=== PATIENT | female | born 1950 | race Caucasian/White ===

== ENCOUNTER 2016-06-28 13:11 | Outpatient (RCR) | payer MEDICARE ==
[~2016-06-28] VITALS: Ht 170.2 cm; Wt 102.5 kg
[~2016-06-28 13:11] MED LIST: ALBU8.5H2 IN; ALLP300T PO; BUTA-167; DIAZ2TAB2 PO; DULO60CA6; DULO60CA6 PO; ESTR1TAB27 PO; ESTR2TAB PO; ESTROGEN; FAMO20TA5 PO; HALOPERIDOL; HCT25T PO; HCTZ; HDR4T PO; HYDR1TAB86 PO; HYDROCODONE; MNTL10T; MNTL10T PO; OMEP10CA2; OXYC10TA63 PO; OXYC40TA49 PO; OXYC60TA9 PO; PHEN100T26 PO; PHEN200T27 PO; PRM25T; PRM25T PO; PROM25SU10 PR; RAMI10TA PO; SINGULAIR; SULF1TAB38 PO; THIA50TA7; TRAZ150T42; TRAZODONE; TRM50T PO; TRZ50T PO; VITAMIN D3; VITAMIN E
--- OUTSIDE RECORDS SUMMARY | 2016-06-28 13:15 | XMS REPORT | Continuity of Care Document ---
Author Author [facility] Organization [facility] Address Unknown Phone Unavailable Care Team Providers Care Furnace Utility Operator Name Role Phone Zack Barraza PCP [phone] Source Comments Some departments are not documenting in the electronic medical record. If you do not see the information that you expected, contact Release of Information in the Health Information Management department at [phone] for further assistance in locating additional records.[facility] Active Allergies and Adverse Reactions Allergen Noted Date Severity Reactions Comments Adhesive Tape 07/11/2007 TEARS SKIN Tetanus Vaccines And 05/22/2005 Medium Allergy recorded in SMS: Toxoid Tetanus~Reactions: ANAPHYLAXIS Current Medications Prescription Sig. Disp. Refills Start End Date Status Date estradiol (ESTRACE) 2 mg Take 2 mg by mouth Daily. 07/11/19 Active tablet 08 allopurinol (ZYLOPRIM) Take 300 mg by mouth 07/11/19 Active 300 mg tablet Every Morning. 08 ramipril (ALTACE) 10 mg Take 10 mg by mouth Every 07/11/19 Active capsule Morning. 08 hydrochlorothiazide Take 25 mg by mouth Every 07/11/19 Active (HYDRODIURIL) 25 mg Morning. 08 tablet meloxicam (MOBIC) 15 mg Take 15 mg by mouth Every 07/11/19 Active tablet Morning. 08 montelukast (SINGULAIR) Take 10 mg by mouth At 07/11/19 Active 10 mg tablet Bedtime Daily. 08 vitamins, B complex Take 1 Tab by mouth 07/11/19 Active (VITAMIN B-100 COMPLEX) Daily. 08 Tab trazodone (DESYREL) 150 Take 150 mg by mouth At 07/11/19 Active mg tablet Bedtime Daily. 08 pregabalin (LYRICA) 75 mg Take 75 mg by mouth At 07/11/19 Active capsule Bedtime Daily. 08 butalbital/aspirin/caffei Take 1 Cap by mouth As 07/11/19 Active ne(+) (FIORINAL) Needed for Pain. HEADACHE 08 325/40/50 mg capsule promethazine (PHENERGAN) Take 25 mg by mouth At 07/11/19 Active 25 mg tablet Bedtime Daily. 08 ferrous sulfate 325 (65) Take 1 Tab by mouth 60 0 07/18/19 Active mg tablet Daily. 08 fondaparinux (ARIXTRA) Inject 0.5 mL into 10 0 07/18/19 Active 2.5 mg/0.5 mL Syrg area(s) as directed 08 Daily. docusate (COLACE) 100 mg Take 1 Cap by mouth Twice 60 1 07/18/19 Active capsule Daily. 08 oxycodone SR (OXYCONTIN) Take 1 Tab by mouth Every 90 0 07/18/19 Active 40 mg tablet 8 Hours. 08 hydromorphone (DILAUDID) Take 1-3 Tabs by mouth 150 0 07/18/19 Active 4 mg tablet Every 2 Hours as needed 08 for Pain. Active Problems Problem Noted Date Hip arthritis 07/18/2007 Cough 07/17/2007 Social History Tobacco Use Types Packs/Day Years Used Date Never Smoker Alcohol Use Drinks/Week oz/Week Comments No Last Filed Vital Signs Vital Sign Reading Time Taken Blood Pressure 143/76 07/18/2007 5:40 AM SYSTEM PLANNING ENGINEER Pulse 86 07/18/2007 5:40 AM SYSTEM PLANNING ENGINEER Temperature 38.3 C (100.9 F) 07/18/2007 5:40 AM SYSTEM PLANNING ENGINEER Respiratory Rate - - Height - - Weight - - Body Mass Index - - Oxygen Saturation 99% 07/18/2007 5:40 AM SYSTEM PLANNING ENGINEER Plan of Care Health Maintenance Due Date Last Done Comments Physical (Comprehensive) 1957 Exam Pertussis Vaccine 1959 Tetanus Vaccine 1965 Breast Cancer Screening 1988 Colorectal Cancer 1998 Screening Shingles Vaccine 2008 Osteoporosis Screening 2013 Prevnar/Pneumovax (#1) 2013 Influenza Vaccine 02/23/2016 Results from Last 3 Months Not on file
[2016-06-28] MEDS ORDERED: HEParin (CENTRAL IV FLUSH) 500 UNIT/5 ML SYR ONE (13:20)
[2016-06-28 13:40] VITALS: BP 135/70
== END 2016-09-26 | disposition home or self-care (01) ==
LOC: SDC 13:11
DX: I87.2 Venous insufficiency (chronic) (peripheral) (principal)
CPT/HCPCS: 96523

== ENCOUNTER 2016-10-25 13:27 | Outpatient (RCR) | payer MEDICARE ==
[2016-08-10] MEDS: CATHETER FLUSH 10 ML SYR IV PRN (14:25)
--- OUTSIDE RECORDS SUMMARY | 2016-08-10 14:32 | XMS REPORT | Continuity of Care Document ---
Author Author [facility] Organization [facility] Address Unknown Phone Unavailable Care Team Providers Care Dish Machine Operator Name Role Phone Zack Barraza PCP [phone] Source Comments Some departments are not documenting in the electronic medical record. If you do not see the information that you expected, contact Release of Information in the Health Information Management department at [phone] for further assistance in locating additional records.[facility] Active Allergies and Adverse Reactions Allergen Noted [...] Taken Blood Pressure 143/76 07/18/2007 5:40 AM TOOL CHECKER Pulse 86 07/18/2007 5:40 AM TOOL CHECKER Temperature 38.3 C (100.9 F) 07/18/2007 5:40 AM TOOL CHECKER Respiratory Rate - - Height - - Weight - - Body Mass Index - - Oxygen Saturation 99% 07/18/2007 5:40 AM TOOL CHECKER Plan of Care Health Maintenance Due Date Last Done Comments Physical (Comprehensive) 1955 Exam Pertussis Vaccine 1959 Tetanus Vaccine 1965 Breast Cancer Screening 1988 Colorectal Cancer 1998 Screening Shingles Vaccine 2008 Osteoporosis Screening 2013 Prevnar/Pneumovax (#1) 2013 Influenza Vaccine 02/23/2016 Results from Last 3 Months Not on file
[2016-08-10 14:46] VITALS: BP 136/77
[2016-09-19] MEDS: CATHETER FLUSH 10 ML SYR IV PRN (14:16)
[2016-09-19 14:20] VITALS: BP 139/79
[~2016-10-25] VITALS: Ht 170.2 cm; Wt 102.5 kg
[~2016-10-25 13:27] MED LIST changes: +HEParin (CENTRAL IV FLUSH) 500 UNIT/5 ML SYR IV ONE; +HEParin (CENTRAL IV FLUSH) 500 UNIT/5 ML SYR ONE
[2016-10-25 13:35] VITALS: BP 112/58
[2016-10-25] MEDS: CATHETER FLUSH 10 ML SYR IV PRN (13:35)
[2016-10-25] MEDS ORDERED: HEParin (CENTRAL IV FLUSH) 500 UNIT/5 ML SYR IV ONE (14:00)
== END 2016-11-08 | disposition home or self-care (01) ==
LOC: SDC 13:27
DX: I87.2 Venous insufficiency (chronic) (peripheral) (principal); Z45.2 Encounter for adjustment and management of vascular access device
CPT/HCPCS: 96523

== ENCOUNTER 2017-02-22 14:10 | Outpatient (RCR) | payer MEDICARE ==
[2016-12-04] MEDS: CATHETER FLUSH 10 ML SYR IV PRN (14:45)
[2016-12-04 14:56] VITALS: BP 132/80
[2016-12-04 14:58] LABS: MEAN PLATELET VOLUME 10.7 FL (7.4-10.4); RED BLOOD COUNT 4.55 10^6/uL (4.35-5.85); RED CELL DISTRIBUTION WIDTH 16.9 % (10.0-14.5); WHITE BLOOD COUNT 8.5 10^3/uL (4.3-11.0)
[2016-12-04 15:23] LABS: ALANINE AMINOTRANSFERASE 8 U/L (0-55); ALBUMIN 3.5 GM/DL (3.2-4.5); ANION GAP 7 MMOL/L (5-14); ASPARTATE AMINO TRANSFERASE 9 U/L (5-34); BILIRUBIN,TOTAL 0.3 MG/DL (0.1-1.0); BLOOD UREA NITROGEN 14 MG/DL (7-18); BUN/CREATININE RATIO 22 (0-20); CARBON DIOXIDE 31 MMOL/L (21-32); CHLORIDE 101 MMOL/L (98-107); CREATININE SERUM 0.63 MG/DL (0.60-1.30); GFR ESTIMATED > 60; GLUCOSE 113 MG/DL (70-105); POTASSIUM 3.4 MMOL/L (3.6-5.0); SODIUM 139 MMOL/L (135-145); TOTAL PROTEIN 7.6 GM/DL (6.4-8.2)
[2016-12-04 15:38] LABS: THYROID STIMULATING HORMONE 1.38 UIU/ML (0.35-4.94)
[2016-12-06 11:13] LABS: CHOLESTEROL 138 MG/DL (< 200); DIRECT LDL 61 MG/DL (1-129); LIPEMIA 14 (0-49); TRIGLYCERIDES 99 MG/DL (<150); VLDL CHOLESTEROL 20 MG/DL (5-40)
[2017-01-10] MEDS: CATHETER FLUSH 10 ML SYR IV PRN (13:54)
[2017-01-10 13:55] VITALS: BP 135/81
[~2017-02-22] VITALS: Ht 170.2 cm; Wt 102.5 kg
[2017-02-22] MEDS ORDERED: HEParin (CENTRAL IV FLUSH) 500 UNIT/5 ML SYR ONE (14:17)
[2017-02-22] MEDS: CATHETER FLUSH 10 ML SYR IV PRN (14:20)
[2017-02-22 14:46] VITALS: BP 124/60
== END 2017-03-04 | disposition home or self-care (01) ==
LOC: SDC 14:10
DX: I87.2 Venous insufficiency (chronic) (peripheral) (principal); Z45.2 Encounter for adjustment and management of vascular access device
CPT/HCPCS: 36415; 36591; 80053; 80061; 83036; 84443; 85027; 96523

== ENCOUNTER 2017-05-24 14:20 | Outpatient (RCR) | payer MEDICARE ==
[2017-04-05 14:00] VITALS: BP 127/62
[~2017-05-24] VITALS: Ht 170.2 cm; Wt 102.5 kg
[~2017-05-24 14:20] MED LIST changes: -HEParin (CENTRAL IV FLUSH) 500 UNIT/5 ML SYR IV ONE
[2017-05-24] MEDS ORDERED: HEParin (CENTRAL IV FLUSH) 500 UNIT/5 ML SYR ONE (14:24)
[2017-05-24 14:41] VITALS: BP 134/69
== END 2017-07-04 | disposition home or self-care (01) ==
LOC: SDC 14:20
DX: I87.2 Venous insufficiency (chronic) (peripheral) (principal); Z45.2 Encounter for adjustment and management of vascular access device
CPT/HCPCS: 96523

== ENCOUNTER 2017-08-08 14:17 | Outpatient (RCR) | payer MEDICARE ==
[~2017-08-08] VITALS: Ht 170.2 cm; Wt 102.5 kg
[~2017-08-08 14:17] MED LIST changes: -HEParin (CENTRAL IV FLUSH) 500 UNIT/5 ML SYR ONE
[2017-08-08] MEDS ORDERED: HEParin (CENTRAL IV FLUSH) 500 UNIT/5 ML SYR ONE (14:38)
[2017-08-08 14:45] VITALS: BP 110/66
== END 2017-11-06 | disposition home or self-care (01) ==
LOC: SDC 14:17
DX: I87.2 Venous insufficiency (chronic) (peripheral) (principal); Z45.2 Encounter for adjustment and management of vascular access device

== ENCOUNTER → 2017-08-15 | Outpatient (CLI) | payer MEDICARE ==
[~2017-08-15] MED LIST changes: +HEParin (CENTRAL IV FLUSH) 500 UNIT/5 ML SYR ONE
[2017-08-15 14:58] LABS: RED BLOOD COUNT 4.21 10^6/uL (4.35-5.85); RED CELL DISTRIBUTION WIDTH 17.5 % (10.0-14.5); WHITE BLOOD COUNT 8.3 10^3/uL (4.3-11.0)
[2017-08-15 15:14] LABS: ALANINE AMINOTRANSFERASE 9 U/L (0-55); ALBUMIN 3.1 GM/DL (3.2-4.5); ALKALINE PHOSPHATASE 202 U/L (40-136); BILIRUBIN,TOTAL 0.3 MG/DL (0.1-1.0); BUN/CREATININE RATIO 24; CALCIUM 8.7 MG/DL (8.5-10.1); CARBON DIOXIDE 34 MMOL/L (21-32); CHLORIDE 97 MMOL/L (98-107); CHOLESTEROL 140 MG/DL (< 200); CREATININE SERUM 0.62 MG/DL (0.60-1.30); GFR ESTIMATED > 60; GLUCOSE 127 MG/DL (70-105); HDL CHOLESTEROL 49 MG/DL (40-60); POTASSIUM 3.4 MMOL/L (3.6-5.0); SODIUM 138 MMOL/L (135-145); TOTAL PROTEIN 7.7 GM/DL (6.4-8.2); TRIGLYCERIDES 97 MG/DL (<150); VLDL CHOLESTEROL 19 MG/DL (5-40)
== END ==
LOC: SDC 14:07
DX: I10 Essential (primary) hypertension (principal); I48.91 Unspecified atrial fibrillation; E78.5 Hyperlipidemia, unspecified; R73.9 Hyperglycemia, unspecified
CPT/HCPCS: 36415; 36591; 80053; 80061; 83036; 84443; 85027

== ENCOUNTER 2018-02-13 13:14 | Outpatient (RCR) | payer MEDICARE ==
[~2018-02-13] VITALS: Ht 170.2 cm; Wt 102.5 kg
[~2018-02-13 13:14] MED LIST changes: -HEParin (CENTRAL IV FLUSH) 500 UNIT/5 ML SYR ONE
[2018-02-13] MEDS ORDERED: HEParin (CENTRAL IV FLUSH) 500 UNIT/5 ML SYR ONE (13:22)
[2018-02-13 13:56] LABS: MEAN PLATELET VOLUME 9.7 FL (7.4-10.4); RED BLOOD COUNT 4.23 10^6/uL (4.35-5.85); RED CELL DISTRIBUTION WIDTH 17.2 % (10.0-14.5); WHITE BLOOD COUNT 8.6 10^3/uL (4.3-11.0)
[2018-02-13 15:30] LABS: ALANINE AMINOTRANSFERASE 12 U/L (0-55); ALBUMIN 3.5 GM/DL (3.2-4.5); ALKALINE PHOSPHATASE 210 U/L (40-136); BILIRUBIN,TOTAL 0.3 MG/DL (0.1-1.0); BUN/CREATININE RATIO 20; CALCIUM 9.1 MG/DL (8.5-10.1); CARBON DIOXIDE 33 MMOL/L (21-32); CHLORIDE 94 MMOL/L (98-107); CHOLESTEROL 160 MG/DL (< 200); CREATININE SERUM 0.61 MG/DL (0.60-1.30); GFR ESTIMATED > 60; GLUCOSE 104 MG/DL (70-105); HDL CHOLESTEROL 66 MG/DL (40-60); POTASSIUM 3.6 MMOL/L (3.6-5.0); SODIUM 136 MMOL/L (135-145); TOTAL PROTEIN 7.5 GM/DL (6.4-8.2); TRIGLYCERIDES 67 MG/DL (<150); VLDL CHOLESTEROL 13 MG/DL (5-40)
[2018-02-13 17:38] VITALS: BP 115/71
== END 2018-02-21 | disposition home or self-care (01) ==
LOC: SDC 13:14
DX: I87.2 Venous insufficiency (chronic) (peripheral) (principal); Z45.2 Encounter for adjustment and management of vascular access device
CPT/HCPCS: 36415; 36591; 80053; 80061; 83036; 84443; 85027

== ENCOUNTER 2018-07-09 11:40 | Outpatient (RCR) | payer MEDICARE ==
[2018-04-11 14:40] VITALS: BP 136/64
[~2018-07-09] VITALS: Ht 170.2 cm; Wt 102.5 kg
[~2018-07-09 11:40] MED LIST changes: +HEParin (CENTRAL IV FLUSH) 500 UNIT/5 ML SYR ONE
[2018-07-09] MEDS ORDERED: HEParin (CENTRAL IV FLUSH) 500 UNIT/5 ML SYR ONE (11:53)
== END 2018-07-10 | disposition home or self-care (01) ==
LOC: SDC 11:40
DX: I87.2 Venous insufficiency (chronic) (peripheral) (principal); Z45.2 Encounter for adjustment and management of vascular access device
CPT/HCPCS: 96523

== ENCOUNTER → 2018-07-09 | Outpatient (CLI) | payer MEDICARE ==
[~2018-07-09] VITALS: Ht 170.2 cm; Wt 102.5 kg
[~2018-07-09] MED LIST changes: +HEParin (CENTRAL IV FLUSH) 500 UNIT/5 ML SYR IV ONE
[2018-07-09 11:47] VITALS: BP 120/86
[2018-07-09 12:21] LABS: HEMOGLOBIN 10.8 G/DL (11.5-16.0); RED BLOOD COUNT 4.47 10^6/uL (4.35-5.85); RED CELL DISTRIBUTION WIDTH 16.2 % (10.0-14.5); WHITE BLOOD COUNT 7.6 10^3/uL (4.3-11.0)
[2018-07-09 12:42] LABS: ALANINE AMINOTRANSFERASE 14 U/L (0-55); ALBUMIN 3.5 GM/DL (3.2-4.5); ALKALINE PHOSPHATASE 202 U/L (40-136); BILIRUBIN,TOTAL 0.5 MG/DL (0.1-1.0); BUN/CREATININE RATIO 22; CALCIUM 9.6 MG/DL (8.5-10.1); CARBON DIOXIDE 33 MMOL/L (21-32); CHLORIDE 93 MMOL/L (98-107); CHOLESTEROL 160 MG/DL (< 200); CREATININE SERUM 0.63 MG/DL (0.60-1.30); GFR ESTIMATED > 60; GLUCOSE 120 MG/DL (70-105); HDL CHOLESTEROL 56 MG/DL (40-60); POTASSIUM 3.5 MMOL/L (3.6-5.0); SODIUM 136 MMOL/L (135-145); TOTAL PROTEIN 7.6 GM/DL (6.4-8.2); TRIGLYCERIDES 65 MG/DL (<150); VLDL CHOLESTEROL 13 MG/DL (5-40)
== END ==
LOC: LAB 11:28
DX: E78.2 Mixed hyperlipidemia (principal); E11.9 Type 2 diabetes mellitus without complications; R53.83 Other fatigue
CPT/HCPCS: 36415; 36591; 80053; 80061; 83036; 84443; 85027

== ENCOUNTER 2018-08-28 13:39 | Outpatient (RCR) | payer MEDICARE ==
[~2018-08-28] VITALS: Ht 170.2 cm; Wt 102.5 kg
[~2018-08-28 13:39] MED LIST changes: -HEParin (CENTRAL IV FLUSH) 500 UNIT/5 ML SYR IV ONE; -HEParin (CENTRAL IV FLUSH) 500 UNIT/5 ML SYR ONE
[2018-08-28] MEDS ORDERED: HEParin (CENTRAL IV FLUSH) 500 UNIT/5 ML SYR ONE (13:59)
[2018-08-28 14:15] VITALS: BP 120/86
[2018-08-28] MEDS ORDERED: HEParin (CENTRAL IV FLUSH) 500 UNIT/5 ML SYR IV ONE (14:45)
== END 2018-11-26 | disposition home or self-care (01) ==
LOC: SDC 13:39
DX: I87.2 Venous insufficiency (chronic) (peripheral) (principal); Z45.2 Encounter for adjustment and management of vascular access device
CPT/HCPCS: 96523

== ENCOUNTER 2018-09-18 06:00 | Outpatient (RCR) | payer MEDICARE | END 2018-09-21 | disposition home or self-care (01) | LOC: CR3 06:00 | PROVIDERS: ATTEND Nurse Practitioner Family | DX: Z29.8 Encounter for other specified prophylactic measures (principal) ==

== ENCOUNTER 2018-10-16 06:00 | Outpatient (RCR) | payer MEDICARE | END 2018-10-26 | disposition home or self-care (01) | LOC: CR3 06:00 | PROVIDERS: ATTEND Nurse Practitioner Family | DX: Z29.8 Encounter for other specified prophylactic measures (principal) ==

== ENCOUNTER 2018-10-31 11:23 | Outpatient (RCR) | payer MEDICARE | END 2018-11-28 | disposition home or self-care (01) | LOC: CR3 11:23 | PROVIDERS: ATTEND Nurse Practitioner Family | DX: Z29.8 Encounter for other specified prophylactic measures (principal) ==

== ENCOUNTER 2018-12-03 17:34 | Outpatient (RCR) | payer MEDICARE | END 2018-12-31 | disposition home or self-care (01) | LOC: CR3 17:34 | PROVIDERS: ATTEND Nurse Practitioner Family | DX: Z29.8 Encounter for other specified prophylactic measures (principal) ==

== ENCOUNTER 2019-05-13 14:06 | Outpatient (RCR) | payer MEDICARE ==
[~2019-05-13] VITALS: Ht 170.2 cm; Wt 102.5 kg
[2019-05-13] MEDS ORDERED: HEParin (CENTRAL IV FLUSH) 500 UNIT/5 ML SYR ONE (14:11)
[2019-05-13 14:28] VITALS: BP 117/61
[2019-05-13 14:45] LABS: HEMOGLOBIN 9.2 G/DL (11.5-16.0); MEAN PLATELET VOLUME 10.4 FL (7.4-10.4); RED CELL DISTRIBUTION WIDTH 17.7 % (10.0-14.5); WHITE BLOOD COUNT 8.9 10^3/uL (4.3-11.0)
[2019-05-13 15:04] LABS: ALANINE AMINOTRANSFERASE 8 U/L (0-55); ALBUMIN 3.5 GM/DL (3.2-4.5); ALKALINE PHOSPHATASE 183 U/L (40-136); BILIRUBIN,TOTAL 0.4 MG/DL (0.1-1.0); BUN/CREATININE RATIO 25; CALCIUM 9.3 MG/DL (8.5-10.1); CARBON DIOXIDE 36 MMOL/L (21-32); CHLORIDE 96 MMOL/L (98-107); CHOLESTEROL 132 MG/DL (< 200); CREATININE SERUM 0.59 MG/DL (0.60-1.30); GFR ESTIMATED > 60; GLUCOSE 112 MG/DL (70-105); HDL CHOLESTEROL 51 MG/DL (40-60); POTASSIUM 3.6 MMOL/L (3.6-5.0); SODIUM 138 MMOL/L (135-145); TOTAL PROTEIN 7.9 GM/DL (6.4-8.2); TRIGLYCERIDES 41 MG/DL (<150); VLDL CHOLESTEROL 8 MG/DL (5-40)
[2019-05-13] MEDS ORDERED: HEParin (CENTRAL IV FLUSH) 500 UNIT/5 ML SYR IV ONE (15:15)
== END 2019-08-11 | disposition home or self-care (01) ==
LOC: SDC 14:06
DX: E11.9 Type 2 diabetes mellitus without complications (principal); E78.5 Hyperlipidemia, unspecified; R53.81 Other malaise
CPT/HCPCS: 36415; 36591; 80053; 80061; 83036; 84443; 85027

== ENCOUNTER 2019-05-13 15:00 | Outpatient (RCR) | payer MEDICARE | END 2019-06-12 | disposition home or self-care (01) | LOC: CR3 15:00 | PROVIDERS: ATTEND Nurse Practitioner Family | DX: Z29.8 Encounter for other specified prophylactic measures (principal) ==

== ENCOUNTER → 2020-04-21 | Outpatient (CLI) | payer MEDICARE ==
[~2020-04-21] VITALS: Ht 170 cm; Wt 110.0 kg
[2020-04-21 09:50] VITALS: BP 113/50
[2020-04-21 10:01] LABS: BASOPHILS % (AUTO) 0 % (0-10); EOSINOPHILS # (AUTO) 0.3 10^3/uL (0.0-0.3); EOSINOPHILS % (AUTO) 5 % (0-10); HEMATOCRIT 30 % (35-52); LYMPHOCYTES # (AUTO) 1.5 10^3/uL (1.0-4.0); LYMPHOCYTES % (AUTO) 22 % (12-44); MEAN CORPUSCULAR HEMOGLOBIN 27 pg (25-34); MEAN CORPUSCULAR HGB CONC 30 g/dL (32-36); MEAN CORPUSCULAR VOLUME 91 fL (80-99); MEAN PLATELET VOLUME 10.7 fL (9.0-12.2); MONOCYTES # (AUTO) 0.8 10^3/uL (0.0-1.0); MONOCYTES % (AUTO) 11 % (0-12); NEUTROPHILS # (AUTO) 4.4 10^3/uL (1.8-7.8); NEUTROPHILS % (AUTO) 62 % (42-75); PLATELET COUNT 228 10^3/uL (130-400)
[2020-04-21 10:20] LABS: ALBUMIN 3.4 GM/DL (3.2-4.5); BILIRUBIN,TOTAL 0.4 MG/DL (0.1-1.0); CALCIUM 9.3 MG/DL (8.5-10.1); CREATININE SERUM 0.98 MG/DL (0.60-1.30); POTASSIUM 4.3 MMOL/L (3.6-5.0); TOTAL PROTEIN 8.2 GM/DL (6.4-8.2)
[2020-04-21 10:37] LABS: AMPHETAMINE SCREEN, URINE NEGATIVE (NEGATIVE); BARBITURATE SCREEN URINE POSITIVE (NEGATIVE); BENZODIAZEPINES SCREEN URINE NEGATIVE (NEGATIVE); CANNABINOID SCREEN, URINE NEGATIVE (NEGATIVE); COCAINE SCREEN URINE NEGATIVE (NEGATIVE); METHADONE STAT NEGATIVE (NEGATIVE); METHAMPHETAMINE SCREEN URINE S NEGATIVE (NEGATIVE); OPIATE SCREEN URINE NEGATIVE (NEGATIVE); OXYCODONE STAT NEGATIVE (NEGATIVE); PROPOXYPHENE STAT NEGATIVE (NEGATIVE); TRICYCLIC ANTIDEPRESSANTS SCRE NEGATIVE (NEGATIVE)
== END ==
LOC: SDC 09:25
DX: E78.2 Mixed hyperlipidemia (principal); R53.83 Other fatigue
CPT/HCPCS: 36415; 36591; 80053; 80306; 85025

== ENCOUNTER 2020-05-23 09:03 | Outpatient (CLI) | payer MEDICARE ==
[~2020-05-23 09:03] MED LIST changes: -HEParin (CENTRAL IV FLUSH) 500 UNIT/5 ML SYR IV ONE; -HEParin (CENTRAL IV FLUSH) 500 UNIT/5 ML SYR ONE
[2020-05-24 09:18] LABS: DRVV C RATIO 1.23 ratio (0.00-1.20)
== END 2020-05-23 09:50 | disposition home or self-care (01) ==
LOC: SDC 09:03
PROVIDERS: ATTEND Internal Medicine Critical Care Medicine
DX: I27.20 Pulmonary hypertension, unspecified (principal); E03.8 Other specified hypothyroidism
CPT/HCPCS: 36415; 83880; 84443; 85610; 85613; 85670; 85705; 85730; 86146; 86147; 86200; 86235

== ENCOUNTER → 2020-05-23 | Outpatient (RCR) | payer MEDICARE ==
[2020-02-23 16:10] VITALS: BP 121/60
[2020-02-23 16:24] LABS: BASOPHILS % (AUTO) 0 % (0-10); EOSINOPHILS # (AUTO) 0.3 10^3/uL (0.0-0.3); EOSINOPHILS % (AUTO) 4 % (0-10); HEMATOCRIT 30 % (35-52); HEMOGLOBIN 9.1 G/DL (11.5-16.0); LYMPHOCYTES # (AUTO) 1.4 X 10^3 (1.0-4.0); LYMPHOCYTES % (AUTO) 19 % (12-44); MEAN CORPUSCULAR HEMOGLOBIN 28 PG (25-34); MEAN CORPUSCULAR HGB CONC 31 G/DL (32-36); MEAN CORPUSCULAR VOLUME 90 FL (80-99); MONOCYTES % (AUTO) 13 % (0-12); NEUTROPHILS # (AUTO) 4.7 X 10^3 (1.8-7.8); NEUTROPHILS % (AUTO) 63 % (42-75); PLATELET COUNT 227 10^3/uL (130-400); WHITE BLOOD COUNT 7.4 10^3/uL (4.3-11.0)
[2020-02-23 16:40] LABS: ALBUMIN 3.5 GM/DL (3.2-4.5); CHLORIDE 97 MMOL/L (98-107); POTASSIUM 4.2 MMOL/L (3.6-5.0); SODIUM 133 MMOL/L (135-145)
[2020-02-23 16:41] LABS: CALCIUM 9.4 MG/DL (8.5-10.1)
[2020-02-23 16:42] LABS: TRIGLYCERIDES 51 MG/DL (<150); VLDL CHOLESTEROL 10 MG/DL (5-40)
[2020-02-23 16:43] LABS: GLUCOSE 120 MG/DL (70-105)
[2020-02-23 16:44] LABS: BILIRUBIN,TOTAL 0.6 MG/DL (0.1-1.0); CARBON DIOXIDE 28 MMOL/L (21-32)
[2020-02-23 16:46] LABS: ALKALINE PHOSPHATASE 151 U/L (40-136); CREATININE SERUM 0.82 MG/DL (0.60-1.30); GFR ESTIMATED > 60
[2020-02-23 16:47] LABS: CHOLESTEROL 140 MG/DL (< 200)
[2020-02-23 16:48] LABS: BUN/CREATININE RATIO 24
[2020-02-23 16:49] LABS: ALANINE AMINOTRANSFERASE 7 U/L (0-55); HDL CHOLESTEROL 39 MG/DL (40-60)
[2020-03-22 09:25] VITALS: BP 108/48
[2020-03-22 10:01] LABS: MEAN PLATELET VOLUME 10.2 fL (9.0-12.2); WHITE BLOOD COUNT 7.3 10^3/uL (4.3-11.0)
[2020-03-22 10:17] LABS: ALBUMIN 3.2 GM/DL (3.2-4.5); BILIRUBIN,TOTAL 0.4 MG/DL (0.1-1.0); CALCIUM 8.7 MG/DL (8.5-10.1); CREATININE SERUM 1.09 MG/DL (0.60-1.30); POTASSIUM 3.7 MMOL/L (3.6-5.0); TOTAL PROTEIN 7.5 GM/DL (6.4-8.2)
[~2020-05-23] VITALS: Ht 170.2 cm; Wt 102500.0 kg
[~2020-05-23] MED LIST changes: +HEParin (CENTRAL IV FLUSH) 500 UNIT/5 ML SYR IV ONE; +HEParin (CENTRAL IV FLUSH) 500 UNIT/5 ML SYR ONE
[2020-05-23 09:50] VITALS: BP 100/52
--- NOTE | 2020-05-23 13:59 | NUR ---
PATIENT ARRIVED BACK [place] [facility] [place] [facility] TO BE REDRAWN FROM THE PORT DUE TO REPORTEDLY INSUFFICIENT AMOUNT OF BLOOD IN SOME OF THE PREVIOUS SAMPLES TAKEN. DA FROM LAB HERE TO ASSIST THIS RN. PORT REACCESSED STERILE TECHNIQUE AND REMOVED AFTER NEW BLOOD SAMPLES TAKEN. PRIOR TO DC, PORT WAS FLUSHED WITH 30CC NS AND 5CC OF HEPARIN. PATIENT TO RETURN 06/21/20 FOR ROUTINE PORT FLUSH.
== END | disposition home or self-care (01) ==
LOC: SDC 02-23 15:39 → EDSTATUS 02-23 15:43 → SDC 02-23 15:43
DX: E11.9 Type 2 diabetes mellitus without complications (principal); E78.2 Mixed hyperlipidemia; R53.83 Other fatigue
CPT/HCPCS: 36415; 36591; 80053; 80061; 83036; 84443; 85025; 85027

== ENCOUNTER 2020-08-17 13:28 | Outpatient (CLI) | payer MEDICARE ==
[~2020-08-17] VITALS: Ht 152 cm; Wt 102500.0 kg
[2020-08-17] MEDS ORDERED: HEParin (CENTRAL IV FLUSH) 500 UNIT/5 ML SYR ONE (14:13)
[2020-08-17] MEDS ORDERED: HEParin 1000 UNIT/ML (10ML VIAL) FOR BOLUS IV SCH (14:30)
[2020-08-17 14:45] VITALS: BP 92/43
[2020-08-17 14:47] LABS: BASOPHILS % (AUTO) 0 % (0-10); EOSINOPHILS # (AUTO) 0.2 10^3/uL (0.0-0.3); EOSINOPHILS % (AUTO) 3 % (0-10); HEMATOCRIT 26 % (35-52); HEMOGLOBIN 7.6 g/dL (11.5-16.0); LYMPHOCYTES % (AUTO) 15 % (12-44); MEAN CORPUSCULAR HEMOGLOBIN 27 pg (25-34); MEAN CORPUSCULAR HGB CONC 30 g/dL (32-36); MEAN CORPUSCULAR VOLUME 90 fL (80-99); MONOCYTES # (AUTO) 0.7 10^3/uL (0.0-1.0); MONOCYTES % (AUTO) 10 % (0-12); NEUTROPHILS # (AUTO) 4.7 10^3/uL (1.8-7.8); NEUTROPHILS % (AUTO) 71 % (42-75); PLATELET COUNT 158 10^3/uL (130-400); WHITE BLOOD COUNT 6.7 10^3/uL (4.3-11.0)
[2020-08-17 14:59] LABS: ALBUMIN 3.2 GM/DL (3.2-4.5); CHLORIDE 98 MMOL/L (98-107); POTASSIUM 4.2 MMOL/L (3.6-5.0); SODIUM 136 MMOL/L (135-145)
[2020-08-17 15:00] LABS: CALCIUM 8.6 MG/DL (8.5-10.1)
[2020-08-17 15:01] LABS: TOTAL PROTEIN 7.7 GM/DL (6.4-8.2); TRIGLYCERIDES 44 MG/DL (<150); VLDL CHOLESTEROL 9 MG/DL (5-40)
[2020-08-17 15:02] LABS: GLUCOSE 117 MG/DL (70-105)
[2020-08-17 15:03] LABS: BILIRUBIN,TOTAL 0.4 MG/DL (0.1-1.0); CARBON DIOXIDE 31 MMOL/L (21-32)
[2020-08-17 15:05] LABS: ALKALINE PHOSPHATASE 139 U/L (40-136); GFR ESTIMATED > 60
[2020-08-17 15:06] LABS: BUN/CREATININE RATIO 21; CHOLESTEROL 108 MG/DL (< 200)
[2020-08-17 15:07] LABS: HDL CHOLESTEROL 30 MG/DL (40-60)
[2020-08-17 15:08] LABS: ALANINE AMINOTRANSFERASE 9 U/L (0-55)
== END 2020-08-17 14:40 ==
LOC: SDC 13:28
DX: E11.9 Type 2 diabetes mellitus without complications (principal); E78.2 Mixed hyperlipidemia
CPT/HCPCS: 36415; 36591; 80053; 80061; 83036; 83880; 85025

== ENCOUNTER → 2020-11-11 | Outpatient (RCR) | payer MEDICARE | END | disposition home or self-care (01) | LOC: CR3 10-12 11:24 | PROVIDERS: ATTEND Nurse Practitioner Family | DX: Z29.8 Encounter for other specified prophylactic measures (principal) ==

== ENCOUNTER → 2020-12-16 | Outpatient (RCR) | payer MEDICARE | END | disposition home or self-care (01) | LOC: CR3 11-16 16:38 | PROVIDERS: ATTEND Nurse Practitioner Family | DX: Z29.8 Encounter for other specified prophylactic measures (principal) ==

== ENCOUNTER → 2021-01-18 | Outpatient (RCR) | payer MEDICARE | END | disposition home or self-care (01) | LOC: CR3 12-19 17:50 | PROVIDERS: ATTEND Nurse Practitioner Family | DX: Z29.8 Encounter for other specified prophylactic measures (principal) ==

== ENCOUNTER → 2021-03-01 | Outpatient (RCR) | payer MEDICARE ==
[~2021-03-01] MED LIST changes: +HEParin (CENTRAL IV FLUSH) 500 UNIT/5 ML SYR ONE
== END | disposition home or self-care (01) ==
LOC: CR3 01-30 15:30
PROVIDERS: ATTEND Nurse Practitioner Family
DX: Z29.8 Encounter for other specified prophylactic measures (principal)

== ENCOUNTER 2021-03-13 13:26 | Outpatient (RCR) | payer MEDICARE ==
[2020-12-16 14:07] VITALS: BP 102/45
[2021-01-16 13:50] VITALS: BP 90/50
[2021-01-16 15:30] LABS: HEMATOCRIT 26 % (35-52); HEMOGLOBIN 7.8 g/dL (11.5-16.0); MEAN CORPUSCULAR HEMOGLOBIN 28 pg (25-34); MEAN CORPUSCULAR HGB CONC 30 g/dL (32-36); MEAN CORPUSCULAR VOLUME 93 fL (80-99); MEAN PLATELET VOLUME 9.7 fL (9.0-12.2); PLATELET COUNT 204 10^3/uL (130-400); WHITE BLOOD COUNT 7.2 10^3/uL (4.3-11.0)
[2021-01-16 15:46] LABS: POTASSIUM 4.3 MMOL/L (3.6-5.0)
[2021-01-16 15:47] LABS: ALBUMIN 3.2 GM/DL (3.2-4.5)
[2021-01-16 15:48] LABS: CALCIUM 8.6 MG/DL (8.5-10.1)
[2021-01-16 15:49] LABS: TOTAL PROTEIN 7.1 GM/DL (6.4-8.2)
[2021-01-16 15:51] LABS: BILIRUBIN,TOTAL 0.3 MG/DL (0.1-1.0)
[2021-01-16 15:53] LABS: CREATININE SERUM 0.88 MG/DL (0.60-1.30)
[2021-02-13 13:40] VITALS: BP 109/53
[2021-02-13 13:43] LABS: BASOPHILS % (AUTO) 1 % (0-10); EOSINOPHILS # (AUTO) 0.3 10^3/uL (0.0-0.3); EOSINOPHILS % (AUTO) 4 % (0-10); HEMATOCRIT 28 % (35-52); HEMOGLOBIN 8.3 g/dL (11.5-16.0); LYMPHOCYTES % (AUTO) 24 % (12-44); MEAN CORPUSCULAR HEMOGLOBIN 27 pg (25-34); MEAN CORPUSCULAR HGB CONC 30 g/dL (32-36); MEAN CORPUSCULAR VOLUME 92 fL (80-99); MEAN PLATELET VOLUME 10.2 fL (9.0-12.2); MONOCYTES # (AUTO) 0.7 10^3/uL (0.0-1.0); MONOCYTES % (AUTO) 9 % (0-12); NEUTROPHILS # (AUTO) 5.2 10^3/uL (1.8-7.8); NEUTROPHILS % (AUTO) 62 % (42-75); PLATELET COUNT 242 10^3/uL (130-400); WHITE BLOOD COUNT 8.3 10^3/uL (4.3-11.0)
[2021-02-13 14:07] LABS: ALBUMIN 3.3 GM/DL (3.2-4.5); BILIRUBIN,TOTAL 0.2 MG/DL (0.1-1.0); CALCIUM 9.5 MG/DL (8.5-10.1); CREATININE SERUM 0.69 MG/DL (0.60-1.30); TOTAL PROTEIN 7.5 GM/DL (6.4-8.2)
[~2021-03-13] VITALS: Ht 170.2 cm; Wt 102500.0 kg
[~2021-03-13 13:26] MED LIST changes: +HEParin (CENTRAL IV FLUSH) 500 UNIT/5 ML SYR IV ONE
[2021-03-13] MEDS ORDERED: HEParin (CENTRAL IV FLUSH) 500 UNIT/5 ML SYR ONE (13:28)
[2021-03-13] MEDS ORDERED: HEParin (CENTRAL IV FLUSH) 500 UNIT/5 ML SYR IV ONE (13:30)
[2021-03-13 13:47] VITALS: BP 98/56
[2021-03-13 14:00] LABS: BASOPHILS # (AUTO) 0.1 10^3/uL (0.0-0.1); BASOPHILS % (AUTO) 1 % (0-10); EOSINOPHILS # (AUTO) 0.2 10^3/uL (0.0-0.3); EOSINOPHILS % (AUTO) 3 % (0-10); HEMATOCRIT 29 % (35-52); HEMOGLOBIN 8.6 g/dL (11.5-16.0); LYMPHOCYTES # (AUTO) 1.9 10^3/uL (1.0-4.0); LYMPHOCYTES % (AUTO) 23 % (12-44); MEAN CORPUSCULAR HEMOGLOBIN 27 pg (25-34); MEAN CORPUSCULAR HGB CONC 30 g/dL (32-36); MEAN CORPUSCULAR VOLUME 92 fL (80-99); MEAN PLATELET VOLUME 10.8 fL (9.0-12.2); MONOCYTES % (AUTO) 12 % (0-12); NEUTROPHILS # (AUTO) 5.3 10^3/uL (1.8-7.8); NEUTROPHILS % (AUTO) 62 % (42-75); PLATELET COUNT 225 10^3/uL (130-400); WHITE BLOOD COUNT 8.5 10^3/uL (4.3-11.0)
[2021-03-13 14:11] LABS: ALBUMIN 3.2 GM/DL (3.2-4.5); POTASSIUM 4.4 MMOL/L (3.6-5.0)
[2021-03-13 14:12] LABS: CALCIUM 8.9 MG/DL (8.5-10.1)
[2021-03-13 14:13] LABS: TOTAL PROTEIN 7.3 GM/DL (6.4-8.2)
[2021-03-13 14:15] LABS: BILIRUBIN,TOTAL 0.2 MG/DL (0.1-1.0)
[2021-03-13 14:17] LABS: CREATININE SERUM 0.73 MG/DL (0.60-1.30)
== END 2021-03-16 | disposition home or self-care (01) ==
LOC: SDC 13:26
DX: Z45.2 Encounter for adjustment and management of vascular access device (principal); I73.9 Peripheral vascular disease, unspecified
CPT/HCPCS: 36415; 36591; 80053; 80061; 84443; 85025; 85027; 96523

== ENCOUNTER → 2021-04-05 | Outpatient (RCR) | payer MEDICARE ==
[~2021-04-05] MED LIST changes: -HEParin (CENTRAL IV FLUSH) 500 UNIT/5 ML SYR IV ONE; -HEParin (CENTRAL IV FLUSH) 500 UNIT/5 ML SYR ONE
== END | disposition home or self-care (01) ==
LOC: CR3 03-06 15:12
PROVIDERS: ATTEND Nurse Practitioner Family
DX: Z29.8 Encounter for other specified prophylactic measures (principal)

== ENCOUNTER 2021-05-05 16:15 | Outpatient (RCR) | payer MEDICARE | END 2021-05-07 | disposition home or self-care (01) | LOC: CR3 16:15 | PROVIDERS: ATTEND Nurse Practitioner Family | DX: Z29.8 Encounter for other specified prophylactic measures (principal) ==

== ENCOUNTER 2021-05-31 15:26 | Outpatient (RCR) | payer MEDICARE | END 2021-06-07 | disposition home or self-care (01) | LOC: CR3 15:26 | PROVIDERS: ATTEND Nurse Practitioner Family | DX: Z29.8 Encounter for other specified prophylactic measures (principal) ==

== ENCOUNTER 2021-06-05 13:16 | Outpatient (RCR) | payer MEDICARE ==
[2021-04-10 13:50] VITALS: BP 113/54
[2021-04-10 14:06] LABS: BASOPHILS % (AUTO) 1 % (0-10); EOSINOPHILS # (AUTO) 0.2 10^3/uL (0.0-0.3); EOSINOPHILS % (AUTO) 3 % (0-10); HEMATOCRIT 28 % (35-52); HEMOGLOBIN 8.2 g/dL (11.5-16.0); LYMPHOCYTES # (AUTO) 1.7 10^3/uL (1.0-4.0); LYMPHOCYTES % (AUTO) 21 % (12-44); MEAN CORPUSCULAR HEMOGLOBIN 26 pg (25-34); MEAN CORPUSCULAR HGB CONC 29 g/dL (32-36); MEAN CORPUSCULAR VOLUME 89 fL (80-99); MEAN PLATELET VOLUME 9.8 fL (9.0-12.2); MONOCYTES # (AUTO) 0.8 10^3/uL (0.0-1.0); MONOCYTES % (AUTO) 10 % (0-12); NEUTROPHILS # (AUTO) 5.2 10^3/uL (1.8-7.8); NEUTROPHILS % (AUTO) 65 % (42-75); PLATELET COUNT 246 10^3/uL (130-400)
[2021-04-10 14:26] LABS: ALBUMIN 3.3 GM/DL (3.2-4.5); BILIRUBIN,TOTAL 0.3 MG/DL (0.1-1.0); CALCIUM 9.3 MG/DL (8.5-10.1); CREATININE SERUM 0.83 MG/DL (0.60-1.30); POTASSIUM 3.9 MMOL/L (3.6-5.0); TOTAL PROTEIN 7.5 GM/DL (6.4-8.2)
[2021-05-08 13:35] VITALS: BP 128/64
[~2021-06-05 13:16] MED LIST changes: +HEParin (CENTRAL IV FLUSH) 500 UNIT/5 ML SYR ONE
[2021-06-05 13:22] VITALS: BP 116/65
[2021-06-05] MEDS ORDERED: HEParin (CENTRAL IV FLUSH) 500 UNIT/5 ML SYR ONE (13:35)
[2021-06-05 14:04] LABS: HEMATOCRIT 31 % (35-52); MEAN CORPUSCULAR HEMOGLOBIN 26 pg (25-34); MEAN CORPUSCULAR HGB CONC 29 g/dL (32-36); MEAN CORPUSCULAR VOLUME 89 fL (80-99); MEAN PLATELET VOLUME 10.4 fL (9.0-12.2); PLATELET COUNT 211 10^3/uL (130-400); WHITE BLOOD COUNT 8.6 10^3/uL (4.3-11.0)
[2021-06-05 14:18] LABS: ALBUMIN 3.1 GM/DL (3.2-4.5); POTASSIUM 3.9 MMOL/L (3.6-5.0)
[2021-06-05 14:19] LABS: CALCIUM 8.7 MG/DL (8.5-10.1)
[2021-06-05 14:20] LABS: TOTAL PROTEIN 7.4 GM/DL (6.4-8.2)
[2021-06-05 14:22] LABS: BILIRUBIN,TOTAL 0.2 MG/DL (0.1-1.0)
[2021-06-05 14:24] LABS: CREATININE SERUM 0.74 MG/DL (0.60-1.30)
== END 2021-06-23 | disposition home or self-care (01) ==
LOC: SDC 13:16
DX: Z45.2 Encounter for adjustment and management of vascular access device (principal); I73.9 Peripheral vascular disease, unspecified; E78.2 Mixed hyperlipidemia; D64.9 Anemia, unspecified; Z79.899 Other long term (current) drug therapy
CPT/HCPCS: 36415; 36591; 80053; 80061; 82728; 83036; 83540; 83550; 84443; 85025; 85027

== ENCOUNTER 2021-07-20 13:14 | Outpatient (RCR) | payer MEDICARE ==
[~2021-07-20 13:14] MED LIST changes: -HEParin (CENTRAL IV FLUSH) 500 UNIT/5 ML SYR ONE
[2021-07-20] MEDS ORDERED: HEParin (CENTRAL IV FLUSH) 500 UNIT/5 ML SYR ONE (13:40)
[2021-07-20 13:45] VITALS: BP 142/94
== END 2021-07-24 | disposition home or self-care (01) ==
LOC: SDC 13:14
DX: Z45.2 Encounter for adjustment and management of vascular access device (principal); I73.9 Peripheral vascular disease, unspecified; E78.2 Mixed hyperlipidemia
CPT/HCPCS: 96523

== ENCOUNTER → 2021-08-22 | Outpatient (CLI) | payer MEDICARE ==
[~2021-08-22] MED LIST changes: +HEParin (CENTRAL IV FLUSH) 500 UNIT/5 ML SYR IV ONE; +HEParin (CENTRAL IV FLUSH) 500 UNIT/5 ML SYR ONE
[2021-08-22 13:10] VITALS: BP 117/62
[2021-08-22 13:57] LABS: BASOPHILS % (AUTO) 0 % (0-10); EOSINOPHILS # (AUTO) 0.2 10^3/uL (0.0-0.3); EOSINOPHILS % (AUTO) 3 % (0-10); HEMATOCRIT 30 % (35-52); HEMOGLOBIN 8.9 g/dL (11.5-16.0); LYMPHOCYTES # (AUTO) 1.1 10^3/uL (1.0-4.0); LYMPHOCYTES % (AUTO) 15 % (12-44); MEAN CORPUSCULAR HEMOGLOBIN 26 pg (25-34); MEAN CORPUSCULAR HGB CONC 30 g/dL (32-36); MEAN CORPUSCULAR VOLUME 87 fL (80-99); MEAN PLATELET VOLUME 10.5 fL (9.0-12.2); MONOCYTES # (AUTO) 0.8 10^3/uL (0.0-1.0); MONOCYTES % (AUTO) 11 % (0-12); NEUTROPHILS # (AUTO) 5.4 10^3/uL (1.8-7.8); NEUTROPHILS % (AUTO) 71 % (42-75); PLATELET COUNT 159 10^3/uL (130-400); WHITE BLOOD COUNT 7.6 10^3/uL (4.3-11.0)
[2021-08-22 14:08] LABS: ALBUMIN 3.2 GM/DL (3.2-4.5); BILIRUBIN,TOTAL 0.3 MG/DL (0.1-1.0); CALCIUM 8.8 MG/DL (8.5-10.1); CREATININE SERUM 0.83 MG/DL (0.60-1.30); TOTAL PROTEIN 7.4 GM/DL (6.4-8.2)
== END ==
LOC: SDC 12:47
DX: E11.9 Type 2 diabetes mellitus without complications (principal); E78.5 Hyperlipidemia, unspecified
CPT/HCPCS: 36415; 36591; 80053; 80061; 83036; 85025

== ENCOUNTER → 2021-09-26 | Outpatient (CLI) | payer MEDICARE ==
[~2021-09-26] MED LIST changes: -HEParin (CENTRAL IV FLUSH) 500 UNIT/5 ML SYR ONE
[2021-09-26 13:30] VITALS: BP 113/67
[2021-09-26 14:11] LABS: HEMATOCRIT 31 % (35-52); HEMOGLOBIN 8.7 g/dL (11.5-16.0); MEAN CORPUSCULAR HEMOGLOBIN 25 pg (25-34); MEAN CORPUSCULAR HGB CONC 28 g/dL (32-36); MEAN CORPUSCULAR VOLUME 88 fL (80-99); MEAN PLATELET VOLUME 10.3 fL (9.0-12.2); PLATELET COUNT 201 10^3/uL (130-400); WHITE BLOOD COUNT 9.3 10^3/uL (4.3-11.0)
[2021-09-26 14:20] LABS: ALBUMIN 3.3 GM/DL (3.2-4.5); POTASSIUM 3.8 MMOL/L (3.6-5.0)
[2021-09-26 14:21] LABS: CALCIUM 9.2 MG/DL (8.5-10.1)
[2021-09-26 14:22] LABS: TOTAL PROTEIN 7.6 GM/DL (6.4-8.2)
[2021-09-26 14:24] LABS: BILIRUBIN,TOTAL 0.4 MG/DL (0.1-1.0)
[2021-09-26 14:26] LABS: CREATININE SERUM 0.74 MG/DL (0.60-1.30)
[2021-09-26 14:50] LABS: FREE T4 (FREE THYROXINE) 1.05 NG/DL (0.70-1.48)
== END ==
LOC: SDC 13:04
DX: I73.9 Peripheral vascular disease, unspecified (principal); E78.2 Mixed hyperlipidemia; E03.1 Congenital hypothyroidism without goiter
CPT/HCPCS: 36415; 36591; 80053; 80061; 83036; 84439; 84443; 85027

== ENCOUNTER 2021-10-31 13:40 | Outpatient (RCR) | payer MEDICARE ==
[~2021-10-31 13:40] MED LIST changes: -HEParin (CENTRAL IV FLUSH) 500 UNIT/5 ML SYR IV ONE
[2021-10-31] MEDS ORDERED: HEParin (CENTRAL IV FLUSH) 500 UNIT/5 ML SYR ONE (13:47)
[2021-10-31] MEDS ORDERED: HEParin (CENTRAL IV FLUSH) 500 UNIT/5 ML SYR IV ONE (14:00)
[2021-10-31 14:05] VITALS: BP 140/79
== END 2021-11-21 | disposition home or self-care (01) ==
LOC: SDC 13:40
DX: I73.9 Peripheral vascular disease, unspecified (principal)
CPT/HCPCS: 96523

== ENCOUNTER 2021-12-08 11:09 | Outpatient (RCR) | payer MEDICARE ==
[2021-12-07 14:00] VITALS: BP 110/75
[2021-12-07 14:23] LABS: MEAN CORPUSCULAR HEMOGLOBIN 24 pg (25-34); MEAN CORPUSCULAR HGB CONC 29 g/dL (32-36); MEAN CORPUSCULAR VOLUME 83 fL (80-99); MEAN PLATELET VOLUME 9.5 fL (9.0-12.2); PLATELET COUNT 298 10^3/uL (130-400); WHITE BLOOD COUNT 7.3 10^3/uL (4.3-11.0)
[2021-12-07 14:33] LABS: HEMATOCRIT 17 % (35-52); HEMOGLOBIN 4.7 g/dL (11.5-16.0)
[~2021-12-08 11:09] MED LIST changes: +HEParin (CENTRAL IV FLUSH) 500 UNIT/5 ML SYR ONE
[2021-12-08 11:38] VITALS: BP 100/53
[2021-12-08 12:02] LABS: BASOPHILS % (AUTO) 0 % (0-10); EOSINOPHILS # (AUTO) 0.2 10^3/uL (0.0-0.3); EOSINOPHILS % (AUTO) 3 % (0-10); LYMPHOCYTES # (AUTO) 0.9 10^3/uL (1.0-4.0); LYMPHOCYTES % (AUTO) 11 % (12-44); MEAN CORPUSCULAR HEMOGLOBIN 24 pg (25-34); MEAN CORPUSCULAR HGB CONC 29 g/dL (32-36); MEAN CORPUSCULAR VOLUME 83 fL (80-99); MEAN PLATELET VOLUME 9.7 fL (9.0-12.2); MONOCYTES # (AUTO) 1.1 10^3/uL (0.0-1.0); MONOCYTES % (AUTO) 14 % (0-12); NEUTROPHILS # (AUTO) 5.4 10^3/uL (1.8-7.8); NEUTROPHILS % (AUTO) 70 % (42-75); PLATELET COUNT 264 10^3/uL (130-400); WHITE BLOOD COUNT 7.6 10^3/uL (4.3-11.0)
[2021-12-08 12:06] LABS: HEMATOCRIT 17 % (35-52); HEMOGLOBIN 4.7 g/dL (11.5-16.0)
[2021-12-10] MEDS ORDERED: SILD20TA14 PO (12:57)
[2021-12-10] MEDS ORDERED: SPIR25TA5 PO (12:57)
[2021-12-10] MEDS ORDERED: SOTA120T PO (12:57)
[2021-12-10] MEDS ORDERED: HYDR-3923 PO (12:57)
[2021-12-10] MEDS ORDERED: BUME0.5T5 PO (12:57)
[2021-12-10] MEDS ORDERED: RIVA20TA PO (12:57)
[2021-12-10] MEDS ORDERED: BUPR1FIL19 SL ×2 (12:57→12:58)
[2021-12-10] MEDS ORDERED: BUDE10.2 IH (12:59)
--- NOTE | 2021-12-10 14:09 | Anesthesia-General Post-Op ---
MAC Patient Condition Mental Status/LOC: Same as Preop Cardiovascular: Satisfactory Nausea/Vomiting: Absent Respiratory: Satisfactory Pain: Controlled Complications: Absent Post Op Complications Complications None Follow Up Care/Instructions Patient Instructions None needed. Anesthesiology Discharge Order Discharge Order Patient is doing well, no complaints, stable vital signs, no apparent adverse anesthesia problems. No complications reported per nursing. COLLEEN STOVER CRNA Dec 10, 2021 14:09
[2021-12-11] MEDS ORDERED: DULO60CA59 PO (13:38)
[2021-12-11] MEDS ORDERED: SPIR25TA5 PO (13:38)
[2021-12-11] MEDS ORDERED: BRIN8DRO OU (13:38)
[2021-12-11] MEDS ORDERED: BUTA-235 PO (13:38)
[2021-12-11] MEDS ORDERED: SILD20TA14 PO (13:38)
[2021-12-11] MEDS ORDERED: BUDE10.2 PO (13:38)
[2021-12-11] MEDS ORDERED: BUPR1FIL19 SL (13:38)
[2021-12-11] MEDS ORDERED: BUME1TAB8 PO (13:46)
[2021-12-11] MEDS ORDERED: RAMI10CA69 PO (13:46)
[2021-12-11] MEDS ORDERED: IRON150C3 PO (13:46)
[2021-12-11] MEDS ORDERED: CLN.1T PO (13:46)
[2021-12-11] MEDS ORDERED: OMEP40CA6 PO (13:46)
[2021-12-11] MEDS ORDERED: ALBU18HF2 PO (13:46)
[2021-12-11] MEDS ORDERED: RIVA20TA PO (13:46)
[2021-12-11] MEDS ORDERED: ALLO300T2 PO (13:46)
[2021-12-11] MEDS ORDERED: HYDR-700 PO (13:46)
[2021-12-11] MEDS ORDERED: MONT-40 PO (13:46)
[2021-12-11] MEDS ORDERED: SOTA120T PO (13:46)
[2021-12-13] MEDS ORDERED: DULO60CA59 PO (11:47)
[2021-12-13] MEDS ORDERED: HYDR-700 PO (11:47)
[2021-12-13] MEDS ORDERED: MONT-40 PO (11:47)
[2021-12-13] MEDS ORDERED: IRON150C3 PO (11:47)
[2021-12-13] MEDS ORDERED: ALBU18HF2 PO (11:47)
[2021-12-13] MEDS ORDERED: BRIN8DRO OU (11:47)
[2021-12-13] MEDS ORDERED: OMEP40CA6 PO (11:47)
[2021-12-13] MEDS ORDERED: CLN.1T PO (11:47)
[2021-12-13] MEDS ORDERED: BUDE10.2 PO (11:47)
[2021-12-13] MEDS ORDERED: NITR100C10 PO (11:47)
[2021-12-13] MEDS ORDERED: BUTA-235 PO (11:47)
[2021-12-13] MEDS ORDERED: SPIR25TA5 PO (11:47)
[2021-12-13] MEDS ORDERED: SOTA120T PO (11:47)
[2021-12-13] MEDS ORDERED: APIX5TAB PO (11:47)
[2021-12-13] MEDS ORDERED: RAMI10CA69 PO (11:47)
[2021-12-13] MEDS ORDERED: BUME1TAB8 PO (11:47)
[2021-12-13] MEDS ORDERED: BUPR1FIL19 SL (11:47)
[2021-12-13] MEDS ORDERED: SILD20TA14 PO (11:47)
[2021-12-13] MEDS ORDERED: ALLO300T2 PO (11:47)
== END 2021-12-21 | disposition home or self-care (01) ==
LOC: SDC 11:09
PROVIDERS: ATTEND Emergency Medicine
DX: I73.9 Peripheral vascular disease, unspecified (principal); D64.9 Anemia, unspecified
CPT/HCPCS: 36415; 36591; 83880; 85025; 85027

== ENCOUNTER 2021-12-08 12:18 | Inpatient (IN) | payer MEDICARE ==
[~2021-12-08] VITALS: Ht 170.2 cm; Wt 131.0 kg
[~2021-12-08 12:18] MED LIST changes: -HEParin (CENTRAL IV FLUSH) 500 UNIT/5 ML SYR ONE
--- NOTE | 2021-12-08 15:14 | ED GI ---
General Chief Complaint: General Problems/Pain Stated Complaint: SOA - WEAKNESS - HEMOGLOBIN 4.7 Nursing Triage Note: PT SENT OVER FROM OUTPATIENT FOR FURTHER EVALUATION OF LOW HGB. PT HAD OUTPATIENT LABS YESTERDAY AND HGB WAS 4. PT CAME BACK TODAY FOR REPEAT AND WAS 4.7. SENT TO ER FOR FURTHER WORKUP. PT STATES SHE HAS RECTAL BLEEDING. Source of Information: Patient, Family Exam Limitations: No Limitations (SAMIRA FERNANDEZ) History of Present Illness Date Seen by Provider: Dec 08, 2021 Time Seen by Provider: 15:09 Initial Comments This is a 71-year-old female with history of A. fib, COPD, pulmonary hypertension, lymphedema that presents to the emergency room for evaluation of anemia. She states that she has been dealing with blood in her stools for several months and that she has been working with her primary care doctor who thought this was due to hemorrhoids. However, since it has been persistent the primary care doctor ordered some lab work. Unfortunately, he before she could get her labs done and so today when it came back abnormal she was referred to the emergency room. She does state that she has an appointment with Dr. Edwards next week but has not seen him yet. She states that overall her weakness has worsened. She is currently on Xarelto 20 mg daily. Timing/Duration: Constant, Other (Several months) Severity/Quality: Moderate Radiation: No Radiation (ASMIRA FERNANDEZ) Allergies and Home Medications Allergies Coded Allergies: Tetanus Vaccines and Toxoid (Verified Allergy, Unknown, 07/18/07) adhesive (Verified Allergy, Unknown, 07/18/07) Patient Home Medication List Home Medication List Reviewed: Yes (SAMIRA FERNANDEZ) Albuterol (Proair Hfa) 8.5 Gm Hfa.aer.ad, 8.5 MG IN PRN, (Reported) Entered as Reported by: ANNETTA ROCHA on 08/21/0958 Last Action: Last Taken Edited Allopurinol (Zyloprim) 300 Mg Tab, 300 MG PO DAILY, (Reported) Entered as Reported by: ANNETTA ROCHA on 08/21/0957 Last Action: Last Taken Edited Diazepam (Diazepam 2 Mg) 2 Mg Tablet, 2 MG PO PRN, (Reported) Entered as Reported by: ANNETTA ROCHA on 08/21/0999 Last Action: Last Taken Edited Duloxetine Hcl (Cymbalta) 60 Mg Capsule.dr, 60 MG PO DAILY, (Reported) Entered as Reported by: ALEJANDRO JONES on 03/16/10130 Last Action: Last Taken Edited Estradiol (Estrace) 1 Mg Tablet, 1 MG PO DAILY Prescribed by: MANINDER FORDE on 12/02/13 1700 Last Action: Last Taken Edited Hydrochlorothiazide (Hctz) 25 Mg Tab, 25 MG PO DAILY, (Reported) Entered as Reported by: ANNETTA ROCHA on 08/21/09 0058 Last Action: Last Taken Edited Hydromorphone Hcl (Dilaudid) 4 Mg Tab, 1 TAB PO Q4H, (Reported) Entered as Reported by: LOYDA MANDEL on 06/15/111129 Last Action: Last Taken Edited Montelukast Sodium (Singulair) 10 Mg Tab, 10 MG PO DAILY, (Reported) Entered as Reported by: ALEJANDRO JONES on 03/16/10130 Last Action: Last Taken Edited Oxycodone Hcl (Oxycontin) 40 Mg Tab.sr.12h, 40 MG PO TID, (Reported) Entered as Reported by: LOYDA MANDEL on 06/15/111129 Last Action: Last Taken Edited Oxycodone Hcl (Oxycontin) 60 Mg Tab.sr.12h, 60 MG PO TID, (Reported) Entered as Reported by: LOYDA MANDEL on 06/15/111129 Last Action: Last Taken Edited Oxycodone Hcl (Oxycontin) 10 Mg Tab.sr.12h, 2 TAB PO DAILY, (Reported) Entered as Reported by: CHRISTIANA BEARD on 11/07/12 1440 Last Action: Last Taken Edited Phenazopyridine Hcl (Pyridium) 100 Mg Tablet, 100 MG PO PRN, (Reported) Entered as Reported by: ALEJANDRO JNOES on 03/16/10130 Last Action: Last Taken Edited Promethazine Hcl (Phenergan 25 Mg) 25 Mg Tablet, 25 MG PO PRN, (Reported) Entered as Reported by: RAYNE CARSON on 08/11/09 2156 Last Action: Last Taken Edited Ramipril (Altace) 10 Mg Tablet, 10 MG PO DAILY, (Reported) Entered as Reported by: ANNETTA ROCHA on 08/21/0957 Last Action: Last Taken Edited Thiamine Hcl (Vitamin B-1) 50 Mg Tablet, (Reported) Entered as Reported by: ANNETTA ROCHA on 08/21/09100 Last Action: Last Taken Edited Trazodone Hcl (Desyrel 50 Mg) 50 Mg Tab, 150 MG PO HS PRN, (Reported) Entered as Reported by: ALEJANDRO JONES on 03/16/10130 Last Action: Last Taken Edited [Vitamin D3] , (Reported) Entered as Reported by: ANNETTA ROCHA on 08/21/09100 [Vitamin E] , (Reported) Entered as Reported by: ANNETTA ROCHA on 08/21/09100 Review of Systems Review of Systems Constitutional: malaise EENTM: No Symptoms Reported Respiratory: No Symptoms Reported Cardiovascular: No Symptoms Reported Gastrointestinal: Blood Streaked Stools, Rectal Bleeding Genitourinary: No Symptoms Reported Musculoskeletal: no symptoms reported (SAMIRA FERNANDEZ) Past Kpdqlel-Qoipbb-Qzokee Hx Patient Social History Tobacco Use?: No Use of E-Cig and/or Vaping dev: No Substance use?: No Alcohol Use?: No Pt feels they are or have been: No (SAMIRA FERNANDEZ) Immunizations Up To Date Tetanus Booster (TDap): Unknown First/Initial COVID19 Vaccinat: 2020 Second COVID19 Vaccination Tk: 2020 COVID19 Vaccine Investment Associate: saritha (SAMIRA FERNANDEZ) Seasonal Allergies Seasonal Allergies: Yes (SAMIRA FERNANDEZ) Physical Exam Vital Signs Vital Signs - First Documented 12/08/21 13:00 Pulse 92 Resp 19 B/P (MAP) 117/63 (81) Pulse Ox 95 O2 Delivery Room Air (THERESE SIMPSON MD) Vital Signs Capillary Refill : Less Than 3 Seconds (SAMIRA FERNANDEZ) Height/Weight/BMI Height: 5'7.01" Weight: 225lbs. 15.6oz. 102.502818tr; 43.00 BMI Method:Stated General Appearance: WD/WN, no apparent distress HEENT: PERRL/EOMI, pale conjunctivae (R), pale conjunctivae (L) Neck: non-tender Respiratory: chest non-tender, lungs clear Cardiovascular: irregularly irregular Gastrointestinal: non tender, soft Extremities: non-tender Neurologic/Psychiatric: finger waver II-XII nml as tested, alert, oriented x 3 Skin: normal color, warm/dry (SAMIRA FERNANDEZ) Progress/Results/Core Measures Results/Orders Lab Results Laboratory Tests Test 12/08/21 13:17 Range/Units Prothrombin Time 18.1 H 12.2-14.7 SEC INR Comment 1.5 H 0.8-1.4 Sodium Level 134 L 135-145 MMOL/L Potassium Level 4.1 3.6-5.0 MMOL/L Chloride Level 93 L 98-107 MMOL/L Carbon Dioxide Level 30 21-32 MMOL/L Anion Gap 11 5-14 MMOL/L Blood Urea Nitrogen 13 7-18 MG/DL Creatinine 0.89 0.60-1.30 MG/DL Estimat Glomerular Filtration Rate 68 BUN/Creatinine Ratio 15 Glucose Level 141 H 70-105 MG/DL Calcium Level 8.7 8.5-10.1 MG/DL Corrected Calcium 9.4 8.5-10.1 MG/DL Total Bilirubin 0.4 0.1-1.0 MG/DL Aspartate Amino Transf (AST/SGOT) 11 5-34 U/L Alanine Aminotransferase (ALT/SGPT) 9 0-55 U/L Alkaline Phosphatase 127 40-136 U/L Total Protein 7.3 6.4-8.2 GM/DL Albumin 3.1 L 3.2-4.5 GM/DL (THERESE SIMPSON MD) My Orders Orders - THERESE SIMPSON MD Red Cells Leukocytes Reduced (12/08/21 12:33) Ed Iv/Invasive Line Start (12/08/21 12:34) Type And Screen (12/08/21 12:33) (THERESE SIMPSON MD) Vital Signs/I&O 12/08/21 13:00 Pulse 92 Resp 19 B/P (MAP) 117/63 (81) Pulse Ox 95 O2 Delivery Room Air (THERESE SIMPSON MD) Blood Pressure Mean: 81 Departure Communication (Admissions) Time/Spoke to Admitting Phy: 15:[address] Gupta and he agrees to accept patient at this time. Time/Spoke to Consulting Phy: 15:[address] Albarran and he would like the patient to be on clear liquids and have protonix 40mg BID. Patient to be admitted to hospitalist. (SAMIRA FERNANDEZ) Impression Primary Impression: Anemia Additional Impression: Lower GI bleed Disposition: ADMITTED INPATIENT Condition: Stable Admissions Decision to Admit Reason: Admit from ER (General) Decision to Admit/Date: Dec 08, 2021 Time/Decision to Admit Time: 15:52 (SAMIRA FERNANDEZ) Departure-Patient Inst. Referrals: NO,LOCAL PHYSICIAN (PCP/Family) Primary Care Physician ATTENDING PHYSICIAN NOTE: I was physically present as attending physician in the emergency department during the care of this patient. I placed to the initial orders after reviewing triage report, but I was not otherwise directly involved in the decision making or delivery of care for this patient. (THERESE SIMPSON MD) SAMIRA FERNANDEZ Dec 08, 2021 15:14 THERESE SIMPSON MD Dec 08, 2021 21:10
[2021-12-08 15:17] LABS: INR 1.5 (0.8-1.4); PROTHROMBIN TIME PATIENT 18.1 SEC (12.2-14.7)
[2021-12-08 15:23] LABS: ALBUMIN 3.1 GM/DL (3.2-4.5); POTASSIUM 4.1 MMOL/L (3.6-5.0)
[2021-12-08 15:24] LABS: CALCIUM 8.7 MG/DL (8.5-10.1)
[2021-12-08 15:26] LABS: TOTAL PROTEIN 7.3 GM/DL (6.4-8.2)
[2021-12-08 15:28] LABS: BILIRUBIN,TOTAL 0.4 MG/DL (0.1-1.0)
[2021-12-08 15:29] LABS: CREATININE SERUM 0.89 MG/DL (0.60-1.30)
--- NOTE | 2021-12-08 16:24 | CONSULTATION REPORT ---
DATE OF SERVICE: 12/08/2021 ATTENDING PRIMARY CARE PHYSICIAN: Used to be Zack Barraza, however, is scheduled to see Dr. Herman Edwards, however, has not seen him yet. HISTORY OF PRESENT ILLNESS: The patient is a 71-year-old male, who presented to the Emergency Department with anemia. The patient was feeling weak and he had outpatient labs drawn and was found to have a hemoglobin of 4. Upon further questioning, he states that he has had this before and this has been more common since being placed on anticoagulation with Xarelto. The bladder was characterized as red. He does not report any dark tarry stools. He also does not report any hematemesis, no coffee ground emesis; however, does have some history of gastroesophageal reflux disease. He is being admitted and resuscitated with blood products and monitoring of his hemoglobin and hematocrit. On this admission, we will proceed with an EGD and colonoscopy. PAST MEDICAL HISTORY: Atrial fibrillation, COPD, hypertension, bilateral lower extremity edema, degenerative joint disease, and gout. PAST SURGICAL HISTORY: None known at this time. ALLERGIES: TETANUS VACCINE and TOXOID, some ADHESIVE TAPES. MEDICATIONS: Albuterol MDI 8.5 mg p.r.n., allopurinol 300 mg daily, diazepam 2 mg p.r.n., duloxetine 60 mg daily, estradiol 1 mg daily, hydrochlorothiazide 25 mg daily, hydromorphone 4 mg q.4 hours p.r.n., montelukast 10 mg daily, oxycodone 60 mg q.12 hours, phenazopyridine 100 mg p.r.n., promethazine 25 mg p.r.n., ramipril 10 mg daily, thiamine 50 mg daily, and trazodone 50 mg each day at bedtime. SOCIAL HISTORY: Negative smoke and negative alcohol. FAMILY HISTORY: Noncontributory. REVIEW OF SYSTEMS: A well-nourished male currently in no acute distress. He is not experiencing any shortness of breath or difficulty breathing. No chest pain, palpitations, diaphoresis. He does have some mild exertional shortness of breath. No cough or sputum production. He did have several episodes of red blood per rectum and no dark tarry stools. No fever, chills, no recent inadvertent weight loss. All other review of systems negative. PHYSICAL EXAMINATION: VITAL SIGNS: Blood pressure 117/63, pulse 92, respirations 19, and pulse ox 95% on room air. CHEST: Distant breath sounds and scattered wheezes bilaterally. HEART: Regular and no murmurs. EXTREMITIES: A +1/3 bilateral lower extremity edema as well as ankle distribution discoloration consistent with chronic venous insufficiency. Negative Homans sign. HEENT: No scleral icterus and no cervical lymphadenopathy. ABDOMEN: Soft, nontender, and nondistended. SKIN: Warm and dry. LABORATORY DATA: BUN 13, creatinine 0.89, total bilirubin 0.4, and INR 1.5. ASSESSMENT AND PLAN: A 71-year-old male with significant anemia with history of gastroesophageal reflux disease as well as red blood per rectum, who was also on Xarelto for his atrial fibrillation. This will be held and he will be resuscitated with crystalloid as well as blood products and once stable, we will proceed with prep and EGD and colonoscopy on this admission. Job ID: [id number] DocumentID: [id number] Dictated Date: 12/08/2021 16:06:04 Destination Coordinator Date: 12/08/2021 16:22:52 Dictated By: MEG CUTLER MD
[2021-12-08] MEDS ORDERED: PANTOPRAZOLE 40 MG (PROTONIX) VIAL ONE (16:34)
[2021-12-08] MEDS: PANTOPRAZOLE 40 MG (PROTONIX) VIAL IV SCH (16:37)
[2021-12-08] MEDS ORDERED: LORazepam INJ 2 MG/ML (ATIVAN) VIAL IVP STA (16:54)
[2021-12-08] MEDS ORDERED: polyethylene glycoL POWDER 17 GM (MIRALAX) PACK PO PRN (17:30)
[2021-12-08] MEDS ORDERED: MELATONIN 3 MG TABLET PO PRN (17:30)
[2021-12-08] MEDS ORDERED: ONDANSETRON 4 MG (ZOFRAN) ORAL DISSOLVE TAB PO PRN (17:30)
[2021-12-08] MEDS ORDERED: ONDANSETRON 4 MG/2 ML (SDV) Z0FRAN IV PRN (17:30)
[2021-12-08] MEDS ORDERED: ANTACID SUSP 30 ML UDC (MYLANTA) PO PRN (17:30)
[2021-12-08] MEDS ORDERED: CATHETER FLUSH 10 ML SYR IV PRN (17:45)
[2021-12-08 17:48] VITALS: BP 118/64
[2021-12-08] MEDS ORDERED: NS IV 500 ML 500 ML ONE (18:11)
[2021-12-08 18:51] VITALS: BP 134/79
[2021-12-08 19:49] VITALS: BP 114/59
[2021-12-08 21:31] VITALS: BP 112/76
[2021-12-08 21:38] VITALS: BP 112/76
[2021-12-08 21:58] VITALS: BP_SYST 112; BP_SYST 115; BP_DIAS 62; BP_DIAS 76
[2021-12-09] VITALS (9 sets, daily range): BP systolic 116–144; BP diastolic 62–80
[2021-12-09] MEDS: CATHETER FLUSH 10 ML SYR IV SCH ×4 (00:35→22:42)
[2021-12-09] MEDS: PANTOPRAZOLE 40 MG (PROTONIX) VIAL IV SCH ×5 (00:35→22:41)
[2021-12-09 02:10] LABS: HEMOGLOBIN 6.6 g/dL (11.5-16.0)
[2021-12-09] MEDS ORDERED: NS IV 500 ML 500 ML ONE (04:18)
[2021-12-09 04:28] LABS: HEMATOCRIT 23 % (35-52); LYMPHOCYTES % (AUTO) 15 % (12-44); MEAN CORPUSCULAR HEMOGLOBIN 25 pg (25-34); MEAN CORPUSCULAR HGB CONC 30 g/dL (32-36); MEAN CORPUSCULAR VOLUME 83 fL (80-99)
[2021-12-09 04:30] LABS: BASOPHILS % (AUTO) 0 % (0-10); EOSINOPHILS # (AUTO) 0.2 10^3/uL (0.0-0.3); EOSINOPHILS % (AUTO) 2 % (0-10); LYMPHOCYTES # (AUTO) 1.2 10^3/uL (1.0-4.0); MEAN PLATELET VOLUME 10.1 fL (9.0-12.2); MONOCYTES # (AUTO) 0.9 10^3/uL (0.0-1.0); MONOCYTES % (AUTO) 11 % (0-12); NEUTROPHILS # (AUTO) 5.3 10^3/uL (1.8-7.8); NEUTROPHILS % (AUTO) 67 % (42-75); PLATELET COUNT 206 10^3/uL (130-400); WHITE BLOOD COUNT 7.9 10^3/uL (4.3-11.0)
[2021-12-09] MEDS: ACETAMINOPHEN 325 MG TABLET PO PRN ×2 (04:31→23:28)
[2021-12-09] MEDS: NS IV 500 ML 500 ML IV SCH ×2 (04:35→22:42)
[2021-12-09 04:38] LABS: HEMOGLOBIN 6.7 g/dL (11.5-16.0)
[2021-12-09 04:39] LABS: HEMOGLOBIN 6.7 g/dL (11.5-16.0)
[2021-12-09 05:03] LABS: POTASSIUM 4.3 MMOL/L (3.6-5.0)
[2021-12-09 05:04] LABS: CALCIUM 8.7 MG/DL (8.5-10.1)
[2021-12-09 05:08] LABS: CREATININE SERUM 0.76 MG/DL (0.60-1.30)
[2021-12-09 05:11] LABS: MAGNESIUM 1.3 MG/DL (1.6-2.4)
[2021-12-09] MEDS: MAGNESIUM 1 GM/100 ML IVPB 100 ML IV SCH ×5 (05:42→11:44)
[2021-12-09] MEDS: POTASSIUM CL 10MEQ/50ML IVPB 50 ML IV SCH (05:42)
[2021-12-09] MEDS: KCL 20 MEQ TAB (K-DUR) PO SCH (05:43)
[2021-12-09 11:34] LABS: HEMOGLOBIN 7.4 g/dL (11.5-16.0)
--- NOTE | 2021-12-09 12:41 | Progress Note ---
Subjective Date Seen by a Provider: Dec 09, 2021 Time Seen by a Provider: 11:00 Subjective/Events-last exam doing ok. no episodes rectal bleeding. no abd pain. Objective Exam Vital Signs Date Time Temp Pulse Resp B/P (MAP) Pulse Ox O2 Delivery O2 Flow Rate FiO2 12/09/21 11:35 36.6 92 20 134/69 (90) 93 Nasal Cannula 4.00 12/09/21 08:30 Nasal Cannula 4.00 12/09/21 08:22 36.6 12/09/21 07:35 36.6 95 20 130/74 (92) 96 Nasal Cannula 4.00 12/09/21 07:00 100 12/09/21 04:46 36.4 96 18 134/65 98 Nasal Cannula 4.00 12/09/21 04:46 36.4 96 18 134/65 98 Nasal Cannula 4.00 12/09/21 04:27 36.2 87 132/62 93 Nasal Cannula 4.00 12/09/21 04:03 36.4 90 18 116/74 (88) 97 Nasal Cannula 4.00 12/09/21 01:00 85 12/09/21 00:16 36.2 88 18 137/69 (91) 99 Nasal Cannula 4.00 12/09/21 00:11 36.2 88 18 137/69 99 Nasal Cannula 4.00 12/08/21 21:58 36.2 85 20 112/76 97 Nasal Cannula 4.00 12/08/21 21:58 36.2 85 20 115/62 96 Nasal Cannula 4.00 12/08/21 21:38 36.4 87 20 112/76 98 Room Air 4.00 12/08/21 21:31 36.4 87 20 112/76 98 Nasal Cannula 4.00 12/08/21 20:00 96 Nasal Cannula 4.00 12/08/21 19:49 35.9 97 20 114/59 (77) 96 Nasal Cannula 4.00 12/08/21 19:00 92 12/08/21 18:51 36.2 82 18 134/79 97 Nasal Cannula 4.00 12/08/21 18:34 35.0 112 20 93 Nasal Cannula 4.00 12/08/21 18:21 89 12/08/21 17:48 35.9 88 20 118/64 (82) 94 Nasal Cannula 3.00 12/08/21 17:20 94 Nasal Cannula 4.00 12/08/21 17:13 91 16 106/71 94 Nasal Cannula 4.00 12/08/21 13:00 92 19 117/63 (81) 95 Room Air I & O 12/09/21 07:00 Intake Total 560 ml Balance 560 ml Capillary Refill : Less Than 3 Seconds General Appearance: No Apparent Distress HEENT: PERRL/EOMI Neck: Full Range of Motion Respiratory: Chest Non Tender, Decreased Breath Sounds Cardiovascular: Regular Rate, Rhythm Gastrointestinal: normal bowel sounds, non tender, soft Extremity: Normal Capillary Refill Neurologic/Psychiatric: Alert, Oriented x3 Skin: Normal Color Lymphatic: No Adenopathy Results Lab Laboratory Tests 12/08/21 13:17: Prothrombin Time 18.1H, INR Comment 1.5H, Sodium Level 134L, Potassium Level 4.1, Chloride Level 93L, Carbon Dioxide Level 30, Anion Gap 11, Blood Urea Nitrogen 13, Creatinine 0.89, Estimat Glomerular Filtration Rate 68, BUN/Creatinine Ratio 15, Glucose Level 141H, Calcium Level 8.7, Corrected Calcium 9.4, Total Bilirubin 0.4, Aspartate Amino Transf (AST/SGOT) 11, Alanine Aminotransferase (ALT/SGPT) 9, Alkaline Phosphatase 127, Total Protein 7.3, Albumin 3.1L 12/09/21 04:12: Sodium Level 135, Potassium Level 4.3, Chloride Level 94L, Carbon Dioxide Level 30, Anion Gap 11, Blood Urea Nitrogen 10, Creatinine 0.76, Estimat Glomerular Filtration Rate 83, BUN/Creatinine Ratio 13, Glucose Level 121H, Calcium Level 8.7, White Blood Count 7.9, Red Blood Count 2.70L, Hemoglobin 6.7#*L, Hematocrit 23L, Mean Corpuscular Volume 83, Mean Corpuscular Hemoglobin 25, Mean Cor puscular Hemoglobin Concent 30L, Red Cell Distribution Width 15.8H, Platelet Count 206, Mean Platelet Volume 10.1, Immature Granulocyte % (Auto) 3, Neutrophils (%) (Auto) 67, Lymphocytes (%) (Auto) 15, Monocytes (%) (Auto) 11, Eosinophils (%) (Auto) 2, Basophils (%) (Auto) 0, Neutrophils # (Auto) 5.3, Lymphocytes # (Auto) 1.2, Monocytes # (Auto) 0.9, Eosinophils # (Auto) 0.2, Basophils # (Auto) 0.0, Immature Granulocyte # (Auto) 0.3H, Percent Immature Platelet Fraction 4.8, Magnesium Level 1.3L 12/09/21 04:17: Hemoglobin 6.7*L, Hematocrit 22L 12/09/21 11:04: Hemoglobin 7.4L, Hematocrit 25L Assessment/Plan Assessment/Plan Assess & Plan/Chief Complaint anemia with rectal bleed and hx GERD. schedule EGD and colo in am. MEG CUTLER MD Dec 09, 2021 12:41
--- NOTE | 2021-12-09 12:42 | Progress Note-Pre Operative ---
Pre-Operative Progress Note H&P Reviewed The H&P was reviewed, patient examined and no changes noted. Date Seen by Provider: Dec 09, 2021 Time Seen by Provider: 12:40 Date H&P Reviewed: Dec 09, 2021 Time H&P Reviewed: 12:40 Pre-Operative Diagnosis: anemia, rectal bleed, hx GERD MEG CUTLER MD Dec 09, 2021 12:42
[2021-12-09] MEDS ORDERED: MAGNESIUM CITRATE 300 ML BTL PO NR (12:45)
--- NOTE | 2021-12-09 18:10 | History & Physical-Hospitalist ---
History of Present Illness HPI/Chief Complaint Roopa Horton is a 71 year old female with PMH HTN, pHTN, lymphedema, AFib on Xarelto, morbid obesity, who presented with weakness. She has had chronic GI bleeding. She initially thought she had hemorrhoids and had shown some improvement temporarily after treatment. She has been passing large clots per rectum. She reports bright red blood as well. She has been lightheaded and dizzy. She has limited mobility at baseline but lately has been able to do even less. She has undergone a colonoscopy in the past. She had outpatient labs drawn and was found to have a hemoglobin of 4. Source: patient, family Exam Limitations: no limitations Date Seen 12/09/21 Time Seen by a Provider: 12:45 Attending Physician No,Local Physician PCP Admitting Physician: Leonie Lane MD Attending Physician: Leonie Lane MD Referring Physician Date of Admission Dec 08, 2021 at 15:59 Home Medications & Allergies Home Medications Reviewed patient Home Medication Reconciliation performed by pharmacy medication reconciliations x ray service technician and/or nursing. Patients Allergies have been reviewed. Allergies Allergies Coded Allergies Tetanus Vaccines and Toxoid (Verified Allergy, Unknown, 07/18/07) adhesive (Verified Allergy, Unknown, 07/18/07) Past Ysiraqp-Dfmetz-Oupalx Hx Patient Social History Tobacco Use?: No Use of E-Cig and/or Vaping dev: No Substance use?: No Alcohol Use?: No Pt feels they are or have been: No Immunizations Up To Date Date of Influenza Vaccine: Mar 26, 2017 First/Initial COVID19 Vaccinat: 2020 Second COVID19 Vaccination Tk: 2020 Tetanus Booster (TDap): Unknown Date of Pneumonia Vaccine: Jun 24, 2013 Seasonal Allergies Seasonal Allergies: Yes Current Status status: No status: No Advance Directives: Yes Advance Directive Location: Home Communicates: Verbally Primary Language: Czech Preferred Spoken Language: Czech Sensory deficits: Vision impairment Implanted or Applied Medical D: Orthopedic hardware, Port-a-cath Past Medical History Atrial Fibrillation, Chronic Edema/Swelling, Hypertension Family Medical History No Pertinent Family Hx Review of Systems Constitutional: weakness EENTM: no symptoms reported Respiratory: dyspnea on exertion Cardiovascular: no symptoms reported Gastrointestinal: other (bright red blood per rectum) Genitourinary: no symptoms reported Musculoskeletal: no symptoms reported Skin: no symptoms reported Psychiatric/Neurological: No Symptoms Reported Physical Exam Physical Exam Vital Signs Vital Signs - First Documented 12/08/21 12/08/21 12/08/21 13:00 17:13 17:48 Temp 35.9 Pulse 92 Resp 19 B/P (MAP) 117/63 (81) Pulse Ox 95 O2 Delivery Room Air O2 Flow Rate 4.00 Capillary Refill : Less Than 3 Seconds Height, Weight, BMI Height: 5'7.01" Weight: 225lbs. 15.6oz. [id number]; 45.22 BMI Method:Stated General Appearance: No Apparent Distress, Obese HEENT: PERRL/EOMI, Pharynx Normal Neck: Normal Inspection, Supple Respiratory: Lungs Clear, Normal Breath Sounds, No Respiratory Distress Cardiovascular: Regular Rate, Rhythm, No Murmur Gastrointestinal: Normal Bowel Sounds, Non Tender, Soft Extremity: Normal Inspection; No Inflammation; Swelling Neurologic/Psychiatric: Alert, Oriented x3, Depressed Affect, Motor Weakness Skin: Warm/Dry, Pallor Results Results/Procedures Labs Laboratory Tests 12/08/21 02:00 12/08/21 13:17 12/09/21 04:12 12/09/21 04:17 12/09/21 11:04 Patient resulted labs reviewed. Assessment/Plan Admission Diagnosis Acute GI bleeding Admission Status: Inpatient Order (span 2 midnights) Reason for Inpatient Admission: Profound anemia Assessment and Plan Acute lower GI bleeding Acute blood loss anemia AFib on chronic anticoagulation Hgb 4 on arrival Transfused 3 units PRBC Hgb improved to 7 Surgery consulted Planning for endoscopic evaluation tomorrow NPO at midnight Hold Xarelto Hypomagnesemia Monitor and replace as needed Chronic respiratory failure with hypoxia Morbid obesity Lymphedema Pulmonary hypertension HTN DVT prophylaxis: held due to GI bleeding Diagnosis/Problems Diagnosis/Problems (1) Acute GI bleeding Status: Acute (2) ABLA (acute blood loss anemia) Status: Acute (3) PAF (paroxysmal atrial fibrillation) Status: Acute (4) Chronic anticoagulation Status: Acute (5) Morbid obesity Status: Acute (6) PHT (pulmonary hypertension) Status: Chronic (7) Hypomagnesemia Status: Acute (8) Chronic respiratory failure with hypoxia Status: Chronic LEONIE LANE MD Dec 09, 2021 18:10
[2021-12-10] VITALS (7 sets, daily range): BP systolic 107–142; BP diastolic 51–90
[2021-12-10 05:02] LABS: POTASSIUM 4.4 MMOL/L (3.6-5.0)
[2021-12-10 05:08] LABS: CREATININE SERUM 0.71 MG/DL (0.60-1.30)
[2021-12-10 05:10] LABS: MAGNESIUM 1.9 MG/DL (1.6-2.4)
[2021-12-10] MEDS: POTASSIUM CL 10MEQ/50ML IVPB 50 ML IV SCH (05:12)
[2021-12-10] MEDS: KCL 20 MEQ TAB (K-DUR) PO SCH (05:13)
[2021-12-10] MEDS: CATHETER FLUSH 10 ML SYR IV SCH ×3 (05:13→20:24)
[2021-12-10] MEDS: MAGNESIUM 1 GM/100 ML IVPB 100 ML IV SCH (05:13)
[2021-12-10] MEDS: PANTOPRAZOLE 40 MG (PROTONIX) VIAL IV SCH ×4 (07:54→20:13)
[2021-12-10] MEDS ORDERED: LACTATED RINGERS 1,000 ML IV STA (09:16)
[2021-12-10 09:30] LABS: HEMOGLOBIN 7.4 g/dL (11.5-16.0)
[2021-12-10] MEDS ORDERED: LIDOCAINE JELLY 2% 6 ML SYRINGE MM PRN (09:30)
[2021-12-10] MEDS ORDERED: HURRICAINE EXT TUBE (BENZOCAINE) XX PRN (09:30)
[2021-12-10] MEDS ORDERED: PROPOFOL INJECTION 50 ML IV ONE (09:42)
--- NOTE | 2021-12-10 11:02 | Progress Note-Post Operative ---
Post-Operative Progess Note Surgeon (s)/Starch And Prosize Mixer (s) Surgeon MEG CUTLER MD Starch And Prosize Mixer: none Pre-Operative Diagnosis anemia, rectal bleed, hx GERD Post-Operative Diagnosis reflux esophagitis(grade B), mild distal esoph stricture, small HH(2cm), moderate gastritis, no active bleed. edematous stage 3 ext and int hemorrhoids, moderate sigmoid diverticulosis. Procedure & Operative Findings Date of Procedure 12/10/21 Procedure Performed/Findings EGD with bx and balloon dilatation. sigmoidoscopy. Anesthesia Type mac Estimated Blood Loss Estimated blood loss (mL): minimal Specimens/Packing Specimens Removed ge jxn, antrum MEG CUTLER MD Dec 10, 2021 11:01
[2021-12-10] MEDS ORDERED: SILD20TA14 PO (12:57)
[2021-12-10] MEDS ORDERED: BUME0.5T5 PO (12:57)
[2021-12-10] MEDS ORDERED: SPIR25TA5 PO (12:57)
[2021-12-10] MEDS ORDERED: SOTA120T PO (12:57)
[2021-12-10] MEDS ORDERED: HYDR-3923 PO (12:57)
[2021-12-10] MEDS ORDERED: BUPR1FIL19 SL ×2 (12:57→12:58)
[2021-12-10] MEDS ORDERED: RIVA20TA PO (12:57)
[2021-12-10] MEDS ORDERED: BUDE10.2 IH (12:59)
[2021-12-10] MEDS: NS IV 500 ML 500 ML IV SCH (14:52)
[2021-12-10] MEDS: ACETAMINOPHEN 325 MG TABLET PO PRN (14:54)
[2021-12-10] MEDS: KETOROLAC 30 MG/ML VIAL IVP PRN (15:51)
[2021-12-10] MEDS ORDERED: PATIENT MAY USE OWN MEDS, ALL MC SCH (16:15)
--- NOTE | 2021-12-10 17:22 | OPERATIVE REPORT ---
DATE OF SERVICE: PREOPERATIVE DIAGNOSIS: Anemia with rectal bleeding and history of gastroesophageal reflux disease. POSTOPERATIVE DIAGNOSES: Reflux esophagitis, Brighton grade B, mild distal esophageal stricture, small hiatal hernia 2 cm in size, moderate gastritis. No active bleeding. Actively edematous stage III-IV external and internal hemorrhoids. No active bleeding, poor colonic prep, moderate sigmoid diverticulosis. PROCEDURE: EGD with biopsy and balloon dilatation, sigmoidoscopy. SURGEON: Meg Cutler MD ANESTHESIA: Monitored anesthesia care. ESTIMATED BLOOD LOSS: Minimal. FINDINGS: Reflux esophagitis, Brighton grade B, mild distal esophageal stricture, small hiatal hernia 2 cm in size, moderate gastritis. No active bleeding. Actively edematous stage III external and internal hemorrhoids. No active bleeding, poor colonic prep, moderate sigmoid diverticulosis. DISPOSITION: The patient tolerated the procedure well. INDICATIONS: The patient is a 71-year-old female who was admitted for severe anemia with a hemoglobin in the 4 range. She states that she has had intermittent red blood per rectum. Despite being severely anemic, she was awake and alert and may have had time for conversation indicating a chronic process. She also does report a history of gastroesophageal reflux disease and is currently on omeprazole. Since being admitted and resuscitated, her hemoglobin has been stable. DESCRIPTION OF PROCEDURE: The patient was brought to the endoscopy suite, laid in the left lateral decubitus position. After adequate IV pain and sedative medications and monitored anesthesia care, the mouthpiece was applied. The endoscope was placed in the mouth, visualizing the pharynx and hypopharyngeal region. Vocal cords, epiglottis and vallecula identified and appeared to be normal. The endoscope was then gently intubated the esophageal opening and esophagus insufflated. The endoscope was then advanced through the first, second and third portion of the esophagus at the level of the GE junction, reflux esophagitis, Brighton grade B identified as well as a mild distal esophageal stricture. A biopsy was taken with forceps with visualization of good hemostasis. The endoscope was then advanced in the stomach and endoscope retroflexed, visualizing a small hiatal hernia approximately 2 cm in size. There was a moderate severity gastritis. No formal ulcerations, polyps, or any neoplasms as well as no active bleeding. A biopsy was taken of the antrum to rule out H. pylori with visualization of good hemostasis. Endoscope was then advanced to the pylorus and the first and second portion of the duodenum with again no ulcers or active bleeding identified. The balloon was then placed in the stomach and pulled back to the area of stricture and then we proceeded in a stepwise graded fashion from 2, 4, then 6 atmospheres of pressure or 20 mm in luminal diameter with moderate resistance and left this in place for approximately 60 seconds. The balloon was then desufflated and removed with visualization of good hemostasis as well as no mucosal tears. The endoscope was then slowly withdrawn while taking a second look and suctioning of residual air with no additional findings. A digital rectal examination was performed, which did show an actively edematous stage III to IV external and internal hemorrhoids; however, no active bleeding identified. This was the likely cause of her rectal bleeding. Normal sphincter tone was felt and there were no palpable masses. The endoscope was then intubated and anus and rectum gently insufflated. The patient has had a very poor colonic prep. We then proceeded slowly while irrigating and suctioning as much stool as possible. There were no lesions identified of the rectum. There was moderate sigmoid diverticulosis, no red blood per rectum as well as no dark tarry stools. We then proceeded through the distal transverse colon. However, again the prep was poor and it was decided to stop at this point. The endoscope was then slowly withdrawn while taking a second look and suctioning residual air with no additional findings. The patient tolerated the procedure well. We will have her continue with medical management with a PPI acid printing equipment mechanic apprentice on a regular basis as well as medical management with small and more frequent meals, avoiding to eating at night as well as head elevation while lying supine. She also needs to avoid caffeinated beverages, spicy, greasy and acidic foods. She also needs to proceed with a high fiber diet with at least 25 to 30 grams of fiber daily to promote soft consistency stools on a daily basis and to prevent increased straining and pressure upon defecation. If she continues to have episodes of rectal bleeding despite maximal medical therapy, she may need to have a formal hemorrhoidectomy. Job ID: [id number] DocumentID: [id number] Dictated Date: 12/10/2021 10:48:41 Fountain Supervisor Date: 12/10/2021 17:22:05 Dictated By: MEG CUTLER MD [facility] PSYCHIATRIC CENTERLuisa
--- NOTE | 2021-12-10 18:38 | Progress Note - Hospitalist ---
Subjective HPI/CC On Admission Date Seen by Provider: Dec 10, 2021 Time Seen by Provider: 11:00 Roopa Horton is a 71 year old female with PMH HTN, pHTN, lymphedema, AFib on Xarelto, morbid obesity, who presented with weakness. She has had chronic GI bleeding. She initially thought she had hemorrhoids and had shown some improvem ent temporarily after treatment. She has been passing large clots per rectum. She reports bright red blood as well. She has been lightheaded and dizzy. She has limited mobility at baseline but lately has been able to do even less. She has undergone a colonoscopy in the past. She had outpatient labs drawn and was found to have a hemoglobin of 4. Subjective/Events-last exam She just got back from her scopes. She is still a little groggy. She has no complaints at this time but is just tired. I discussed the results of the scopes and the plan of care with her and her . I later received a request for a phone call from her daughter. Upon returning the call, she requested further workup of her anemia while in the hospital. She expressed concern about her follow up with a PCP. We agreed to obtaining iron studies and possibly giving IV iron prior to discharge with further workup at her PCP office if needed. Objective Exam Vital Signs Vital Signs Date Time Temp Pulse Resp B/P (MAP) Pulse Ox O2 Delivery O2 Flow Rate FiO2 12/10/21 16:13 36.9 111 20 125/76 (92) 93 Nasal Cannula 3.50 Capillary Refill : Less Than 3 Seconds General Appearance: No Apparent Distress, Obese Respiratory: Lungs Clear, No Respiratory Distress Cardiovascular: Regular Rate, Rhythm, No Murmur Gastrointestinal: Normal Bowel Sounds, Non Tender, Soft Extremity: Normal Inspection, No Pedal Edema Neurologic/Psychiatric: Alert, Normal Mood/Affect Skin: Normal Color, Warm/Dry Results/Procedures Lab Laboratory Tests 12/10/21 04:43 12/10/21 09:18 Patient resulted labs reviewed. Assessment/Plan Assessment and Plan Assess & Plan/Chief Complaint Acute lower GI bleeding Acute blood loss anemia Internal and external hemorrhoids Esophagitis and gastritis Esophageal stricture AFib on chronic anticoagulation Hgb 4 on arrival Transfused 3 units PRBC Hgb improved to 7, stable Surgery following EGD/colonoscopy showed gastritis/esophagitis and internal/external hemorrhoids, esophageal stricture s/p balloon dilitation Hold Xarelto Iron studies pending Hypomagnesemia Monitor and replace as needed Chronic respiratory failure with hypoxia Morbid obesity Lymphedema Pulmonary hypertension HTN Chronic pain Resume home meds DVT prophylaxis: held due to GI bleeding Diagnosis/Problems Diagnosis/Problems (1) Acute GI bleeding Status: Acute (2) ABLA (acute blood loss anemia) Status: Acute (3) PAF (paroxysmal atrial fibrillation) Status: Acute (4) Chronic anticoagulation Status: Acute (5) Morbid obesity Status: Acute (6) PHT (pulmonary hypertension) Status: Chronic (7) Hypomagnesemia Status: Acute (8) Chronic respiratory failure with hypoxia Status: Chronic (9) Internal and external bleeding hemorrhoids Status: Acute (10) Esophagitis with gastritis Status: Acute (11) Esophageal stricture Status: Acute JOHN LANE MD Dec 10, 2021 18:38
[2021-12-10] MEDS: MONTELUKAST 10 MG (SINGULAIR) TAB PO SCH (20:14)
[2021-12-10] MEDS: SILDENAFIL 20 MG (REVATIO) TAB PO SCH (20:30)
[2021-12-10] MEDS ORDERED: NON-FORMULARY MEDICATION 1 EA EA PO SCH (21:00)
[2021-12-11] VITALS (7 sets, daily range): BP systolic 95–136; BP diastolic 58–85
[2021-12-11] MEDS: KETOROLAC 30 MG/ML VIAL IVP PRN ×4 (00:10→22:44)
[2021-12-11 05:19] LABS: HEMOGLOBIN 7.5 g/dL (11.5-16.0)
[2021-12-11 05:25] LABS: POTASSIUM 4.6 MMOL/L (3.6-5.0)
[2021-12-11 05:26] LABS: CALCIUM 8.9 MG/DL (8.5-10.1)
[2021-12-11 05:30] LABS: CREATININE SERUM 0.82 MG/DL (0.60-1.30)
[2021-12-11] MEDS: POTASSIUM CL 10MEQ/50ML IVPB 50 ML IV SCH (05:32)
[2021-12-11] MEDS: KCL 20 MEQ TAB (K-DUR) PO SCH (05:33)
[2021-12-11] MEDS: CATHETER FLUSH 10 ML SYR IV SCH ×3 (05:33→20:04)
[2021-12-11] MEDS: MAGNESIUM 1 GM/100 ML IVPB 100 ML IV SCH (05:33)
[2021-12-11] MEDS: DULoxetine 30 MG (CYMBALTA) CAP PO SCH (08:49)
[2021-12-11] MEDS: PANTOPRAZOLE 40 MG (PROTONIX) TAB PO SCH (08:50)
[2021-12-11] MEDS: SPIRONOLACTONE 25 MG (ALDACTONE) TAB PO SCH (08:50)
[2021-12-11] MEDS: BUMETANIDE 1 MG (BUMEX) TAB PO SCH (08:52)
[2021-12-11] MEDS: SOTALOL 80 MG (BETAPACE) TAB PO SCH (08:52)
[2021-12-11] MEDS: hydrOXYzine (VISTARIL/ATARAX) 25 MG capsule/tablet PO SCH (08:52)
[2021-12-11] MEDS: PANTOPRAZOLE 40 MG (PROTONIX) VIAL IV SCH ×2 (08:53→20:04)
[2021-12-11] MEDS: SILDENAFIL 20 MG (REVATIO) TAB PO SCH ×3 (08:53→20:22)
[2021-12-11] MEDS: ALLOPURINOL 300 MG (ZYLOPRIM) TAB PO SCH (08:53)
--- NOTE | 2021-12-11 10:32 | Physical Therapy Evaluation ---
PT Evaluation-General Medical Diagnosis Admission Date Dec 08, 2021 at 15:59 Medical Diagnosis: anemia/GI bleed Onset Date: Dec 08, 2021 Therapy Diagnosis Therapy Diagnosis: generalized weakness/debility Height/Weight Height (Feet): 5 Height (Inches): 7.01 Weight (Pounds): 225 Weight (Ounces): 15.6 Precautions Precautions/Isolations: Fall Prevention, Standard Precautions Referral Physician: Alonso Reason for Referral: Evaluation/Treatment Medical History Pertinent Medical History: Atrial Fib, HTN Current History ER secondary to blood in stool/dizziness Reviewed History: Yes Social History Home: Single Level Current Living Status: Other Family Entry Into Home: Ramp Prior Prior Level of Function SCALE: Activities may be completed with or without assistive devices. 0-Tcxpnbzshx-xajgxsu completes the activity by him/herself with no assistance from a helper. 5-Set-up or Clean-up Assistance-helper sets up or cleans up; patient completes activity. [place] assists only prior to or following the activity. 4-Supervision or Touching Assistance-helper provides verbal cues and/or touching/steadying and/or contact guard assistance as patient completes activity. Assistance may be provided throughout the activity or intermittently. 3-Partial/Moderate Assistance-helper does LESS THAN HALF the effort. [place] lifts, holds or supports trunk or limbs, but provides less than half the effort. 2-Substantial/Maximal Assistance-helper does MORE THAN HALF the effort. [place] lifts or holds trunk or limbs and provides more than half the effort. 3-Nmgbfjvbp-eeussp does ALL the effort. Patient does none of the effort to complete the activity. Or, the assistance of 2 or more helpers is required for the patient to complete the activity. If activity was not attempted, code reason: 7-Patient Refused. 9-Not Applicable-not attempted and the patient did not perform the activity before the current illness, exacerbation or injury. 10-Not Attempted due to Environmental Limitations-(lack of equipment, weather restraints, etc.). 88-Not Attempted due to Medical Conditions or Safety Concerns. Bed Mobility: 3 Transfers (B,C,W/C): 3 Gait: 3 Stairs: 9 Indoor Mobility (Ambulation): Needed Some Help Stairs: Not Applicalbe Prior Devices Use: Motorized scooter, Walker sister in law is caregiver for patient PT Evaluation-Current Subjective Patient reluctantly agrees to PT. Family/caregiver present Objective Patient Orientation: Confused Attachments: Oxygen, IV ROM/Strength ROM Lower Extremities bilateral LE limited due to obesity and immobility Strength Lower Extremities 3/5 grossly bilateral LE Integumentary/Posture Integumentary refer to nursing notes Bowel Incontinence: Yes Bladder Incontinence: Yes Posture slightly kyphotic Neuromuscular (Tone, Coordination, Reflexes) diminished coordination due to inactivity PLOF Sensory Vision: Wears Glasses Hearing: Impaired Sensation Right Lower Extremit: Impaired Sensation Left Lower Extremity: Impaired Transfers Lying to Sitting/Side of Bed(Q: 2 Sit to Stand (QC): 2 Chair/Qli-ho-Rvoem Xfer(QC): 2 Toilet Transfer (QC): 2 Gait Does the Patient Walk?: No and Walking Goal IS indicated Gait Assistive Device: FWW Comments/Gait Description per family, patient has not ambulated for several weeks but can transfer Balance Sitting Static: Fair Sitting Dynamic: Fair Standing Static: Poor Standing Dynamic: Poor Assessment/Needs 71 y.o. female, will seen short term by skilled PT to address functional strength and mobility to improve current LOF. Rehab Potential: Guarded PT Creative/Art Director Goals Half-Way Goals PT Creative/Art Director Goals Time Frame: Dec 23, 2021 Roll Left & Right (QC): 3 Sit to Lying (QC): 3 Lying-Sitting on Side/Bed(QC): 3 Sit to Stand (QC): 3 Chair/Aac-vc-Tncjd Xfer(QC): 3 Toilet Transfer (QC): 3 Walk 10 feet (QC): 3 PT Plan Problem List Problem List: Activity Tolerance, Functional Strength, Safety, Balance, Gait, Transfer, Bed Mobility Treatment/Plan Treatment Plan: Continue Plan of Care Treatment Plan: Bed Mobility, Education, Functional Activity Heather, Functional Strength, Gait, Safety, Therapeutic Exercise, Transfers Treatment Duration: Dec 23, 2021 Frequency: 5 times per week Estimated Hrs Per Day: .25 hour per day Time/GCodes Time In: 843 Time Out: 856 Total Billed Treatment Time: 13 Total Billed Treatment 1 visit EVModC 13 min CAMILLA BECKER PT Dec 11, 2021 10:32
[2021-12-11] MEDS ORDERED: DULO60CA59 PO (13:38)
[2021-12-11] MEDS ORDERED: BUTA-235 PO (13:38)
[2021-12-11] MEDS ORDERED: SILD20TA14 PO (13:38)
[2021-12-11] MEDS ORDERED: BUDE10.2 PO (13:38)
[2021-12-11] MEDS ORDERED: BRIN8DRO OU (13:38)
[2021-12-11] MEDS ORDERED: SPIR25TA5 PO (13:38)
[2021-12-11] MEDS ORDERED: BUPR1FIL19 SL (13:38)
[2021-12-11] MEDS ORDERED: BUME1TAB8 PO (13:46)
[2021-12-11] MEDS ORDERED: RAMI10CA69 PO (13:46)
[2021-12-11] MEDS ORDERED: IRON150C3 PO (13:46)
[2021-12-11] MEDS ORDERED: MONT-40 PO (13:46)
[2021-12-11] MEDS ORDERED: ALLO300T2 PO (13:46)
[2021-12-11] MEDS ORDERED: SOTA120T PO (13:46)
[2021-12-11] MEDS ORDERED: CLN.1T PO (13:46)
[2021-12-11] MEDS ORDERED: ALBU18HF2 PO (13:46)
[2021-12-11] MEDS ORDERED: HYDR-700 PO (13:46)
[2021-12-11] MEDS ORDERED: RIVA20TA PO (13:46)
[2021-12-11] MEDS ORDERED: OMEP40CA6 PO (13:46)
--- NOTE | 2021-12-11 14:24 | Occupational Therapy Eval ---
OT Evaluation-General/PLF Medical Diagnosis Admission Date Dec 08, 2021 at 15:59 Medical Diagnosis: anemia/GI bleed Onset Date: Dec 08, 2021 Therapy Diagnosis Therapy Diagnosis: reduced adl status, balance, endurance, strength Height/Weight Height (Feet): 5 Height (Inches): 7.01 Weight (Pounds): 225 Weight (Ounces): 15.6 Precautions Precautions/Isolations: Fall Prevention, Standard Precautions Referral Physician: Alonso Referral Reason: Evaluation/Treatment Medical History Pertinent Medical History: Atrial Fib, HTN Current History Pt presents to ER with blood in stool and c/o dizziness. Per family, she lives with her spouse in a single story home. Her sister in law has been her caregiver since August and assists with all adls except eating. Pt was completely independent ~6 months ago and continues to decline functionally. Spouse states that for the last 2 months, pt has only been able to take 2-3 steps to/from commode. Pt uses a motorized cart and 4WW. Pt has chronic lymphedema and wears specialized compression wraps. Social History Home: Single Level Current Living Status: Other Family Entry Into Home: Ramp ADL-Prior Level of Function SCALE: Activities may be completed with or without assistive devices. 4-Tqldagijdz-fvglwom completes the activity by him/herself with no assistance from a helper. 5-Set-up or Clean-up Assistance-helper sets up or cleans up; patient completes activity. [place] assists only prior to or following the activity. 4-Supervision or Touching Assistance-helper provides verbal cues and/or touching/steadying and/or contact guard assistance as patient completes activity. Assistance may be provided throughout the activity or intermittently. 3-Partial/Moderate Assistance-helper does LESS THAN HALF the effort. [place] lifts, holds or supports trunk or limbs, but provides less than half the effort. 2-Substantial/Maximal Assistance-helper does MORE THAN HALF the effort. [place] lifts or holds trunk or limbs and provides more than half the effort. 6-Khwnnqcyw-yfsmmf does ALL the effort. Patient does none of the effort to co mplete the activity. Or, the assistance of 2 or more helpers is required for the patient to complete the activity. If activity was not attempted, code reason: 7-Patient Refused. 9-Not Applicable-not attempted and the patient did not perform the activity before the current illness, exacerbation or injury. 10-Not Attempted due to Environmental Limitations-(lack of equipment, weather restraints, etc.). 88-Not Attempted due to Medical Conditions or Safety Concerns. Self Care: Dependent Functional Cognition: Needed Some Help DME/Equipment Comments Pt has been taking sponge baths only for last 3-[address] Self: No OT Current Status Subjective Encouragement needed from therapist and family to participate. Appearance Pt returned to sitting in recliner, all needs within reach, family in the room, RN informed. Mental Status/Objective Patient Orientation: Person, Situation Attachments: IV, Oxygen (5L), Telemetry Current Glasses/Contacts: Yes Hand Dominance: Right Upper Extremity ROM bilateral shoulder ~160 degrees AROM, Full PROM Elbow-distally wnl Upper Extremity Strength bilateral shoulders: 3-/5 bilateral Elbows: 3/5 bilateral manager of financial: poor ADL-Treatment On/Off Footwear (QC): 1 Toileting Hygiene (QC): 1 Family reports that the pt has been dependent for adls the last 6 months and continues to decline. Her spouse and sister in law demonstrate to therapist how patient normally stands as she requires something to pull up on. OT rearranged room and positioned pt's recliner in front of bed (height raised and bed rail up). Pt pulled self up with RUE and pushed up with LUE. Once midway, cue needed to move L hand from chair to bed rail and to come to full upright. Min-mod a to stand. Poor standing tolerance, ~10 seconds before needing to sit. Increased anxiety notable after transfer. Cues on breathing strategies and relaxation. Pt reports SOA. Oxygen 99%, HR 70 bpm. Pt could benefit from short term OT with goal to increase strength and endurance in order to improve performance with adls and reduce burden of care on caregiver. Education OT Patient Education: Correct positioning, Purpose of tx/functional activities, Safety issues, Transfer techniques Teaching Recipient: Patient, Family Teaching Methods: Demonstration, Discussion Response to Teaching: Verbalize Understanding, Reinforcement Needed OT Senior Living Goals Voice Studies Director Goals Time Frame: Dec 21, 2021 Eating (QC): 5 Oral Hygiene (QC): 4 Toileting Hygiene (QC): 2 Shower/Bathe Self (QC): 2 Upper Body Dressing (QC): 2 Lower Body Dressing (QC): 2 1=Demonstrate adherence to instructed precautions during ADL tasks. 2=Patient will verbalize/demonstrate understanding of assistive devices/modifications for ADL. 3=Patient will improve strength/tolerance for activity to enable patient to perform ADL's. OT Education/Plan Problem List/Assessment Assessment: Decreased Activ Tolerance, Decreased Safety Aware, Decreased UE Strength, Dependent Transfers, Impaired Bed Mobility, Impaired Cognition, Impaired Funct Balance, Impaired Self-Care Skills, Restricted Funct UE ROM Discharge Recommendations Plan/Recommendations: Continue POC Treatment Plan/Plan of Care Treatment,Training & Education: Yes Patient would benefit from OT for education, treatment and training to promote independence in ADL's, mobility, safety and/or upper extremity function for ADL's. Plan of Care: ADL Retraining, Caregiver Training, Functional Mobility, Group Exercise/Act as Ind, UE Funct Exercise/Act Treatment Duration: Dec 21, 2021 Frequency: 3 times per week (3-5x/week) Estimated Hrs Per Day: .25 hour per day Rehab Potential: Guarded Time/GCodes Start Time: 13:50 Stop Time: 14:14 Total Time Billed (hr/min): 24 Billed Treatment Time 1 visit EVH (10 min) FA (14 min) Yady Waldron OT Dec 11, 2021 14:24
--- NOTE | 2021-12-11 15:35 | Progress Note ---
Subjective Date Seen by a Provider: Dec 11, 2021 Time Seen by a Provider: 13:15 Subjective/Events-last exam Patient seen with Dr. Albarran. Patient reports doing ok. Denies any blood in stool. Tolerating diet. Objective Exam Vital Signs Date Time Temp Pulse Resp B/P (MAP) Pulse Ox O2 Delivery O2 Flow Rate FiO2 12/11/21 12:43 111 12/11/21 11:29 36.8 89 20 109/60 (76) 94 Nasal Cannula 5.00 12/11/21 08:12 36.6 93 20 127/67 (87) 95 Nasal Cannula 5.00 12/11/21 08:00 Nasal Cannula 5.00 12/11/21 07:36 94 Nasal Cannula 5.00 12/11/21 07:00 113 12/11/21 03:45 36.4 98 18 110/67 (81) 95 Nasal Cannula 3.50 12/11/21 01:00 114 12/11/21 00:00 36.7 94 18 136/85 (102) 95 Nasal Cannula 3.50 12/10/21 20:30 Nasal Cannula 4.00 12/10/21 19:52 36.6 100 20 107/51 (69) 96 Nasal Cannula 3.50 12/10/21 19:00 97 12/10/21 16:13 36.9 111 20 125/76 (92) 93 Nasal Cannula 3.50 I & O 12/11/21 07:00 Intake Total 1200 ml Output Total 250 ml Balance 950 ml Capillary Refill : Less Than 3 Seconds General Appearance: No Apparent Distress, WD/WN, Obese Neck: Normal Inspection, Supple Respiratory: No Accessory Muscle Use, No Respiratory Distress Gastrointestinal: normal bowel sounds, non tender, soft Extremity: Swelling (Lower extremities 2-3+) Neurologic/Psychiatric: Alert, Oriented x3 Skin: Normal Color, Warm/Dry Results Lab Laboratory Tests 12/11/21 05:10: Hemoglobin 7.5L, Hematocrit 26L, Sodium Level 136, Potassium Level 4.6, Chloride Level 95L, Carbon Dioxide Level 33H, Anion Gap 8, Blood Urea Nitrogen 11, Creatinine 0.82, Estimat Glomerular Filtration Rate 75, BUN/Creatinine Ratio 13, Glucose Level 131H, Calcium Level 8.9, Magnesium Level 2.0 12/11/21 13:32: Lab Scanned Report Transfusion Reaction Form Microbiology 12/09/21 MRSA Screen - Final, Complete MRSA not isolated Assessment/Plan Assessment/Plan Assess & Plan/Chief Complaint A 71 year old female with anemia with rectal bleed and hx GERD. VSS Hgb 7.5 today Significant hemorrhoids identified on colonoscopy - no active bleeding Will need to proceed with High fiber diet and plenty of fluids upon discharge May need formal hemorrhoidectomy at some point CARYL FALLON BINDERY TECHNICIAN Dec 11, 2021 15:35
--- NOTE | 2021-12-11 18:59 | Progress Note - Hospitalist ---
Subjective HPI/CC On Admission Date Seen by Provider: Dec 11, 2021 Time Seen by Provider: 11:50 Roopa Horton is a 71 year old female with PMH HTN, pHTN, lymphedema, AFib on Xarelto, morbid obesity, who presented with weakness. She has had chronic GI bleeding. She initially thought she had hemorrhoids and had shown some improvem ent temporarily after treatment. She has been passing large clots per rectum. She reports bright red blood as well. She has been lightheaded and dizzy. She has limited mobility at baseline but lately has been able to do even less. She has undergone a colonoscopy in the past. She had outpatient labs drawn and was found to have a hemoglobin of 4. Subjective/Events-last exam She is sitting in her chair. Her fmsfho-cs-bvl is present. She is feeling better. She denies pain. She is still feeling weak. Objective Exam Vital Signs Vital Signs Date Time Temp Pulse Resp B/P (MAP) Pulse Ox O2 Delivery O2 Flow Rate FiO2 12/11/21 16:00 36.3 101 18 95/58 (70) 94 Nasal Cannula 6.00 Capillary Refill : Less Than 3 Seconds General Appearance: No Apparent Distress, Anxious, Obese Respiratory: No Respiratory Distress, Decreased Breath Sounds Cardiovascular: Regular Rate, Rhythm, No Murmur Gastrointestinal: Normal Bowel Sounds, Non Tender, Soft Extremity: Normal Inspection, Pedal Edema Neurologic/Psychiatric: Alert, Motor Weakness Skin: Normal Color, Warm/Dry Results/Procedures Lab Laboratory Tests 12/11/21 05:10 Patient resulted labs reviewed. Assessment/Plan Assessment and Plan Assess & Plan/Chief Complaint Acute on chronic blood loss anemia Iron deficiency anemia Internal and external hemorrhoids Esophagitis and gastritis Esophageal stricture AFib on chronic anticoagulation Hgb 4 on arrival Transfused 3 units PRBC Hgb improved to 7, stable Surgery following EGD/colonoscopy showed gastritis/esophagitis and internal/external hemorrhoids, esophageal stricture s/p balloon dilitation May need hemorrhoidectomy at some point Hold Xarelto Iron studies pending Venofer ordered Consult Cardiology Continue home meds Chronic respiratory failure with hypoxia Morbid obesity Lymphedema Pulmonary hypertension HTN Chronic pain Resume home meds DVT prophylaxis: held due to GI bleeding Hypomagnesemia, resolved Acute lower GI bleeding, resolved Diagnosis/Problems Diagnosis/Problems (1) Acute GI bleeding Status: Acute (2) ABLA (acute blood loss anemia) Status: Acute (3) PAF (paroxysmal atrial fibrillation) Status: Acute (4) Chronic anticoagulation Status: Acute (5) Morbid obesity Status: Acute (6) PHT (pulmonary hypertension) Status: Chronic (7) Hypomagnesemia Status: Acute (8) Chronic respiratory failure with hypoxia Status: Chronic (9) Internal and external bleeding hemorrhoids Status: Acute (10) Esophagitis with gastritis Status: Acute (11) Esophageal stricture Status: Acute JOHN LANE MD Dec 11, 2021 18:59
[2021-12-11] MEDS ORDERED: HYDROCORTISONE 100 MG/2 ML (Solu-CORTEF) VIAL IV PRN (19:00)
[2021-12-11] MEDS ORDERED: IRON DEXTRAN INJECTION 1,000 MG in NS (IVPB) 250 ML IV ONE (19:00)
[2021-12-11] MEDS ORDERED: IRON DEXTRAN INJECTION 25 MG in NS (IVPB) 5.75 ML IV ONE (19:00)
[2021-12-11] MEDS ORDERED: RT-ALBUTEROL SULF 2.5 MG/3 ML PRE-MIX VIAL IH PRN (19:00)
[2021-12-11] MEDS ORDERED: EPINEPHrine INJECTION 1 MG/ML AMP IM PRN (19:00)
[2021-12-11] MEDS ORDERED: IRON SUCROSE 200 MG/10 ML (VENOFER) VIAL IV SCH (19:00)
[2021-12-11] MEDS ORDERED: NS IV 500 ML 500 ML IV SCH (19:00)
[2021-12-11] MEDS ORDERED: diphenhydrAMINE 50 MG/ML INJ (BENADRYL) IV PRN (19:00)
--- NOTE | 2021-12-11 19:15 | Consultation-Cardiology ---
HPI-Cardiology Cardiology Consultation: Date of Consultation 12/11/21 Date of Admission 12/08/21 Attending Physician Adamaris,Local Physician Admitting Physician Admitting Physician: Leonie Gupta MD Attending Physician: Leonie Gupta MD Consulting Physician JOYA CRENSHAW JR, MD HPI: Time Seen by a Provider: 19:10 Chief Complaint: REASON FOR CONSULTATION: Persistent atrial fibrillation. I had the pleasure of seeing Roopa in the medical/surgical unit at [facility] in [place], [place] today. She is very hard of hearing which made obtaining the history somewhat difficult. However, her fcpnkx-tx-vpb with in the room with her and was able to answer some of the questions. The patient has a history of paroxysmal atrial fibrillation and follows with a chemist food in [place], [place]. She believes she has been on sotalol and Xarelto for about the past 3 years. However, in the recent past she has been having bright red blood per rectum. She has developed chronic anemia. Due to ongoing rectal bleeding, she came to the emergency room a few days ago. Her hemoglobin was severely depleted. She received blood transfusions and underwent upper and lower endoscopies and was found to have esophagitis, gastritis as well as hemorrhoids all of which may have been a source for bleeding. Her Xarelto was discontinued. She has been continued on sotalol but remains in atrial fibrillation. As such, a cardiology consultation was requested. She denies any chest discomfort. She does have chronic dyspnea on exertion as well as chronic bilateral lower extremity edema. She denies paroxysmal nocturnal dyspnea, orthopnea, or palpitations. She has had some lightheaded spells but denies any syncope. Certain portions of this document may have been dictated utilizing voice recognition technology. Inherent to this technology, typographical and gramma tical errors may exist. As much as I am diligent to identify and correct these mistakes, some errors may remain in the document. Review of Systems-Cardiology Review of Systems Other comments Review of 10 organ systems is as per the history of present illness, otherwise negative. DDA-Uwvjjh-Ysckul Hx Patient Social History Marrital Status: Have you traveled recently?: No Alcohol Use?: No Pt feels they are or have been: No Immunizations Up To Date Tetanus Booster (TDap): Unknown Date of Pneumonia Vaccine: Jun 24, 2013 Date of Influenza Vaccine: Mar 26, 2017 Past Medical History PMH As described under Assessment. Family Medical History Family Medical History: She did not report a family history of premature coronary artery disease. Allergies and Home Medications Allergies Coded Allergies: Tetanus Vaccines and Toxoid (Verified Allergy, Unknown, 07/18/07) adhesive (Verified Allergy, Unknown, 07/18/07) Patient Home Medication List Home Medication List Reviewed: Yes Albuterol Sulfate (Ventolin Hfa) 90 Mcg Hfa.aer.ad, 1 PUFF PO Q6H PRN for SHORTNESS OF BREATH, (Reported) Entered as Reported by: MALGORZATA RENDON on 12/11/211345 Last Action: Reviewed Allopurinol (Allopurinol) 300 Mg Tablet, 300 MG PO HS, (Reported) Entered as Reported by: MALGORZATA RENDON on 12/11/211345 Last Action: Reviewed Brinzolamide/Brimonidine Tart (Simbrinza 1%-0.2% Eye Drops) 1 %-0.2 % Drops.susp, 1 DROP OU TID, (Reported) Entered as Reported by: MALGORZATA RENDON on 12/11/211337 Last Action: Reviewed Budesonide/Formoterol Fumarate (Symbicort 160-4.5 Mcg Inhaler) 160 Mcg-4.5 Mcg/Actuation Hfa.aer.ad, 1 PUFF PO BID, (Reported) Entered as Reported by: MALGORZATA RENDON on 12/11/211337 Last Action: Reviewed Bumetanide (Bumetanide) 1 Mg Tablet, 1 MG PO DAILY, (Reported) Entered as Reported by: MALGORZATA RENDON on 12/11/211345 Last Action: Reviewed Buprenorphine HCl/Naloxone HCl (Buprenorphine-Nalox 8-2Mg Film) 8 Mg-2 Mg Film, 1 EACH SL QID, (Reported) Entered as Reported by: MALGORZATA RENDON on 12/11/211337 Last Action: Reviewed Butalb/Acetaminophen/Caffeine (Jwsjcz-Hyrsqbws-Dkkc 50-325-40) 50 Mg-325 Mg-40 Mg Tablet, 1 EACH PO QID, (Reported) Entered as Reported by: MALGORZATA RENDON on 12/11/211337 Last Action: Reviewed Clonidine HCl (Clonidine HCl) 0.1 Mg Tablet, 0.1 MG PO BID, (Reported) Entered as Reported by: MALGORZATA RENDON on 12/11/211345 Last Action: Reviewed Duloxetine HCl (Duloxetine HCl) 60 Mg Capsule.dr, 60 MG PO BID, (Reported) Entered as Reported by: MALGORZATA RENDON on 12/11/211337 Last Action: Reviewed Hydroxyzine HCl (Hydroxyzine HCl) 25 Mg Tablet, 25 MG PO QID, (Reported) Entered as Reported by: MALGORZATA RENDON on 12/11/211345 Last Action: Reviewed Iron Polysaccharide Complex (Ferrex 150) 150 Mg Iron Capsule, 150 MG PO DAILY, (Reported) Entered as Reported by: MALGORZATA RENDON on 12/11/211345 Last Action: Reviewed Montelukast Sodium (Montelukast Sodium) 10 Mg Tablet, 10 MG PO HS, (Reported) Entered as Reported by: MALGORZATA RENDON on 12/11/211345 Last Action: Reviewed Omeprazole (Omeprazole) 40 Mg Capsule.dr, 40 MG PO DAILY, (Reported) Entered as Reported by: MALGORZATA RENDON on 12/11/211345 Last Action: Reviewed Ramipril (Ramipril) 10 Mg Capsule, 10 MG PO HS, (Reported) Entered as Reported by: MALGORZATA RENDON on 12/11/211345 Last Action: Reviewed Rivaroxaban (Xarelto) 20 Mg Tablet, 20 MG PO HS, (Reported) Entered as Reported by: MALGORZATA RENDON on 12/11/211345 Last Action: Reviewed Sildenafil Citrate (Sildenafil) 20 Mg Tablet, 20 MG PO TID, (Reported) Entered as Reported by: MALGORZATA RENDON on 12/11/211337 Last Action: Reviewed Sotalol HCl (Sotalol) 120 Mg Tablet, 120 MG PO QID, (Reported) Entered as Reported by: MALGORZATA RENDON on 12/11/211345 Last Action: Reviewed Spironolactone (Spironolactone) 25 Mg Tablet, 25 MG PO BID, (Reported) Entered as Reported by: MALGORZATA RENDON on 12/11/211337 Last Action: Reviewed Discontinued Medications Buprenorphine HCl/Naloxone HCl (Buprenorphine-Nalox 8-2Mg Film) 8 Mg-2 Mg Film, 1 EACH SL DAILY Discontinued Reason: Prescription changed Prescribed by: HELLEN DAMON on 12/10/21 1257 Last Action: New Order Diazepam (Diazepam 2 Mg) 2 Mg Tablet, 2 MG PO PRN, (Reported) Discontinued Reason: Referral/FU Appt-Addtl Entered as Reported by: ANNETTA ROCHA on 08/21/0999 Last Action: Discontinued Estradiol (Estrace) 1 Mg Tablet, 1 MG PO DAILY Discontinued Reason: No Longer Taking Prescribed by: MANINDER FORDE on 12/02/13 1700 Last Action: Discontinued Hydrochlorothiazide (Hctz) 25 Mg Tab, 25 MG PO DAILY, (Reported) Discontinued Reason: No Longer Taking Entered as Reported by: ANNETTA ROCHA on 08/21/09 0058 Last Action: Discontinued Hydromorphone Hcl (Dilaudid) 4 Mg Tab, 1 TAB PO Q4H, (Reported) Discontinued Reason: No Longer Taking Entered as Reported by: LOYDA MANDEL on 06/15/111129 Last Action: Discontinued Oxycodone Hcl (Oxycontin) 40 Mg Tab.sr.12h, 40 MG PO TID, (Reported) Discontinued Reason: No Longer Taking Entered as Reported by: LOYDA MANDEL on 06/15/111129 Last Action: Discontinued Oxycodone Hcl (Oxycontin) 60 Mg Tab.sr.12h, 60 MG PO TID, (Reported) Discontinued Reason: No Longer Taking Entered as Reported by: LOYDA MANDEL on 06/15/111129 Last Action: Discontinued Oxycodone Hcl (Oxycontin) 10 Mg Tab.sr.12h, 2 TAB PO DAILY, (Reported) Discontinued Reason: No Longer Taking Entered as Reported by: CHRISTIANA BEARD on 11/07/12 1440 Last Action: Discontinued Phenazopyridine Hcl (Pyridium) 100 Mg Tablet, 100 MG PO PRN, (Reported) Discontinued Reason: No Longer Taking Entered as Reported by: ALEJANDRO JONES on 03/16/10 0131 Last Action: Discontinued Promethazine Hcl (Phenergan 25 Mg) 25 Mg Tablet, 25 MG PO PRN, (Reported) Discontinued Reason: No Longer Taking Entered as Reported by: RAYNE CARSON on 08/11/092155 Last Action: Discontinued Thiamine Hcl (Vitamin B-1) 50 Mg Tablet, (Reported) Discontinued Reason: No Longer Taking Entered as Reported by: ANNETTA ROCHA on 08/21/09100 Last Action: Discontinued Trazodone Hcl (Desyrel 50 Mg) 50 Mg Tab, 150 MG PO HS PRN, (Reported) Discontinued Reason: No Longer Taking Entered as Reported by: ALEJANDRO JONES on 03/16/10130 Last Action: Discontinued [Vitamin D3] , (Reported) Discontinued Reason: No Longer Taking Entered as Reported by: ANNETTA ROCHA on 08/21/09100 Last Action: Discontinued [Vitamin E] , (Reported) Discontinued Reason: No Longer Taking Entered as Reported by: ANNETTA ROCHA on 08/21/09100 Last Action: Discontinued Exam Vital Signs Vital Signs Date Time Temp Pulse Resp B/P (MAP) Pulse Ox O2 Delivery O2 Flow Rate FiO2 12/11/21 16:00 36.3 101 18 95/58 (70) 94 Nasal Cannula 6.00 Physical Exam General: Alert. No acute distress. Well nourished and appears stated age. She is morbidly obese. Eye: Extraocular movements are intact. Conjunctivae are clear. There are no xanthelasma. HENT: Normocephalic. Atraumatic. Carotid pulsations 2/2 without bruits. Neck: Jugular venous pressure does not appear elevated. No thyromegaly appreciated. Respiratory: Lungs are clear to auscultation. Respirations are non-labored. Breath sounds are equal. Symmetrical chest wall expansion. Cardiovascular: Normal rate. Irregular rhythm. Distant S1/S2. No murmur. No gallop. Point of maximal impulse is not appear displaced. Good pulses equal in all extremities. She has some compression devices on both lower extremities below the knees down to the feet. Gastrointestinal: Soft. Normal bowel sounds. Skin: Skin turgor is normal. There is no pallor. Musculoskeletal: No kyphosis or scoliosis appreciated. Neurologic: Alert and oriented to person, place, time. Cranial nerves 3-12 appear grossly intact. The patient has good motor tone strength in the upper and lower extremities bilaterally. Psychiatric: Cooperative. Appropriate mood & affect. Labs Laboratory Tests Test 12/11/21 05:10 12/11/21 13:32 Range/Units Hemoglobin 7.5 L 11.5-16.0 g/dL Hematocrit 26 L 35-52 % Sodium Level 136 135-145 MMOL/L Potassium Level 4.6 3.6-5.0 MMOL/L Chloride Level 95 L 98-107 MMOL/L Carbon Dioxide Level 33 H 21-32 MMOL/L Anion Gap 8 5-14 MMOL/L Blood Urea Nitrogen 11 7-18 MG/DL Creatinine 0.82 0.60-1.30 MG/DL Estimat Glomerular Filtration Rate 75 BUN/Creatinine Ratio 13 Glucose Level 131 H 70-105 MG/DL Calcium Level 8.9 8.5-10.1 MG/DL Magnesium Level 2.0 1.6-2.4 MG/DL Lab Scanned Report Transfusion Reaction Form [id number] ECG Impression ECG Comment Electrocardiogram from this morning shows atrial fibrillation with a ventricular rate of 110 bpm with an isolated premature ventricular complex versus aberrancy, low voltage in the precordial leads, nonspecific intraventricular conduction delay and nonspecific ST-T wave changes. Diagnosis/Problems Diagnosis/Problems (1) Persistent atrial fibrillation Assessment & Plan: She has been on sotalol from what she can recall may be at least 3 years. However, now she is in atrial fibrillation. Some of this could have been brought on by the severe anemia now with blood transfusions. For the time being, I will continue her on sotalol. Chelation is on hold due to the gastrointestinal hemorrhaging and severe anemia requiring blood transfusions. I will obtain an echocardiogram in the morning. I told the patient she will need to schedule a follow-up appointment with her regular chemist food as soon as possible following discharge to help guide treatment. The sotalol may no longer be effective for this patient. (2) Primary hypertension Assessment & Plan: She is normotensive on spironolactone and sotalol which is being given for the atrial fibrillation. (3) Chronic anticoagulation Status: Acute Assessment & Plan: All anticoagulation is on hold due to the gastrointestinal hemorrhage. From her description, the gastrointestinal hemorrhage may be a chronic, intermittent problem. She may be a candidate for a left atrial exclusion device. She should discuss this with her regular chemist food following discharge. (4) Morbid obesity Status: Chronic Assessment & Plan: She needs to work on weight loss. She was counseled in this regard. JOYA CRENSHAW JR, MD Dec 11, 2021 19:15
[2021-12-11] MEDS: MONTELUKAST 10 MG (SINGULAIR) TAB PO SCH (20:02)
[2021-12-11] MEDS: BUPRENORPHINE NALOX MC PRN (20:02)
[2021-12-12] MEDS: BUPRENORPHINE NALOX MC PRN ×3 (02:14→21:58)
[2021-12-12 04:45] VITALS: BP 116/74
[2021-12-12 05:14] LABS: BILIRUBIN,URINE NEGATIVE (NEGATIVE); CLARITY,URINE TURBID; COLOR,URINE ORANGE; GLUCOSE, URINE (UA) NEGATIVE (NEGATIVE); KETONES,URINE NEGATIVE (NEGATIVE); LEUKOCYTE ESTERASE ,URINE 2+ (NEGATIVE); NITRITE,URINE POSITIVE (NEGATIVE); PROTEIN,URINE TRACE (NEGATIVE)
[2021-12-12] MEDS: CATHETER FLUSH 10 ML SYR IV SCH ×3 (05:16→20:07)
[2021-12-12 05:35] LABS: POTASSIUM 3.9 MMOL/L (3.6-5.0)
[2021-12-12 05:36] LABS: CALCIUM 8.7 MG/DL (8.5-10.1)
[2021-12-12 05:37] LABS: BACTERIA,URINE LARGE /HPF
[2021-12-12 05:41] LABS: CREATININE SERUM 0.82 MG/DL (0.60-1.30)
[2021-12-12 05:43] LABS: MAGNESIUM 1.6 MG/DL (1.6-2.4)
[2021-12-12] MEDS: POTASSIUM CL 10MEQ/50ML IVPB 50 ML IV SCH (05:58)
[2021-12-12] MEDS: KCL 20 MEQ TAB (K-DUR) PO SCH (05:59)
[2021-12-12] MEDS: MAGNESIUM 1 GM/100 ML IVPB 100 ML IV SCH ×3 (06:21→06:22)
[2021-12-12 07:51] LABS: HEMOGLOBIN 7.1 g/dL (11.5-16.0)
[2021-12-12 08:28] VITALS: BP 133/85
[2021-12-12] MEDS: DULoxetine 30 MG (CYMBALTA) CAP PO SCH (09:04)
[2021-12-12] MEDS: SOTALOL 80 MG (BETAPACE) TAB PO SCH (09:04)
[2021-12-12] MEDS: ALLOPURINOL 300 MG (ZYLOPRIM) TAB PO SCH (09:08)
[2021-12-12] MEDS: PANTOPRAZOLE 40 MG (PROTONIX) TAB PO SCH (09:08)
[2021-12-12] MEDS: PSYLLIUM POWDER (METAMUCIL) 5.8 GM PACKET PO SCH (09:08)
[2021-12-12] MEDS: hydrOXYzine (VISTARIL/ATARAX) 25 MG capsule/tablet PO SCH (09:08)
[2021-12-12] MEDS: SPIRONOLACTONE 25 MG (ALDACTONE) TAB PO SCH (09:08)
[2021-12-12] MEDS: SILDENAFIL 20 MG (REVATIO) TAB PO SCH ×3 (09:09→20:06)
[2021-12-12] MEDS: BUMETANIDE 1 MG (BUMEX) TAB PO SCH (09:14)
--- NOTE | 2021-12-12 09:42 | Physical Therapy Daily Note ---
PT Daily Note-Current Subjective Patient is in bed with spouse present. Spouse agrees to PT. Patient continues to be lethargic and will become emotional with any mobility. Mental Status Patient Orientation: Confused Attachments: Oxygen, IV Transfers SCALE: Activities may be completed with or without assistive devices. 9-Qcevoiiadt-beoepkd completes the activity by him/herself with no assistance from a helper. 5-Set-up or Clean-up Assistance-helper sets up or cleans up; patient completes activity. [place] assists only prior to or following the activity. 4-Supervision or Touching Assistance-helper provides verbal cues and/or touchin g/steadying and/or contact guard assistance as patient completes activity. Assistance may be provided throughout the activity or intermittently. 3-Partial/Moderate Assistance-helper does LESS THAN HALF the effort. [place] lifts, holds or supports trunk or limbs, but provides less than half the effort. 2-Substantial/Maximal Assistance-helper does MORE THAN HALF the effort. [place] lifts or holds trunk or limbs and provides more than half the effort. 0-Flwpigcbb-oykvje does ALL the effort. Patient does none of the effort to complete the activity. Or, the assistance of 2 or more helpers is required for the patient to complete the activity. If activity was not attempted, code reason: 7-Patient Refused. 9-Not Applicable-not attempted and the patient did not perform the activity before the current illness, exacerbation or injury. 10-Not Attempted due to Environmental Limitations-(lack of equipment, weather restraints, etc.). 88-Not Attempted due to Medical Conditions or Safety Concerns. Lying to Sitting/Side of Bed(Q: 3 Sit to Stand (QC): 3 Chair/Fxf-ui-Egzqa Xfer(QC): 3 Gait Training Distance: 3 steps Gait Assistive Device: FWW Exercises Seated Therapy Exercises: Ankle pumps, Long arc quads Seated Reps: 12 (AAROM) Assessment Patient transferred to [facility] for use with patient requesting to remain for BM. Spouse present and call light in reach. Patient tolerates minimal activity. PT Professional Fee Coder Goals Professional Fee Coder Goals PT Professional Fee Coder Goals Time Frame: Dec 23, 2021 Roll Left & Right (QC): 3 Sit to Lying (QC): 3 Lying-Sitting on Side/Bed(QC): 3 Sit to Stand (QC): 3 Chair/Vpg-tm-Dcntl Xfer(QC): 3 Toilet Transfer (QC): 3 Walk 10 feet (QC): 3 PT Plan Treatment/Plan Treatment Plan: Continue Plan of Care Treatment Plan: Bed Mobility, Education, Functional Activity Heather, Functional Strength, Gait, Safety, Therapeutic Exercise, Transfers Treatment Duration: Dec 23, 2021 Frequency: 5 times per week Estimated Hrs Per Day: .25 hour per day Time/GCodes Time In: 823 Time Out: 837 Total Billed Treatment Time: 14 Total Billed Treatment 1 visit FA 14 min CAMILLA BECKER PT Dec 12, 2021 09:42
[2021-12-12] MEDS: KETOROLAC 30 MG/ML VIAL IVP PRN (12:06)
[2021-12-12 12:21] VITALS: BP 100/59
--- NOTE | 2021-12-12 12:58 | Occupational Ther Daily Note ---
OT Current Status-Daily Note Subjective Pt dozing sitting in recliner. Family member feeding pt. Mental Status/Objective Patient Orientation: Person, Place, Time, Situation Attachments: IV ADL-Treatment Pt states that she typically feeds self unless she can't see or her hands shake. LORENZO discusses with pt that keeping eyes open to see so she can choose which food she wants to eat with each bite. Pt continues to want to doze initially, with interaction of VENTURA and family pt remains awake to eat meal. Pt still does not reach out to take utensil from family member but does stay awake during rest of meal. Pt used napkin to wipe off chin without hands shaking. After session, pt sitting in recliner with call light/phone in reach. All needs met in room. Therapy Code Descriptions/Definitions Functional [place] Measure: 0=Not Assessed/NA 4=Minimal Assistance 1=Total Assistance 5=Supervision or Setup 2=Maximal Assistance 6=Modified [place] 3=Moderate Assistance 7=Complete IndependenceSCALE: Activities may be completed with or without assistive devices. 7-Sljzballzr-fegrain completes the activity by him/herself with no assistance from a helper. 5-Set-up or Clean-up Assistance-helper sets up or cleans up; patient completes activity. [place] assists only prior to or following the activity. 4-Supervision or Touching Assistance-helper provides verbal cues and/or touching/steadying and/or contact guard assistance as patient completes activity. Assistance may be provided throughout the activity or intermittently. 3-Partial/Moderate Assistance-helper does LESS THAN HALF the effort. [place] lifts, holds or supports trunk or limbs, but provides less than half the effort. 2-Substantial/Maximal Assistance-helper does MORE THAN HALF the effort. [place] lifts or holds trunk or limbs and provides more than half the effort. 1-Baikseufc-txfzbg does ALL the effort. Patient does none of the effort to complete the activity. Or, the assistance of 2 or more helpers is required for the patient to complete the activity. If activity was not attempted, code reason: 7-Patient Refused. 9-Not Applicable-not attempted and the patient did not perform the activity before the current illness, exacerbation or injury. 10-Not Attempted due to Environmental Limitations-(lack of equipment, weather restraints, etc.). 88-Not Attempted due to Medical Conditions or Safety Concerns. OT Skilled Nursing Goals Senior Policy Associate Goals Time Frame: Dec 21, 2021 Eating (QC): 5 Oral Hygiene (QC): 4 Toileting Hygiene (QC): 2 Shower/Bathe Self (QC): 2 Upper Body Dressing (QC): 2 Lower Body Dressing (QC): 2 1=Demonstrate adherence to instructed precautions during ADL tasks. 2=Patient will verbalize/demonstrate understanding of assistive devices/modifications for ADL. 3=Patient will improve strength/tolerance for activity to enable patient to perform ADL's. OT Education/Plan Problem List/Assessment Assessment: Decreased Activ Tolerance, Impaired Coordination, Impaired Self- Care Skills Discharge Recommendations Plan/Recommendations: Continue POC Treatment Plan/Plan of Care Patient would benefit from OT for education, treatment and training to promote independence in ADL's, mobility, safety and/or upper extremity function for ADL's. Plan of Care: ADL Retraining, Caregiver Training, Functional Mobility, Group Exercise/Act as Ind, UE Funct Exercise/Act Treatment Duration: Dec 21, 2021 Frequency: 3 times per week (3-5x/week) Estimated Hrs Per Day: .25 hour per day Rehab Potential: Guarded Time/GCodes Start Time: 12:40 Stop Time: 12:52 Total Time Billed (hr/min): 12 Billed Treatment Time 1 visit-FA 1 (12 min) HARJINDER CARTER Dec 12, 2021 12:58
[2021-12-12 15:32] VITALS: BP 127/78
--- NOTE | 2021-12-12 16:42 | Progress Note - Hospitalist ---
Subjective HPI/CC On Admission Date Seen by Provider: Dec 12, 2021 Time Seen by Provider: 12:15 Roopa Horton is a 71 year old female with PMH HTN, pHTN, lymphedema, AFib on Xarelto, morbid obesity, who presented with weakness. She has had chronic GI bleeding. She initially thought she had hemorrhoids and had shown some improvem ent temporarily after treatment. She has been passing large clots per rectum. She reports bright red blood as well. She has been lightheaded and dizzy. She has limited mobility at baseline but lately has been able to do even less. She has undergone a colonoscopy in the past. She had outpatient labs drawn and was found to have a hemoglobin of 4. Subjective/Events-last exam She is feeling a little better. She has had no bleeding. She is eating lunch. Objective Exam Vital Signs Vital Signs Date Time Temp Pulse Resp B/P (MAP) Pulse Ox O2 Delivery O2 Flow Rate FiO2 12/12/21 15:32 35.8 88 22 127/78 (94) 97 Nasal Cannula 4.00 Capillary Refill : Less Than 3 Seconds General Appearance: No Apparent Distress, Obese Respiratory: Lungs Clear, No Respiratory Distress Cardiovascular: Regular Rate, Rhythm, No Murmur Gastrointestinal: Normal Bowel Sounds, Soft Extremity: Normal Inspection, Pedal Edema Neurologic/Psychiatric: Alert, Normal Mood/Affect, Motor Weakness Skin: Normal Color, Warm/Dry Results/Procedures Lab Laboratory Tests 12/12/21 05:15 Patient resulted labs reviewed. Assessment/Plan Assessment and Plan Assess & Plan/Chief Complaint Acute on chronic blood loss anemia Iron deficiency anemia Internal and external hemorrhoids Esophagitis and gastritis Esophageal stricture AFib on chronic anticoagulation Hgb 4 on arrival Transfused 3 units PRBC Hgb improved to 7, stable Surgery following EGD/colonoscopy showed gastritis/esophagitis and internal/external hemo rrhoids, esophageal stricture s/p balloon dilitation May need hemorrhoidectomy at some point Iron studies consistent with iron deficiency Venofer Cardiology following Stop Xarelto Transition to Eliquis Chronic respiratory failure with hypoxia Morbid obesity Lymphedema Pulmonary hypertension HTN Chronic pain Resume home meds DVT prophylaxis: held due to GI bleeding Hypomagnesemia, resolved Acute lower GI bleeding, resolved Diagnosis/Problems Diagnosis/Problems (1) Acute GI bleeding Status: Acute (2) ABLA (acute blood loss anemia) Status: Acute (3) PAF (paroxysmal atrial fibrillation) Status: Acute (4) Chronic anticoagulation Status: Acute (5) Morbid obesity Status: Chronic (6) PHT (pulmonary hypertension) Status: Chronic (7) Hypomagnesemia Status: Acute (8) Chronic respiratory failure with hypoxia Status: Chronic (9) Internal and external bleeding hemorrhoids Status: Acute (10) Esophagitis with gastritis Status: Acute (11) Esophageal stricture Status: Acute JOHN LANE MD Dec 12, 2021 16:42
[2021-12-12] MEDS ORDERED: PATIENT MAY USE OWN MED,SINGLE MED PO SCH (16:45)
--- NOTE | 2021-12-12 16:45 | Discharge Inst-Skilled Nursing ---
Discharge Inst-Skilled NF Consult/Follow Up/Orders Follow Up Appt.: next usp rounds Skilled NF Admit to: [facility] Certification (SNF) I certify that SNF services are required to be given on an inpatient basis because of the above named patient's need for longterm care on a continuing basis for the conditions(s) for which he/she was receiving inpatient hospital services prior to his/her transfer to the SNF. Care Home Facility Order: Nursing Services, Risk Tech-Evaluate & Treat, Physical Therapy-Evaluate & Treat Oxygen Delivery Method: Nasal Cannula Discharge Diet: Other Diet (High fiber diet) Daily Activity as Tolerated: Yes Resuscitation Status: Full Code New & Resume Previous Orders Leonie Lane Dec 12, 2021 16:[address] MD Dec 12, 2021 16:45
[2021-12-12] MEDS ORDERED: ACET/BUTAL/CAFF (FIORICET) TAB PO PRN (17:15)
--- NOTE | 2021-12-12 17:34 | Cardiology Progress Note ---
Progress Note-Cardiology Events since last exam Date Seen by Provider: Dec 12, 2021 Time Seen by Provider: 17:30 Events since last exam I am following her due to atrial fibrillation. She feels better today. She is happy that she has food for dinner. She denies chest discomfort, dyspnea at rest, palpitations, or syncope. Her chronic peripheral edema is reasonably controlled with her compression devices. Certain portions of this document may have been dictated utilizing voice recognition technology. Inherent to this technology, typographical and grammatical errors may exist. As much as I am diligent to identify and correct these mistakes, some errors may remain in the document. Vitals Last set of Vitals Signs Vital Signs 12/12/21 15:32 Temp 35.8 Pulse 88 Resp 22 B/P (MAP) 127/78 (94) Pulse Ox 97 O2 Delivery Nasal Cannula O2 Flow Rate 4.00 Labs Labs Laboratory Tests 12/12/21 05:15 Exam Vital Signs Vital Signs Date Time Temp Pulse Resp B/P (MAP) Pulse Ox O2 Delivery O2 Flow Rate FiO2 12/12/21 15:32 35.8 88 22 127/78 (94) 97 Nasal Cannula 4.00 Physical Exam General: Alert. No acute distress. She is morbidly obese. Eye: No xanthelasma. HENT: Normocephalic. Neck: Jugular venous pressure does not appear elevated. Respiratory: Lungs are clear to auscultation but with decreased breath sounds at the bases bilaterally. Respirations are non-labored. Breath sounds are equal. Symmetrical chest wall expansion. Cardiovascular: Normal rate. Irregular rhythm. Distant S1/S2. No murmur. No gallop. She has external compression devices on both lower extremities below the knee. Gastrointestinal: Soft. Normal bowel sounds. Skin: Warm. Dry. Neurologic: Alert and oriented to person, place, time. Cranial nerves 3-11 grossly intact. Psychiatric: Cooperative. Appropriate mood & affect. Labs Laboratory Tests Test 12/12/21 05:04 12/12/21 05:15 Range/Units Urine Color ORANGE Urine Clarity TURBID Urine pH 7.0 5-9 Urine Specific [place] 1.015 L 1.016-1.022 Urine Protein TRACE H NEGATIVE Urine Glucose (UA) NEGATIVE NEGATIVE Urine Ketones NEGATIVE NEGATIVE Urine Nitrite POSITIVE H NEGATIVE Urine Bilirubin NEGATIVE NEGATIVE Urine Urobilinogen 1.0 < = 1.0 MG/DL Urine Leukocyte Esterase 2+ H NEGATIVE Urine RBC (Auto) TRACE-I H NEGATIVE Urine RBC 5-10 H /HPF Urine WBC 10-25 H /HPF Urine Squamous Epithelial Cells 10-25 H /HPF Urine Crystals NONE /LPF Urine Bacteria LARGE H /HPF Urine Casts NONE /LPF Urine Mucus LARGE H /LPF Urine Culture Indicated YES Hemoglobin 7.1 L 11.5-16.0 g/dL Hematocrit 25 L 35-52 % Sodium Level 137 135-145 MMOL/L Potassium Level 3.9 3.6-5.0 MMOL/L Chloride Level 94 L 98-107 MMOL/L Carbon Dioxide Level 34 H 21-32 MMOL/L Anion Gap 9 5-14 MMOL/L Blood Urea Nitrogen 11 7-18 MG/DL Creatinine 0.82 0.60-1.30 MG/DL Estimat Glomerular Filtration Rate 75 BUN/Creatinine Ratio 13 Glucose Level 135 H 70-105 MG/DL Calcium Level 8.7 8.5-10.1 MG/DL Magnesium Level 1.6 1.6-2.4 MG/DL Radiology ECHOCARDIOGRAM (12/12/2021): 1. This is a technically difficult study due to poor image quality secondary to patient's body habitus. 2. Left ventricle: The cavity size is normal. There is mild concentric hypertrophy. Systolic function is mildly reduced. The estimated ejection fraction is 40-45%. Regional wall motion abnormalities cannot be excluded due to poor endocardial definition. The left ventricular diastolic function is indeterminate. 3. Left atrium: The left atrium is severely dilated with a volume index of 51 mL/m. 4. Right atrium: The right atrium is severely dilated with an area of 40 cm. 5. Aortic valve: There is mild aortic valve sclerosis. 6. Inferior vena cava: The vessel is dilated. The respirophasic diameter changes are blunted (less than 50%). These findings are consistent with markedly elevated right atrial pressure (15 mmHg). 7. Pulmonary arteries: The estimated pulmonary artery systolic pressure is 44 mmHg assuming a right atrial pressure of 15 mmHg. Diagnosis/Problems Diagnosis/Problems (1) Persistent atrial fibrillation Assessment & Plan: She has been on sotalol from what she can recall may be at least 3 years. However, now she is in atrial fibrillation. Some of this could have been brought on by the severe anemia now with blood transfusions. For the time being, I will continue her on sotalol. She had been on rivaroxaban but has now been started on apixaban. There is data that apixaban has less incidence of gastrointestinal hemorrhage compared to rivaroxaban. Her echocardiogram shows severe biatrial dilatation which suggest she has been in atrial fibrillation for quite some time. I told the patient she will need to schedule a follow-up appointment with her regular chief estimator as soon as possible following discharge to help guide treatment. The sotalol may no longer be effective for this patient. (2) Primary hypertension Assessment & Plan: She is normotensive on spironolactone and sotalol which is being given for the atrial fibrillation. (3) Cardiomyopathy Assessment & Plan: She has mild left ventricular systolic dysfunction as outlined above. She does not seem to be having any overt heart failure. She has been on spironolactone at home. She has been on sotalol which is a beta- leopoldo. I would be hesitant to add JUNIOR inhibitor or ARB at this point in time due to somewhat low blood pressures. (4) Pulmonary hypertension Assessment & Plan: This was noted on her echocardiogram. This is in a mild range. I suspect this is related to her morbid obesity and hypoventilation with probable obstructive sleep apnea. (5) Chronic anticoagulation Status: Acute Assessment & Plan: All anticoagulation is on hold due to the gastrointestinal hemorrhage. From her description, the gastrointestinal hemorrhage may be a chronic, intermittent problem. She may be a candidate for a left atrial exclusion device. She should discuss this with her regular chief estimator following discharge. She is now on apixaban. (6) Morbid obesity Status: Chronic Assessment & Plan: She needs to work on weight loss. She was counseled in this regard. JOYA CRENSHAW JR, MD Dec 12, 2021 17:34
[2021-12-12 19:41] VITALS: BP 120/74
[2021-12-12] MEDS: MONTELUKAST 10 MG (SINGULAIR) TAB PO SCH (20:05)
[2021-12-12] MEDS: APIXABAN 5 MG (ELIQUIS) TABLET PO SCH (20:06)
[2021-12-12] MEDS: NITROFURANTOIN 100 MG (MACROBID) CAPSULE PO SCH (21:57)
[2021-12-12 23:08] VITALS: BP 138/75
[2021-12-13 04:24] VITALS: BP 134/87
[2021-12-13 06:20] LABS: HEMOGLOBIN 7.3 g/dL (11.5-16.0)
[2021-12-13 06:36] LABS: POTASSIUM 3.9 MMOL/L (3.6-5.0)
[2021-12-13] MEDS: POTASSIUM CL 10MEQ/50ML IVPB 50 ML IV SCH (06:36)
[2021-12-13] MEDS: CATHETER FLUSH 10 ML SYR IV SCH ×3 (06:36→14:23)
[2021-12-13 06:37] LABS: CALCIUM 8.8 MG/DL (8.5-10.1)
[2021-12-13] MEDS: KCL 20 MEQ TAB (K-DUR) PO SCH (06:37)
[2021-12-13 06:41] LABS: CREATININE SERUM 0.68 MG/DL (0.60-1.30)
[2021-12-13 06:44] LABS: MAGNESIUM 1.5 MG/DL (1.6-2.4)
[2021-12-13] MEDS: MAGNESIUM 1 GM/100 ML IVPB 100 ML IV SCH ×2 (06:49)
[2021-12-13] MEDS: BUPRENORPHINE NALOX MC PRN (06:55)
[2021-12-13 07:55] VITALS: BP 123/75
[2021-12-13] MEDS: hydrOXYzine (VISTARIL/ATARAX) 25 MG capsule/tablet PO SCH (08:49)
[2021-12-13] MEDS: PSYLLIUM POWDER (METAMUCIL) 5.8 GM PACKET PO SCH (08:49)
[2021-12-13] MEDS: APIXABAN 5 MG (ELIQUIS) TABLET PO SCH (08:49)
[2021-12-13] MEDS: SPIRONOLACTONE 25 MG (ALDACTONE) TAB PO SCH (08:50)
[2021-12-13] MEDS: SOTALOL 80 MG (BETAPACE) TAB PO SCH (08:50)
[2021-12-13] MEDS: DULoxetine 30 MG (CYMBALTA) CAP PO SCH (08:50)
[2021-12-13] MEDS: ALLOPURINOL 300 MG (ZYLOPRIM) TAB PO SCH (08:50)
[2021-12-13] MEDS: PANTOPRAZOLE 40 MG (PROTONIX) TAB PO SCH (08:50)
[2021-12-13] MEDS: BUMETANIDE 1 MG (BUMEX) TAB PO SCH (08:50)
[2021-12-13] MEDS: NITROFURANTOIN 100 MG (MACROBID) CAPSULE PO SCH (08:50)
[2021-12-13] MEDS: SILDENAFIL 20 MG (REVATIO) TAB PO SCH ×2 (08:51→14:18)
[2021-12-13] MEDS ORDERED: IRON SUCROSE 200 MG/10 ML (VENOFER) VIAL IV SCH (11:00)
[2021-12-13] MEDS ORDERED: OMEP40CA6 PO (11:47)
[2021-12-13] MEDS ORDERED: IRON150C3 PO (11:47)
[2021-12-13] MEDS ORDERED: SPIR25TA5 PO (11:47)
[2021-12-13] MEDS ORDERED: HYDR-700 PO (11:47)
[2021-12-13] MEDS ORDERED: NITR100C10 PO (11:47)
[2021-12-13] MEDS ORDERED: BRIN8DRO OU (11:47)
[2021-12-13] MEDS ORDERED: CLN.1T PO (11:47)
[2021-12-13] MEDS ORDERED: ALBU18HF2 PO (11:47)
[2021-12-13] MEDS ORDERED: ALLO300T2 PO (11:47)
[2021-12-13] MEDS ORDERED: APIX5TAB PO (11:47)
[2021-12-13] MEDS ORDERED: MONT-40 PO (11:47)
[2021-12-13] MEDS ORDERED: BUTA-235 PO (11:47)
[2021-12-13] MEDS ORDERED: BUME1TAB8 PO (11:47)
[2021-12-13] MEDS ORDERED: SOTA120T PO (11:47)
[2021-12-13] MEDS ORDERED: BUPR1FIL19 SL (11:47)
[2021-12-13] MEDS ORDERED: RAMI10CA69 PO (11:47)
[2021-12-13] MEDS ORDERED: SILD20TA14 PO (11:47)
[2021-12-13] MEDS ORDERED: BUDE10.2 PO (11:47)
[2021-12-13] MEDS ORDERED: DULO60CA59 PO (11:47)
[2021-12-13 12:32] VITALS: BP 127/76
[2021-12-13] MEDS ORDERED: COVID-19 VACC, MRNA(PFIZER)/PF 30 MCG/0.3 ML VIAL IM ONE (13:15)
--- NOTE | 2021-12-13 13:39 | Occupational Ther Daily Note ---
OT Current Status-Daily Note Subjective Pt dozing in bed. Pt agrees to therapy. No c/o pain. Pt very anxious about movement. Mental Status/Objective Patient Orientation: Person, Place, Time, Situation Attachments: IV, Oxygen, Telemetry ADL-Treatment Mod A for supine to EOB. Pt declines to complete B UE exercises. Light resistance theraband placed in room and pt encouraged to use it with any mov ement. Pt requested to use BSC. Pt dependent for footwear and lower body dressing. Max A for toileting. Min A for multiple steps using FWW though pt very scared and requests 2 persons to be there with transfers. Pt request to stay on BSC for awhile, checked on pt multiple times and pt states that she is still working on it. Notified nrsg of pt's position. Call light/phone in reach. All needs met. Therapy Code Descriptions/Definitions Functional [place] Measure: 0=Not Assessed/NA 4=Minimal Assistance 1=Total Assistance 5=Supervision or Setup 2=Maximal Assistance 6=Modified [place] 3=Moderate Assistance 7=Complete IndependenceSCALE: Activities may be completed with or without assistive devices. 0-Ilodahjmjv-czbxpoi completes the activity by him/herself with no assistance from a helper. 5-Set-up or Clean-up Assistance-helper sets up or cleans up; patient completes activity. [place] assists only prior to or following the activity. 4-Supervision or Touching Assistance-helper provides verbal cues and/or touching/steadying and/or contact guard assistance as patient completes activity. Assistance may be provided throughout the activity or intermittently. 3-Partial/Moderate Assistance-helper does LESS THAN HALF the effort. [place] lifts, holds or supports trunk or limbs, but provides less than half the effort. 2-Substantial/Maximal Assistance-helper does MORE THAN HALF the effort. [place] lifts or holds trunk or limbs and provides more than half the effort. 3-Hswrjhvww-ckmsib does ALL the effort. Patient does none of the effort to complete the activity. Or, the assistance of 2 or more helpers is required for the patient to complete the activity. If activity was not attempted, code reason: 7-Patient Refused. 9-Not Applicable-not attempted and the patient did not perform the activity before the current illness, exacerbation or injury. 10-Not Attempted due to Environmental Limitations-(lack of equipment, weather restraints, etc.). 88-Not Attempted due to Medical Conditions or Safety Concerns. Lower Body Dressing (QC): 2 On/Off Footwear: 2 Toileting Hygiene (QC): 2 Toilet Transfer (QC): 3 OT Social Work Coordinator Goals Social Work Coordinator Goals Time Frame: Dec 21, 2021 Eating (QC): 5 Oral Hygiene (QC): 4 Toileting Hygiene (QC): 2 Shower/Bathe Self (QC): 2 Upper Body Dressing (QC): 2 Lower Body Dressing (QC): 2 1=Demonstrate adherence to instructed precautions during ADL tasks. 2=Patient will verbalize/demonstrate understanding of assistive devices/modifications for ADL. 3=Patient will improve strength/tolerance for activity to enable patient to perform ADL's. OT Education/Plan Problem List/Assessment Assessment: Decreased Activ Tolerance, Impaired Self-Care Skills Discharge Recommendations Plan/Recommendations: Continue POC Treatment Plan/Plan of Care Patient would benefit from OT for education, treatment and training to promote independence in ADL's, mobility, safety and/or upper extremity function for ADL's. Plan of Care: ADL Retraining, Caregiver Training, Functional Mobility, Group Exercise/Act as Ind, UE Funct Exercise/Act Treatment Duration: Dec 21, 2021 Frequency: 3 times per week (3-5x/week) Estimated Hrs Per Day: .25 hour per day Rehab Potential: Guarded Time/GCodes Start Time: 13:05 Stop Time: 13:30 Total Time Billed (hr/min): 25 Billed Treatment Time 1 visit-ADL 2 (25 min) HARJINDER CARTER Dec 13, 2021 13:39
[2021-12-13] MEDS ORDERED: HEParin (CENTRAL IV FLUSH) 500 UNIT/5 ML SYR ONE (14:50)
[2021-12-13] MEDS ORDERED: HEParin (CENTRAL IV FLUSH) 500 UNIT/5 ML SYR IV NR (15:00)
[2021-12-13 15:18] VITALS: BP 127/76
--- NOTE | 2021-12-13 17:16 | Discharge Summary ---
Discharge Summary Hospital Course Was the Problem List Reviewed?: Yes Problems/Dx: (1) Chronic lower gastrointestinal bleeding Status: Acute (2) Internal and external bleeding hemorrhoids Status: Acute (3) ABLA (acute blood loss anemia) Status: Acute (4) Esophagitis with gastritis Status: Acute (5) Esophageal stricture Status: Acute (6) Persistent atrial fibrillation Status: Chronic (7) Primary hypertension Status: Chronic (8) Cardiomyopathy Status: Chronic (9) Pulmonary hypertension Status: Chronic (10) Chronic anticoagulation Status: Chronic (11) Morbid obesity Status: Chronic Hospital Course Date of Admission: Dec 08, 2021 at 15:59 Admission Diagnosis : Acute on chronic blood loss anemia due to lower GI bleeding Family Physician/Provider: AdamarisLocal Physician Date of Discharge: 12/13/21 Discharge Diagnosis: Acute on chronic blood loss anemia due to internal and external bleeding hemorrhoids Hospital Course: Roopa Horton is a 71 year old female who was admitted with profound anemia. Her hemoglobin was found to be 4. She has been having bright red blood per rectum for some time. She has been treated for hemorrhoids and her symptoms have been waxing and waning. She was transfused 3 units PRBC and her hemoglobin improved and stabilized above 7. Surgery was consulted and performed EGD and colonoscopy. She did have internal and external hemorrhoids without active bleeding. She also had mild esophagitis and gastritis along with an esophageal stricture which was dilated. She was given IV Venofer, two doses prior to discharge. She was continued on iron supplementation. Her course was complicated by atrial fibrillation on chronic anticoagulation. Cardiology was consulted and assisted with her care. Her Xarelto was held, then stopped. She was transitioned to Eliquis due to lower GI bleeding risk. She also had a UTI and she was given a course of Macrobid. She was debilitated and was discharged to [facility] for ongoing skilled therapy needs. She will get a repeat hemoglobin check in a few days. She needs to establish with a new primary care physician and her family has filled out paperwork with Dr. Lamar. Dr. Singh will be overseeing her care in the meantime while she is at [facility]. Labs and Pending Lab Test: Laboratory Tests 12/13/21 06:15: Hemoglobin 7.3L, Hematocrit 25L, Sodium Level 139, Potassium Level 3.9, Chloride Level 94L, Carbon Dioxide Level 36H, Anion Gap 9, Blood Urea Nitrogen 8, Creatinine 0.68, Estimat Glomerular Filtration Rate 92, BUN/Creatinine Ratio 12, Glucose Level 123H, Calcium Level 8.8, Magnesium Level 1.5L Microbiology 12/12/21 Urine Culture - Preliminary, Resulted Escherichia coli Mixed Bacterial Unique 12/09/21 MRSA Screen - Final, Complete MRSA not isolated Home Meds Active Eliquis (Apixaban) 5 Mg Tablet 5 Mg PO BID 30 Days Nitrofurantoin [place]-Mcr 100 mg (Nitrofurantoin Monohyd/M-Cryst) 100 Mg Capsule 100 Mg PO BID 4 Days Ferrex 150 (Iron Polysaccharide Complex) 150 Mg Iron Capsule 150 Mg PO DAILY 30 Days Bumetanide 1 Mg Tablet 1 Mg PO DAILY 30 Days FILLED 09-02-2021 #60 Allopurinol 300 Mg Tablet 300 Mg PO HS 30 Days FILLED 10-08-2019 Ventolin Hfa (Albuterol Sulfate) 90 Mcg Hfa.aer.ad 1 Puff PO Q6H PRN 30 Days Hydroxyzine HCl 25 Mg Tablet 25 Mg PO QID 30 Days Omeprazole 40 Mg Capsule.dr 40 Mg PO DAILY 30 Days Sotalol (Sotalol HCl) 120 Mg Tablet 120 Mg PO BID 30 Days Ramipril 10 Mg Capsule 10 Mg PO HS 30 Days Clonidine HCl 0.1 Mg Tablet 0.1 Mg PO BID 30 Days Montelukast Sodium 10 Mg Tablet 10 Mg PO HS 30 Days Buprenorphine-Nalox 8-2Mg Film (Buprenorphine HCl/Naloxone HCl) 8 Mg-2 Mg Film 1 Each SL QID 30 Days Axldkv-Lzppepjw-Vjtr 50-325-40 (Butalb/Acetaminophen/Caffeine) 50 Mg-325 Mg-40 Mg Tablet 1 Each PO QID 30 Days Symbicort 160-4.5 Mcg Inhaler (Budesonide/Formoterol Fumarate) 160 Mcg-4.5 Mcg/Actuation Hfa.aer.ad 1 Puff PO BID 30 Days Spironolactone 25 Mg Tablet 25 Mg PO BID 30 Days Simbrinza 1%-0.2% Eye Drops (Brinzolamide/Brimonidine Tart) 1 %-0.2 % Drops.susp 1 Drop OU TID 30 Days Sildenafil (Sildenafil Citrate) 20 Mg Tablet 20 Mg PO TID 30 Days Duloxetine HCl 60 Mg Capsule.dr 60 Mg PO BID 30 Days Assessment/Pt Instructions See instructions Discharge Planning: >30 minutes discharge planning Discharge Instructions Discharge Diet: Other Diet (High fiber diet) Activity as Tolerated: Yes Consultations Surgery, Cardiology Discharge Physical Examination Vital Signs Vital Signs Date Time Temp Pulse Resp B/P (MAP) Pulse Ox O2 Delivery O2 Flow Rate FiO2 12/13/21 15:18 36.4 90 20 127/76 96 High Flow N/C 4.00 General Appearance: No Apparent Distress, Obese HEENT: PERRL/EOMI, Pharynx Normal Respiratory: Lungs Clear, Normal Breath Sounds, No Respiratory Distress Cardiovascular: Regular Rate, Rhythm, No Edema, No Murmur Gastrointestinal: Normal Bowel Sounds, Non Tender, Soft Extremity: Normal Inspection, Non Tender Skin: Normal Color, Warm/Dry Neurologic/Psychiatric: Alert, Oriented x3, Normal Mood/Affect Allergies: Coded Allergies: Tetanus Vaccines and Toxoid (Verified Allergy, Unknown, 07/18/07) adhesive (Verified Allergy, Unknown, 07/18/07) Copy Copies To 1: DA SINGH MD Copies To 2: SOCORRO LAMAR MD Discharge Summary Date of Admission Dec 08, 2021 at 15:59 Date of Discharge Dec 13, 2021 at 16:10 Admission Diagnosis Acute on chornic lower GI bleeding Consults/Procedures Consulations Surgery, Cardiology Procedures EGD/colonoscopy Discharge Diagnosis Chornic lower GI bleeding Acute on chronic blood loss anemia Iron deficiency anemia Internal and external hemorrhoids Esophagitis and gastritis Esophageal stricture AFib on chronic anticoagulation (1) Chronic lower gastrointestinal bleeding Status: Acute (2) Internal and external bleeding hemorrhoids Status: Acute (3) ABLA (acute blood loss anemia) Status: Acute (4) Esophagitis with gastritis Status: Acute (5) Esophageal stricture Status: Acute (6) KARISHMA (iron deficiency anemia) Status: Acute Qualifiers: Qualified Codes: D50.0 - Iron deficiency anemia secondary to blood loss (chronic) (7) Persistent atrial fibrillation Status: Chronic (8) Primary hypertension Status: Chronic (9) Cardiomyopathy Status: Chronic (10) Pulmonary hypertension Status: Chronic (11) Chronic anticoagulation Status: Chronic (12) Morbid obesity Status: Chronic JOHN LANE MD Dec 13, 2021 17:15
== END 2021-12-13 16:10 | DRG 378 ==
LOC: EDUNIT# 12:18 → ER 12:21 → 4TH 15:59
PROVIDERS: ADMIT Internal Medicine; ATTEND Internal Medicine
PROC: 0DB78ZX Excision of Stomach, Pylorus, Via Natural or Artificial Opening Endoscopic, Diagnostic (ICD-10-PCS; 2021-12-10)
PROC: 0D738ZZ Dilation of Lower Esophagus, Via Natural or Artificial Opening Endoscopic (ICD-10-PCS; principal; 2021-12-10 09:54)
PROC: 0DB48ZX Excision of Esophagogastric Junction, Via Natural or Artificial Opening Endoscopic, Diagnostic (ICD-10-PCS; 2021-12-10 09:54)
DX: K92.2 Gastrointestinal hemorrhage, unspecified (principal); D62 Acute posthemorrhagic anemia; I48.19 Other persistent atrial fibrillation; Z68.42 Body mass index [BMI] 45.0-49.9, adult; J96.11 Chronic respiratory failure with hypoxia; I42.9 Cardiomyopathy, unspecified; Z79.01 Long term (current) use of anticoagulants; E66.01 Morbid (severe) obesity due to excess calories; K22.2 Esophageal obstruction; K44.9 Diaphragmatic hernia without obstruction or gangrene; K29.70 Gastritis, unspecified, without bleeding; K64.2 Third degree hemorrhoids; K57.30 Diverticulosis of large intestine without perforation or abscess without bleeding; E83.42 Hypomagnesemia; J44.9 Chronic obstructive pulmonary disease, unspecified; I27.20 Pulmonary hypertension, unspecified; I89.0 Lymphedema, not elsewhere classified; I10 Essential (primary) hypertension; M10.9 Gout, unspecified; M19.91 Primary osteoarthritis, unspecified site; K21.00 Gastro-esophageal reflux disease with esophagitis, without bleeding; Z88.7 Allergy status to serum and vaccine; Z91.048 Other nonmedicinal substance allergy status
CPT/HCPCS: 36415; 80048; 80053; 81000; 82728; 83540; 83550; 83735; 85014; 85018; 85025; 85610; 86850; 86870; 86900; 86901; 86902; 86920; 86922; 87077; 87081; 87088; 87186; 91300; 93005; 93306; 94760

== ENCOUNTER 2022-01-04 14:22 | Outpatient (RCR) | payer MEDICARE ==
[~2022-01-04 14:22] MED LIST changes: +ALBU18HF2 PO; +ALLO300T2 PO; +APIX5TAB PO; +BRIN8DRO OU; +BUDE10.2 IH; +BUDE10.2 PO; +BUME0.5T5 PO; +BUME1TAB8 PO; +BUPR1FIL19 SL; +BUTA-235 PO; +CLN.1T PO; +DULO60CA59 PO; +HYDR-3923 PO; +HYDR-700 PO; +IRON150C3 PO; +MONT-40 PO; +NITR100C10 PO; +OMEP40CA6 PO; +RAMI10CA69 PO; +RIVA20TA PO; +SILD20TA14 PO; +SOTA120T PO; +SPIR25TA5 PO
[2022-01-04] MEDS ORDERED: HEParin (CENTRAL IV FLUSH) 500 UNIT/5 ML SYR ONE (14:39)
[2022-01-04 14:40] VITALS: BP 130/63
[2022-01-04] MEDS ORDERED: HEParin (CENTRAL IV FLUSH) 500 UNIT/5 ML SYR IV ONE (15:00)
[2022-01-04 15:02] LABS: HEMATOCRIT 30 % (35-52); HEMOGLOBIN 8.7 g/dL (11.5-16.0); MEAN CORPUSCULAR HEMOGLOBIN 26 pg (25-34); MEAN CORPUSCULAR HGB CONC 29 g/dL (32-36); MEAN CORPUSCULAR VOLUME 88 fL (80-99); MEAN PLATELET VOLUME 10.7 fL (9.0-12.2); PLATELET COUNT 202 10^3/uL (130-400); WHITE BLOOD COUNT 5.1 10^3/uL (4.3-11.0)
== END 2022-01-21 | disposition home or self-care (01) ==
LOC: SDC 14:22
PROVIDERS: ATTEND Emergency Medicine
DX: Z45.2 Encounter for adjustment and management of vascular access device (principal); I73.9 Peripheral vascular disease, unspecified; D64.9 Anemia, unspecified
CPT/HCPCS: 36415; 36591; 83880; 85027

== ENCOUNTER → 2022-01-12 | Outpatient (CLI) | payer MEDICARE ==
[~2022-01-12] MED LIST changes: +HEParin (CENTRAL IV FLUSH) 500 UNIT/5 ML SYR IV ONE; +HEParin (CENTRAL IV FLUSH) 500 UNIT/5 ML SYR ONE
[2022-01-12 12:17] LABS: HEMATOCRIT 27 % (35-52); MEAN CORPUSCULAR HEMOGLOBIN 26 pg (25-34); MEAN CORPUSCULAR HGB CONC 30 g/dL (32-36); MEAN CORPUSCULAR VOLUME 86 fL (80-99); PLATELET COUNT 211 10^3/uL (130-400); WHITE BLOOD COUNT 8.3 10^3/uL (4.3-11.0)
[2022-01-12 12:19] LABS: HEMOGLOBIN 8.1 g/dL (11.5-16.0)
== END ==
LOC: SDC 11:53
PROVIDERS: ATTEND Nurse Practitioner Family
DX: D64.9 Anemia, unspecified (principal)
CPT/HCPCS: 36415; 36591; 85027

== ENCOUNTER 2022-01-30 13:11 | Outpatient (RCR) | payer MEDICARE ==
[~2022-01-30 13:11] MED LIST changes: -HEParin (CENTRAL IV FLUSH) 500 UNIT/5 ML SYR IV ONE; -HEParin (CENTRAL IV FLUSH) 500 UNIT/5 ML SYR ONE
[2022-01-30 13:20] VITALS: BP 101/65
[2022-01-30 13:51] LABS: HEMATOCRIT 25 % (35-52); HEMOGLOBIN 7.4 g/dL (11.5-16.0); MEAN CORPUSCULAR HEMOGLOBIN 27 pg (25-34); MEAN CORPUSCULAR HGB CONC 30 g/dL (32-36); MEAN CORPUSCULAR VOLUME 88 fL (80-99); MEAN PLATELET VOLUME 9.8 fL (9.0-12.2); PLATELET COUNT 283 10^3/uL (130-400); WHITE BLOOD COUNT 6.3 10^3/uL (4.3-11.0)
[2022-01-30 14:01] LABS: CHLORIDE 97 MMOL/L (98-107); POTASSIUM 4.7 MMOL/L (3.6-5.0); SODIUM 133 MMOL/L (135-145)
[2022-01-30 14:02] LABS: CALCIUM 8.8 MG/DL (8.5-10.1)
[2022-01-30 14:03] LABS: GLUCOSE 109 MG/DL (70-105); TOTAL PROTEIN 7.6 GM/DL (6.4-8.2)
[2022-01-30 14:04] LABS: CARBON DIOXIDE 31 MMOL/L (21-32)
[2022-01-30 14:05] LABS: BILIRUBIN,TOTAL 0.2 MG/DL (0.1-1.0)
[2022-01-30 14:07] LABS: ALKALINE PHOSPHATASE 111 U/L (40-136); CREATININE SERUM 0.97 MG/DL (0.60-1.30); GFR ESTIMATED 62
[2022-01-30 14:08] LABS: BUN/CREATININE RATIO 27
[2022-01-30 14:09] LABS: ALANINE AMINOTRANSFERASE < 6 U/L (0-55)
== END 2022-02-21 | disposition home or self-care (01) ==
LOC: SDC 13:11
PROVIDERS: ATTEND Family Medicine
DX: Z45.2 Encounter for adjustment and management of vascular access device (principal); I73.9 Peripheral vascular disease, unspecified; I27.20 Pulmonary hypertension, unspecified; K64.4 Residual hemorrhoidal skin tags; D64.9 Anemia, unspecified; I50.9 Heart failure, unspecified
CPT/HCPCS: 36415; 36591; 80053; 85027

== ENCOUNTER → 2022-02-08 | Outpatient (CLI) | payer MEDICARE ==
[~2022-02-08] VITALS: Wt 131.0 kg
[2022-02-08 13:45] VITALS: BP 92/56
[2022-02-08 14:08] LABS: HEMATOCRIT 25 % (35-52); HEMOGLOBIN 7.2 g/dL (11.5-16.0); MEAN CORPUSCULAR HEMOGLOBIN 26 pg (25-34); MEAN CORPUSCULAR HGB CONC 29 g/dL (32-36); MEAN CORPUSCULAR VOLUME 88 fL (80-99); MEAN PLATELET VOLUME 9.8 fL (9.0-12.2); PLATELET COUNT 272 10^3/uL (130-400); WHITE BLOOD COUNT 8.1 10^3/uL (4.3-11.0)
== END ==
LOC: SDC 13:31
PROVIDERS: ATTEND Family Medicine
DX: D64.9 Anemia, unspecified (principal)
CPT/HCPCS: 36415; 36591; 82728; 83540; 83550; 85027

== ENCOUNTER 2022-02-16 12:45 | Outpatient (RCR) | payer MEDICARE ==
[2022-02-16] MEDS ORDERED: FERRIC CARBOXYMALTOSE INJ 750 MG in NS (IVPB) 250 ML IV SCH (13:15)
[2022-02-16] MEDS ORDERED: HEParin (CENTRAL IV FLUSH) 500 UNIT/5 ML SYR ONE (13:32)
[2022-02-16 13:36] VITALS: BP 91/47
[2022-02-16] MEDS ORDERED: HEParin (CENTRAL IV FLUSH) 500 UNIT/5 ML SYR IV ONE (13:45)
== END 2022-02-21 | disposition home or self-care (01) ==
LOC: SDC 12:45
PROVIDERS: ATTEND Family Medicine
DX: D50.9 Iron deficiency anemia, unspecified (principal)
CPT/HCPCS: 96365; 96523

== ENCOUNTER 2022-02-23 12:34 | Outpatient (RCR) | payer MEDICARE ==
[2022-02-23 12:40] VITALS: BP 122/70
[2022-02-23] MEDS ORDERED: FERRIC CARBOXYMALTOSE INJ 750 MG in NS (IVPB) 250 ML IV SCH (13:00)
[2022-02-23 13:53] LABS: HEMATOCRIT 25 % (35-52); HEMOGLOBIN 7.6 g/dL (11.5-16.0); MEAN CORPUSCULAR HEMOGLOBIN 27 pg (25-34); MEAN CORPUSCULAR HGB CONC 31 g/dL (32-36); MEAN CORPUSCULAR VOLUME 90 fL (80-99); MEAN PLATELET VOLUME 10.4 fL (9.0-12.2); PLATELET COUNT 181 10^3/uL (130-400); WHITE BLOOD COUNT 7.3 10^3/uL (4.3-11.0)
== END 2022-03-23 | disposition home or self-care (01) ==
LOC: SDC 12:34
PROVIDERS: ATTEND Family Medicine
DX: D50.9 Iron deficiency anemia, unspecified (principal)
CPT/HCPCS: 36415; 85027; 96365

== ENCOUNTER → 2022-03-27 | Outpatient (CLI) | payer MEDICARE ==
[~2022-03-27] VITALS: Ht 170.2 cm; Wt 127.3 kg
[~2022-03-27] MED LIST changes: +HEParin (CENTRAL IV FLUSH) 500 UNIT/5 ML SYR IV ONE
[2022-03-27 13:30] VITALS: BP 121/87
[2022-03-27 14:21] LABS: BASOPHILS % (AUTO) 1 % (0-10); EOSINOPHILS # (AUTO) 0.3 10^3/uL (0.0-0.3); EOSINOPHILS % (AUTO) 5 % (0-10); HEMATOCRIT 27 % (35-52); HEMOGLOBIN 8.3 g/dL (11.5-16.0); LYMPHOCYTES # (AUTO) 0.9 10^3/uL (1.0-4.0); LYMPHOCYTES % (AUTO) 15 % (12-44); MEAN CORPUSCULAR HEMOGLOBIN 29 pg (25-34); MEAN CORPUSCULAR HGB CONC 31 g/dL (32-36); MEAN CORPUSCULAR VOLUME 94 fL (80-99); MEAN PLATELET VOLUME 12.1 fL (9.0-12.2); MONOCYTES # (AUTO) 0.5 10^3/uL (0.0-1.0); MONOCYTES % (AUTO) 8 % (0-12); NEUTROPHILS # (AUTO) 4.3 10^3/uL (1.8-7.8); NEUTROPHILS % (AUTO) 71 % (42-75); PLATELET COUNT 143 10^3/uL (130-400); WHITE BLOOD COUNT 6.1 10^3/uL (4.3-11.0)
== END ==
LOC: SDC 13:21
PROVIDERS: ATTEND Family Medicine
DX: D50.9 Iron deficiency anemia, unspecified (principal)
CPT/HCPCS: 36415; 36591; 82728; 83540; 83550; 85025

== ENCOUNTER 2022-04-16 15:45 | Inpatient (IN) | payer MEDICARE ==
[~2022-04-16] VITALS: Ht 170 cm; Wt 121.1 kg
[~2022-04-16 15:45] MED LIST changes: -HEParin (CENTRAL IV FLUSH) 500 UNIT/5 ML SYR IV ONE
--- NOTE | 2022-04-16 17:06 | ED GI ---
General Chief Complaint: Rect Problems Stated Complaint: BLOOD IN STOOL Nursing Triage Note: BLEEDING HEMORRHOIDS X1 WEEK ET PASSED A LARGE CLOT TODAY. Source of Information: Patient Exam Limitations: No Limitations History of Present Illness Date Seen by Provider: Apr 16, 2022 Time Seen by Provider: 16:55 Initial Comments Patient is a 72-year-old morbidly obese female with the history of anemia and GI bleeding, chronically anticoagulated on Xarelto for A. fib. She presents to the emergency room with bloody stools over the last week. She states today she had so much blood that she decided to come to the ER. She states that she is not short of breath. She does feel somewhat weak. She does ambulate with a walker. No chest pain. No fevers, chills, productive cough. She denies difficulty with urination. She states she last had a blood transfusion in November of this year. She is a patient of Dr. LAMAR. All other review of systems reviewed and negative except as stated. Timing/Duration: 1 Week Severity/Quality: Severe Radiation: No Radiation Activities at Onset: None Associated Symptoms: Shortness of Air (chronic) Allergies and Home Medications Allergies Coded Allergies: Tetanus Vaccines and Toxoid (Verified Allergy, Unknown, 07/18/07) adhesive (Verified Allergy, Unknown, 07/18/07) Patient Home Medication List Home Medication List Reviewed: Yes Albuterol Sulfate (Ventolin Hfa) 90 Mcg Hfa.aer.ad, 1 PUFF PO Q6H PRN for SHORTNESS OF BREATH Prescribed by: JHON LANE on 12/13/21 114 Allopurinol (Allopurinol) 300 Mg Tablet, 300 MG PO HS Prescribed by: JOHN LANE on 12/13/21 114 Apixaban (Eliquis) 5 Mg Tablet, 5 MG PO BID Prescribed by: JOHN LANE on 12/13/21 114 Brinzolamide/Brimonidine Tart (Simbrinza 1%-0.2% Eye Drops) 1 %-0.2 % Drops.susp, 1 DROP OU TID Prescribed by: JOHN LANE on 12/13/21 114 Budesonide/Formoterol Fumarate (Symbicort 160-4.5 Mcg Inhaler) 160 Mcg-4.5 Mcg/Actuation Hfa.aer.ad, 1 PUFF PO BID Prescribed by: JOHN LANE on 12/13/21 1147 Bumetanide (Bumetanide) 1 Mg Tablet, 1 MG PO DAILY Prescribed by: JOHN LANE on 12/13/21 1147 Buprenorphine HCl/Naloxone HCl (Buprenorphine-Nalox 8-2Mg Film) 8 Mg-2 Mg Film, 1 EACH SL QID Prescribed by: JOHN LANE on 12/13/21 1148 Butalb/Acetaminophen/Caffeine (Ovyqgg-Lovgbrnn-Dgpe 50-325-40) 50 Mg-325 Mg-40 Mg Tablet, 1 EACH PO QID Prescribed by: JOHN LANE on 12/13/21 1148 Clonidine HCl (Clonidine HCl) 0.1 Mg Tablet, 0.1 MG PO BID Prescribed by: JOHN LANE on 12/13/21 1147 Duloxetine HCl (Duloxetine HCl) 60 Mg Capsule.dr, 60 MG PO BID Prescribed by: JOHN LANE on 12/13/21 114 Hydroxyzine HCl (Hydroxyzine HCl) 25 Mg Tablet, 25 MG PO QID Prescribed by: JOHN LANE on 12/13/21 1147 Iron Polysaccharide Complex (Ferrex 150) 150 Mg Iron Capsule, 150 MG PO DAILY Prescribed by: JOHN LANE on 12/13/21 114 Montelukast Sodium (Montelukast Sodium) 10 Mg Tablet, 10 MG PO HS Prescribed by: JOHN LANE on 12/13/21 1147 Nitrofurantoin Monohyd/M-Cryst (Nitrofurantoin [place]-Mcr 100 mg) 100 Mg Capsule, 100 MG PO BID Prescribed by: JOHN LANE on 12/13/21 114 Omeprazole (Omeprazole) 40 Mg Capsule.dr, 40 MG PO DAILY Prescribed by: JOHN LANE on 12/13/21 114 Ramipril (Ramipril) 10 Mg Capsule, 10 MG PO HS Prescribed by: JOHN LANE on 12/13/21 114 Sildenafil Citrate (Sildenafil) 20 Mg Tablet, 20 MG PO TID Prescribed by: JOHN LANE on 12/13/21 114 Sotalol HCl (Sotalol) 120 Mg Tablet, 120 MG PO BID Prescribed by: JOHN LANE on 12/13/21 114 Spironolactone (Spironolactone) 25 Mg Tablet, 25 MG PO BID Prescribed by: JOHN LANE on 12/13/21 1147 Review of Systems Review of Systems Constitutional: see HPI EENTM: No Symptoms Reported Respiratory: Shortness of Air Cardiovascular: No Symptoms Reported Gastrointestinal: Rectal Bleeding Genitourinary: No Symptoms Reported Musculoskeletal: joint pain All Other Systems Reviewed Negative Unless Noted: Yes Past Zevtqhq-Udteru-Serjza Hx Patient Social History Tobacco Use?: No Substance use?: No Alcohol Use?: No Immunizations Up To Date Tetanus Booster (TDap): Unknown First/Initial COVID19 Vaccinat: 2020 Second COVID19 Vaccination Tk: UNKNOWN 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 15.6oz. 102.899431xt; 43.00 BMI Method:Stated General Appearance: WD/WN, no apparent distress, obese, other (sitting on bedside commode as I entered the room, NAD) HEENT: pale conjunctivae (R), pale conjunctivae (L) Neck: normal inspection Respiratory: lungs clear, normal breath sounds, no respiratory distress, no accessory muscle use Cardiovascular: regular rate, rhythm Gastrointestinal: non tender, soft Rectal: other (deferred) Extremities: normal range of motion Neurologic/Psychiatric: no motor/sensory deficits, alert, normal mood/affect, oriented x 3 Skin: warm/dry, pallor Progress/Results/Core Measures Results/Orders Lab Results Laboratory Tests Test 04/16/22 17:20 Range/Units White Blood Count 8.5 4.3-11.0 10^3/uL Red Blood Count 2.17 L 3.80-5.11 10^6/uL Hemoglobin 6.3 *L 11.5-16.0 g/dL Hematocrit 21 L 35-52 % Mean Corpuscular Volume 98 80-99 fL Mean Corpuscular Hemoglobin 29 25-34 pg Mean Corpuscular Hemoglobin Concent 30 L 32-36 g/dL Red Cell Distribution Width 16.1 H 10.0-14.5 % Platelet Count 282 130-400 10^3/uL Mean Platelet Volume 9.8 9.0-12.2 fL Immature Granulocyte % (Auto) 1 % Neutrophils (%) (Auto) 72 42-75 % Lymphocytes (%) (Auto) 16 12-44 % Monocytes (%) (Auto) 8 0-12 % Eosinophils (%) (Auto) 3 0-10 % Basophils (%) (Auto) 0 0-10 % Neutrophils # (Auto) 6.1 1.8-7.8 10^3/uL Lymphocytes # (Auto) 1.4 1.0-4.0 10^3/uL Monocytes # (Auto) 0.6 0.0-1.0 10^3/uL Eosinophils # (Auto) 0.3 0.0-0.3 10^3/uL Basophils # (Auto) 0.0 0.0-0.1 10^3/uL Immature Granulocyte # (Auto) 0.1 0.0-0.1 10^3/uL Sodium Level 140 135-145 MMOL/L Potassium Level 4.7 3.6-5.0 MMOL/L Chloride Level 97 L 98-107 MMOL/L Carbon Dioxide Level 31 21-32 MMOL/L Anion Gap 12 5-14 MMOL/L Blood Urea Nitrogen 20 H 7-18 MG/DL Creatinine 1.07 0.60-1.30 MG/DL Estimat Glomerular Filtration Rate 55 BUN/Creatinine Ratio 19 Glucose Level 122 H 70-105 MG/DL Calcium Level 8.5 8.5-10.1 MG/DL Corrected Calcium 9.4 8.5-10.1 MG/DL Total Bilirubin 0.2 0.1-1.0 MG/DL Aspartate Amino Transf (AST/SGOT) 12 5-34 U/L Alanine Aminotransferase (ALT/SGPT) < 6 0-55 U/L Alkaline Phosphatase 116 40-136 U/L Total Protein 7.1 6.4-8.2 GM/DL Albumin 2.9 L 3.2-4.5 GM/DL My Orders Orders - EHRNAN SAM MD Ed Iv/Invasive Line Start (04/16/22 17:07) Cbc With Automated Diff (04/16/22 17:07) Comprehensive Metabolic Panel (04/16/22 17:07) Red Cells Leukocytes Reduced (10/24/22 17:43) Type And Screen (04/16/22 17:43) Vital Signs/I&O 04/16/22 16:15 Temp 35.8 Pulse 87 Resp 16 B/P (MAP) 107/69 (82) Pulse Ox 93 O2 Delivery Nasal Cannula Blood Pressure Mean: 82 Progress Progress Note #1: Time: 17:40 Progress Note Notified by the nurse that the patient's hemoglobin is 6.3. Attempting to call Dr. Lamar at this time. Progress Note #2: Time: 18:03 Progress Note Case discussed with Dr. Lamar, will hold her Xarelto. Admit for transfusion. I have notified Dr. Serna who is on-call for Dr. CUTLER who is the patient's surgeon (prior colonoscopy this summer revelaed significant internal and ext ernal hemorrhoids). Vital signs remained stable. Clear liquid diet. Departure Communication (Admissions) Time/Spoke to Admitting Phy: 18:[address] Lamar Impression Primary Impression: Anemia Qualified Codes: D64.9 - Anemia, unspecified Additional Impressions: GIB (gastrointestinal bleeding) Qualified Codes: K92.2 - Gastrointestinal hemorrhage, unspecified Chronic anticoagulation Disposition: ADMITTED INPATIENT Condition: Stable Admissions Decision to Admit Reason: Admit from ER (General) Decision to Admit/Date: Apr 16, 2022 Time/Decision to Admit Time: 17:43 Departure-Patient Inst. Referrals: SOCORRO LAMAR MD (PCP/Family) Primary Care Physician HERNAN SAM MD Apr 16, 2022 17:06
[2022-04-16 17:35] LABS: BASOPHILS % (AUTO) 0 % (0-10); EOSINOPHILS # (AUTO) 0.3 10^3/uL (0.0-0.3); EOSINOPHILS % (AUTO) 3 % (0-10); HEMATOCRIT 21 % (35-52); LYMPHOCYTES # (AUTO) 1.4 10^3/uL (1.0-4.0); LYMPHOCYTES % (AUTO) 16 % (12-44); MEAN CORPUSCULAR HEMOGLOBIN 29 pg (25-34); MEAN CORPUSCULAR HGB CONC 30 g/dL (32-36); MEAN CORPUSCULAR VOLUME 98 fL (80-99); MEAN PLATELET VOLUME 9.8 fL (9.0-12.2); MONOCYTES # (AUTO) 0.6 10^3/uL (0.0-1.0); MONOCYTES % (AUTO) 8 % (0-12); NEUTROPHILS # (AUTO) 6.1 10^3/uL (1.8-7.8); NEUTROPHILS % (AUTO) 72 % (42-75); PLATELET COUNT 282 10^3/uL (130-400); WHITE BLOOD COUNT 8.5 10^3/uL (4.3-11.0)
[2022-04-16 17:37] LABS: ALBUMIN 2.9 GM/DL (3.2-4.5); CHLORIDE 97 MMOL/L (98-107); POTASSIUM 4.7 MMOL/L (3.6-5.0); SODIUM 140 MMOL/L (135-145)
[2022-04-16 17:38] LABS: HEMOGLOBIN 6.3 g/dL (11.5-16.0)
[2022-04-16 17:39] LABS: CALCIUM 8.5 MG/DL (8.5-10.1)
[2022-04-16 17:40] LABS: GLUCOSE 122 MG/DL (70-105); TOTAL PROTEIN 7.1 GM/DL (6.4-8.2)
[2022-04-16 17:41] LABS: CARBON DIOXIDE 31 MMOL/L (21-32)
[2022-04-16 17:42] LABS: BILIRUBIN,TOTAL 0.2 MG/DL (0.1-1.0)
[2022-04-16 17:43] LABS: ALKALINE PHOSPHATASE 116 U/L (40-136)
[2022-04-16 17:44] LABS: CREATININE SERUM 1.07 MG/DL (0.60-1.30); GFR ESTIMATED 55
[2022-04-16 17:45] LABS: BUN/CREATININE RATIO 19
[2022-04-16 17:46] LABS: ALANINE AMINOTRANSFERASE < 6 U/L (0-55)
[2022-04-16] MEDS ORDERED: IRON POLYSAC 150 MG CAP (NIFEREX) PO NR (19:45)
[2022-04-16] MEDS ORDERED: RT-ALBUTEROL HFA 8.5 GM INHALER IH PRN (19:45)
[2022-04-16] MEDS ORDERED: RT-ALBUTEROL SULF 2.5 MG/3 ML PRE-MIX VIAL IH PRN (19:45)
[2022-04-16 19:47] VITALS: BP 107/69
[2022-04-16] MEDS ORDERED: RT-ALBUTEROL SULF 2.5 MG/3 ML PRE-MIX VIAL INH PRN (20:00)
[2022-04-16 20:30] VITALS: BP 117/55
[2022-04-16] MEDS ORDERED: NS IV 500 ML 500 ML ONE (20:31)
[2022-04-16 20:40] VITALS: BP 117/55
[2022-04-16 20:55] VITALS: BP 117/55
[2022-04-16] MEDS ORDERED: SOTALOL 80 MG (BETAPACE) TAB PO SCH (21:00)
[2022-04-16] MEDS: MONTELUKAST 10 MG (SINGULAIR) TAB PO SCH (21:42)
[2022-04-16] MEDS: ALLOPURINOL 300 MG (ZYLOPRIM) TAB PO SCH (21:42)
[2022-04-16] MEDS: NITROFURANTOIN 50 MG (MACRODANTIN) CAP PO SCH (21:42)
[2022-04-16] MEDS: DULoxetine 30 MG (CYMBALTA) CAP PO SCH (21:42)
[2022-04-16] MEDS: SPIRONOLACTONE 25 MG (ALDACTONE) TAB PO SCH (21:49)
[2022-04-16] MEDS: cloNIDine 0.1 MG (CATAPRES) TAB PO SCH (21:49)
[2022-04-16] MEDS: RAMIPRIL 2.5 MG (ALTACE) CAP PO SCH (21:49)
[2022-04-16 23:47] VITALS: BP 121/66
[2022-04-17] VITALS (12 sets, daily range): BP systolic 83–161; BP diastolic 49–84
[2022-04-17 05:30] LABS: BASOPHILS % (AUTO) 0 % (0-10); EOSINOPHILS # (AUTO) 0.2 10^3/uL (0.0-0.3); EOSINOPHILS % (AUTO) 3 % (0-10); HEMATOCRIT 22 % (35-52); LYMPHOCYTES % (AUTO) 14 % (12-44); MEAN CORPUSCULAR HGB CONC 31 g/dL (32-36); MEAN CORPUSCULAR VOLUME 96 fL (80-99); MEAN PLATELET VOLUME 9.7 fL (9.0-12.2); MONOCYTES # (AUTO) 0.5 10^3/uL (0.0-1.0); MONOCYTES % (AUTO) 7 % (0-12); NEUTROPHILS # (AUTO) 5.7 10^3/uL (1.8-7.8); NEUTROPHILS % (AUTO) 76 % (42-75); PLATELET COUNT 221 10^3/uL (130-400); WHITE BLOOD COUNT 7.5 10^3/uL (4.3-11.0)
[2022-04-17 05:39] LABS: HEMOGLOBIN 6.9 g/dL (11.5-16.0); MEAN CORPUSCULAR HEMOGLOBIN 29 pg (25-34)
--- NOTE | 2022-04-17 08:02 | Consultation - Surgery ---
MILENA RIOS 04/17/22 0802: History of Present Illness History of Present Illness Patient Consulted On(segun/time) 04/17/22 07:52 Date Seen by Provider: Apr 17, 2022 History of Present Illness Pt is a 72yo female with pmh of afib, htn, asthma, arthritis, migraines, gerd, and bleeding internal hemorrhoids. She presented to the ED yesterday after having bright red blood in her stools for 1 week. She passed a large clot, approximately 10oz on 04/16. She reports feeling weak and dizzy. Hgb was 6.3 on admission and she received 1 unit of blood with improvement of Hgb to 6.9 today. Pt reports last colonoscopy was in November by Dr. Albarran. This revealed gastritis as well as stage 3 external and internal hemorrhoids. She reports these have been there for approximately 2 years and have bled on and off. Most recent episode was in November 2021 where her HgB was in the 4s and improved after 3 units of blood. Pt reports 10/10 pain due to headaches and joint pain and wants her home pain meds resumed. Her last BM was this morning with slight red blood noted, be tter than yesterday. Pt's family also notes concern for possible cellulitis behind both knees. Have noticed this since saturday, 04/13. Erythema and warmth with some skin lesions in both popliteal areas and medial thighs. Not tender to pt. Allergies and Home Medications Allergies Coded Allergies: Tetanus Vaccines and Toxoid (Verified Allergy, Unknown, 07/18/07) adhesive (Verified Allergy, Unknown, 07/18/07) Patient Home Medication List Home Medication List Reviewed: Yes Albuterol Sulfate (Proair Hfa) 1 Puff Puff, 2 PUFF IH Q4H PRN for SHORTNESS OF BREATH, (Reported) Entered as Reported by: YUN BOGGS on 04/17/22 1005 Last Action: Reviewed Allopurinol (Allopurinol) 300 Mg Tablet, 300 MG PO DAILY, (Reported) Entered as Reported by: YUN BOGGS on 04/17/22 1005 Last Action: Reviewed Brinzolamide/Brimonidine Tart (Simbrinza 1%-0.2% Eye Drop) 1 %-0.2 % Drops.susp, 1 DROP OU TID, (Reported) Entered as Reported by: YUN BOGGS on 04/17/221004 Last Action: Reviewed Budesonide/Formoterol Fumarate (Symbicort 160-4.5 Mcg Inhaler) 160 Mcg-4.5 M cg/Actuation Hfa.aer.ad, 1 PUFF IH BID, (Reported) Entered as Reported by: YUN BOGGS on 04/17/221004 Last Action: Reviewed Buprenorphine HCl/Naloxone HCl (Suboxone 8 mg-2 mg Sl Film) 8 Mg-2 Mg Film, 1 EACH SL QID, (Reported) Entered as Reported by: YUN BOGGS on 04/17/221004 Last Action: Converted Butalb/Acetaminophen/Caffeine (Izzaad-Qwgfkevk-Poln 50-325-40) 50 Mg-325 Mg-40 Mg Tablet, 1 EACH PO Q6H, (Reported) Entered as Reported by: YUN BOGGS on 04/17/221004 Last Action: Reviewed Clonidine HCl (Clonidine HCl) 0.1 Mg Tablet, 0.1 MG PO BID, (Reported) Entered as Reported by: YUN BOGGS on 04/17/221004 Last Action: Reviewed Duloxetine HCl (Duloxetine HCl) 60 Mg Capsule.dr, 60 MG PO BID, (Reported) Entered as Reported by: YUN BOGGS on 04/17/221004 Last Action: Reviewed Hydroxyzine HCl (Hydroxyzine HCl) 25 Mg Tablet, 25 MG PO QID PRN for ANXIETY, (Reported) Entered as Reported by: YUN BOGGS on 04/17/221004 Last Action: Reviewed Iron Polysaccharide Complex (Ferrex 150) 150 Mg Iron Capsule, 150 MG PO DAILY, (Reported) Entered as Reported by: YUN BOGGS on 04/17/221004 Last Action: Reviewed Montelukast Sodium (Montelukast Sodium) 10 Mg Tablet, 10 MG PO DAILY, (Reported) Entered as Reported by: YUN BOGGS on 04/17/221004 Last Action: Reviewed Omeprazole (Omeprazole) 40 Mg Capsule.dr, 40 MG PO DAILY, (Reported) Entered as Reported by: YUN BOGGS on 04/17/221004 Last Action: Reviewed Ramipril (Ramipril) 10 Mg Capsule, 10 MG PO HS, (Reported) Entered as Reported by: YUN BOGGS on 04/17/221004 Last Action: Reviewed Rivaroxaban (Xarelto) 20 Mg Tablet, 20 MG PO DAILY, (Reported) Entered as Reported by: YUN BOGGS on 04/17/221004 Last Action: Held Sildenafil Citrate (Sildenafil) 20 Mg Tablet, 20 MG PO TID, (Reported) Entered as Reported by: YUN BOGGS on 04/17/221004 Last Action: Reviewed Sotalol HCl (Sotalol) 120 Mg Tablet, 120 MG PO BID, (Reported) Entered as Reported by: YUN BOGGS on 04/17/221004 Last Action: Reviewed Spironolactone (Spironolactone) 25 Mg Tablet, 25 MG PO BID, (Reported) Entered as Reported by: YUN BOGGS on 04/17/221004 Last Action: Reviewed Discontinued Medications Albuterol Sulfate (Ventolin Hfa) 90 Mcg Hfa.aer.ad, 1 PUFF PO Q6H PRN for SHORTNESS OF BREATH Discontinued Reason: No Longer Taking Prescribed by: JOHN LANE on 12/13/211146 Last Action: Discontinued Allopurinol (Allopurinol) 300 Mg Tablet, 300 MG PO HS Discontinued Reason: No Longer Taking Prescribed by: JOHN LANE on 12/13/211146 Last Action: Discontinued Apixaban (Eliquis) 5 Mg Tablet, 5 MG PO BID Discontinued Reason: No Longer Taking Prescribed by: JOHN LANE on 12/13/211146 Last Action: Discontinued Brinzolamide/Brimonidine Tart (Simbrinza 1%-0.2% Eye Drops) 1 %-0.2 % Drops.susp, 1 DROP OU TID Discontinued Reason: No Longer Taking Prescribed by: JOHN LANE on 12/13/211146 Last Action: Discontinued Budesonide/Formoterol Fumarate (Symbicort 160-4.5 Mcg Inhaler) 160 Mcg-4.5 Mcg/Actuation Hfa.aer.ad, 1 PUFF PO BID Discontinued Reason: No Longer Taking Prescribed by: JOHN LANE on 12/13/211146 Last Action: Discontinued Bumetanide (Bumetanide) 1 Mg Tablet, 1 MG PO DAILY Discontinued Reason: No Longer Taking Prescribed by: JOHN LANE on 12/13/211146 Last Action: Discontinued Buprenorphine HCl/Naloxone HCl (Buprenorphine-Nalox 8-2Mg Film) 8 Mg-2 Mg Film, 1 EACH SL QID Discontinued Reason: No Longer Taking Prescribed by: JOHN LANE on 12/13/211147 Last Action: Discontinued Butalb/Acetaminophen/Caffeine (Oditjp-Mymxsvpl-Sbyn 50-325-40) 50 Mg-325 Mg-40 Mg Tablet, 1 EACH PO QID Discontinued Reason: No Longer Taking Prescribed by: JOHN LANE on 12/13/211147 Last Action: Discontinued Clonidine HCl (Clonidine HCl) 0.1 Mg Tablet, 0.1 MG PO BID Discontinued Reason: No Longer Taking Prescribed by: JOHN LANE on 12/13/211146 Last Action: Discontinued Duloxetine HCl (Duloxetine HCl) 60 Mg Capsule.dr, 60 MG PO BID Discontinued Reason: No Longer Taking Prescribed by: JOHN LANE on 12/13/211146 Last Action: Discontinued Hydroxyzine HCl (Hydroxyzine HCl) 25 Mg Tablet, 25 MG PO QID Discontinued Reason: No Longer Taking Prescribed by: JOHN LANE on 12/13/211146 Last Action: Discontinued Iron Polysaccharide Complex (Ferrex 150) 150 Mg Iron Capsule, 150 MG PO DAILY Discontinued Reason: No Longer Taking Prescribed by: JOHN LANE on 12/13/211146 Last Action: Discontinued Montelukast Sodium (Montelukast Sodium) 10 Mg Tablet, 10 MG PO HS Discontinued Reason: No Longer Taking Prescribed by: JOHN LANE on 12/13/211146 Last Action: Discontinued Nitrofurantoin Monohyd/M-Cryst (Nitrofurantoin [place]-Mcr 100 mg) 100 Mg Capsule, 100 MG PO BID Discontinued Reason: No Longer Taking Prescribed by: JOHN LANE on 12/13/211146 Last Action: Discontinued Omeprazole (Omeprazole) 40 Mg Capsule.dr, 40 MG PO DAILY Discontinued Reason: No Longer Taking Prescribed by: JOHN LANE on 12/13/211146 Last Action: Discontinued Ramipril (Ramipril) 10 Mg Capsule, 10 MG PO HS Discontinued Reason: No Longer Taking Prescribed by: JOHN LANE on 12/13/211146 Last Action: Discontinued Sildenafil Citrate (Sildenafil) 20 Mg Tablet, 20 MG PO TID Discontinued Reason: No Longer Taking Prescribed by: JOHN LANE on 12/13/211146 Last Action: Discontinued Sotalol HCl (Sotalol) 120 Mg Tablet, 120 MG PO BID Discontinued Reason: No Longer Taking Prescribed by: JOHN LANE on 12/13/211146 Last Action: Discontinued Spironolactone (Spironolactone) 25 Mg Tablet, 25 MG PO BID Discontinued Reason: No Longer Taking Prescribed by: JOHN LANE on 12/13/211146 Last Action: Discontinued Past Xmledts-Hyvgrs-Pgwgaj Hx Patient Social History Smoking Status: Never a Smoker Recent Hopitalizations: Yes Alcohol Use?: No Have you traveled recently?: No Immunizations Up To Date Tetanus Booster (TDap): Unknown Date of Pneumonia Vaccine: Jun 24, 2013 Date of Influenza Vaccine: Mar 26, 2017 Seasonal Allergies Seasonal Allergies: Yes Surgeries History of Surgeries: Yes Surgeries: Gallbladder (in 1979), Hysterectomy, Orthopedic (hip x3), Tonsillectomy Respiratory History of Respiratory Disorde: Yes Respiratory Disorders: Asthma Cardiovascular History of Cardiac Disorders: Yes Cardiac Disorders: Atrial Fibrillation, Chronic Edema/Swelling, Hypertension Neurological History of Neurological Disord: Yes Neurological Disorders: Headaches /Migraines 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 Genitourinary History of Genitourinary Disor: No Gastrointestinal History of Gastrointestinal Di: Yes Gastrointestinal Disorders: Gastroesophageal Reflux, Gastrointestinal Bleed, Hemorrhoids Musculoskeletal History of Musculoskeletal Dis: Yes Musculoskeletal Disorders: Arthritis Endocrine History of Endocrine Disorders: No HEENT History of HEENT Disorders: Yes HEENT Disorders: Glaucoma Loss of Vision: Denies Hearing Impairment: Hard of Hearing Cancer History of Cancer: No Blood Transfusions Hx of Blood Transfusion in november and on 04/16 Family Medical History Significant Family History: Heart Disease (mitral regurg in mother), Cancer (lung cancer in grandmother), Other Conditions/Hx (TIA father) Review of Systems-General Constitutional: dizziness, weakness EENTM: No hearing loss (pt is mildly hard of hearing, probably baseline), No vision loss Respiratory: No cough, No short of breath Cardiovascular: No chest pain, No syncope Gastrointestinal: No abdominal pain, No nausea, No vomiting; other (bright red blood per rectum for 1 week) Genitourinary: No dysuria Musculoskeletal: joint pain Skin: change in color, other (probable cellulitis on both posterior thighs above knees) Psychiatric/Neurological: Headache; Denies Seizure Physical Exam-General Problems Physical Exam Vital Signs Vital Signs - First Documented 04/16/22 04/16/22 04/16/22 16:15 19:47 20:30 Temp 35.8 Pulse 87 Resp 16 B/P (MAP) 107/69 (82) Pulse Ox 93 O2 Delivery Nasal Cannula O2 Flow Rate 5.00 FiO2 2 Capillary Refill : Less Than 3 Seconds General Appearance: WD/WN, mild distress (due to pain from headache and joint pain) Eyes: Bilateral Eye PERRL, Bilateral Eye EOMI HEENT: PERRL/EOMI; No scleral icterus (R), No scleral icterus (L) Neck: non-tender, supple Respiratory: chest non-tender, lungs clear, normal breath sounds, other (on 5LNC) Cardiovascular: no murmur, tachycardia, irregularly irregular Peripheral Pulses: 2+ Radial Pulses (R), 2+ Radial Pulses (L) Gastrointestinal: normal bowel sounds, non tender, soft Rectal: deferred Genital/Rectal: other (pt daughter showed me a picture of the clot she passed yesterday.) Extremities: inflammation (posterior and medial thigh bl), pedal edema, swelling (chronic lymphedema) Neurologic/Psychiatric: alert, oriented x 3; No facial droop Skin: No cyanosis, No diaphoresis; other (cellulitis bl behind knee) Lymphatic: no adenopathy Data Review Labs Laboratory Tests 04/16/22 17:20: White Blood Count 8.5, Red Blood Count 2.17L, Hemoglobin 6.3*L, Hematocrit 21L, Mean Corpuscular Volume 98, Mean Corpuscular Hemoglobin 29, Mean Corpuscular Hemoglobin Concent 30L, Red Cell Distribution Width 16.1H, Platelet Count 282, Mean Platelet Volume 9.8, Immature Granulocyte % (Auto) 1, Neutrophils (%) (Auto) 72, Lymphocytes (%) (Auto) 16, Monocytes (%) (Auto) 8, Eosinophils (%) (Auto) 3, Basophils (%) (Auto) 0, Neutrophils # (Auto) 6.1, Lymphocytes # (Auto) 1.4, Monocytes # (Auto) 0.6, Eosinophils # (Auto) 0.3, Basophils # (Auto) 0.0, Immature Granulocyte # (Auto) 0.1, Sodium Level 140, Potassium Level 4.7, Chloride Level 97L, Carbon Dioxide Level 31, Anion Gap 12, Blood Urea Nitrogen 20H, Creatinine 1.07, Estimat Glomerular Filtration Rate 55, BUN/Creatinine Ratio 19, Glucose Level 122H, Calcium Level 8.5, Corrected Calcium 9.4, Total Bilirubin 0.2, Aspartate Amino Transf (AST/SGOT) 12, Alanine Aminotransferase (ALT/SGPT) < 6, Alkaline Phosphatase 116, Total Protein 7.1, Albumin 2.9L 04/17/22 05:20: White Blood Count 7.5, Red Blood Count 2.34L, Hemoglobin 6.9*L, Hematocrit 22L, Mean Corpuscular Volume 96, Mean Corpuscular Hemoglobin 29, Mean Corpuscular Hemoglobin Concent 31L, Red Cell Distribution Width 17.0H, Platelet Count 221, Mean Platelet Volume 9.7, Immature Granulocyte % (Auto) 1, Neutrophils (%) (Auto) 76H, Lymphocytes (%) (Auto) 14, Monocytes (%) (Auto) 7, Eosinophils (%) (Auto) 3, Basophils (%) (Auto) 0, Neutrophils # (Auto) 5.7, Lymphocytes # (Auto) 1.0, Monocytes # (Auto) 0.5, Eosinophils # (Auto) 0.2, Basophils # (Auto) 0.0, Immature Granulocyte # (Auto) 0.1 Assessment/Plan Assessment/Plan Assessment/Plan Rectal bleeding with hx of bleeding hemorrhoids Cellulitis bl on posterior thigh Anemia Plan: Pt Hgb was 6.3 on admission improved to 6.9 after 1 unit, consider another unit if pt stays below 7. Pt is continuing to have rectal bleeding, last colonoscopy was in November 2021 showing edematous internal and external hemorrhoids, could likely benefit from hemorrhoidectomy. Pt has rash concerning for cellulitis on bilateral posterior thighs, no fever or elevated white count, consider oral abx. JOYCE WADE DO 04/17/22 1316: Allergies and Home Medications Allergies Coded Allergies: Tetanus Vaccines and Toxoid (Verified Allergy, Unknown, 07/18/07) adhesive (Verified Allergy, Unknown, 07/18/07) Patient Home Medication List Albuterol Sulfate (Proair Hfa) 1 Puff Puff, 2 PUFF IH Q4H PRN for SHORTNESS OF BREATH, (Reported) Entered as Reported by: YUN BOGGS on 10/25/22 1005 Last Action: Reviewed Allopurinol (Allopurinol) 300 Mg Tablet, 300 MG PO DAILY, (Reported) Entered as Reported by: YUN BOGGS on 04/17/221004 Last Action: Reviewed Brinzolamide/Brimonidine Tart (Simbrinza 1%-0.2% Eye Drop) 1 %-0.2 % Drops.susp, 1 DROP OU TID, (Reported) Entered as Reported by: YUN BOGGS on 04/17/221004 Last Action: Reviewed Budesonide/Formoterol Fumarate (Symbicort 160-4.5 Mcg Inhaler) 160 Mcg-4.5 Mcg/Actuation Hfa.aer.ad, 1 PUFF IH BID, (Reported) Entered as Reported by: YUN BOGGS on 04/17/221004 Last Action: Reviewed Buprenorphine HCl/Naloxone HCl (Suboxone 8 mg-2 mg Sl Film) 8 Mg-2 Mg Film, 1 EACH SL QID, (Reported) Entered as Reported by: YUN BOGGS on 04/17/221004 Last Action: Converted Butalb/Acetaminophen/Caffeine (Djznsx-Uncrcjsu-Eqzw 50-325-40) 50 Mg-325 Mg-40 Mg Tablet, 1 EACH PO Q6H, (Reported) Entered as Reported by: YUN BOGGS on 04/17/221004 Last Action: Reviewed Clonidine HCl (Clonidine HCl) 0.1 Mg Tablet, 0.1 MG PO BID, (Reported) Entered as Reported by: YUN BOGGS on 04/17/221004 Last Action: Reviewed Duloxetine HCl (Duloxetine HCl) 60 Mg Capsule.dr, 60 MG PO BID, (Reported) Entered as Reported by: YUN BOGGS on 04/17/221004 Last Action: Reviewed Hydroxyzine HCl (Hydroxyzine HCl) 25 Mg Tablet, 25 MG PO QID PRN for ANXIETY, (Reported) Entered as Reported by: YUN BOGGS on 04/17/221004 Last Action: Reviewed Iron Polysaccharide Complex (Ferrex 150) 150 Mg Iron Capsule, 150 MG PO DAILY, (Reported) Entered as Reported by: YUN BOGGS on 04/17/221004 Last Action: Reviewed Montelukast Sodium (Montelukast Sodium) 10 Mg Tablet, 10 MG PO DAILY, (Reported) Entered as Reported by: YUN BOGGS on 04/17/221004 Last Action: Reviewed Omeprazole (Omeprazole) 40 Mg Capsule.dr, 40 MG PO DAILY, (Reported) Entered as Reported by: YUN BOGGS on 04/17/221004 Last Action: Reviewed Ramipril (Ramipril) 10 Mg Capsule, 10 MG PO HS, (Reported) Entered as Reported by: YUN BOGGS on 04/17/221004 Last Action: Reviewed Rivaroxaban (Xarelto) 20 Mg Tablet, 20 MG PO DAILY, (Reported) Entered as Reported by: YUN BOGGS on 04/17/221004 Last Action: Held Sildenafil Citrate (Sildenafil) 20 Mg Tablet, 20 MG PO TID, (Reported) Entered as Reported by: YUN BOGGS on 04/17/221004 Last Action: Reviewed Sotalol HCl (Sotalol) 120 Mg Tablet, 120 MG PO BID, (Reported) Entered as Reported by: YUN BOGGS on 04/17/221004 Last Action: Reviewed Spironolactone (Spironolactone) 25 Mg Tablet, 25 MG PO BID, (Reported) Entered as Reported by: YUN BOGGS on 04/17/221004 Last Action: Reviewed Discontinued Medications Albuterol Sulfate (Ventolin Hfa) 90 Mcg Hfa.aer.ad, 1 PUFF PO Q6H PRN for SHORTNESS OF BREATH Discontinued Reason: No Longer Taking Prescribed by: JOHN LANE on 12/13/211146 Last Action: Discontinued Allopurinol (Allopurinol) 300 Mg Tablet, 300 MG PO HS Discontinued Reason: No Longer Taking Prescribed by: JOHN LANE on 12/13/211146 Last Action: Discontinued Apixaban (Eliquis) 5 Mg Tablet, 5 MG PO BID Discontinued Reason: No Longer Taking Prescribed by: JOHN LANE on 12/13/211146 Last Action: Discontinued Brinzolamide/Brimonidine Tart (Simbrinza 1%-0.2% Eye Drops) 1 %-0.2 % Drops.susp, 1 DROP OU TID Discontinued Reason: No Longer Taking Prescribed by: JOHN LANE on 12/13/211146 Last Action: Discontinued Budesonide/Formoterol Fumarate (Symbicort 160-4.5 Mcg Inhaler) 160 Mcg-4.5 Mcg/Actuation Hfa.aer.ad, 1 PUFF PO BID Discontinued Reason: No Longer Taking Prescribed by: JOHN LANE on 12/13/211146 Last Action: Discontinued Bumetanide (Bumetanide) 1 Mg Tablet, 1 MG PO DAILY Discontinued Reason: No Longer Taking Prescribed by: JOHN LANE on 12/13/211146 Last Action: Discontinued Buprenorphine HCl/Naloxone HCl (Buprenorphine-Nalox 8-2Mg Film) 8 Mg-2 Mg Film, 1 EACH SL QID Discontinued Reason: No Longer Taking Prescribed by: JOHN LANE on 12/13/211147 Last Action: Discontinued Butalb/Acetaminophen/Caffeine (Xfdthj-Njjpnjhg-Mnha 50-325-40) 50 Mg-325 Mg-40 Mg Tablet, 1 EACH PO QID Discontinued Reason: No Longer Taking Prescribed by: JOHN LANE on 12/13/211147 Last Action: Discontinued Clonidine HCl (Clonidine HCl) 0.1 Mg Tablet, 0.1 MG PO BID Discontinued Reason: No Longer Taking Prescribed by: JOHN LANE on 12/13/211146 Last Action: Discontinued Duloxetine HCl (Duloxetine HCl) 60 Mg Capsule.dr, 60 MG PO BID Discontinued Reason: No Longer Taking Prescribed by: JOHN LANE on 12/13/211146 Last Action: Discontinued Hydroxyzine HCl (Hydroxyzine HCl) 25 Mg Tablet, 25 MG PO QID Discontinued Reason: No Longer Taking Prescribed by: JOHN LANE on 12/13/211146 Last Action: Discontinued Iron Polysaccharide Complex (Ferrex 150) 150 Mg Iron Capsule, 150 MG PO DAILY Discontinued Reason: No Longer Taking Prescribed by: JOHN LANE on 12/13/211146 Last Action: Discontinued Montelukast Sodium (Montelukast Sodium) 10 Mg Tablet, 10 MG PO HS Discontinued Reason: No Longer Taking Prescribed by: JOHN LANE on 12/13/211146 Last Action: Discontinued Nitrofurantoin Monohyd/M-Cryst (Nitrofurantoin [place]-Mcr 100 mg) 100 Mg Capsule, 100 MG PO BID Discontinued Reason: No Longer Taking Prescribed by: JOHN LANE on 12/13/211146 Last Action: Discontinued Omeprazole (Omeprazole) 40 Mg Capsule.dr, 40 MG PO DAILY Discontinued Reason: No Longer Taking Prescribed by: JOHN LANE on 12/13/211146 Last Action: Discontinued Ramipril (Ramipril) 10 Mg Capsule, 10 MG PO HS Discontinued Reason: No Longer Taking Prescribed by: JOHN LANE on 12/13/211146 Last Action: Discontinued Sildenafil Citrate (Sildenafil) 20 Mg Tablet, 20 MG PO TID Discontinued Reason: No Longer Taking Prescribed by: JOHN LANE on 12/13/211146 Last Action: Discontinued Sotalol HCl (Sotalol) 120 Mg Tablet, 120 MG PO BID Discontinued Reason: No Longer Taking Prescribed by: JOHN LANE on 12/13/211146 Last Action: Discontinued Spironolactone (Spironolactone) 25 Mg Tablet, 25 MG PO BID Discontinued Reason: No Longer Taking Prescribed by: JOHN LANE on 12/13/211146 Last Action: Discontinued Supervisory-Addendum Brief Verification & Attestation Participated in pt care: other Personally performed: other Care discussed with: other Procedures: other Pt not seen, my student did consult on pt accidentally.....this is a Dr. Albarran pt. 04/17/22 1329: MILENA RIOS Apr 17, 2022 08:02 JOYCE WADE DO Apr 17, 2022 13:16 [email or web address] 17, 2022 13:29
[2022-04-17] MEDS ORDERED: BUMETANIDE 1 MG (BUMEX) TAB PO SCH (09:00)
[2022-04-17] MEDS: NITROFURANTOIN 50 MG (MACRODANTIN) CAP PO SCH (09:03)
[2022-04-17] MEDS: cloNIDine 0.1 MG (CATAPRES) TAB PO SCH ×2 (09:04→21:03)
[2022-04-17] MEDS: DULoxetine 30 MG (CYMBALTA) CAP PO SCH ×2 (09:04→21:03)
[2022-04-17] MEDS: IRON POLYSAC 150 MG CAP (NIFEREX) PO SCH (09:05)
[2022-04-17] MEDS: PANTOPRAZOLE 40 MG (PROTONIX) TAB PO SCH (09:05)
[2022-04-17] MEDS: SPIRONOLACTONE 25 MG (ALDACTONE) TAB PO SCH ×2 (09:05→21:03)
[2022-04-17] MEDS: SOTALOL 80 MG (BETAPACE) TAB PO SCH ×2 (09:05→21:04)
[2022-04-17] MEDS: RAMIPRIL 2.5 MG (ALTACE) CAP PO SCH (09:06)
[2022-04-17] MEDS ORDERED: SPIR25TA5 PO (10:05)
[2022-04-17] MEDS ORDERED: BUTA-235 PO (10:05)
[2022-04-17] MEDS ORDERED: CLN.1T PO (10:05)
[2022-04-17] MEDS ORDERED: ALBU8.5H6 IH (10:05)
[2022-04-17] MEDS ORDERED: SILD20TA14 PO (10:05)
[2022-04-17] MEDS ORDERED: BUDE10.2 IH (10:05)
[2022-04-17] MEDS ORDERED: DULO60CA59 PO (10:05)
[2022-04-17] MEDS ORDERED: ALLO300T2 PO (10:05)
[2022-04-17] MEDS ORDERED: BUPR1FIL3 SL (10:05)
[2022-04-17] MEDS ORDERED: HYDR-700 PO (10:05)
[2022-04-17] MEDS ORDERED: RIVA20TA PO (10:05)
[2022-04-17] MEDS ORDERED: SOTA120T PO (10:05)
[2022-04-17] MEDS ORDERED: BRIN8DRO2 OU (10:05)
[2022-04-17] MEDS ORDERED: IRON150C3 PO (10:05)
[2022-04-17] MEDS ORDERED: OMEP40CA6 PO (10:05)
[2022-04-17] MEDS ORDERED: MONT-40 PO (10:05)
[2022-04-17] MEDS ORDERED: RAMI10CA69 PO (10:05)
[2022-04-17] MEDS ORDERED: diphenhydrAMINE 50 MG/ML INJ (BENADRYL) IVP PRN (10:15)
[2022-04-17] MEDS ORDERED: NS IV 500 ML 500 ML IV SCH ×2 (10:15)
--- NOTE | 2022-04-17 10:31 | History & Physical ---
History of Present Illness History of Present Illness Reason for visit/HPI Pt reports that she had significant blood from her rectum over the past week with over 20 ounces of blood from her rectum yesterday morning. She has history of severe rectal bleeding, has been conservatively managed and was told she needed to be "optimized" prior to having surgery. Her family reports that they are concerned with how much bleeding she has had over the past 6 months with progressive weakness noticed. Her reports that she has not been very mobile, she was told that "her knees would continue to get worse" so she decided that not walking would be better for her knees. Her dtr reports that instead of taking the PRN narcotic for her headaches only as needed, she has been routinely taking the medication. Date of Admission Apr 16, 2022 at 17:50 Date Seen by a Provider: Apr 17, 2022 Time Seen by a Provider: 09:00 I consulted on this patient on 04/17/22 10:09 Attending Physician Socorro Lamar MD Admitting Physician Admitting Physician: Socorro Lamar MD Attending Physician: Socorro Lamar MD Consult Allergies and Home Medications Allergies Coded Allergies: Tetanus Vaccines and Toxoid (Verified Allergy, Unknown, 07/18/07) adhesive (Verified Allergy, Unknown, 07/18/07) Patient Home Medication List Home Medication List Reviewed: Yes Albuterol Sulfate (Proair Hfa) 1 Puff Puff, 2 PUFF IH Q4H PRN for SHORTNESS OF BREATH, (Reported) Entered as Reported by: YUN BOGGS on 04/17/22 100 Last Action: Reviewed Allopurinol (Allopurinol) 300 Mg Tablet, 300 MG PO DAILY, (Reported) Entered as Reported by: YUN BOGGS on 04/17/22 100 Last Action: Reviewed Brinzolamide/Brimonidine Tart (Simbrinza 1%-0.2% Eye Drop) 1 %-0.2 % Drops.susp, 1 DROP OU TID, (Reported) Entered as Reported by: YUN BOGGS on 04/17/22 100 Last Action: Reviewed Budesonide/Formoterol Fumarate (Symbicort 160-4.5 Mcg Inhaler) 160 Mcg-4.5 Mcg/Actuation Hfa.aer.ad, 1 PUFF IH BID, (Reported) Entered as Reported by: YUN BOGGS on 04/17/221004 Last Action: Reviewed Buprenorphine HCl/Naloxone HCl (Suboxone 8 mg-2 mg Sl Film) 8 Mg-2 Mg Film, 1 EACH SL QID, (Reported) Entered as Reported by: YUN BOGGS on 04/17/221004 Last Action: Converted Butalb/Acetaminophen/Caffeine (Fiutui-Upmomavk-Ekky 50-325-40) 50 Mg-325 Mg-40 Mg Tablet, 1 EACH PO Q6H, (Reported) Entered as Reported by: YUN BOGGS on 04/17/221004 Last Action: Reviewed Clonidine HCl (Clonidine HCl) 0.1 Mg Tablet, 0.1 MG PO BID, (Reported) Entered as Reported by: YUN BOGGS on 04/17/221004 Last Action: Reviewed Duloxetine HCl (Duloxetine HCl) 60 Mg Capsule.dr, 60 MG PO BID, (Reported) Entered as Reported by: YUN BOGGS on 04/17/221004 Last Action: Reviewed Hydroxyzine HCl (Hydroxyzine HCl) 25 Mg Tablet, 25 MG PO QID PRN for ANXIETY, (Reported) Entered as Reported by: YUN BOGGS on 04/17/221004 Last Action: Reviewed Iron Polysaccharide Complex (Ferrex 150) 150 Mg Iron Capsule, 150 MG PO DAILY, (Reported) Entered as Reported by: YUN BOGGS on 04/17/221004 Last Action: Reviewed Montelukast Sodium (Montelukast Sodium) 10 Mg Tablet, 10 MG PO DAILY, (Reported) Entered as Reported by: YUN BOGGS on 04/17/221004 Last Action: Reviewed Omeprazole (Omeprazole) 40 Mg Capsule.dr, 40 MG PO DAILY, (Reported) Entered as Reported by: YUN BOGGS on 04/17/221004 Last Action: Reviewed Ramipril (Ramipril) 10 Mg Capsule, 10 MG PO HS, (Reported) Entered as Reported by: YUN BOGGS on 04/17/221004 Last Action: Reviewed Rivaroxaban (Xarelto) 20 Mg Tablet, 20 MG PO DAILY, (Reported) Entered as Reported by: YUN BOGGS on 04/17/221004 Last Action: Held Sildenafil Citrate (Sildenafil) 20 Mg Tablet, 20 MG PO TID, (Reported) Entered as Reported by: YUN BOGGS on 04/17/221004 Last Action: Reviewed Sotalol HCl (Sotalol) 120 Mg Tablet, 120 MG PO BID, (Reported) Entered as Reported by: YUN BOGGS on 04/17/221004 Last Action: Reviewed Spironolactone (Spironolactone) 25 Mg Tablet, 25 MG PO BID, (Reported) Entered as Reported by: YUN BOGGS on 04/17/221004 Last Action: Reviewed Discontinued Medications Albuterol Sulfate (Ventolin Hfa) 90 Mcg Hfa.aer.ad, 1 PUFF PO Q6H PRN for SHORTNESS OF BREATH Discontinued Reason: No Longer Taking Prescribed by: JOHN LANE on 12/13/211146 Last Action: Discontinued Allopurinol (Allopurinol) 300 Mg Tablet, 300 MG PO HS Discontinued Reason: No Longer Taking Prescribed by: JOHN LANE on 12/13/211146 Last Action: Discontinued Apixaban (Eliquis) 5 Mg Tablet, 5 MG PO BID Discontinued Reason: No Longer Taking Prescribed by: JOHN LANE on 12/13/211146 Last Action: Discontinued Brinzolamide/Brimonidine Tart (Simbrinza 1%-0.2% Eye Drops) 1 %-0.2 % Drops.susp, 1 DROP OU TID Discontinued Reason: No Longer Taking Prescribed by: JOHN LANE on 12/13/211146 Last Action: Discontinued Budesonide/Formoterol Fumarate (Symbicort 160-4.5 Mcg Inhaler) 160 Mcg-4.5 Mcg/Actuation Hfa.aer.ad, 1 PUFF PO BID Discontinued Reason: No Longer Taking Prescribed by: JOHN LANE on 12/13/211146 Last Action: Discontinued Bumetanide (Bumetanide) 1 Mg Tablet, 1 MG PO DAILY Discontinued Reason: No Longer Taking Prescribed by: JOHN LANE on 12/13/211146 Last Action: Discontinued Buprenorphine HCl/Naloxone HCl (Buprenorphine-Nalox 8-2Mg Film) 8 Mg-2 Mg Film, 1 EACH SL QID Discontinued Reason: No Longer Taking Prescribed by: JOHN LANE on 12/13/211147 Last Action: Discontinued Butalb/Acetaminophen/Caffeine (Ttgrrv-Etynzqzt-Obwm 50-325-40) 50 Mg-325 Mg-40 Mg Tablet, 1 EACH PO QID Discontinued Reason: No Longer Taking Prescribed by: JOHN LANE on 12/13/211147 Last Action: Discontinued Clonidine HCl (Clonidine HCl) 0.1 Mg Tablet, 0.1 MG PO BID Discontinued Reason: No Longer Taking Prescribed by: JOHN LANE on 12/13/211146 Last Action: Discontinued Duloxetine HCl (Duloxetine HCl) 60 Mg Capsule.dr, 60 MG PO BID Discontinued Reason: No Longer Taking Prescribed by: JOHN LANE on 12/13/211146 Last Action: Discontinued Hydroxyzine HCl (Hydroxyzine HCl) 25 Mg Tablet, 25 MG PO QID Discontinued Reason: No Longer Taking Prescribed by: JOHN LANE on 12/13/211146 Last Action: Discontinued Iron Polysaccharide Complex (Ferrex 150) 150 Mg Iron Capsule, 150 MG PO DAILY Discontinued Reason: No Longer Taking Prescribed by: JOHN LANE on 12/13/211146 Last Action: Discontinued Montelukast Sodium (Montelukast Sodium) 10 Mg Tablet, 10 MG PO HS Discontinued Reason: No Longer Taking Prescribed by: JOHN LANE on 12/13/211146 Last Action: Discontinued Nitrofurantoin Monohyd/M-Cryst (Nitrofurantoin [place]zuma-Mcr 100 mg) 100 Mg Capsule, 100 MG PO BID Discontinued Reason: No Longer Taking Prescribed by: JOHN LANE on 12/13/211146 Last Action: Discontinued Omeprazole (Omeprazole) 40 Mg Capsule.dr, 40 MG PO DAILY Discontinued Reason: No Longer Taking Prescribed by: JOHN LANE on 12/13/211146 Last Action: Discontinued Ramipril (Ramipril) 10 Mg Capsule, 10 MG PO HS Discontinued Reason: No Longer Taking Prescribed by: JOHN LANE on 12/13/211146 Last Action: Discontinued Sildenafil Citrate (Sildenafil) 20 Mg Tablet, 20 MG PO TID Discontinued Reason: No Longer Taking Prescribed by: JOHN LANE on 12/13/211146 Last Action: Discontinued Sotalol HCl (Sotalol) 120 Mg Tablet, 120 MG PO BID Discontinued Reason: No Longer Taking Prescribed by: JOHN LANE on 12/13/211146 Last Action: Discontinued Spironolactone (Spironolactone) 25 Mg Tablet, 25 MG PO BID Discontinued Reason: No Longer Taking Prescribed by: JOHN LANE on 12/13/21 1147 Last Action: Discontinued Past Wntnhny-Hvjruu-Fyzasd Hx Patient Social History Marrital Status: Living Status: lives at home with spouse, Ritchie Employed/Student: retired Tobacco Use?: No Smoking Status: Never a Smoker Use of E-Cig and/or Vaping dev: No Substance use?: No Alcohol Use?: No Immunizations Up To Date Date of Influenza Vaccine: Mar 26, 2017 First/Initial COVID19 Vaccinat: 2020 Second COVID19 Vaccination Tk: UNKNOWN Tetanus Booster (TDap): Unknown Date of Pneumonia Vaccine: Jun 24, 2013 Seasonal Allergies Seasonal Allergies: Yes Current Status Advance Directives: No Primary Language: Burmese Preferred Spoken Language: Burmese Implanted or Applied Medical D: Port-a-cath Past Medical History Surgeries: Gallbladder (in 1979), Hysterectomy, Orthopedic (hip x3), Tonsillectomy Asthma Atrial Fibrillation, Chronic Edema/Swelling, Hypertension Headaches /Migraines 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 Gastroesophageal Reflux, Gastrointestinal Bleed, Hemorrhoids Arthritis Glaucoma Loss of Vision: Denies Hearing Impairment: Hard of Hearing Anxiety, Depression Family Medical History Reviewed and Corrections made Heart Disease (mitral regurg in mother), Cancer (lung cancer in grandmother), Hypertension, Other Conditions/Hx (TIA father) Review of Systems Constitutional: No chills, No fever; malaise, weakness EENTM: No hoarseness, No throat pain Respiratory: No cough; dyspnea on exertion, short of breath Cardiovascular: No chest pain; edema (chronic); No palpitations Gastrointestinal: No abdominal pain; constipation; No loss of appetite; melena; No nausea, No vomiting Genitourinary: frequency, incontinence Musculoskeletal: joint pain (knee pain), muscle weakness Skin: no symptoms reported Psychiatric/Neurological: Anxiety, Depressed, Weakness All Other Systems Reviewed Negative Unless Noted: Yes Physical Exam Vital Signs Vital Signs - First Documented 04/16/22 04/16/22 04/16/22 16:15 19:47 20:30 Temp 35.8 Pulse 87 Resp 16 B/P (MAP) 107/69 (82) Pulse Ox 93 O2 Delivery Nasal Cannula O2 Flow Rate 5.00 FiO2 2 Capillary Refill : Less Than 3 Seconds Height, Weight, BMI Height: 5'7.01" Weight: 225lbs. 15.6oz. 102.397011jd; 43.00 BMI Method:Stated General Appearance: No Apparent Distress, WD/WN, Obese HEENT: PERRL/EOMI, Pharynx Normal Neck: Full Range of Motion, Supple Respiratory: Chest Non Tender, Lungs Clear, Normal Breath Sounds, No Respiratory Distress Cardiovascular: Regular Rate, Rhythm, Systolic Murmur Gastrointestinal: Normal Bowel Sounds, No Organomegaly, Non Tender, Soft Rectal: Deferred Extremity: Pedal Edema Neurologic/Psychiatric: Alert, Oriented x3, Normal Mood/Affect Skin: Warm/Dry Lymphatic: No Adenopathy Assessment/Plan Assessment and Plan Severe rectal bleeding Severe anemia Chronic Hypertension Chronic pain syndrome Depression Anxiety Generalized Arthritis Chronic atrial fibrillation Chronic Anticoagulation use Pulmonary Hypertension Severe rectal bleeding with Severe anemia with pt on Chronic anticoagulation with NOAC - Xarelto - for treatment of Afib. - discussed with pt and her family - we will consult to Dr. Albarran - this patient has had multiple severe bleeding episodes over the past few months which have required hospitalization. At this time, due to her higher risk, she needs to have surgical intervention for treatment of her bleeding hemorrhoids. Chronic Hypertension - resumed home regimen. - monitor pressures. Chronic pain syndrome - resumed suboxone Depression and Anxiety - resumed home regimen. Generalized Arthritis - will require physical therapy during hospitalization - I will recommend patient to start on physical therapy. Chronic atrial fibrillation with pt on Chronic Anticoagulation use - resume home medication except for holding Xarelto. Pulmonary Hypertension - resumed viagra DVT prophylaxis with scd's holding anticoag for now. Gi prophylaxis with ppi Admission Diagnosis Severe rectal bleeding Severe anemia Chronic Hypertension Chronic pain syndrome Depression Anxiety Generalized Arthritis Chronic atrial fibrillation Chronic Anticoagulation use Pulmonary Hypertension Admission Status: Inpatient Order (span 2 midnights) Reason for Inpatient Admission: inpatient admission for severe anemia, rectal bleeding, need for surgical intervention will require at least 72 hours for treatment SOCORRO LAMAR MD Apr 17, 2022 10:30
[2022-04-17] MEDS: FLU QUAD HIGH DOSE 240 MCG/0.7 ML 2022-23 (FLUZONE) IM ONE ×2 (10:52→11:07)
[2022-04-17] MEDS ORDERED: FUROSEMIDE 40 MG/4 ML INJ (LASIX) IVP NR (11:00)
--- NOTE | 2022-04-17 15:29 | CONSULTATION REPORT ---
DATE OF SERVICE: 04/17/2022 ATTENDING PRIMARY CARE PHYSICIAN: Nilsa Lamar MD. HISTORY OF PRESENT ILLNESS: The patient is a 72-year-old female known to us. She had presented to the Emergency Department on 12/08/2021 with significant anemia. She was found to have a hemoglobin in the 4 range. Upon further questioning, she had reported that she had been found anemic before and has been on anticoagulation with Xarelto for atrial fibrillation. She was admitted and resuscitated with blood products and on that admission, she underwent an EGD and colonoscopy when she was found to have a reflux esophagitis, Brazos grade B, mild distal esophageal stricture, small hiatal hernia 2 cm in size, moderate gastritis. Colonoscopy did show edematous between stage III and IV external and internal hemorrhoids with no active bleeding at that time. There was also moderate sigmoid diverticulosis. The patient was seen in the office and it was recommended that she proceed with a formal hemorrhoidectomy; however, she stated that she wanted to wait until after the holidays to have this done. She presented to the Emergency Department and stated that she had red blood per rectum for the past several days and began to feel weak as well. Her hemoglobin on admission was found to be 6.3. A picture of the blood color and consistency, which shown consistent again with bright red blood and hemorrhoidal bleeding. PAST MEDICAL HISTORY: Atrial fibrillation, COPD, hypertension, bilateral lower extremity edema, degenerative joint disease, gout. PAST SURGICAL HISTORY: Hysterectomy, cholecystectomy in 78, hip surgery x3. ALLERGIES: TETANUS, SOME ADHESIVE TAPES. MEDICATIONS: Albuterol, allopurinol, brinzolamide/brimonidine eyedrops t.i.d., budesonide/formoterol 160/4.5 mcg one puff b.i.d., Suboxone 8/2 mg q.i.d., clonidine 0.1 mg b.i.d., duloxetine 60 mg b.i.d., hydroxyzine 25 mg p.r.n., iron 150 mg daily, montelukast 10 mg daily, omeprazole 40 mg daily, ramipril 10 mg daily, rivaroxaban 20 mg daily, sildenafil citrate 20 mg t.i.d., sotalol 25 mg b.i.d. SOCIAL HISTORY: Negative smoke, negative alcohol. FAMILY HISTORY: Noncontributory. VITAL SIGNS: Temperature 36.7, blood pressure 118/56, pulse 92, respirations 18, pulse ox 97% on 4 liters nasal cannula. REVIEW OF SYSTEMS: A well-nourished female, currently in no acute distress. She does appear to be somewhat fatigue. The family is present with a daughter who is a nurse practitioner and a son-in-law who is a nurse that who worked in [place]. The family reports that she is not very ambulatory anymore and that even at home she is only able to transfer from the bed to a bedside commode. She reports that she is weak, especially in the knees and the hips. She also reports some exertional shortness of breath. No cough or sputum production. No chest pain, palpitations, diaphoresis. No nausea, vomiting with bright red blood per rectum for the past 5 to 7 days. No fever, chills, no recent inadvertent weight loss. All other review of systems negative. PHYSICAL EXAMINATION: CHEST: A few scattered rales and rhonchi bilaterally. HEART: Regular, no murmurs. EXTREMITIES: +2/3 bilateral lower extremity edema, negative Homans sign. HEENT: No scleral icterus. NECK: No cervical lymphadenopathy. ABDOMEN: Soft, nontender, nondistended. SKIN: Warm, dry. LABORATORY DATA: WBC 7.5, hemoglobin 6.9, hematocrit 22, platelets 221. BUN 20, creatinine 1.07. ASSESSMENT AND PLAN: A 72-year-old female with multiple medical problems including COPD, atrial fibrillation, degenerative joint disease with symptomatic stage IV hemorrhoids. This was evaluated on colonoscopy and it was recommended that she proceed with a formal hemorrhoidectomy; however, she wanted to wait at that time; however, she continues to be symptomatic with rectal bleeding and laboratory confirmation of anemia and our recommendation is to proceed with a formal hemorrhoidectomy on this admission after adequate resuscitation. All the risks and benefits of the procedure were explained to the patient and the entire family and they are understanding of this and would like to proceed with a Fonseca closed hemorrhoidectomy, which we will schedule. The patient will likely need some type of inpatient rehabilitation as well as possible fpc facility after acute admission due to her significant other medical comorbidities, weakness and the help that she requires. We will consult social work therapist as well as inpatient rehabilitation. Job ID: [id number] DocumentID: [id number] Dictated Date: 04/17/2022 15:13:27 Inside Barrel Polisher Date: 04/17/2022 15:28:32 Dictated By: MEG CUTLER MD
[2022-04-17] MEDS: ACET/BUTAL/CAFF (FIORICET) TAB PO PRN ×2 (15:36→21:10)
--- NOTE | 2022-04-17 16:13 | Wound Care Assessment ---
Wound Care Assessment Date Seen by Provider: Apr 17, 2022 Time Seen by Provider: 16:08 Chief Complaint Rash Skin breakdown on sacrum HPI This pleasant 72 year old presents to the hospital with lower GI bleed in setting of anticoagulation. She is currently receiving a unit of PRBC's and has plan for scope later in the week per Dr. Albarran. Roopa has a lo gh/o lymphedema of LE with custom garments from lymphedema clinic. She has a rash on lower posterior thigh (superior to popliteal fossa) which looks in appearance to be a folliculitis. This was appropriately treated last week with Doxycycline (per Dr. Lamar) and her states this appears to be improving. He is now applying mupirocin to the area of concern (which is also very appropriate). She does have edema in this area as well but no obvious cellulitis. The rash does not have the classic appearance of a candidal infection (several small pustules) but should she not continue to improve with topical antibiotics, I would consider a few days of diflucan appropriate. Pustular psoriasis or atopic dermatitis would be less likely. Outpatient biopsy would be a consideration should the prior options fail. She does also have some pressure and moisture related dermatitis to her sacrum which we will address. Her healing will be complicated by her anemia, protein energy malnutrition, immobility, generalized weakness, lymphedema and obesity. Anemia, obesity, atrial fibrillation (chronic anticoagulation), lymphedema Smoking Status: Never a Smoker Recreational Drug Use: No Alcohol Use: Denies Use Review of Systems General: Fatigue, Other (obesity) Gastrointestinal: Hematochezia Neurological: Weakness Exam Vital Signs Date Time Temp Pulse Resp B/P (MAP) Pulse Ox O2 Delivery O2 Flow Rate FiO2 04/17/22 15:36 36.7 04/17/22 13:29 92 18 118/56 97 Nasal Cannula 4.00 04/16/22 19:47 2 Capillary Refill : Less Than 3 Seconds General Appearance: no apparent distress, obese Neck: full range of motion Cardiovascular: other (Edema b/l LE (thighs 2+)) Respiratory: no respiratory distress, no accessory muscle use Extremities: no calf tenderness, inflammation (posterior thigh) Neurologic/Psychiatric: alert, normal mood/affect, oriented x 3 Skin: warm/dry, rash (posterior thigh (superior to popliteal fossa)) Skin Problem Location: lower extremities Skin Character: rash (pustular rash), swelling (thighs especially) Results Laboratory Tests 04/16/22 17:20: White Blood Count 8.5, Red Blood Count 2.17L, Hemoglobin 6.3*L, Hematocrit 21L, Mean Corpuscular Volume 98, Mean Corpuscular Hemoglobin 29, Mean Corpuscular Hemoglobin Concent 30L, Red Cell Distribution Width 16.1H, Platelet Count 282, Mean Platelet Volume 9.8, Immature Granulocyte % (Auto) 1, Neutrophils (%) (Auto) 72, Lymphocytes (%) (Auto) 16, Monocytes (%) (Auto) 8, Eosinophils (%) (Auto) 3, Basophils (%) (Auto) 0, Neutrophils # (Auto) 6.1, Lymphocytes # (Auto) 1.4, Monocytes # (Auto) 0.6, Eosinophils # (Auto) 0.3, Basophils # (Auto) 0.0, Immature Granulocyte # (Auto) 0.1, Sodium Level 140, Potassium Level 4.7, Chloride Level 97L, Carbon Dioxide Level 31, Anion Gap 12, Blood Urea Nitrogen 20H, Creatinine 1.07, Estimat Glomerular Filtration Rate 55, BUN/Creatinine Ratio 19, Glucose Level 122H, Calcium Level 8.5, Corrected Calcium 9.4, Total Bilirubin 0.2, Aspartate Amino Transf (AST/SGOT) 12, Alanine Aminotransferase (ALT/SGPT) < 6, Alkaline Phosphatase 116, Total Protein 7.1, Albumin 2.9L 04/17/22 05:20: White Blood Count 7.5, Red Blood Count 2.34L, Hemoglobin 6.9*L, Hematocrit 22L, Mean Corpuscular Volume 96, Mean Corpuscular Hemoglobin 29, Mean Corpuscular Hemoglobin Concent 31L, Red Cell Distribution Width 17.0H, Platelet Count 221, Mean Platelet Volume 9.7, Immature Granulocyte % (Auto) 1, Neutrophils (%) (Auto) 76H, Lymphocytes (%) (Auto) 14, Monocytes (%) (Auto) 7, Eosinophils (%) (Auto) 3, Basophils (%) (Auto) 0, Neutrophils # (Auto) 5.7, Lymphocytes # (Auto) 1.0, Monocytes # (Auto) 0.5, Eosinophils # (Auto) 0.2, Basophils # (Auto) 0.0, Immature Granulocyte # (Auto) 0.1 04/17/22 13:17: Lab Scanned Report Transfusion Reaction Form Assessment/Plan/Dx Assessment: 1. Stage 1 pressure injury sacrum 2. Moisture related dermatitis groin/perineum 3. Folliculitis (healing) posterior thighs 4. Lymphedema 5. PEM 6. Obesity 7. Anemia of blood loss (lower GIB) Plan: 1. Barrier ointment with bordered foam dressing. Frequent positional change 2. miconazole powder with interdry to groin 3. Continue mupirocin bid. Consider course of oral diflucan should this fail to resolve appropriately. 4. Custom lymphedema garments 5. Protein shakes 6. Weight loss advisable. 7. Per primary team GEORGETTE PAREDES MD Apr 17, 2022 16:13
[2022-04-17] MEDS ORDERED: fentaNYL INJ 100 MCG/2 ML AMP IVP PRN (16:30)
[2022-04-17] MEDS ORDERED: LORazepam INJ 2 MG/ML (ATIVAN) VIAL IVP PRN (16:30)
[2022-04-17] MEDS: ALLOPURINOL 300 MG (ZYLOPRIM) TAB PO SCH (21:03)
[2022-04-17] MEDS: MONTELUKAST 10 MG (SINGULAIR) TAB PO SCH (21:04)
[2022-04-17 22:23] LABS: HEMOGLOBIN 7.6 g/dL (11.5-16.0)
[2022-04-18 00:08] VITALS: BP 107/68
[2022-04-18] MEDS: MUPIROCIN 2% OINT 22 GM (BACTROBAN) TUBE TOP SCH ×3 (00:19→21:19)
[2022-04-18] MEDS: MICONAZOLE 2% POWDER (DESENEX AF) 90 GM TOP SCH ×3 (00:19→21:19)
[2022-04-18] MEDS: ACET/BUTAL/CAFF (FIORICET) TAB PO PRN ×5 (03:11→21:18)
[2022-04-18 03:48] VITALS: BP 118/75
[2022-04-18 05:24] LABS: HEMATOCRIT 24 % (35-52); HEMOGLOBIN 7.5 g/dL (11.5-16.0); MEAN CORPUSCULAR HEMOGLOBIN 29 pg (25-34); MEAN CORPUSCULAR HGB CONC 31 g/dL (32-36); MEAN CORPUSCULAR VOLUME 94 fL (80-99); MEAN PLATELET VOLUME 9.6 fL (9.0-12.2); PLATELET COUNT 210 10^3/uL (130-400); WHITE BLOOD COUNT 8.5 10^3/uL (4.3-11.0)
[2022-04-18 05:46] LABS: ALBUMIN 2.6 GM/DL (3.2-4.5); BILIRUBIN,TOTAL 0.2 MG/DL (0.1-1.0); CALCIUM 8.7 MG/DL (8.5-10.1); CREATININE SERUM 0.8 MG/DL (0.60-1.30); TOTAL PROTEIN 6.7 GM/DL (6.4-8.2)
--- NOTE | 2022-04-18 08:45 | Occupational Therapy Eval ---
OT Evaluation-General/PLF Medical Diagnosis Admission Date Apr 17, 2022 at 10:09 Medical Diagnosis: Anemia, GIB Onset Date: Apr 17, 2022 Therapy Diagnosis Therapy Diagnosis: Reduced ADL status Height/Weight Height (Feet): 5 Height (Inches): 7.01 Weight (Pounds): 225 Weight (Ounces): 15.6 Precautions Precautions/Isolations: Fall Prevention, Standard Precautions Referral Physician: Brianda Referral Reason: Evaluation/Treatment Medical History Pertinent Medical History: Atrial Fib, HTN Current History Pt came to hospital due to having significant blood coming from her rectum. Pt is scheduled to have surgery on her hernia's, tomorrow, per pt. Pt lives at home with her spouse. She has assistance from her with all her ADLs, besides eating. She has been receiving adequate assist from spouse for an increased time. Her also performs all IADLs. She has a bath aide that comes in 1x/week but only assists in sponge baths. She reported that she has not gotten into a shower or used the toilet in the bathroom for a long time. Reviewed History: Yes Social History Home: Single Level Current Living Status: Spouse Entry Into Home: Ramp, Stairs With Railing (does not use) Steps Into Home: 5 ADL-Prior Level of Function SCALE: Activities may be completed with or without assistive devices. 3-Himrcukhod-wamrvpu completes the activity by him/herself with no assistance from a helper. 5-Set-up or Clean-up Assistance-helper sets up or cleans up; patient completes activity. [place] assists only prior to or following the activity. 4-Supervision or Touching Assistance-helper provides verbal cues and/or touching/steadying and/or contact guard assistance as patient completes activity. Assistance may be provided throughout the activity or intermittently. 3-Partial/Moderate Assistance-helper does LESS THAN HALF the effort. [place] lifts, holds or supports trunk or limbs, but provides less than half the effort. 2-Substantial/Maximal Assistance-helper does MORE THAN HALF the effort. [place] lifts or holds trunk or limbs and provides more than half the effort. 1-Rqgxmwcna-gcescf does ALL the effort. Patient does none of the effort to comp lete the activity. Or, the assistance of 2 or more helpers is required for the patient to complete the activity. If activity was not attempted, code reason: 7-Patient Refused. 9-Not Applicable-not attempted and the patient did not perform the activity before the current illness, exacerbation or injury. 10-Not Attempted due to Environmental Limitations-(lack of equipment, weather restraints, etc.). 88-Not Attempted due to Medical Conditions or Safety Concerns. Self Care: Needed Some Help (mod-max assist for all ADLs, except eating) Functional Cognition: Independent DME/Equipment: Bath Bench, Bedside Commode, Grab Bars, Shower, Tub/Shower DME/Equipment Comments Only uses commode and never uses the shower or tub/shower Drive Self: No OT Current Status Subjective Pt sitting in bed eating upon arrival. Pt agrees to therapy eval. Appearance Pt left sitting in bed with all needs within reach. Mental Status/Objective Patient Orientation: Person, Place, Time, Situation Current Glasses/Contacts: Yes Hearing Aids: No Dentures/Partials: No Hand Dominance: Right ADL-Treatment Eating (QC): 5 (baseline) Oral Hygiene (QC): 5 (per clinical judgment) Shower/Bathe Self (QC): 2 (per pt- baseline) Lower Body Dressing (QC): 2 (per pt-baseline) On/Off Footwear (QC): 1 (per pt-baseline) Pt is eating upon arrival. Per pt, level of assist with self-care tasks has not changed and her , daughter, and bath aide are capable of helping her with all ADLs. Pt is at baseline with all ADLs and does not qualify for skilled OT services. Pt will be d/c from skilled OT services at this time. Education OT Patient Education: Correct positioning, Progress toward Goal/Update tx plan, Rehab process Teaching Recipient: Patient Teaching Methods: Discussion Response to Teaching: Verbalize Understanding OT Snf Goals Snf Goals 1=Demonstrate adherence to instructed precautions during ADL tasks. 2=Patient will verbalize/demonstrate understanding of assistive devices/modifications for ADL. 3=Patient will improve strength/tolerance for activity to enable patient to perform ADL's. OT Education/Plan Problem List/Assessment Assessment: No Skilled OT Needs ID'd Discharge Recommendations Plan/Recommendations: Discontinue OT Therapy Discharge Recommendati: Scheduled Assistance, Bath Aide, Homemaker Support, Home & Family Treatment Plan/Plan of Care Treatment,Training & Education: Yes Patient would benefit from OT for education, treatment and training to promote independence in ADL's, mobility, safety and/or upper extremity function for ADL's. Plan of Care: ADL Retraining, Functional Mobility Treatment Duration: Apr 18, 2022 Frequency: 1 time per week Estimated Hrs Per Day: .25 hour per day Agreement: Yes Time/GCodes Start Time: 08:28 Stop Time: 08:36 Total Time Billed (hr/min): 8 Billed Treatment Time 1 visit ALESSANDRA EATON OT Apr 18, 2022 08:45
--- NOTE | 2022-04-18 08:48 | Progress Note ---
Subjective Subjective Date Seen by Provider: Apr 18, 2022 Time Seen by Provider: 08:30 pt reports that she is anxious, worried about surgery that is planned. pt refused blood draws yesterday, had trouble with access of port. Review of Systems General: Fatigue, Other (obesity) Gastrointestinal: Hematochezia Neurological: Weakness All Other Systems Reviewed All Other Systems Reviewed: Yes Objective Exam Vital Signs Vital Signs Date Time Temp Pulse Resp B/P (MAP) Pulse Ox O2 Delivery O2 Flow Rate FiO2 04/18/22 07:05 67 04/18/22 03:48 36.2 79 19 118/75 (89) 97 Nasal Cannula 4.00 04/18/22 01:00 88 04/18/22 00:29 95 Nasal Cannula 5.00 04/18/22 00:19 83 04/18/22 00:08 36.2 82 18 107/68 (81) 94 Nasal Cannula 4.00 04/17/22 19:26 36.2 83 18 118/55 (76) 99 Nasal Cannula 4.00 4.00 04/17/22 19:00 91 04/17/22 16:10 36.7 04/17/22 16:09 36.3 83 20 101/55 (70) 98 Nasal Cannula 4.00 4.00 04/17/22 15:36 36.7 04/17/22 13:29 36.7 92 18 118/56 97 Nasal Cannula 4.00 04/17/22 13:09 95 04/17/22 12:50 Nasal Cannula 04/17/22 11:59 36.5 91 18 89/49 (62) 95 04/17/22 11:56 36.5 91 18 89/49 95 Nasal Cannula 4.00 04/17/22 11:12 37.2 98 16 83/50 Nasal Cannula 4.00 04/17/22 11:06 94 04/17/22 10:56 36.6 94 16 95/54 95 Nasal Cannula 4.00 04/17/22 10:47 36.6 94 16 95/54 (68) 95 Nasal Cannula 4.00 04/17/22 09:05 96 04/17/22 08:52 92 Nasal Cannula 4.00 I & O 04/18/22 07:00 Intake Total 2660 ml Balance 2660 ml General Appearance: No Apparent Distress, WD/WN, Obese Eyes: Bilateral Eye PERRL, Bilateral Eye EOMI HEENT: PERRL/EOMI, Pharynx Normal Neck: Full Range of Motion, Supple Respiratory: Chest Non Tender, Lungs Clear, Normal Breath Sounds, No Respiratory Distress Cardiovascular: Regular Rate, Rhythm, Systolic Murmur Gastrointestinal: Normal Bowel Sounds, No Organomegaly, Non Tender, Soft Rectal: Deferred Extremity: Pedal Edema Neurologic/Psychiatric: Alert, Oriented x3, Normal Mood/Affect Skin: Warm/Dry Lymphatic: No Adenopathy Results Lab Laboratory Tests 04/17/22 13:17: Lab Scanned Report Transfusion Reaction Form 04/17/22 22:17: Hemoglobin 7.6L, Hematocrit 25L 04/18/22 05:00: Hemoglobin 7.5L, Hematocrit 24L, White Blood Count 8.5, Red Blood Count 2.61L, Mean Corpuscular Volume 94, Mean Corpuscular Hemoglobin 29, Mean Corpuscular Hemoglobin Concent 31L, Red Cell Distribution Width 18.0H, Platelet Count 210, Mean Platelet Volume 9.6, Sodium Level 140, Potassium Level 4.0, Chloride Level 99, Carbon Dioxide Level 31, Anion Gap 10, Blood Urea Nitrogen 13, Creatinine 0.80, Estimat Glomerular Filtration Rate 77, BUN/Creatinine Ratio 16, Glucose Level 133H, Calcium Level 8.7, Corrected Calcium 9.8, Total Bilirubin 0.2, Aspartate Amino Transf (AST/SGOT) 11, Alanine Aminotransferase (ALT/SGPT) 9, Alkaline Phosphatase 117, Total Protein 6.7, Albumin 2.6L Assessment/Plan Assessment/Plan Admission Dx Severe rectal bleeding Severe anemia Chronic Hypertension Chronic pain syndrome Depression Anxiety Generalized Arthritis Chronic atrial fibrillation Chronic Anticoagulation use Pulmonary Hypertension Assessment and Plan Severe rectal bleeding Severe anemia Chronic Hypertension Chronic pain syndrome Depression Anxiety Generalized Arthritis Chronic atrial fibrillation Chronic Anticoagulation use Pulmonary Hypertension Severe rectal bleeding with Severe anemia with pt on Chronic anticoagulation with NOAC - Xarelto - for treatment of Afib. - discussed with pt and her family - Planning on surgery in the next 2 days. Chronic Hypertension - resumed home regimen. - monitor pressures. Chronic pain syndrome - resumed suboxone Depression and Anxiety - resumed home regimen. Generalized Arthritis - will require physical therapy during hospitalization - therapy ordered. Chronic atrial fibrillation with pt on Chronic Anticoagulation use - resume home medication except for holding Xarelto. Pulmonary Hypertension - resumed viagra DVT prophylaxis with scd's holding anticoag for now. Gi prophylaxis with ppi Admission Dx Severe rectal bleeding Severe anemia Chronic Hypertension Chronic pain syndrome Depression Anxiety Generalized Arthritis Chronic atrial fibrillation Chronic Anticoagulation use Pulmonary Hypertension Clinical Quality Measures Admission Status Admission Dx Severe rectal bleeding Severe anemia Chronic Hypertension Chronic pain syndrome Depression Anxiety Generalized Arthritis Chronic atrial fibrillation Chronic Anticoagulation use Pulmonary Hypertension DVT/VTE Risk/Contraindication: Contraindications-Pharm: Other *list below* Other: hold anticoagulation due to gi bleeding SOCORRO DE LA ROSA MD Apr 18, 2022 08:48
[2022-04-18 08:56] VITALS: BP 106/74
--- NOTE | 2022-04-18 09:14 | Consultation-Cardiology ---
HPI-Cardiology Cardiology Consultation: Date of Consultation 04/18/22 Time Seen by a Provider: 09:20 Date of Admission 04-17-22 Attending Physician Nilsa Lamar MD Admitting Physician Admitting Physician: Nilsa Lamar MD Attending Physician: Nilsa Lamar MD Consulting Physician Chad Adhikari MD HPI: Chief Complaint: Cardiac clearance Ms. Horton is a 72 yr old female admitted to [facility] from the ED d/t anemia. She reports her primary organ pipe maker metal is Dr. Bynum at [facility]. She reports she has had rectal bleeding d/t hemorrhoids. She states she is scheduled to have a hemorrhoidectomy tomorrow. She reports she has a-fib and takes Xarelto. She denies any c/o CP, SOB, palpitations. She reports she uses a w/c or walker. She reports she has a wound to her coccyx. She reports wounds to her legs and chronic bilat LE swelling for which she wears compression socks. She reports she is oxygen dependant. Review of Systems-Cardiology Review of Systems Constitutional: No chills, No fever; malaise Eyes: no symptoms reported Ears/Nose/Throat: no symptoms reported Respiratory: As described under HPI Cardiovascular: As described under HPI Gastrointestinal: no symptoms reported Genitourinary: no symptoms reported Musculoskeletal: other (chronic joint pain) Skin: As described under HPI Psychiatric/Neurological: No anxiety, No depression, No seizure, No focal weakness, No syncope Hematologic: No bleeding abnormalities All Other Systems Reviewed Negative Unless Noted: Yes RWC-Swvlxv-Jxjuyl Hx Patient Social History Marrital Status: Living Status: lives at home with spouse, Ritchie Employed/Student: retired Smoking Status: Never a Smoker Have you traveled recently?: No Alcohol Use?: No Immunizations Up To Date Tetanus Booster (TDap): Unknown Date of Pneumonia Vaccine: Jun 24, 2013 Date of Influenza Vaccine: Mar 12, 2022 Past Medical History PMH As described under Assessment. Family Medical History Family Medical History: She did not report a family history of premature coronary artery disease. Allergies and Home Medications Allergies Coded Allergies: Tetanus Vaccines and Toxoid (Verified Allergy, Unknown, 07/18/07) adhesive (Verified Allergy, Unknown, 07/18/07) Patient Home Medication List Albuterol Sulfate (Proair Hfa) 1 Puff Puff, 2 PUFF IH Q4H PRN for SHORTNESS OF BREATH, (Reported) Entered as Reported by: YUN BOGGS on 04/17/221004 Last Action: Reviewed Allopurinol (Allopurinol) 300 Mg Tablet, 300 MG PO DAILY, (Reported) Entered as Reported by: YUN BOGGS on 04/17/221004 Last Action: Reviewed Brinzolamide/Brimonidine Tart (Simbrinza 1%-0.2% Eye Drop) 1 %-0.2 % Drops.susp, 1 DROP OU TID, (Reported) Entered as Reported by: YUN BOGGS on 04/17/221004 Last Action: Reviewed Budesonide/Formoterol Fumarate (Symbicort 160-4.5 Mcg Inhaler) 160 Mcg-4.5 Mcg/Actuation Hfa.aer.ad, 1 PUFF IH BID, (Reported) Entered as Reported by: YUN BOGGS on 04/17/221004 Last Action: Reviewed Buprenorphine HCl/Naloxone HCl (Suboxone 8 mg-2 mg Sl Film) 8 Mg-2 Mg Film, 1 EACH SL QID, (Reported) Entered as Reported by: YUN BOGGS on 04/17/221004 Last Action: Converted Butalb/Acetaminophen/Caffeine (Nfqqvq-Mqwvvmws-Flba 50-325-40) 50 Mg-325 Mg-40 Mg Tablet, 1 EACH PO Q6H, (Reported) Entered as Reported by: YUN BOGGS on 04/17/221004 Last Action: Reviewed Clonidine HCl (Clonidine HCl) 0.1 Mg Tablet, 0.1 MG PO BID, (Reported) Entered as Reported by: YUN BOGGS on 04/17/221004 Last Action: Reviewed Duloxetine HCl (Duloxetine HCl) 60 Mg Capsule.dr, 60 MG PO BID, (Reported) Entered as Reported by: YUN BOGGS on 04/17/221004 Last Action: Reviewed Hydroxyzine HCl (Hydroxyzine HCl) 25 Mg Tablet, 25 MG PO QID PRN for ANXIETY, (Reported) Entered as Reported by: YUN BOGGS on 04/17/221004 Last Action: Reviewed Iron Polysaccharide Complex (Ferrex 150) 150 Mg Iron Capsule, 150 MG PO DAILY, (Reported) Entered as Reported by: YUN BOGGS on 04/17/221004 Last Action: Reviewed Montelukast Sodium (Montelukast Sodium) 10 Mg Tablet, 10 MG PO DAILY, (Reported) Entered as Reported by: YUN BOGGS on 04/17/221004 Last Action: Reviewed Omeprazole (Omeprazole) 40 Mg Capsule.dr, 40 MG PO DAILY, (Reported) Entered as Reported by: YUN BOGGS on 04/17/221004 Last Action: Reviewed Ramipril (Ramipril) 10 Mg Capsule, 10 MG PO HS, (Reported) Entered as Reported by: YUN BOGGS on 04/17/221004 Last Action: Reviewed Rivaroxaban (Xarelto) 20 Mg Tablet, 20 MG PO DAILY, (Reported) Entered as Reported by: YUN BOGGS on 04/17/221004 Last Action: Held Sildenafil Citrate (Sildenafil) 20 Mg Tablet, 20 MG PO TID, (Reported) Entered as Reported by: YUN BOGGS on 04/17/221004 Last Action: Reviewed Sotalol HCl (Sotalol) 120 Mg Tablet, 120 MG PO BID, (Reported) Entered as Reported by: YUN BOGGS on 04/17/221004 Last Action: Reviewed Spironolactone (Spironolactone) 25 Mg Tablet, 25 MG PO BID, (Reported) Entered as Reported by: YUN BOGGS on 04/17/221004 Last Action: Reviewed Discontinued Medications Albuterol Sulfate (Ventolin Hfa) 90 Mcg Hfa.aer.ad, 1 PUFF PO Q6H PRN for SHORTNESS OF BREATH Discontinued Reason: No Longer Taking Prescribed by: JOHN LANE on 12/13/211146 Last Action: Discontinued Allopurinol (Allopurinol) 300 Mg Tablet, 300 MG PO HS Discontinued Reason: No Longer Taking Prescribed by: JOHN LANE on 12/13/211146 Last Action: Discontinued Apixaban (Eliquis) 5 Mg Tablet, 5 MG PO BID Discontinued Reason: No Longer Taking Prescribed by: JOHN LANE on 12/13/211146 Last Action: Discontinued Brinzolamide/Brimonidine Tart (Simbrinza 1%-0.2% Eye Drops) 1 %-0.2 % Drops.susp, 1 DROP OU TID Discontinued Reason: No Longer Taking Prescribed by: JOHN LANE on 12/13/211146 Last Action: Discontinued Budesonide/Formoterol Fumarate (Symbicort 160-4.5 Mcg Inhaler) 160 Mcg-4.5 Mcg/Actuation Hfa.aer.ad, 1 PUFF PO BID Discontinued Reason: No Longer Taking Prescribed by: JOHN LANE on 12/13/211146 Last Action: Discontinued Bumetanide (Bumetanide) 1 Mg Tablet, 1 MG PO DAILY Discontinued Reason: No Longer Taking Prescribed by: JOHN LANE on 12/13/211146 Last Action: Discontinued Buprenorphine HCl/Naloxone HCl (Buprenorphine-Nalox 8-2Mg Film) 8 Mg-2 Mg Film, 1 EACH SL QID Discontinued Reason: No Longer Taking Prescribed by: JOHN LANE on 12/13/211147 Last Action: Discontinued Butalb/Acetaminophen/Caffeine (Nrowrw-Ahfwlvxw-Rtsp 50-325-40) 50 Mg-325 Mg-40 Mg Tablet, 1 EACH PO QID Discontinued Reason: No Longer Taking Prescribed by: JOHN LANE on 12/13/211147 Last Action: Discontinued Clonidine HCl (Clonidine HCl) 0.1 Mg Tablet, 0.1 MG PO BID Discontinued Reason: No Longer Taking Prescribed by: JOHN LANE on 12/13/211146 Last Action: Discontinued Duloxetine HCl (Duloxetine HCl) 60 Mg Capsule.dr, 60 MG PO BID Discontinued Reason: No Longer Taking Prescribed by: JOHN LANE on 12/13/211146 Last Action: Discontinued Hydroxyzine HCl (Hydroxyzine HCl) 25 Mg Tablet, 25 MG PO QID Discontinued Reason: No Longer Taking Prescribed by: JOHN LANE on 12/13/211146 Last Action: Discontinued Iron Polysaccharide Complex (Ferrex 150) 150 Mg Iron Capsule, 150 MG PO DAILY Discontinued Reason: No Longer Taking Prescribed by: JOHN LANE on 12/13/211146 Last Action: Discontinued Montelukast Sodium (Montelukast Sodium) 10 Mg Tablet, 10 MG PO HS Discontinued Reason: No Longer Taking Prescribed by: JOHN LANE on 12/13/211146 Last Action: Discontinued Nitrofurantoin Monohyd/M-Cryst (Nitrofurantoin [place]-Mcr 100 mg) 100 Mg Capsule, 100 MG PO BID Discontinued Reason: No Longer Taking Prescribed by: JOHN LANE on 12/13/211146 Last Action: Discontinued Omeprazole (Omeprazole) 40 Mg Capsule.dr, 40 MG PO DAILY Discontinued Reason: No Longer Taking Prescribed by: JOHN LANE on 12/13/211146 Last Action: Discontinued Ramipril (Ramipril) 10 Mg Capsule, 10 MG PO HS Discontinued Reason: No Longer Taking Prescribed by: JOHN LANE on 12/13/211146 Last Action: Discontinued Sildenafil Citrate (Sildenafil) 20 Mg Tablet, 20 MG PO TID Discontinued Reason: No Longer Taking Prescribed by: JOHN LANE on 12/13/211146 Last Action: Discontinued Sotalol HCl (Sotalol) 120 Mg Tablet, 120 MG PO BID Discontinued Reason: No Longer Taking Prescribed by: JOHN LANE on 12/13/211146 Last Action: Discontinued Spironolactone (Spironolactone) 25 Mg Tablet, 25 MG PO BID Discontinued Reason: No Longer Taking Prescribed by: JOHN LANE on 12/13/211146 Last Action: Discontinued Physical Exam-Cardiology Physical Exam Vital Signs/I&O 04/18/22 04/18/22 04/18/22 04/18/22 00:08 00:19 00:29 01:00 Temp 36.2 Pulse 82 83 88 Resp 18 B/P (MAP) 107/68 (81) Pulse Ox 94 95 O2 Delivery Nasal Cannula Nasal Cannula O2 Flow Rate 4.00 5.00 04/18/22 04/18/22 04/18/22 04/18/22 03:48 07:05 08:56 11:16 Temp 36.2 36.1 Pulse 79 67 64 Resp 19 20 B/P (MAP) 118/75 (89) 106/74 (85) Pulse Ox 97 93 O2 Delivery Nasal Cannula Nasal Cannula Nasal Cannula O2 Flow Rate 4.00 2.00 4.00 04/17/22 23:59 Intake Total 2360 ml Balance 2360 ml Capillary Refill : Less Than 3 Seconds Constitutional: AAO x 3, well-developed, well-nourished HEENT: PERRL, hearing is well preserved, oral hygience is good Neck: No carotid bruit; carotid pulses are 2 + bilaterally Respiratory: No accessory muscle use, No respiratory distress; chest expansion is symmetric, other (good air entry) Cardiovascular: irregularly irregular, S1 and S2 Gastrointestinal: No tender; soft, audible bowel sounds Rectal: deferred Extremities: No significant edema Neurologic/Psychiatric: grossly intact (moves all extremities) Skin: other (dressing to RLE which is D&I) Data Review Labs Laboratory Tests 04/17/22 13:17: Lab Scanned Report Transfusion Reaction Form 04/17/22 22:17: Hemoglobin 7.6L, Hematocrit 25L 04/18/22 05:00: Hemoglobin 7.5L, Hematocrit 24L, White Blood Count 8.5, Red Blood Count 2.61L, Mean Corpuscular Volume 94, Mean Corpuscular Hemoglobin 29, Mean Corpuscular Hemoglobin Concent 31L, Red Cell Distribution Width 18.0H, Platelet Count 210, Mean Platelet Volume 9.6, Sodium Level 140, Potassium Level 4.0, Chloride Level 99, Carbon Dioxide Level 31, Anion Gap 10, Blood Urea Nitrogen 13, Creatinine 0.80, Estimat Glomerular Filtration Rate 77, BUN/Creatinine Ratio 16, Glucose Level 133H, Calcium Level 8.7, Corrected Calcium 9.8, Total Bilirubin 0.2, Aspartate Amino Transf (AST/SGOT) 11, Alanine Aminotransferase (ALT/SGPT) 9, Alkaline Phosphatase 117, Total Protein 6.7, Albumin 2.6L A/P-Cardiology Assessment/Admission Diagnosis Anemia - d/t bleeding hemorrhoids - awaiting surgery tomorrow Chronic a-fib - rate controlled - OAC with Xarelto - currently being held d/t anticipating surgery tomorrow - managed as out pt by Dr. Bynum of [facility] HTN - managed as out pt by Dr. Sandoval of [facility] - oxygen dependant Echocardiogram of 12-12-[address] Godwin showed LVEF 40-45%. LA and RA severely dilated. Mild Ao stenosis. PASP 44 mmHg HTN DJD - chronic pain - bilat hip replacement Discussion and Recomendations Anemia d/t blood loss d/t hemorrhoids - management per surgical services Risk of non-cardiac surgery is intermediate. OAC may be held for up to 72 hours chau-operatively if deemed surgically necessary. Advise it be resumed as soon as deemed surgically safe d/t risk of stroke from chronic a-fib Continue home antihypertensive regimen and rate controlling agents EKG today Monitor lab closely We would like to thank medical services for this consult Clinical Quality Measures DVT/VTE Risk/Contraindication: Contraindications-Pharm: Other *list below* Other: hold anticoagulation due to gi bleeding REX WILLIAM Apr 18, 2022 09:14
[2022-04-18] MEDS: BUPRENORPHINE PO SCH ×4 (09:20→21:17)
[2022-04-18] MEDS: NALOXONE PO SCH ×4 (09:20→21:17)
[2022-04-18] MEDS: cloNIDine 0.1 MG (CATAPRES) TAB PO SCH ×2 (09:22→21:18)
[2022-04-18] MEDS: SOTALOL 80 MG (BETAPACE) TAB PO SCH ×2 (09:23→21:18)
[2022-04-18] MEDS: RAMIPRIL 2.5 MG (ALTACE) CAP PO SCH (09:25)
[2022-04-18] MEDS: IRON POLYSAC 150 MG CAP (NIFEREX) PO SCH (09:25)
[2022-04-18] MEDS: DULoxetine 30 MG (CYMBALTA) CAP PO SCH ×2 (09:25→21:17)
[2022-04-18] MEDS: SPIRONOLACTONE 25 MG (ALDACTONE) TAB PO SCH ×2 (09:25→21:18)
[2022-04-18] MEDS: PANTOPRAZOLE 40 MG (PROTONIX) TAB PO SCH (09:25)
--- NOTE | 2022-04-18 10:34 | Physical Therapy Evaluation ---
PT Evaluation-General Medical Diagnosis Admission Date Apr 17, 2022 at 10:09 Medical Diagnosis: Anemia, GIB Onset Date: Apr 17, 2022 Therapy Diagnosis Therapy Diagnosis: impaired mobility Height/Weight Height (Feet): 5 Height (Inches): 7.01 Weight (Pounds): 225 Weight (Ounces): 15.6 Precautions Precautions/Isolations: Fall Prevention, Standard Precautions Weight Bear Status Right Lower Extremity: Right Weight Bearing/Tolerated Left Lower Extremity: Left Weight Bearing/Tolerated Referral Physician: Avis Reason for Referral: Evaluation/Treatment Medical History Pertinent Medical History: Atrial Fib, HTN Additional Medical History Past Medical History Surgeries: Gallbladder (in 1979), Hysterectomy, Orthopedic (hip x3), Tonsillectomy Asthma Atrial Fibrillation, Chronic Edema/Swelling, Hypertension Headaches /Migraines 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 2-Qpkdevnqib-kmpicca completes the activity by him/herself with no assistance from a helper. 5-Set-up or Clean-up Assistance-helper sets up or cleans up; patient completes activity. [place] assists only prior to or following the activity. 4-Supervision or Touching Assistance-helper provides verbal cues and/or touching/steadying and/or contact guard assistance as patient completes activity. Assistance may be provided throughout the activity or intermittently. 3-Partial/Moderate Assistance-helper does LESS THAN HALF the effort. [place] lifts, holds or supports trunk or limbs, but provides less than half the effort. 2-Substantial/Maximal Assistance-helper does MORE THAN HALF the effort. [place] lifts or holds trunk or limbs and provides more than half the effort. 4-Cvszrehsu-sxwwke does ALL the effort. Patient does none of the effort to com plete the activity. Or, the assistance of 2 or more helpers is required for the patient to complete the activity. If activity was not attempted, code reason: 7-Patient Refused. 9-Not Applicable-not attempted and the patient did not perform the activity before the current illness, exacerbation or injury. 10-Not Attempted due to Environmental Limitations-(lack of equipment, weather restraints, etc.). 88-Not Attempted due to Medical Conditions or Safety Concerns. Bed Mobility: 6 Transfers (B,C,W/C): 6 Prior Devices Use: Walker Patient states she doesn't ambulate, only stands and transfers using a walker, sleeps in a lift chair. PT Evaluation-Current Subjective Patient in bed pre tx, agrees to PT but refuses to try to ambulate or perform LE exercise or sit on the side of the bed. Patient has 10/10 headache. Pt/Family Goals none stated Objective Patient Orientation: Person, Place, Situation Attachments: Hernandez Catheter (purewick) ROM/Strength ROM Lower Extremities limited due to pain Strength Lower Extremities LLE (hip flexion 2/5, knee flexion 2/5, knee extension 3/5, dorsiflexion 3+/5), RLE (hip flexion 2/5, knee flexion 2/5, knee extension 3/5, dorsiflexion 3+/5) Sensory Hearing: Functional Hand Dominance: Right Sensation Right Lower Extremit: Intact Sensation Left Lower Extremity: Intact Treatment BLE supine exercises x15 (AP, QS, GS) Assessment/Needs Patient in bed post tx with nurse call, phone, tray, all needs met. Patient has impaired mobility and strength. She refused to try to ambulate or get out of bed or even sit on the side of the bed. 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 Goals PT Snf Goals Time Frame: Apr 25, 2022 Roll Left & Right (QC): 3 Sit to Lying (QC): 3 Lying-Sitting on Side/Bed(QC): 3 Sit to Stand (QC): 3 Chair/Asv-vl-Jtuyd Xfer(QC): 3 PT Plan Problem List Problem List: Activity Tolerance, Functional Strength, Safety, Balance, Gait, Transfer, Bed Mobility, ROM Treatment/Plan Treatment Plan: Continue Plan of Care Treatment Plan: Bed Mobility, Education, Functional Activity Heather, Functional Strength, Gait, Safety, Therapeutic Exercise, Transfers Treatment Duration: Apr 25, 2022 Frequency: 6 times per week Estimated Hrs Per Day: .25 hour per day Patient and/or Family Agrees t: Yes Safety Risks/Education Patient Education: Correct Positioning, Safety Issues Teaching Recipient: Patient Teaching Methods: Demonstration, Discussion Response to Teaching: Reinforcement Needed Time Time In: 951 Time Out: 1000 Total Billed Treatment Time: 8 Total Billed Treatment 1 visit STEPHON ANAYA PT Apr 18, 2022 10:33
--- NOTE | 2022-04-18 11:13 | Consultation-Cardiology ---
HPI-Cardiology Cardiology Consultation: Date of Consultation 04/18/22 Time Seen by a Provider: 09:30 Date of Admission Attending Physician Nilsa Lamar MD Admitting Physician Admitting Physician: Nilsa Lamar MD Attending Physician: Nilsa Lamar MD Consulting Physician HEIDI MAGDALENO MD, MA, FACP, FACC, [facility] [place], CCDS HPI: Chief Complaint: Reason for Card consult: Preop card eval Ms. Horton is a 72 yr old female admitted to [facility] from the ED d/t anemia. She reports her primary lock plater is Dr. Bynum at [facility]. She reports she has had rectal bleeding d/t hemorrhoids. She states she is scheduled to have a hemorrhoidectomy tomorrow. She reports she has a-fib and takes Xarelto. She denies any c/o CP, SOB, palpitations. She reports she uses a w/c or walker. She reports she has a wound to her coccyx. She reports wounds to her legs and chronic bilat LE swelling for which she wears compression socks. She reports she is oxygen dependant. Review of Systems-Cardiology Review of Systems Constitutional: No chills, No fever; malaise Eyes: no symptoms reported Ears/Nose/Throat: no symptoms reported Respiratory: As described under HPI Cardiovascular: As described under HPI Gastrointestinal: no symptoms reported Genitourinary: no symptoms reported Musculoskeletal: other (chronic joint pain) Skin: As described under HPI Psychiatric/Neurological: No anxiety, No depression, No seizure, No focal weakness, No syncope Hematologic: No bleeding abnormalities All Other Systems Reviewed Negative Unless Noted: Yes PIU-Gatmls-Ybsftj Hx Patient Social History Marrital Status: Living Status: lives at home with spouse, Ritchie Employed/Student: retired Smoking Status: Never a Smoker Have you traveled recently?: No Alcohol Use?: No Immunizations Up To Date Tetanus Booster (TDap): Unknown Date of Pneumonia Vaccine: Jun 24, 2013 Date of Influenza Vaccine: Mar 12, 2022 Past Medical History PMH As described under Assessment. Family Medical History Family Medical History: She did not report a family history of premature coronary artery disease. Allergies and Home Medications Allergies Coded Allergies: Tetanus Vaccines and Toxoid (Verified Allergy, Unknown, 07/18/07) adhesive (Verified Allergy, Unknown, 07/18/07) Patient Home Medication List Home Medication List Reviewed: Yes Albuterol Sulfate (Proair Hfa) 1 Puff Puff, 2 PUFF IH Q4H PRN for SHORTNESS OF BREATH, (Reported) Entered as Reported by: YUN BOGGS on 04/17/221004 Last Action: Reviewed Allopurinol (Allopurinol) 300 Mg Tablet, 300 MG PO DAILY, (Reported) Entered as Reported by: YUN BOGGS on 04/17/221004 Last Action: Reviewed Brinzolamide/Brimonidine Tart (Simbrinza 1%-0.2% Eye Drop) 1 %-0.2 % Drops.susp, 1 DROP OU TID, (Reported) Entered as Reported by: YUN BOGGS on 04/17/221004 Last Action: Reviewed Budesonide/Formoterol Fumarate (Symbicort 160-4.5 Mcg Inhaler) 160 Mcg-4.5 Mcg/Actuation Hfa.aer.ad, 1 PUFF IH BID, (Reported) Entered as Reported by: YUN BOGGS on 04/17/221004 Last Action: Reviewed Buprenorphine HCl/Naloxone HCl (Suboxone 8 mg-2 mg Sl Film) 8 Mg-2 Mg Film, 1 EACH SL QID, (Reported) Entered as Reported by: YUN BOGGS on 04/17/221004 Last Action: Converted Butalb/Acetaminophen/Caffeine (Jfccbj-Yfcqzkjb-Zhcm 50-325-40) 50 Mg-325 Mg-40 Mg Tablet, 1 EACH PO Q6H, (Reported) Entered as Reported by: YUN BOGGS on 04/17/221004 Last Action: Reviewed Clonidine HCl (Clonidine HCl) 0.1 Mg Tablet, 0.1 MG PO BID, (Reported) Entered as Reported by: YUN BOGGS on 04/17/221004 Last Action: Reviewed Duloxetine HCl (Duloxetine HCl) 60 Mg Capsule.dr, 60 MG PO BID, (Reported) Entered as Reported by: YUN BOGGS on 04/17/221004 Last Action: Reviewed Hydroxyzine HCl (Hydroxyzine HCl) 25 Mg Tablet, 25 MG PO QID PRN for ANXIETY, ( Reported) Entered as Reported by: YUN BOGGS on 04/17/221004 Last Action: Reviewed Iron Polysaccharide Complex (Ferrex 150) 150 Mg Iron Capsule, 150 MG PO DAILY, (Reported) Entered as Reported by: YUN BOGGS on 04/17/221004 Last Action: Reviewed Montelukast Sodium (Montelukast Sodium) 10 Mg Tablet, 10 MG PO DAILY, (Reported) Entered as Reported by: YUN BOGGS on 04/17/221004 Last Action: Reviewed Omeprazole (Omeprazole) 40 Mg Capsule.dr, 40 MG PO DAILY, (Reported) Entered as Reported by: YUN BOGGS on 04/17/221004 Last Action: Reviewed Ramipril (Ramipril) 10 Mg Capsule, 10 MG PO HS, (Reported) Entered as Reported by: YUN BOGGS on 04/17/221004 Last Action: Reviewed Rivaroxaban (Xarelto) 20 Mg Tablet, 20 MG PO DAILY, (Reported) Entered as Reported by: YUN BOGGS on 04/17/221004 Last Action: Held Sildenafil Citrate (Sildenafil) 20 Mg Tablet, 20 MG PO TID, (Reported) Entered as Reported by: YUN BOGGS on 04/17/221004 Last Action: Reviewed Sotalol HCl (Sotalol) 120 Mg Tablet, 120 MG PO BID, (Reported) Entered as Reported by: YUN BOGGS on 04/17/221004 Last Action: Reviewed Spironolactone (Spironolactone) 25 Mg Tablet, 25 MG PO BID, (Reported) Entered as Reported by: YUN BOGGS on 04/17/221004 Last Action: Reviewed Discontinued Medications Albuterol Sulfate (Ventolin Hfa) 90 Mcg Hfa.aer.ad, 1 PUFF PO Q6H PRN for SHORTNESS OF BREATH Discontinued Reason: No Longer Taking Prescribed by: JOHN LANE on 12/13/211146 Last Action: Discontinued Allopurinol (Allopurinol) 300 Mg Tablet, 300 MG PO HS Discontinued Reason: No Longer Taking Prescribed by: JOHN LANE on 12/13/211146 Last Action: Discontinued Apixaban (Eliquis) 5 Mg Tablet, 5 MG PO BID Discontinued Reason: No Longer Taking Prescribed by: JOHN LANE on 12/13/211146 Last Action: Discontinued Brinzolamide/Brimonidine Tart (Simbrinza 1%-0.2% Eye Drops) 1 %-0.2 % Drops.susp, 1 DROP OU TID Discontinued Reason: No Longer Taking Prescribed by: JOHN LANE on 12/13/211146 Last Action: Discontinued Budesonide/Formoterol Fumarate (Symbicort 160-4.5 Mcg Inhaler) 160 Mcg-4.5 Mcg/Actuation Hfa.aer.ad, 1 PUFF PO BID Discontinued Reason: No Longer Taking Prescribed by: JOHN LANE on 12/13/211146 Last Action: Discontinued Bumetanide (Bumetanide) 1 Mg Tablet, 1 MG PO DAILY Discontinued Reason: No Longer Taking Prescribed by: JOHN LANE on 12/13/211146 Last Action: Discontinued Buprenorphine HCl/Naloxone HCl (Buprenorphine-Nalox 8-2Mg Film) 8 Mg-2 Mg Film, 1 EACH SL QID Discontinued Reason: No Longer Taking Prescribed by: JOHN LANE on 12/13/211147 Last Action: Discontinued Butalb/Acetaminophen/Caffeine (Imptdq-Ocfuljqf-Cfpn 50-325-40) 50 Mg-325 Mg-40 Mg Tablet, 1 EACH PO QID Discontinued Reason: No Longer Taking Prescribed by: JOHN LANE on 12/13/211147 Last Action: Discontinued Clonidine HCl (Clonidine HCl) 0.1 Mg Tablet, 0.1 MG PO BID Discontinued Reason: No Longer Taking Prescribed by: JOHN LANE on 12/13/211146 Last Action: Discontinued Duloxetine HCl (Duloxetine HCl) 60 Mg Capsule.dr, 60 MG PO BID Discontinued Reason: No Longer Taking Prescribed by: JOHN LANE on 12/13/211146 Last Action: Discontinued Hydroxyzine HCl (Hydroxyzine HCl) 25 Mg Tablet, 25 MG PO QID Discontinued Reason: No Longer Taking Prescribed by: JOHN LANE on 12/13/211146 Last Action: Discontinued Iron Polysaccharide Complex (Ferrex 150) 150 Mg Iron Capsule, 150 MG PO DAILY Discontinued Reason: No Longer Taking Prescribed by: JOHN LANE on 12/13/211146 Last Action: Discontinued Montelukast Sodium (Montelukast Sodium) 10 Mg Tablet, 10 MG PO HS Discontinued Reason: No Longer Taking Prescribed by: JOHN LANE on 12/13/211146 Last Action: Discontinued Nitrofurantoin Monohyd/M-Cryst (Nitrofurantoin Telfair-Mcr 100 mg) 100 Mg Capsule, 100 MG PO BID Discontinued Reason: No Longer Taking Prescribed by: JOHN LANE on 12/13/211146 Last Action: Discontinued Omeprazole (Omeprazole) 40 Mg Capsule.dr, 40 MG PO DAILY Discontinued Reason: No Longer Taking Prescribed by: JOHN LANE on 12/13/211146 Last Action: Discontinued Ramipril (Ramipril) 10 Mg Capsule, 10 MG PO HS Discontinued Reason: No Longer Taking Prescribed by: JOHN LANE on 12/13/211146 Last Action: Discontinued Sildenafil Citrate (Sildenafil) 20 Mg Tablet, 20 MG PO TID Discontinued Reason: No Longer Taking Prescribed by: JOHN LANE on 12/13/211146 Last Action: Discontinued Sotalol HCl (Sotalol) 120 Mg Tablet, 120 MG PO BID Discontinued Reason: No Longer Taking Prescribed by: JOHN LANE on 12/13/211146 Last Action: Discontinued Spironolactone (Spironolactone) 25 Mg Tablet, 25 MG PO BID Discontinued Reason: No Longer Taking Prescribed by: JOHN LANE on 12/13/211146 Last Action: Discontinued Physical Exam-Cardiology Physical Exam Vital Signs/I&O 04/18/22 04/18/22 04/18/22 04/18/22 00:08 00:19 00:29 01:00 Temp 36.2 Pulse 82 83 88 Resp 18 B/P (MAP) 107/68 (81) Pulse Ox 94 95 O2 Delivery Nasal Cannula Nasal Cannula O2 Flow Rate 4.00 5.00 04/18/22 04/18/22 04/18/22 03:48 07:05 08:56 Temp 36.2 36.1 Pulse 79 67 64 Resp 19 20 B/P (MAP) 118/75 (89) 106/74 (85) Pulse Ox 97 93 O2 Delivery Nasal Cannula Nasal Cannula O2 Flow Rate 4.00 2.00 04/18/22 00:00 Intake Total 2360 ml Balance 2360 ml Capillary Refill : Less Than 3 Seconds Constitutional: AAO x 3, well-developed, well-nourished HEENT: PERRL, hearing is well preserved, oral hygience is good Neck: No carotid bruit; carotid pulses are 2 + bilaterally Respiratory: No accessory muscle use, No respiratory distress; chest expansion is symmetric, other (good air entry) Cardiovascular: irregularly irregular, S1 and S2 Gastrointestinal: No tender; soft, audible bowel sounds Rectal: deferred Extremities: No significant edema Neurologic/Psychiatric: grossly intact (moves all extremities) Skin: other (dressing to RLE which is D&I) Data Review Labs Laboratory Tests 04/17/22 13:17: Lab Scanned Report Transfusion Reaction Form 04/17/22 22:17: Hemoglobin 7.6L, Hematocrit 25L 04/18/22 05:00: Hemoglobin 7.5L, Hematocrit 24L, White Blood Count 8.5, Red Blood Count 2.61L, Mean Corpuscular Volume 94, Mean Corpuscular Hemoglobin 29, Mean Corpuscular Hemoglobin Concent 31L, Red Cell Distribution Width 18.0H, Platelet Count 210, Mean Platelet Volume 9.6, Sodium Level 140, Potassium Level 4.0, Chloride Level 99, Carbon Dioxide Level 31, Anion Gap 10, Blood Urea Nitrogen 13, Creatinine 0.80, Estimat Glomerular Filtration Rate 77, BUN/Creatinine Ratio 16, Glucose Level 133H, Calcium Level 8.7, Corrected Calcium 9.8, Total Bilirubin 0.2, Aspartate Amino Transf (AST/SGOT) 11, Alanine Aminotransferase (ALT/SGPT) 9, Alkaline Phosphatase 117, Total Protein 6.7, Albumin 2.6L A/P-Cardiology Assessment/Admission Diagnosis Anemia - d/t bleeding hemorrhoids - awaiting surgery tomorrow Chronic a-fib - rate controlled - OAC with Xarelto - currently being held d/t anticipating surgery tomorrow - managed as out pt by Dr. Bynum of [facility] HTN - managed as out pt by Dr. Sandoval of [facility] - oxygen dependant Echocardiogram of 12-12-[address] Godwin showed LVEF 40-45%. LA and RA severely dilated. Mild Ao stenosis. PASP 44 mmHg HTN DJD - chronic pain - bilat hip replacement Discussion and Recomendations Anemia d/t blood loss d/t hemorrhoids - management per surgical services Risk of non-cardiac surgery is intermediate. OAC may be held for up to 72 hours chau-operatively if deemed surgically necessary. Advise it be resumed as soon as deemed surgically safe d/t risk of stroke from chronic a-fib Continue home antihypertensive regimen and rate controlling agents EKG today Monitor lab closely We would like to thank medical services for this consult Clinical Quality Measures DVT/VTE Risk/Contraindication: Contraindications-Pharm: Other *list below* Other: hold anticoagulation due to gi bleeding HEIDI MAGDALENO MD [facility] Apr 18, 2022 11:13
[2022-04-18] MEDS ORDERED: ALTEPLASE 2 MG (CATHFLO) IV ONE (11:15)
[2022-04-18 12:11] VITALS: BP 98/66
--- NOTE | 2022-04-18 12:36 | Diagnostic Imaging Report ---
INDICATION: Port placement. TIME OF EXAM: 11:42 AM. COMPARISON: No prior studies are available for comparison. FINDINGS: The heart is enlarged. The left-sided port has its tip overlying the SVC. The lungs are clear. No pneumothorax is detected. There is no effusion. IMPRESSION: Port placement. No pneumothorax is identified. Dictated by: Dictated on workstation # [id number]
[2022-04-18] MEDS ORDERED: WATER (STERILE) FOR INJECTION 10 ML ONE (12:47)
--- NOTE | 2022-04-18 15:41 | Progress Note ---
Subjective Date Seen by a Provider: Apr 18, 2022 Time Seen by a Provider: 16:00 Subjective/Events-last exam doing ok. states nervous however keeps repeating herself. hb stable. in termediate risk surgery per cardio. Objective Exam Vital Signs Date Time Temp Pulse Resp B/P (MAP) Pulse Ox O2 Delivery O2 Flow Rate FiO2 04/18/22 12:39 93 04/18/22 12:11 35.9 70 18 98/66 (77) 91 Nasal Cannula 2.00 04/18/22 11:16 Nasal Cannula 4.00 04/18/22 08:56 36.1 64 20 106/74 (85) 93 Nasal Cannula 2.00 04/18/22 08:00 95 Nasal Cannula 4.00 04/18/22 07:05 67 04/18/22 03:48 36.2 79 19 118/75 (89) 97 Nasal Cannula 4.00 04/18/22 01:00 88 04/18/22 00:29 95 Nasal Cannula 5.00 04/18/22 00:19 83 04/18/22 00:08 36.2 82 18 107/68 (81) 94 Nasal Cannula 4.00 04/17/22 19:26 36.2 83 18 118/55 (76) 99 Nasal Cannula 4.00 4.00 04/17/22 19:00 91 04/17/22 16:10 36.7 04/17/22 16:09 36.3 83 20 101/55 (70) 98 Nasal Cannula 4.00 4.00 I & O 04/18/22 07:00 Intake Total 2660 ml Balance 2660 ml Capillary Refill : Less Than 3 Seconds General Appearance: No Apparent Distress HEENT: PERRL/EOMI Neck: Full Range of Motion Respiratory: Chest Non Tender, Decreased Breath Sounds Cardiovascular: Regular Rate, Rhythm Gastrointestinal: normal bowel sounds, non tender, soft Extremity: Normal Capillary Refill Neurologic/Psychiatric: Alert Skin: Normal Color Lymphatic: No Adenopathy Results Lab Laboratory Tests 04/17/22 22:17: Hemoglobin 7.6L, Hematocrit 25L 04/18/22 05:00: Hemoglobin 7.5L, Hematocrit 24L, White Blood Count 8.5, Red Blood Count 2.61L, Mean Corpuscular Volume 94, Mean Corpuscular Hemoglobin 29, Mean Corpuscular Hemoglobin Concent 31L, Red Cell Distribution Width 18.0H, Platelet Count 210, Mean Platelet Volume 9.6, Sodium Level 140, Potassium Level 4.0, Chloride Level 99, Carbon Dioxide Level 31, Anion Gap 10, Blood Urea Nitrogen 13, Creatinine 0.80, Estimat Glomerular Filtration Rate 77, BUN/Creatinine Ratio 16, Glucose Level 133H, Calcium Level 8.7, Corrected Calcium 9.8, Total Bilirubin 0.2, Aspartate Amino Transf (AST/SGOT) 11, Alanine Aminotransferase (ALT/SGPT) 9, Alkaline Phosphatase 117, Total Protein 6.7, Albumin 2.6L 04/18/22 13:37: Lab Scanned Report Transfusion Reaction Form Assessment/Plan Assessment/Plan Assess & Plan/Chief Complaint sx stage 4 external and internal hemorrhoids with recurrent bleeding and anemia. schedule for formal hemorrhoidectomy tomorrow. Clinical Quality Measures DVT/VTE Risk/Contraindication: Contraindications-Pharm: Other *list below* Other: hold anticoagulation due to gi bleeding MEG CUTLER MD Apr 18, 2022 15:41
--- NOTE | 2022-04-18 15:42 | Progress Note-Pre Operative ---
Pre-Operative Progress Note Date of Available H&P: Apr 18, 2022 Date H&P Reviewed: Apr 18, 2022 Time H&P Reviewed: 16:00 History & Physical: No changes noted Pre-Operative Diagnosis: sx stage 4 ext and int hemorrhoids with recurrent bleeding and anemia. MEG CUTLER MD Apr 18, 2022 15:41
[2022-04-18 15:59] VITALS: BP 99/58
[2022-04-18 20:18] VITALS: BP 137/63
[2022-04-18] MEDS: MONTELUKAST 10 MG (SINGULAIR) TAB PO SCH (21:18)
[2022-04-18] MEDS: ALLOPURINOL 300 MG (ZYLOPRIM) TAB PO SCH (21:18)
[2022-04-19] VITALS (14 sets, daily range): BP systolic 92–128; BP diastolic 45–77
[2022-04-19] MEDS: NALOXONE PO SCH ×3 (04:13→21:35)
[2022-04-19] MEDS: BUPRENORPHINE PO SCH ×3 (04:13→21:35)
[2022-04-19 04:14] LABS: BASOPHILS % (AUTO) 0 % (0-10); EOSINOPHILS # (AUTO) 0.2 10^3/uL (0.0-0.3); EOSINOPHILS % (AUTO) 2 % (0-10); HEMATOCRIT 25 % (35-52); HEMOGLOBIN 7.5 g/dL (11.5-16.0); LYMPHOCYTES # (AUTO) 1.2 10^3/uL (1.0-4.0); LYMPHOCYTES % (AUTO) 13 % (12-44); MEAN CORPUSCULAR HEMOGLOBIN 29 pg (25-34); MEAN CORPUSCULAR HGB CONC 30 g/dL (32-36); MEAN CORPUSCULAR VOLUME 95 fL (80-99); MEAN PLATELET VOLUME 9.7 fL (9.0-12.2); MONOCYTES # (AUTO) 0.9 10^3/uL (0.0-1.0); MONOCYTES % (AUTO) 10 % (0-12); NEUTROPHILS # (AUTO) 6.6 10^3/uL (1.8-7.8); NEUTROPHILS % (AUTO) 74 % (42-75); PLATELET COUNT 197 10^3/uL (130-400); WHITE BLOOD COUNT 8.9 10^3/uL (4.3-11.0)
[2022-04-19 04:39] LABS: CALCIUM 8.5 MG/DL (8.5-10.1)
[2022-04-19 04:43] LABS: CREATININE SERUM 0.75 MG/DL (0.60-1.30)
--- NOTE | 2022-04-19 08:03 | Progress Note - Cardiology ---
Cardiology SOAP Progress Note Objective: I&O/Vital Signs 04/19/22 04/19/22 04/19/22 04/19/22 07:00 08:09 09:00 09:07 Temp 36.6 Pulse 73 74 74 Resp 18 B/P (MAP) 102/65 (77) Pulse Ox 91 O2 Delivery Nasal Cannula Nasal Cannula O2 Flow Rate 5.00 4.00 04/19/22 04/19/22 04/19/22 11:30 11:44 13:00 Temp 36.6 Pulse 75 75 80 Resp 18 B/P (MAP) 103/68 (80) Pulse Ox 92 O2 Delivery Nasal Cannula O2 Flow Rate 5.00 04/18/22 23:59 Intake Total 1080 ml Output Total 250 ml Balance 830 ml Weight (Pounds): 225 Weight (Ounces): 15.6 Weight (Calculated Kilograms): 102.055261 Constitutional: AAO x 3, well-developed, well-nourished Respiratory: No accessory muscle use, No respiratory distress; chest expansion is symmetric, other (good air entry) Cardiovascular: irregularly irregular, S1 and S2 Gastrointestional: No tender; soft, audible bowel sounds Extremities: No significant edema Neurologic/Psychiatric: grossly intact (moves all extremities) Skin: other (dressing to RLE which is D&I) Results/Procedures: Labs Laboratory Tests 04/19/22 04:10: White Blood Count 8.9, Red Blood Count 2.60L, Hemoglobin 7.5L, Hematocrit 25L, Mean Corpuscular Volume 95, Mean Corpuscular Hemoglobin 29, Mean Corpuscular Hem oglobin Concent 30L, Red Cell Distribution Width 17.3H, Platelet Count 197, Mean Platelet Volume 9.7, Immature Granulocyte % (Auto) 0, Neutrophils (%) (Auto) 74, Lymphocytes (%) (Auto) 13, Monocytes (%) (Auto) 10, Eosinophils (%) (Auto) 2, Basophils (%) (Auto) 0, Neutrophils # (Auto) 6.6, Lymphocytes # (Auto) 1.2, Monocytes # (Auto) 0.9, Eosinophils # (Auto) 0.2, Basophils # (Auto) 0.0, Immature Granulocyte # (Auto) 0.0, Sodium Level 139, Potassium Level 4.0, Chloride Level 99, Carbon Dioxide Level 33H, Anion Gap 7, Blood Urea Nitrogen 11, Creatinine 0.75, Estimat Glomerular Filtration Rate 83, BUN/Creatinine Ratio 15, Glucose Level 109H, Calcium Level 8.5 A/P: Assessment: Anemia - d/t bleeding hemorrhoids - awaiting surgery tomorrow Chronic a-fib - rate controlled - OAC with Xarelto - currently being held d/t anticipating surgery tomorrow - managed as out pt by Dr. Bynum of [facility] HTN - managed as out pt by Dr. Sandoval of [facility] - oxygen dependant Echocardiogram of 12-12-[address] Godwin showed LVEF 40-45%. LA and RA severely dilated. Mild Ao stenosis. PASP 44 mmHg HTN DJD - chronic pain - bilat hip replacement Plan: Anemia d/t blood loss d/t hemorrhoids - management per surgical services Risk of non-cardiac surgery is intermediate. OAC may be held for up to 72 hours chau-operatively if deemed surgically necessary. Advise it be resumed as soon as deemed surgically safe d/t risk of stroke from chronic a-fib Continue home antihypertensive regimen and rate controlling agents Monitor lab closely REX WILLIAM Apr 19, 2022 08:03
--- NOTE | 2022-04-19 08:50 | Progress Note ---
Subjective Subjective Date Seen by Provider: Apr 19, 2022 Time Seen by Provider: 08:50 Pt reports that she is fatigued, scared about surgery, having pain (generalized) and a very dry mouth. She denies abdominal pain, nausea. She reports that she slept well last night. She is unsure if she has had blood from her rectum. Review of Systems General: Fatigue, Other (obesity) HEENT: Other (dry mouth) Pulmonary: No Dyspnea, No Cough Cardiovascular: No: Chest Pain, Palpitations Gastrointestinal: No: Nausea, Abdominal Pain, Constipation Genitourinary: Incontinence Neurological: Weakness All Other Systems Reviewed All Other Systems Reviewed: Yes Objective Exam Vital Signs Vital Signs Date Time Temp Pulse Resp B/P (MAP) Pulse Ox O2 Delivery O2 Flow Rate FiO2 04/19/22 08:09 36.6 74 18 102/65 (77) 91 Nasal Cannula 5.00 04/19/22 07:00 73 04/19/22 03:27 37.1 88 18 117/73 (88) 92 Nasal Cannula 4.00 04/19/22 01:15 78 04/19/22 01:00 74 04/19/22 00:00 36.5 78 18 109/70 (83) 92 Nasal Cannula 4.00 04/18/22 20:18 36.3 81 20 137/63 (87) 97 Nasal Cannula 4.00 04/18/22 20:00 Nasal Cannula 4.00 04/18/22 19:00 89 04/18/22 15:59 36.1 80 18 99/58 (72) 97 Nasal Cannula 4.00 04/18/22 12:39 93 04/18/22 12:11 35.9 70 18 98/66 (77) 91 Nasal Cannula 2.00 04/18/22 11:16 Nasal Cannula 4.00 04/18/22 08:56 36.1 64 20 106/74 (85) 93 Nasal Cannula 2.00 I & O 04/19/22 07:00 Intake Total 1280 ml Output Total 500 ml Balance 780 ml General Appearance: No Apparent Distress, WD/WN, Obese Eyes: Bilateral Eye PERRL, Bilateral Eye EOMI HEENT: PERRL/EOMI, Pharynx Normal Neck: Full Range of Motion, Supple Respiratory: Chest Non Tender, Lungs Clear, Normal Breath Sounds, No Respiratory Distress Cardiovascular: Regular Rate, Rhythm, Systolic Murmur Gastrointestinal: Normal Bowel Sounds, No Organomegaly, Non Tender, Soft Extremity: Pedal Edema Neurologic/Psychiatric: Alert, Oriented x3, Normal Mood/Affect Skin: Warm/Dry Lymphatic: No Adenopathy Results Lab Laboratory Tests 04/18/22 13:37: Lab Scanned Report Transfusion Reaction Form 04/19/22 04:10: White Blood Count 8.9, Red Blood Count 2.60L, Hemoglobin 7.5L, Hematocrit 25L, Mean Corpuscular Volume 95, Mean Corpuscular Hemoglobin 29, Mean Corpuscular Hemoglobin Concent 30L, Red Cell Distribution Width 17.3H, Platelet Count 197, Mean Platelet Volume 9.7, Immature Granulocyte % (Auto) 0, Neutrophils (%) (Auto) 74, Lymphocytes (%) (Auto) 13, Monocytes (%) (Auto) 10, Eosinophils (%) (Auto) 2, Basophils (%) (Auto) 0, Neutrophils # (Auto) 6.6, Lymphocytes # (Auto) 1.2, Monocytes # (Auto) 0.9, Eosinophils # (Auto) 0.2, Basophils # (Auto) 0.0, Immature Granulocyte # (Auto) 0.0, Sodium Level 139, Potassium Level 4.0, Chloride Level 99, Carbon Dioxide Level 33H, Anion Gap 7, Blood Urea Nitrogen 11, Creatinine 0.75, Estimat Glomerular Filtration Rate 83, BUN/Creatinine Ratio 15, Glucose Level 109H, Calcium Level 8.5 Assessment/Plan Assessment/Plan Admission Dx Severe rectal bleeding Severe anemia Chronic Hypertension Chronic pain syndrome Depression Anxiety Generalized Arthritis Chronic atrial fibrillation Chronic Anticoagulation use Pulmonary Hypertension Assessment and Plan Severe rectal bleeding Severe anemia Chronic Hypertension Chronic pain syndrome Depression Anxiety Generalized Arthritis Chronic atrial fibrillation Chronic Anticoagulation use Pulmonary Hypertension Dry mouth Severe rectal bleeding with Severe anemia with pt on Chronic anticoagulation with NOAC - Xarelto - for treatment of Afib. - holding at this time - discussed with pt and her family - Planning on surgery today. - hgb stable at 7.5 Chronic Hypertension - resumed home regimen. - monitor pressures. Chronic pain syndrome - resumed suboxone Depression and Anxiety - resumed home regimen. Generalized Arthritis - will require physical therapy during hospitalization - therapy ordered. Chronic atrial fibrillation with pt on Chronic Anticoagulation use - resume home medication except for holding Xarelto. Pulmonary Hypertension - resumed viagra Dry mouth - biotene rx DVT prophylaxis with scd's holding anticoag for now. Gi prophylaxis with ppi Admission Dx Severe rectal bleeding Severe anemia Chronic Hypertension Chronic pain syndrome Depression Anxiety Generalized Arthritis Chronic atrial fibrillation Chronic Anticoagulation use Pulmonary Hypertension Clinical Quality Measures Admission Status Admission Dx Severe rectal bleeding Severe anemia Chronic Hypertension Chronic pain syndrome Depression Anxiety Generalized Arthritis Chronic atrial fibrillation Chronic Anticoagulation use Pulmonary Hypertension DVT/VTE Risk/Contraindication: Contraindications-Pharm: Other *list below* Other: hold anticoagulation due to gi bleeding SOCORRO DE LA ROSA MD Apr 19, 2022 08:50
[2022-04-19] MEDS ORDERED: SALIVA STIMULANT MOUTH SPRAY (BIOTENE) 1.5 OZ MM PRN (09:00)
[2022-04-19] MEDS: RAMIPRIL 2.5 MG (ALTACE) CAP PO SCH (09:06)
[2022-04-19] MEDS: SOTALOL 80 MG (BETAPACE) TAB PO SCH ×2 (09:07→21:43)
[2022-04-19] MEDS: cloNIDine 0.1 MG (CATAPRES) TAB PO SCH ×2 (09:09→21:35)
[2022-04-19] MEDS: DULoxetine 30 MG (CYMBALTA) CAP PO SCH ×2 (09:09→21:35)
[2022-04-19] MEDS: ACET/BUTAL/CAFF (FIORICET) TAB PO PRN (09:10)
[2022-04-19] MEDS: IRON POLYSAC 150 MG CAP (NIFEREX) PO SCH (09:10)
[2022-04-19] MEDS: SPIRONOLACTONE 25 MG (ALDACTONE) TAB PO SCH ×2 (09:11→21:36)
[2022-04-19] MEDS: PANTOPRAZOLE 40 MG (PROTONIX) TAB PO SCH (09:11)
[2022-04-19] MEDS: MUPIROCIN 2% OINT 22 GM (BACTROBAN) TUBE TOP SCH ×2 (09:16→22:01)
[2022-04-19] MEDS: MICONAZOLE 2% POWDER (DESENEX AF) 90 GM TOP SCH ×2 (09:17→22:02)
--- NOTE | 2022-04-19 09:22 | Physical Therapy Progress Note ---
Therapy Progress Note Patient adamantly declined exercise and OOB activity on this date. Patient to have surgery on this date. Will attempt in a.m. 1 ref [phone]) CAMILLA BECKER PT Apr 19, 2022 09:22
--- NOTE | 2022-04-19 09:37 | Progress Note - Cardiology ---
Cardiology SOAP Progress Note Subjective: No cp or palp or syncope or shortness of breath at rest No n/v/d No focal weakness Gen weakness and malaise are present Objective: I&O/Vital Signs 04/19/22 04/19/22 04/19/22 04/19/22 00:00 01:00 01:15 03:27 Temp 36.5 37.1 Pulse 78 74 78 88 Resp 18 18 B/P (MAP) 109/70 (83) 117/73 (88) Pulse Ox 92 92 O2 Delivery Nasal Cannula Nasal Cannula O2 Flow Rate 4.00 4.00 04/19/22 04/19/22 04/19/22 07:00 08:09 09:07 Temp 36.6 Pulse 73 74 74 Resp 18 B/P (MAP) 102/65 (77) Pulse Ox 91 O2 Delivery Nasal Cannula O2 Flow Rate 5.00 04/19/22 00:00 Intake Total 1080 ml Output Total 250 ml Balance 830 ml Weight (Pounds): 225 Weight (Ounces): 15.6 Weight (Calculated Kilograms): 102.317464 Constitutional: AAO x 3, well-developed, well-nourished Respiratory: No accessory muscle use, No respiratory distress; chest expansion is symmetric, other (good air entry) Cardiovascular: irregularly irregular, S1 and S2 Gastrointestional: No tender; soft, audible bowel sounds Extremities: No significant edema Neurologic/Psychiatric: other (moves all limbs equally) Skin: other (dressing to RLE, which per her report is D&I and it was not removed) Results/Procedures: Labs Laboratory Tests 04/18/22 13:37: Lab Scanned Report Transfusion Reaction Form 04/19/22 04:10: White Blood Count 8.9, Red Blood Count 2.60L, Hemoglobin 7.5L, Hematocrit 25L, Mean Corpuscular Volume 95, Mean Corpuscular Hemoglobin 29, Mean Corpuscular Hemoglobin Concent 30L, Red Cell Distribution Width 17.3H, Platelet Count 197, Mean Platelet Volume 9.7, Immature Granulocyte % (Auto) 0, Neutrophils (%) (Auto) 74, Lymphocytes (%) (Auto) 13, Monocytes (%) (Auto) 10, Eosinophils (%) (Auto) 2, Basophils (%) (Auto) 0, Neutrophils # (Auto) 6.6, Lymphocytes # (Auto) 1.2, Monocytes # (Auto) 0.9, Eosinophils # (Auto) 0.2, Basophils # (Auto) 0.0, Immature Granulocyte # (Auto) 0.0, Sodium Level 139, Potassium Level 4.0, Chloride Level 99, Carbon Dioxide Level 33H, Anion Gap 7, Blood Urea Nitrogen 11, Creatinine 0.75, Estimat Glomerular Filtration Rate 83, BUN/Creatinine Ratio 15, Glucose Level 109H, Calcium Level 8.5 A/P: Assessment: Anemia - d/t bleeding hemorrhoids - awaiting surgery tomorrow Chronic a-fib - rate controlled - OAC with Xarelto - currently being held d/t anticipating surgery tomorrow - managed as out pt by Dr. Bynum of [facility] HTN - managed as out pt by Dr. Sandoval of [facility] - oxygen dependant Echocardiogram of 12-12-[address] Godwin showed LVEF 40-45%. LA and RA severely dilated. Mild Ao stenosis. PASP 44 mmHg HTN DJD - chronic pain - bilat hip replacement Plan: Anemia d/t blood loss d/t hemorrhoids - management per surgical services Risk of non-cardiac surgery is intermediate. OAC may be held for up to 72 hours chau-operatively if deemed surgically necessary. Advise it be resumed as soon as deemed surgically safe d/t risk of stroke from chronic a-fib Continue home antihypertensive regimen and rate controlling agents Monitor lab closely I discussed her cardiac risk with her. She understands HEIDI MAGDALENO MD FACP [facility] Apr 19, 2022 09:37
[2022-04-19] MEDS ORDERED: SALIVA STIMULANT GEL 1.5 OZ (BIOTENE) TUBE MM PRN (09:45)
[2022-04-19] MEDS ORDERED: BUPRENORPHINE PO NR (10:00)
[2022-04-19] MEDS ORDERED: NALOXONE PO NR (10:00)
[2022-04-19] MEDS ORDERED: LIDOCAINE/EPI 1%-1:100,000 (XYLOCAINE) 10 ML ONE (16:34)
[2022-04-19] MEDS ORDERED: BUPIVACAINE 0.5% 30 ML (SENSORCAINE) VIAL ONE (16:34)
[2022-04-19] MEDS ORDERED: ceFAZolin INJECTION 2,000 MG ONE (17:22)
[2022-04-19] MEDS ORDERED: metroNIDAZOLE 500MG/100ML IVPB 100 ML ONE (17:22)
[2022-04-19] MEDS ORDERED: MIDAZOLAM 2 MG/2 ML (VERSED) VIAL ONE (17:27)
[2022-04-19] MEDS ORDERED: proPOfol 200 MG/20 ML (DIPRIVAN) VIAL IV ONE (17:27)
[2022-04-19] MEDS ORDERED: LIDOCAINE PF 2% 5 ML (XYLOCAINE) VIAL ONE (17:27)
[2022-04-19] MEDS ORDERED: fentaNYL INJ 100 MCG/2 ML AMP ONE (17:27)
--- NOTE | 2022-04-19 17:40 | Progress Note-Pre Operative ---
Pre-Operative Progress Note Date H&P Reviewed: Apr 19, 2022 Time H&P Reviewed: 17:30 History & Physical: H&P Reviewed, Patient Examed, No changes noted Pre-Operative Diagnosis: sx stage 4 ext and int hemorrhoids with recurrent bleeding and anemia. CARYL FALLON APRN Apr 19, 2022 17:40
[2022-04-19] MEDS ORDERED: LIDOCAINE/EPI 1%-1:100,000 (XYLOCAINE) 10 ML INJ ONE (18:09)
[2022-04-19] MEDS ORDERED: BUPIVACAINE 0.5% 30 ML (SENSORCAINE) VIAL INJ ONE (18:09)
[2022-04-19] MEDS ORDERED: ceFAZolin INJECTION 2 MG IV ONE (18:10)
[2022-04-19] MEDS ORDERED: metroNIDAZOLE 500MG/100ML IVPB 100 ML IV ONE (18:12)
[2022-04-19] MEDS ORDERED: LACTATED RINGERS 1,000 ML IV PRN (18:15)
[2022-04-19] MEDS ORDERED: ONDANSETRON 4 MG/2 ML (SDV) Z0FRAN ONE (18:45)
[2022-04-19] MEDS ORDERED: SEVOFLURANE (ULTANE) 15 ML INHAL SOLN ONE (18:45)
--- NOTE | 2022-04-19 18:48 | Progress Note-Post Operative ---
Post-Operative Progess Note Surgeon (s)/Midlevel Provider (s) Surgeon MEG CUTLER MD Midlevel Provider: dheeraj montgomery APRN Pre-Operative Diagnosis sx stage 4 ext and int hemorrhoids with recurrent bleeding and anemia. Post-Operative Diagnosis same Procedure & Operative Findings Date of Procedure 04/19/22 Procedure Performed/Findings furguson closed hemorrhoidectomy x3, pudendal nerve block. Anesthesia Type general LMA Estimated Blood Loss Estimated blood loss (mL): minimal Specimens/Packing Specimens Removed hemorrhoidal cushions. MEG CUTLER MD Apr 19, 2022 18:48
[2022-04-19] MEDS ORDERED: NS IV 1000 ML 1,000 ML IV SCH (19:00)
[2022-04-19] MEDS ORDERED: NALOXONE 0.4 MG/ML 1 ML (NARCAN) VIAL IV PRN (19:00)
[2022-04-19] MEDS ORDERED: METOCLOPRAMIDE INJ 10 MG/2 ML (REGLAN) IV PRN (19:00)
[2022-04-19] MEDS ORDERED: ONDANSETRON 4 MG/2 ML (SDV) Z0FRAN IV PRN (19:00)
[2022-04-19] MEDS ORDERED: diphenhydrAMINE 50 MG/ML INJ (BENADRYL) IV PRN (19:00)
--- NOTE | 2022-04-19 19:03 | Anesthesia-General Post-Op ---
General Patient Condition Mental Status/LOC: Same as Preop Cardiovascular: Satisfactory Nausea/Vomiting: Absent Respiratory: Satisfactory Pain: Controlled Complications: Absent Post Op Complications Complications None Follow Up Care/Instructions Patient Instructions None needed. Anesthesia/Patient Condition Patient Condition Patient is doing well, no complaints, stable vital signs, no apparent adverse anesthesia problems. No complications reported per nursing. COLLEEN STOVER CRNA Apr 19, 2022 19:03
[2022-04-19] MEDS ORDERED: PROMETHAZINE INJ 25 MG/ML (PHENERGAN) AMP IVP ONE (19:15)
[2022-04-19] MEDS ORDERED: MEPERIDINE (DEMEROL) INJ 50 MG/ML IVP ONE (19:15)
[2022-04-19] MEDS ORDERED: morphine INJ 10 MG/ML 1ML (SYR OR VIAL) IVP ONE (19:15)
[2022-04-19] MEDS ORDERED: ONDANSETRON 4 MG/2 ML (SDV) Z0FRAN IVP PRN (19:15)
[2022-04-19] MEDS ORDERED: fentaNYL PCA 1,000 MCG/100 ML IV SCH (20:15)
[2022-04-19] MEDS ORDERED: morphine PCA 100 MG/100 ML BAG IV PRN (21:30)
[2022-04-19] MEDS: MONTELUKAST 10 MG (SINGULAIR) TAB PO SCH (21:34)
[2022-04-19] MEDS: hydrOXYzine (ATARAX) 10 MG TAB PO SCH (21:36)
[2022-04-19] MEDS: SILDENAFIL 20 MG (REVATIO) TAB PO SCH (21:43)
[2022-04-19] MEDS: ALLOPURINOL 300 MG (ZYLOPRIM) TAB PO SCH (21:44)
[2022-04-19] MEDS: DOCUSATE SODIUM 100 MG (COLACE) CAP PO SCH (22:01)
[2022-04-20] VITALS (7 sets, daily range): BP systolic 78–111; BP diastolic 49–69
--- NOTE | 2022-04-20 02:28 | OPERATIVE REPORT ---
DATE OF SERVICE: 04/19/2022 ATTENDING PRIMARY CARE PHYSICIAN: Nilsa Lamar MD PREOPERATIVE DIAGNOSIS: Symptomatic stage IV external and internal hemorrhoids with rectal bleeding and anemia. POSTOPERATIVE DIAGNOSES: Symptomatic stage IV external and internal hemorrhoids with rectal bleeding and anemia. PROCEDURE: Pudendal nerve block, Fonseca closed hemorrhoidectomy involving all three hemorrhoidal columns. SURGEON: Meg Albarran MD. CHEMICAL PUMPER: Augustus Hudson APRN. ANESTHESIA: General laryngeal mask airway, pudendal nerve block and local anesthesia. FINDINGS: Symptomatic stage IV external and internal hemorrhoids with rectal bleeding and anemia. DISPOSITION: The patient tolerated the procedure well. ESTIMATED BLOOD LOSS: Minimal. HISTORY AND INDICATIONS: The patient is a 72-year-old female known to us. She had presented to the Emergency Department on 12/08/2021 with significant anemia. She was found to have a hemoglobin in the 4 range and upon further questioning, had reported that she has had issues with anemia before and has been on anticoagulation with Xarelto for atrial fibrillation. She was admitted and resuscitated with blood products and underwent an EGD and colonoscopy and was found to have a reflux esophagitis, [place] grade B, distal esophageal stricture, small hiatal hernia and a moderate gastritis. Colonoscopy showed a stage IV external and internal hemorrhoids; however, no active bleeding at that time. There was also moderate sigmoid diverticulosis. The patient was seen in the office, was recommended to proceed with a formal hemorrhoidectomy due to her bleeding complications; however, she wanted to wait. She then presented to the Emergency Department again with several days of rectal bleeding and began to feel weak. Her hemoglobin on admission was 6.3 and pictures were shown of the bleeding, which was consistent with hemorrhoidal bleeding. It was explained to the patient that due to her issues with atrial fibrillation requiring anticoagulation as well as a stage IV hemorrhoids that she will have continued issues with bleeding and that she will need to proceed with hemorrhoidectomy and allow the area to heal to prevent further episodes of bleeding and symptomatic anemia. DESCRIPTION OF PROCEDURE: The patient was brought to the operating room, laid supine on the table. After adequate IV pain and sedative medications and general laryngeal mask airway intubation, the patient was placed in lithotomy position and the perineum prepped and draped in standard surgical fashion. A pudendal nerve block was then performed using 1% lidocaine with epinephrine, approximately 1 cm inferior to the ischial tuberosity. Once the anal sphincters relaxed, a self-retaining speculum was placed and there were three hemorrhoidal cushions, which were all inflamed and considered stage IV. We then proceeded with a systematic resection of all three hemorrhoidal columns, first starting with the right lateral by placing a stay suture just above the internal hemorrhoidal cushion with 2-0 Vicryl suture. The external and internal hemorrhoidal cushion was then fully excised using a Sonicision with visualization of good hemostasis. The anal sphincters were identified and spared throughout the process. Using the previously placed suture running 2-0 Vicryl suture was used to close the mucosa and anoderm. In a similar fashion, the two left anterior and posterior hemorrhoidal cushions were excised and sutured with visualization of good hemostasis. Again, the anal sphincters were identified and spared throughout the process. Good hemostasis was observed. A hemostatic plug made out of a Gelfoam wrapped in Surgicel and Surgilube was then placed in the anus, which will come out with her first bowel movement. The patient tolerated the procedure well. She will be instructed to proceed with Sitz baths 4 times a day as well as after every bowel movement. We will also have staff to keep the area clean and dry with gauze dressing b.i.d. as well as p.r.n. 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 Her anticoagulation may be started tomorrow, 04/20/2022. Job ID: [id number] DocumentID: [id number] Dictated Date: 04/19/2022 19:04:44 Slab Polisher Date: 04/20/2022 02:27:28 Dictated By: MEG ALBARRAN MD
[2022-04-20] MEDS: NALOXONE PO SCH ×4 (03:38→20:30)
[2022-04-20] MEDS: BUPRENORPHINE PO SCH ×4 (03:38→20:30)
[2022-04-20 05:03] LABS: HEMATOCRIT 25 % (35-52); HEMOGLOBIN 7.7 g/dL (11.5-16.0); MEAN CORPUSCULAR HEMOGLOBIN 29 pg (25-34); MEAN CORPUSCULAR HGB CONC 31 g/dL (32-36); MEAN CORPUSCULAR VOLUME 96 fL (80-99); MEAN PLATELET VOLUME 9.6 fL (9.0-12.2); PLATELET COUNT 197 10^3/uL (130-400); WHITE BLOOD COUNT 10.4 10^3/uL (4.3-11.0)
[2022-04-20 05:19] LABS: POTASSIUM 4.3 MMOL/L (3.6-5.0)
[2022-04-20 05:21] LABS: CALCIUM 8.5 MG/DL (8.5-10.1)
[2022-04-20 05:25] LABS: CREATININE SERUM 0.75 MG/DL (0.60-1.30)
--- NOTE | 2022-04-20 08:13 | Progress Note - Cardiology ---
Cardiology SOAP Progress Note Objective: I&O/Vital Signs 04/23/22 04/23/22 04/23/22 04/23/22 00:07 01:00 04:04 06:43 Temp 36.1 36.1 Pulse 94 89 89 Resp 18 18 B/P (MAP) 119/69 (86) 104/54 (71) Pulse Ox 98 97 97 O2 Delivery Nasal Cannula Nasal Cannula Nasal Cannula O2 Flow Rate 4.00 4.00 4.00 04/23/22 04/23/22 07:09 08:07 Temp 36.3 Pulse 95 101 Resp 19 B/P (MAP) 113/54 (73) Pulse Ox 95 O2 Delivery Nasal Cannula O2 Flow Rate 2.00 04/23/22 00:00 Intake Total 665 ml Balance 665 ml Weight (Pounds): 225 Weight (Ounces): 15.6 Weight (Calculated Kilograms): 102.187476 Constitutional: AAO x 3, well-developed, well-nourished Respiratory: No accessory muscle use, No respiratory distress; chest expansion is symmetric, other (good air entry) Cardiovascular: irregularly irregular, S1 and S2 Gastrointestional: No tender; soft, audible bowel sounds Extremities: No significant edema Neurologic/Psychiatric: other (moves all limbs equally) Skin: other (dressing to RLE, which per her report is D&I and it was not removed) Results/Procedures: Labs Laboratory Tests 04/23/22 05:00: White Blood Count 8.9, Red Blood Count 2.64L, Hemoglobin 7.6L, Hematocrit 25L, Mean Corpuscular Volume 95, Mean Corpuscular Hemoglobin 29, Mean Corpuscular Hemoglobin Concent 30L, Red Cell Distribution Width 16.3H, Platelet Count 208, Mean Platelet Volume 10.1 Microbiology 04/18/22 MRSA Screen - Final, Complete MRSA not isolated A/P: Assessment: Anemia - d/t bleeding hemorrhoids - s/p hemorrhoidectomy by Dr. Albarran on 04-19-22 Chronic a-fib - rate controlled - OAC with Xarelto - currently being held d/t recent surgery - advise resumption of OAC as soon as deemed safe per surgical services - managed as out pt by Dr. Bynum of [facility] HTN - managed as out pt by Dr. Sandoval of [facility] - oxygen dependant Echocardiogram of 12-12-[address] Godwin showed LVEF 40-45%. LA and RA severely dilated. Mild Ao stenosis. PASP 44 mmHg HTN DJD - chronic pain - bilat hip replacement Plan: Anemia d/t blood loss d/t hemorrhoids - management per surgical services S/P hemorrhoidectomy on 04-19-22 Advise OAC be resumed as soon as deemed surgically safe d/t risk of stroke from chronic a-fib Monitor lab closely REX WILLIAM Apr 20, 2022 08:13
--- NOTE | 2022-04-20 08:17 | Progress Note ---
Subjective Subjective Date Seen by Provider: Apr 21, 2022 Time Seen by Provider: 08:20 Pt reports that she is fatigued, scared about surgery, having pain (generalized) and a very dry mouth. She denies abdominal pain, nausea. Patient's DTR reports that her mom had bargained with Dr. Albarran and staff to not have to do the SITZ baths yesterday with plans for patient to do the baths today. Pt's DTR also requesting to wean her mom off of the butalbital while in the hospital prior to DC to group home. Roopa is upset with this plan as she has "horrible migraines" and feels like she has to take the medication all of the time. Review of Systems General: Fatigue, Other (obesity) HEENT: Other (dry mouth) Pulmonary: No Dyspnea, No Cough Cardiovascular: No: Chest Pain, Palpitations Gastrointestinal: No: Nausea, Abdominal Pain, Constipation Genitourinary: Incontinence Musculoskeletal: arm pain, back pain, leg pain Neurological: Weakness All Other Systems Reviewed All Other Systems Reviewed: Yes Objective Exam Vital Signs Vital Signs Date Time Temp Pulse Resp B/P (MAP) Pulse Ox O2 Delivery O2 Flow Rate FiO2 04/20/22 08:07 Nasal Cannula 5.00 04/20/22 06:12 18 04/20/22 03:38 36.7 96 18 103/64 (77) 97 Nasal Cannula 5.00 5.00 04/20/22 01:00 102 04/19/22 23:58 36.2 84 18 108/65 (79) 95 Nasal Cannula 5.00 04/19/22 23:43 88 04/19/22 23:04 36.2 90 93 21 04/19/22 21:43 86 04/19/22 21:00 Nasal Cannula 4.00 04/19/22 20:00 36.2 90 18 128/67 (87) 93 Nasal Cannula 4.00 04/19/22 19:50 Nasal Cannula 4.50 04/19/22 19:40 36.5 20 96/71 (79) 97 High Flow N/C 4.50 04/19/22 19:35 Nasal Cannula 4.50 04/19/22 19:30 20 116/68 (84) 100 High Flow N/C 4.50 04/19/22 19:25 OxyMask 8 04/19/22 19:20 24 102/45 (64) 100 OxyMask 8 04/19/22 19:10 20 115/68 (84) 98 OxyMask 8 04/19/22 19:10 OxyMask 8 04/19/22 19:00 16 113/67 (82) 97 OxyMask 8 04/19/22 18:56 OxyMask 8 04/19/22 18:56 37.1 16 113/77 (89) 96 OxyMask 8 04/19/22 16:00 36.0 72 18 92/48 (63) 92 Nasal Cannula 5.00 04/19/22 13:00 80 04/19/22 11:44 36.6 75 18 103/68 (80) 92 Nasal Cannula 5.00 04/19/22 11:30 75 04/19/22 09:07 74 04/19/22 09:00 Nasal Cannula 4.00 I & O 04/20/22 07:00 Intake Total 450 ml Output Total 300 ml Balance 150 ml General Appearance: No Apparent Distress, WD/WN, Obese Eyes: Bilateral Eye PERRL, Bilateral Eye EOMI HEENT: PERRL/EOMI, Pharynx Normal Neck: Full Range of Motion, Supple Respiratory: Chest Non Tender, Lungs Clear, Normal Breath Sounds, No Respiratory Distress Cardiovascular: Regular Rate, Rhythm, Systolic Murmur Gastrointestinal: Normal Bowel Sounds, No Organomegaly, Non Tender, Soft Extremity: Pedal Edema Neurologic/Psychiatric: Alert, Oriented x3, Normal Mood/Affect Skin: Warm/Dry Lymphatic: No Adenopathy Results Lab Laboratory Tests 04/20/22 04:58: White Blood Count 10.4, Red Blood Count 2.62L, Hemoglobin 7.7L, Hematocrit 25L, Mean Corpuscular Volume 96, Mean Corpuscular Hemoglobin 29, Mean Corpuscular Hemoglobin Concent 31L, Red Cell Distribution Width 16.8H, Platelet Count 197, Mean Platelet Volume 9.6, Sodium Level 138, Potassium Level 4.3, Chloride Level 98, Carbon Dioxide Level 30, Anion Gap 10, Blood Urea Nitrogen 11, Creatinine 0.75, Estimat Glomerular Filtration Rate 83, BUN/Creatinine Ratio 15, Glucose Level 113H, Calcium Level 8.5 Microbiology 04/18/22 MRSA Screen - Final, Complete MRSA not isolated Assessment/Plan Assessment/Plan Admission Dx Severe rectal bleeding Severe anemia Chronic Hypertension Chronic pain syndrome Depression Anxiety Generalized Arthritis Chronic atrial fibrillation Chronic Anticoagulation use Pulmonary Hypertension Assessment and Plan Severe rectal bleeding Severe anemia Chronic Hypertension Chronic pain syndrome Depression Anxiety Generalized Arthritis Chronic atrial fibrillation Chronic Anticoagulation use Pulmonary Hypertension Dry mouth chronic migraines COPD Severe rectal bleeding with Severe anemia with pt on Chronic anticoagulation with NOAC - Xarelto - for treatment of Afib. -Xarelto restarted last night (04/20/22) - discussed with pt and her family - hgb stable at 7.8 - repeat labs tomorrow morning Chronic Hypertension - resumed home regimen. - monitor pressures. Chronic pain syndrome - resumed suboxone Depression and Anxiety - resumed home regimen. Generalized Arthritis - will require physical therapy during hospitalization - therapy ordered. Chronic atrial fibrillation with pt on Chronic Anticoagulation use - resumed home medication and Xarelto on 04/20/22. Pulmonary Hypertension - resumed viagra Dry mouth - biotene rx Chronic Migraines - weaning down butalbital COPD - restarted symbicort DVT prophylaxis with scd's restarted xarelto. Gi prophylaxis with ppi Admission Dx Severe rectal bleeding Severe anemia Chronic Hypertension Chronic pain syndrome Depression Anxiety Generalized Arthritis Chronic atrial fibrillation Chronic Anticoagulation use Pulmonary Hypertension Clinical Quality Measures Admission Status Admission Dx Severe rectal bleeding Severe anemia Chronic Hypertension Chronic pain syndrome Depression Anxiety Generalized Arthritis Chronic atrial fibrillation Chronic Anticoagulation use Pulmonary Hypertension DVT/VTE Risk/Contraindication: Contraindications-Pharm: Other *list below* Other: hold anticoagulation due to gi bleeding SOCORRO DE LA ROSA MD Apr 20, 2022 08:17
--- NOTE | 2022-04-20 08:46 | Physical Therapy Progress Note ---
Therapy Progress Note Patient adamantly declined PT due to total body pain (did not rate). Patient states, "I just want to sleep. This is not a good time for me. I get up with the nurses to the commode." PT will attempt later today if schedule allows. 1 ref CAMILLA BECKER PT Apr 20, 2022 08:46
[2022-04-20] MEDS: SENNA W/DOCUSATE (SENOKOT S) TABLET PO SCH (08:52)
[2022-04-20] MEDS: hydrOXYzine (ATARAX) 10 MG TAB PO SCH ×3 (08:52→21:00)
[2022-04-20] MEDS: PANTOPRAZOLE 40 MG (PROTONIX) TAB PO SCH (08:53)
[2022-04-20] MEDS: DOCUSATE SODIUM 100 MG (COLACE) CAP PO SCH ×2 (08:56→22:34)
[2022-04-20] MEDS: ACET/BUTAL/CAFF (FIORICET) TAB PO PRN ×2 (08:56→22:29)
[2022-04-20] MEDS: RAMIPRIL 2.5 MG (ALTACE) CAP PO SCH (08:57)
[2022-04-20] MEDS: SPIRONOLACTONE 25 MG (ALDACTONE) TAB PO SCH ×2 (08:58→22:33)
[2022-04-20] MEDS: SOTALOL 80 MG (BETAPACE) TAB PO SCH ×2 (08:58→22:31)
[2022-04-20] MEDS: SILDENAFIL 20 MG (REVATIO) TAB PO SCH ×3 (08:58→22:34)
[2022-04-20] MEDS: cloNIDine 0.1 MG (CATAPRES) TAB PO SCH ×2 (08:58→22:00)
[2022-04-20] MEDS: IRON POLYSAC 150 MG CAP (NIFEREX) PO SCH (08:58)
[2022-04-20] MEDS: DULoxetine 30 MG (CYMBALTA) CAP PO SCH ×2 (08:58→22:32)
[2022-04-20] MEDS: polyethylene glycoL POWDER 17 GM (MIRALAX) PACK PO SCH (08:59)
[2022-04-20] MEDS ORDERED: [UNRECOGNIZED DRUG - OTHER] TOP SCH (09:00)
[2022-04-20] MEDS ORDERED: LIDOCAINE 4% TOP SCH (09:00)
[2022-04-20] MEDS: MICONAZOLE 2% POWDER (DESENEX AF) 90 GM TOP SCH ×2 (09:09→22:35)
[2022-04-20] MEDS: MUPIROCIN 2% OINT 22 GM (BACTROBAN) TUBE TOP SCH ×2 (09:09→22:35)
--- NOTE | 2022-04-20 11:01 | Physical Therapy Daily Note ---
PT Daily Note-Current Subjective Patient in bed pre-tx with daughter in room, reports pain in BLE but unable to rate, refusing to do PT unless daughter makes her. Pain Section J - Health Conditions 1. Rarely or not at all 2. Occasionally 3. Frequently 4. Almost constantly 8. Unable to answer Pain Effect on Sleep: 2 Pain Interference with Therapy: 4 Pain Interference w/Day-to-Day: 4 Appearance Patient in recliner post-tx with nurse call, phone, tray and all needs met. Mental Status Patient Orientation: Person, Place, Situation Attachments: Oxygen, IV Transfers SCALE: Activities may be completed with or without assistive devices. 5-Xpcwteswpb-zjzmocb completes the activity by him/herself with no assistance from a helper. 5-Set-up or Clean-up Assistance-helper sets up or cleans up; patient completes activity. [place] assists only prior to or following the activity. 4-Supervision or Touching Assistance-helper provides verbal cues and/or touching/steadying and/or contact guard assistance as patient completes activity. Assistance may be provided throughout the activity or intermittently. 3-Partial/Moderate Assistance-helper does LESS THAN HALF the effort. [place] lifts, holds or supports trunk or limbs, but provides less than half the effort. 2-Substantial/Maximal Assistance-helper does MORE THAN HALF the effort. [place] lifts or holds trunk or limbs and provides more than half the effort. 6-Dgzjqpkeb-eedozh does ALL the effort. Patient does none of the effort to complete the activity. Or, the assistance of 2 or more helpers is required for the patient to complete the activity. If activity was not attempted, code reason: 7-Patient Refused. 9-Not Applicable-not attempted and the patient did not perform the activity before the current illness, exacerbation or injury. 10-Not Attempted due to Environmental Limitations-(lack of equipment, weather restraints, etc.). 88-Not Attempted due to Medical Conditions or Safety Concerns. Lying to Sitting/Side of Bed(Q: 3 Sit to Stand (QC): 3 Toilet Transfer (QC): 3 Mod A transferring pgc-hj-veenk and toilet, Min A ojkrh-tt-mmv at edge of bed Weight Bearing Right Lower Extremity: Right Weight Bearing/Tolerated Left Lower Extremity: Left Weight Bearing/Tolerated Exercises Seated Therapy Exercises: Ankle pumps, Long arc quads, Hip abd/add (Manual resitance, 10 reps of abduct, but only 5 reps of Adduct) Seated Reps: 10 Treatments LE Strengthening, Transfers Assessment Current Status: Poor Progress Patient requires Min-Mod A with transfer and bed mobility. Patient refuses PT unless daughter in the room making her. Patient is argumentative with daughter entire tx session because the patient does not want to move due to pain. Patient almost falls asleep during exercises. Patient transferred to the toilet for 5min, unable to go, transferred to the recliner. PT Senior Care Goals Blueprint Trimmer Goals PT Blueprint Trimmer Goals Time Frame: Apr 25, 2022 Roll Left & Right (QC): 3 Sit to Lying (QC): 3 Lying-Sitting on Side/Bed(QC): 3 Sit to Stand (QC): 3 Chair/Wus-rq-Gwhgp Xfer(QC): 3 PT Plan Problem List Problem List: Activity Tolerance, Functional Strength, Safety, Balance, Gait, Transfer, Bed Mobility, ROM Treatment/Plan Treatment Plan: Continue Plan of Care Treatment Plan: Bed Mobility, Education, Functional Activity Heather, Functional Strength, Gait, Safety, Therapeutic Exercise, Transfers Treatment Duration: Apr 25, 2022 Frequency: 6 times per week Estimated Hrs Per Day: .25 hour per day Patient and/or Family Agrees t: Yes Safety Risks/Education Patient Education: Transfer Techniques, Correct Positioning, Safety Issues Teaching Recipient: Patient Teaching Methods: Demonstration, Discussion Response to Teaching: Reinforcement Needed Lots of verbal reinforcement cueing needed to complete exercises Time Time In: 1010 Time Out: 1038 Total Billed Treatment Time: 28 Total Billed Treatment 1 visit FA 18' EX 10' STEPHON MCDONALD PT Apr 20, 2022 11:01
[2022-04-20] MEDS: LIDOCAINE TOPICAL 4% 50 ML BTL TP SCH ×3 (13:00→22:35)
--- NOTE | 2022-04-20 14:38 | Progress Note ---
Subjective Date Seen by a Provider: Apr 20, 2022 Time Seen by a Provider: 14:00 Subjective/Events-last exam doing ok. pain controlled. 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 hb stable. Objective Exam Vital Signs Date Time Temp Pulse Resp B/P (MAP) Pulse Ox O2 Delivery O2 Flow Rate FiO2 04/20/22 13:00 80 04/20/22 12:00 36.1 78 20 78/49 (59) 94 Room Air 04/20/22 11:58 78 04/20/22 09:00 Nasal Cannula 4.00 04/20/22 08:58 103 04/20/22 08:07 Nasal Cannula 5.00 04/20/22 08:00 36.2 103 18 106/54 (71) 93 Room Air 04/20/22 07:00 101 04/20/22 06:12 18 04/20/22 03:38 36.7 96 18 103/64 (77) 97 Nasal Cannula 5.00 5.00 04/20/22 01:00 102 04/19/22 23:58 36.2 84 18 108/65 (79) 95 Nasal Cannula 5.00 04/19/22 23:43 88 04/19/22 23:04 36.2 90 93 21 04/19/22 21:43 86 04/19/22 21:00 Nasal Cannula 4.00 04/19/22 20:00 36.2 90 18 128/67 (87) 93 Nasal Cannula 4.00 04/19/22 19:50 Nasal Cannula 4.50 04/19/22 19:40 36.5 20 96/71 (79) 97 High Flow N/C 4.50 04/19/22 19:35 Nasal Cannula 4.50 04/19/22 19:30 20 116/68 (84) 100 High Flow N/C 4.50 04/19/22 19:25 OxyMask 8 04/19/22 19:20 24 102/45 (64) 100 OxyMask 8 04/19/22 19:10 20 115/68 (84) 98 OxyMask 8 04/19/22 19:10 OxyMask 8 04/19/22 19:00 16 113/67 (82) 97 OxyMask 8 04/19/22 18:56 OxyMask 8 04/19/22 18:56 37.1 16 113/77 (89) 96 OxyMask 8 04/19/22 16:00 36.0 72 18 92/48 (63) 92 Nasal Cannula 5.00 I & O 04/20/22 07:00 Intake Total 450 ml Output Total 300 ml Balance 150 ml Capillary Refill : Less Than 3 Seconds General Appearance: No Apparent Distress HEENT: PERRL/EOMI Neck: Full Range of Motion Respiratory: Decreased Breath Sounds Cardiovascular: Regular Rate, Rhythm Gastrointestinal: normal bowel sounds, non tender Extremity: Normal Capillary Refill Neurologic/Psychiatric: Alert, Oriented x3 Skin: Normal Color Lymphatic: No Adenopathy Results Lab Laboratory Tests 04/20/22 04:58: White Blood Count 10.4, Red Blood Count 2.62L, Hemoglobin 7.7L, Hematocrit 25L, Mean Corpuscular Volume 96, Mean Corpuscular Hemoglobin 29, Mean Corpuscular Hemoglobin Concent 31L, Red Cell Distribution Width 16.8H, Platelet Count 197, Mean Platelet Volume 9.6, Sodium Level 138, Potassium Level 4.3, Chloride Level 98, Carbon Dioxide Level 30, Anion Gap 10, Blood Urea Nitrogen 11, Creatinine 0.75, Estimat Glomerular Filtration Rate 83, BUN/Creatinine Ratio 15, Glucose Level 113H, Calcium Level 8.5 Microbiology 04/18/22 MRSA Screen - Final, Complete MRSA not isolated Assessment/Plan Assessment/Plan Assess & Plan/Chief Complaint sx stage 4 external and internal hemorrhoids with recurrent bleeding and anemia s/p formal hemorrhoidectomy. 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 Clinical Quality Measures DVT/VTE Risk/Contraindication: Contraindications-Pharm: Other *list below* Other: hold anticoagulation due to gi bleeding MEG CUTLER MD Apr 20, 2022 14:38
--- NOTE | 2022-04-20 14:58 | Progress Note - Cardiology ---
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 RESOURCES DIRECTOR for pain control Drowsy, unable to provide reliable answers to questions Does not report symptoms Objective: I&O/Vital Signs 04/20/22 04/20/22 04/20/22 04/20/22 03:38 06:12 07:00 08:00 Temp 36.7 36.2 Pulse 96 101 103 Resp 18 18 18 B/P (MAP) 103/64 (77) 106/54 (71) Pulse Ox 97 93 O2 Delivery Nasal Cannula Room Air O2 Flow Rate 5.00 5.00 04/20/22 04/20/22 04/20/22 04/20/22 08:07 08:58 09:00 11:58 Pulse 103 78 O2 Delivery Nasal Cannula Nasal Cannula O2 Flow Rate 5.00 4.00 04/20/22 04/20/22 12:00 13:00 Temp 36.1 Pulse 78 80 Resp 20 B/P (MAP) 78/49 (59) Pulse Ox 94 O2 Delivery Room Air 04/20/22 00:00 Intake Total 350 ml Output Total 300 ml Balance 50 ml Weight (Pounds): 225 Weight (Ounces): 15.6 Weight (Calculated Kilograms): 102.970722 Constitutional: AAO x 3, well-developed, well-nourished Respiratory: No accessory muscle use, No respiratory distress; chest expansion is symmetric, other (good air entry) Cardiovascular: irregularly irregular, S1 and S2 Gastrointestional: No tender; soft, audible bowel sounds Extremities: No significant edema Neurologic/Psychiatric: other (moves all limbs equally) Skin: other (dressing to RLE, which per her report is D&I and it was not removed) Results/Procedures: Labs Laboratory Tests 04/20/22 04:58: White Blood Count 10.4, Red Blood Count 2.62L, Hemoglobin 7.7L, Hematocrit 25L, Mean Corpuscular Volume 96, Mean Corpuscular Hemoglobin 29, Mean Corpuscular Hemoglobin Concent 31L, Red Cell Distribution Width 16.8H, Platelet Count 197, Mean Platelet Volume 9.6, Sodium Level 138, Potassium Level 4.3, Chloride Level 98, Carbon Dioxide Level 30, Anion Gap 10, Blood Urea Nitrogen 11, Creatinine 0.75, Estimat Glomerular Filtration Rate 83, BUN/Creatinine Ratio 15, Glucose Level 113H, Calcium Level 8.5 Microbiology 10/26/22 MRSA Screen - Final, Complete MRSA not isolated Laboratory Tests 04/19/22 04:10 04/20/22 04:58 A/P: Assessment: Anemia - d/t bleeding hemorrhoids - s/p hemorrhoidectomy by Dr. Albarran on 04-19-22 A-fib - rate controlled. Chronicity of A fib unclear - OAC with Xarelto - currently being held d/t recent surgery - advise resumption of OAC as soon as deemed safe per surgical services - managed as out pt by Dr. Bynum of [facility] HTN - managed as out pt by Dr. Sandoval of [facility] - oxygen dependant Echocardiogram of 12-12-[address] Godwin showed LVEF 40-45%. LA and RA severely dilated. Mild Ao stenosis. PASP 44 mmHg HTN DJD - chronic pain - bilat hip replacement Plan: Anemia d/t blood loss d/t hemorrhoids - management per surgical services S/P hemorrhoidectomy on 04-19-22 Advise OAC be resumed as soon as deemed surgically safe d/t risk of stroke from chronic a-fib Monitor lab closely I spoke with her family and answered CV-related questions Dr Godwin covering cardiology service over the weekend HEIDI MAGDALENO MD FACP FAC CCDS Apr 20, 2022 14:58
[2022-04-20] MEDS: MONTELUKAST 10 MG (SINGULAIR) TAB PO SCH (22:34)
[2022-04-20] MEDS: RIVAROXABAN 20 MG TABLET (XARELTO) PO SCH (22:34)
[2022-04-20] MEDS: ALLOPURINOL 300 MG (ZYLOPRIM) TAB PO SCH (22:34)
[2022-04-21] VITALS: BP 105/55
[2022-04-21] MEDS: NALOXONE PO SCH ×4 (02:28→20:00)
[2022-04-21] MEDS: BUPRENORPHINE PO SCH ×4 (02:28→20:00)
[2022-04-21 05:57] LABS: HEMATOCRIT 26 % (35-52); HEMOGLOBIN 7.8 g/dL (11.5-16.0); MEAN CORPUSCULAR HEMOGLOBIN 29 pg (25-34); MEAN CORPUSCULAR HGB CONC 30 g/dL (32-36); MEAN CORPUSCULAR VOLUME 97 fL (80-99); MEAN PLATELET VOLUME 10.5 fL (9.0-12.2); PLATELET COUNT 179 10^3/uL (130-400); WHITE BLOOD COUNT 8.7 10^3/uL (4.3-11.0)
[2022-04-21 06:20] LABS: POTASSIUM 4.1 MMOL/L (3.6-5.0)
[2022-04-21 06:21] LABS: CALCIUM 8.8 MG/DL (8.5-10.1)
[2022-04-21 06:25] LABS: CREATININE SERUM 0.73 MG/DL (0.60-1.30)
[2022-04-21 07:44] VITALS: BP 116/71
--- NOTE | 2022-04-21 07:51 | Progress Note ---
Subjective Subjective Date Seen by Provider: Apr 21, 2022 Time Seen by Provider: 07:50 Pt reports that she is fatigued, scared about surgery, having pain (generalized) and a very dry mouth. She denies abdominal pain, nausea. DTR requesting weaning of medication Review of Systems General: Fatigue, Other (obesity) HEENT: Other (dry mouth) Pulmonary: No Dyspnea, No Cough Cardiovascular: No: Chest Pain, Palpitations Gastrointestinal: No: Nausea, Abdominal Pain, Constipation Genitourinary: Incontinence Neurological: Weakness All Other Systems Reviewed All Other Systems Reviewed: Yes Objective Exam Vital Signs Vital Signs Date Time Temp Pulse Resp B/P (MAP) Pulse Ox O2 Delivery O2 Flow Rate FiO2 04/21/22 07:44 36.0 94 24 116/71 (86) 92 Nasal Cannula 4.00 4.00 04/21/22 07:00 98 04/21/22 04:02 36.8 84 15 94 Nasal Cannula 04/21/22 02:54 90 Nasal Cannula 4.00 04/21/22 01:00 82 04/21/22 00:31 81 04/21/22 00:00 36.9 81 16 105/55 (72) 93 Nasal Cannula 6.00 04/20/22 21:29 90 Nasal Cannula 4.00 04/20/22 21:00 20 04/20/22 20:00 Nasal Cannula 4.00 04/20/22 19:47 36.8 80 16 111/69 (83) 100 Nasal Cannula 4.00 04/20/22 19:00 87 04/20/22 17:58 36.3 85 16 95/57 (70) 97 Nasal Cannula 5.00 04/20/22 16:55 36.2 79 16 90/61 (71) 95 Nasal Cannula 5.00 04/20/22 15:52 93 Nasal Cannula 4.00 04/20/22 15:39 35.8 118 16 105/64 (78) 95 Nasal Cannula 5.00 04/20/22 13:00 80 04/20/22 12:00 36.1 78 20 78/49 (59) 94 Room Air 04/20/22 11:58 78 04/20/22 09:00 Nasal Cannula 4.00 04/20/22 08:58 103 04/20/22 08:07 Nasal Cannula 5.00 04/20/22 08:00 36.2 103 18 106/54 (71) 93 Room Air I & O 04/21/22 07:00 Intake Total 1410 ml Output Total 420 ml Balance 990 ml General Appearance: No Apparent Distress Eyes: Bilateral Eye PERRL, Bilateral Eye EOMI HEENT: PERRL/EOMI Neck: Full Range of Motion Respiratory: Decreased Breath Sounds Cardiovascular: Regular Rate, Rhythm Gastrointestinal: Normal Bowel Sounds, No Organomegaly, Non Tender, Soft Extremity: Normal Capillary Refill Neurologic/Psychiatric: Alert, Oriented x3 Skin: Normal Color Lymphatic: No Adenopathy Results Lab Laboratory Tests 04/21/22 05:15: White Blood Count 8.7, Red Blood Count 2.72L, Hemoglobin 7.8L, Hematocrit 26L, Mean Corpuscular Volume 97, Mean Corpuscular Hemoglobin 29, Mean Corpuscular Hemoglobin Concent 30L, Red Cell Distribution Width 16.3H, Platelet Count 179, Mean Platelet Volume 10.5, Sodium Level 136, Potassium Level 4.1, Chloride Level 97L, Carbon Dioxide Level 33H, Anion Gap 6, Blood Urea Nitrogen 9, Creatinine 0.73, Estimat Glomerular Filtration Rate 86, BUN/Creatinine Ratio 12, Glucose Level 110H, Calcium Level 8.8 Microbiology 04/18/22 MRSA Screen - Final, Complete MRSA not isolated Assessment/Plan Assessment/Plan Admission Dx Severe rectal bleeding Severe anemia Chronic Hypertension Chronic pain syndrome Depression Anxiety Generalized Arthritis Chronic atrial fibrillation Chronic Anticoagulation use Pulmonary Hypertension Assessment and Plan Severe rectal bleeding Severe anemia Chronic Hypertension Chronic pain syndrome Depression Anxiety Generalized Arthritis Chronic atrial fibrillation Chronic Anticoagulation use Pulmonary Hypertension Dry mouth chronic migraines COPD Severe rectal bleeding with Severe anemia with pt on Chronic anticoagulation with NOAC - Xarelto - for treatment of Afib. -Xarelto restarted last night (04/20/22) - discussed with pt and her family - hgb stable at 7.8 - repeat labs tomorrow morning Chronic Hypertension - resumed home regimen. - monitor pressures. Chronic pain syndrome - resumed suboxone Depression and Anxiety - resumed home regimen. Generalized Arthritis - will require physical therapy during hospitalization - therapy ordered. Chronic atrial fibrillation with pt on Chronic Anticoagulation use - resumed home medication and Xarelto on 04/20/22. Pulmonary Hypertension - resumed viagra Dry mouth - biotene rx Chronic Migraines - weaning down butalbital COPD - restarted symbicort DVT prophylaxis with scd's restarted xarelto. Gi prophylaxis with ppi Admission Dx Severe rectal bleeding Severe anemia Chronic Hypertension Chronic pain syndrome Depression Anxiety Generalized Arthritis Chronic atrial fibrillation Chronic Anticoagulation use Pulmonary Hypertension Clinical Quality Measures Admission Status Admission Dx Severe rectal bleeding Severe anemia Chronic Hypertension Chronic pain syndrome Depression Anxiety Generalized Arthritis Chronic atrial fibrillation Chronic Anticoagulation use Pulmonary Hypertension DVT/VTE Risk/Contraindication: Contraindications-Pharm: Other *list below* Other: hold anticoagulation due to gi bleeding SOCORRO DE LA ROSA MD Apr 21, 2022 07:51
[2022-04-21] MEDS ORDERED: RIVAROXABAN 20 MG TABLET (XARELTO) PO SCH (08:00)
[2022-04-21] MEDS: DULoxetine 30 MG (CYMBALTA) CAP PO SCH (08:14)
[2022-04-21] MEDS: hydrOXYzine (ATARAX) 10 MG TAB PO SCH ×2 (08:14→12:13)
[2022-04-21] MEDS: SILDENAFIL 20 MG (REVATIO) TAB PO SCH ×2 (08:15→12:13)
[2022-04-21] MEDS: PANTOPRAZOLE 40 MG (PROTONIX) TAB PO SCH (08:15)
[2022-04-21] MEDS: IRON POLYSAC 150 MG CAP (NIFEREX) PO SCH (08:15)
[2022-04-21] MEDS: MICONAZOLE 2% POWDER (DESENEX AF) 90 GM TOP SCH (08:16)
[2022-04-21] MEDS: MUPIROCIN 2% OINT 22 GM (BACTROBAN) TUBE TOP SCH (08:16)
[2022-04-21] MEDS: LIDOCAINE TOPICAL 4% 50 ML BTL TP SCH ×3 (08:17→16:46)
[2022-04-21] MEDS: DOCUSATE SODIUM 100 MG (COLACE) CAP PO SCH (08:39)
[2022-04-21] MEDS: SENNA W/DOCUSATE (SENOKOT S) TABLET PO SCH (08:39)
[2022-04-21] MEDS: SOTALOL 80 MG (BETAPACE) TAB PO SCH (08:40)
[2022-04-21] MEDS: polyethylene glycoL POWDER 17 GM (MIRALAX) PACK PO SCH (08:40)
[2022-04-21] MEDS ORDERED: PATIENT MAY USE OWN MED,SINGLE MED PO SCH (09:00)
[2022-04-21] MEDS: SPIRONOLACTONE 25 MG (ALDACTONE) TAB PO SCH ×2 (10:20→21:30)
[2022-04-21] MEDS: cloNIDine 0.1 MG (CATAPRES) TAB PO SCH ×2 (10:23→21:30)
[2022-04-21] MEDS: RAMIPRIL 2.5 MG (ALTACE) CAP PO SCH (10:23)
--- NOTE | 2022-04-21 11:47 | Progress Note ---
Subjective Date Seen by a Provider: Apr 21, 2022 Time Seen by a Provider: 11:30 Subjective/Events-last exam doing ok. appears comfortable yet always complains of some pain. has had BM's. tolerating diet. very poor ambulatory status. agree with therapy. Objective Exam Vital Signs Date Time Temp Pulse Resp B/P (MAP) Pulse Ox O2 Delivery O2 Flow Rate FiO2 04/21/22 11:15 92 Nasal Cannula 6.00 04/21/22 08:31 92 Nasal Cannula 6.00 04/21/22 08:00 92 Nasal Cannula 6.00 04/21/22 07:44 36.0 94 24 116/71 (86) 92 Nasal Cannula 4.00 4.00 04/21/22 07:00 98 04/21/22 04:02 36.8 84 15 94 Nasal Cannula 04/21/22 02:54 90 Nasal Cannula 4.00 04/21/22 01:00 82 04/21/22 00:31 81 04/21/22 00:00 36.9 81 16 105/55 (72) 93 Nasal Cannula 6.00 04/20/22 21:29 90 Nasal Cannula 4.00 04/20/22 21:00 20 04/20/22 20:00 Nasal Cannula 4.00 04/20/22 19:47 36.8 80 16 111/69 (83) 100 Nasal Cannula 4.00 04/20/22 19:00 87 04/20/22 17:58 36.3 85 16 95/57 (70) 97 Nasal Cannula 5.00 04/20/22 16:55 36.2 79 16 90/61 (71) 95 Nasal Cannula 5.00 04/20/22 15:52 93 Nasal Cannula 4.00 04/20/22 15:39 35.8 118 16 105/64 (78) 95 Nasal Cannula 5.00 04/20/22 13:00 80 04/20/22 12:00 36.1 78 20 78/49 (59) 94 Room Air 04/20/22 11:58 78 I & O 04/21/22 06:59 Intake Total 1410 ml Output Total 420 ml Balance 990 ml Capillary Refill : Less Than 3 Seconds General Appearance: No Apparent Distress HEENT: PERRL/EOMI Neck: Full Range of Motion Respiratory: Chest Non Tender, Decreased Breath Sounds Cardiovascular: Regular Rate, Rhythm Gastrointestinal: normal bowel sounds, non tender, soft Extremity: Normal Capillary Refill Neurologic/Psychiatric: Alert, Oriented x3 Skin: Normal Color Lymphatic: No Adenopathy Results Lab Laboratory Tests 04/21/22 05:15: White Blood Count 8.7, Red Blood Count 2.72L, Hemoglobin 7.8L, Hematocrit 26L, Mean Corpuscular Volume 97, Mean Corpuscular Hemoglobin 29, Mean Corpuscular Hemoglobin Concent 30L, Red Cell Distribution Width 16.3H, Platelet Count 179, Mean Platelet Volume 10.5, Sodium Level 136, Potassium Level 4.1, Chloride Level 97L, Carbon Dioxide Level 33H, Anion Gap 6, Blood Urea Nitrogen 9, Creatinine 0.73, Estimat Glomerular Filtration Rate 86, BUN/Creatinine Ratio 12, Glucose Level 110H, Calcium Level 8.8 Microbiology 04/18/22 MRSA Screen - Final, Complete MRSA not isolated Assessment/Plan Assessment/Plan Assess & Plan/Chief Complaint sx stage 4 external and internal hemorrhoids with recurrent bleeding and anemia s/p formal hemorrhoidectomy. 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 cont sitz bath QID. Clinical Quality Measures DVT/VTE Risk/Contraindication: Contraindications-Pharm: Other *list below* Other: hold anticoagulation due to gi bleeding MEG CUTLER MD Apr 21, 2022 11:47
--- NOTE | 2022-04-21 11:51 | Physical Therapy Daily Note ---
PT Daily Note-Current Subjective Pt supine in bed upon arrival to the room, report she does not want to participate in PT treatment. Pt reluctantly agreeable after encouragement from PT and pts daughter. Pt rates pain at 8/10 in bottom Pain Numeric Pain Scale: 8 Section J - Health Conditions 1. Rarely or not at all 2. Occasionally 3. Frequently 4. Almost constantly 8. Unable to answer Pain Effect on Sleep: 2 Pain Interference with Therapy: 4 Pain Interference w/Day-to-Day: 4 Appearance Following session, pt up on BS with daughter present in room. Call light within reach with instruction to call when finished. All needs met at this time. Mental Status Patient Orientation: Person, Place, Situation Attachments: Oxygen Transfers SCALE: Activities may be completed with or without assistive devices. 6-Fetdypdmst-ispvckt completes the activity by him/herself with no assistance from a helper. 5-Set-up or Clean-up Assistance-helper sets up or cleans up; patient completes activity. [place] assists only prior to or following the activity. 4-Supervision or Touching Assistance-helper provides verbal cues and/or touching/steadying and/or contact guard assistance as patient completes activity. Assistance may be provided throughout the activity or intermittently. 3-Partial/Moderate Assistance-helper does LESS THAN HALF the effort. [place] lifts, holds or supports trunk or limbs, but provides less than half the effort. 2-Substantial/Maximal Assistance-helper does MORE THAN HALF the effort. [place] lifts or holds trunk or limbs and provides more than half the effort. 4-Ubfyfobgb-iumpnt does ALL the effort. Patient does none of the effort to complete the activity. Or, the assistance of 2 or more helpers is required for the patient to complete the activity. If activity was not attempted, code reason: 7-Patient Refused. 9-Not Applicable-not attempted and the patient did not perform the activity before the current illness, exacerbation or injury. 10-Not Attempted due to Environmental Limitations-(lack of equipment, weather restraints, etc.). 88-Not Attempted due to Medical Conditions or Safety Concerns. Roll Left & Right (QC): 4 Lying to Sitting/Side of Bed(Q: 4 Sit to Stand (QC): 3 Chair/Sjt-ny-Hzewj Xfer(QC): 3 Min-ModA for sit to stand and [place] [facility] stood at E[place] x 1-2' for nursing to clean and apply dressing to bottom. Weight Bearing Right Lower Extremity: Right Weight Bearing/Tolerated Left Lower Extremity: Left Weight Bearing/Tolerated Assessment Current Status: Fair Progress Pt requires frequent encouragement to participate in therapy treatment. Pt capable of completing more activities; however, she tends to self limit activity. PT Intermediate Goals Intermediate Goals PT Mold Maker Apprentice Goals Time Frame: Apr 25, 2022 Roll Left & Right (QC): 3 Sit to Lying (QC): 3 Lying-Sitting on Side/Bed(QC): 3 Sit to Stand (QC): 3 Chair/Voo-ux-Qzdqk Xfer(QC): 3 PT Plan Problem List Problem List: Activity Tolerance, Functional Strength, Safety, Balance, Gait, Transfer, Bed Mobility, ROM Treatment/Plan Treatment Plan: Continue Plan of Care Treatment Plan: Bed Mobility, Education, Functional Activity Heather, Functional Strength, Gait, Safety, Therapeutic Exercise, Transfers Treatment Duration: Apr 25, 2022 Frequency: 6 times per week Estimated Hrs Per Day: .25 hour per day Patient and/or Family Agrees t: Yes Time Time In: 1059 Time Out: 1125 Total Billed Treatment 1 visit FA (25') KATI DYER PT Apr 21, 2022 11:50
[2022-04-21 12:15] VITALS: BP 108/66
[2022-04-21] MEDS ORDERED: FUROSEMIDE 40 MG/4 ML INJ (LASIX) IVP ONE (13:00)
--- NOTE | 2022-04-21 13:19 | Cardiology Progress Note ---
Progress Note-Cardiology Events since last exam Date Seen by Provider: Apr 21, 2022 Time Seen by Provider: 13:14 Events since last exam We are following her due to atrial fibrillation. She has had some mild degree of ankle edema. She denies any change in her chronic dyspnea. She denies chest pain, palpitations, or syncope. Certain portions of this document may have been dictated utilizing voice recognition technology. Inherent to this technology, typographical and grammatical errors may exist. As much as I am diligent to identify and correct these mistakes, some errors may remain in the document. Vitals Last set of Vitals Signs Vital Signs 04/19/22 04/21/22 04/21/22 23:04 11:15 12:15 Temp 36.6 Pulse 99 Resp 22 B/P (MAP) 108/66 (80) Pulse Ox 93 O2 Delivery Nasal Cannula O2 Flow Rate 6.00 FiO2 21 Labs Labs Laboratory Tests 04/21/22 05:15 Exam Vital Signs Vital Signs Date Time Temp Pulse Resp B/P (MAP) Pulse Ox O2 Delivery O2 Flow Rate FiO2 04/21/22 12:15 36.6 99 22 108/66 (80) 93 6.00 04/21/22 11:15 Nasal Cannula 04/19/22 23:04 21 Physical Exam General: Alert. No acute distress. She is morbidly obese. She is wearing oxygen by nasal cannula. Eye: No xanthelasma. HENT: Normocephalic. Neck: Jugular venous pressure does not appear elevated. Respiratory: Lungs are clear to auscultation but with decreased breath sounds at the bases bilaterally. Respirations are non-labored. Breath sounds are equal. Symmetrical chest wall expansion. Cardiovascular: Normal rate. Irregular rhythm. Distant S1/S2. No murmur. No gallop. 1+ bilateral pretibial edema with compression stockings in place. Gastrointestinal: Soft. Normal bowel sounds. Skin: Warm. Dry. Neurologic: Alert and oriented to person, place, time. Cranial nerves 3-11 grossly intact. Psychiatric: Cooperative. Appropriate mood & affect. Labs Laboratory Tests Test 04/21/22 05:15 Range/Units White Blood Count 8.7 4.3-11.0 10^3/uL Red Blood Count 2.72 L 3.80-5.11 10^6/uL Hemoglobin 7.8 L 11.5-16.0 g/dL Hematocrit 26 L 35-52 % Mean Corpuscular Volume 97 80-99 fL Mean Corpuscular Hemoglobin 29 25-34 pg Mean Corpuscular Hemoglobin Concent 30 L 32-36 g/dL Red Cell Distribution Width 16.3 H 10.0-14.5 % Platelet Count 179 130-400 10^3/uL Mean Platelet Volume 10.5 9.0-12.2 fL Sodium Level 136 135-145 MMOL/L Potassium Level 4.1 3.6-5.0 MMOL/L Chloride Level 97 L 98-107 MMOL/L Carbon Dioxide Level 33 H 21-32 MMOL/L Anion Gap 6 5-14 MMOL/L Blood Urea Nitrogen 9 7-18 MG/DL Creatinine 0.73 0.60-1.30 MG/DL Estimat Glomerular Filtration Rate 86 BUN/Creatinine Ratio 12 Glucose Level 110 H 70-105 MG/DL Calcium Level 8.8 8.5-10.1 MG/DL Diagnosis/Problems Diagnosis/Problems (1) Persistent atrial fibrillation Status: Chronic Assessment & Plan: By her report, her pan dumper at [place] told her she goes in and out of atrial fibrillation. However, when we saw her in our hospital in November she was in atrial fibrillation and she is in atrial fibrillation again now. This raises concern for possible sotalol failure. This may need to be addressed following discharge. She is now back on rivaroxaban for stroke prophylaxis. We could certainly put in a consultation request for Dr. Castanon from for an electrophysiology evaluation following discharge. (2) Cardiomyopathy Status: Chronic Assessment & Plan: Her most recent echocardiogram in our facility showed mild left ventricular systolic dysfunction. She is on ramipril and spironolactone. She has not on one of the guideline directed beta-blockers because she takes sotalol for the atrial fibrillation. She does have some slight bilateral lower extremity edema some of which could be dependent edema but also possibly related to fluid she may have received perioperatively. I will give her 1 dose of intravenous furosemide today. (3) Pulmonary hypertension Status: Chronic Assessment & Plan: She wears home oxygen. She is followed by pulmonary medicine from [facility] for management of the pulmonary hypertension. (4) Primary hypertension Status: Chronic Assessment & Plan: Her blood pressure is reasonably controlled with the present combination of medications. If anything, at times her blood pressure has been somewhat on the low side. We may need to cut back on her ramipril or spironolactone if this persists. (5) Morbid obesity Status: Chronic Assessment & Plan: She needs to work on weight loss. She has been counseled in this regard in the past. (6) Anemia Status: Acute Assessment & Plan: This has been felt secondary to hemorrhoids and she had surgery. Her hemoglobin seems to have stabilized. She is now back on her rivaroxaban for the atrial fibrillation and stroke prophylaxis. Problem Qualifiers (1) Anemia: Anemia type: unspecified type Qualified Codes: D64.9 - Anemia, unspecified JOYA CRENSHAW JR, MD Apr 21, 2022 13:19
[2022-04-21] MEDS ORDERED: ACET/BUTAL/CAFF (FIORICET) TAB PO PRN (14:00)
[2022-04-21 15:52] VITALS: BP 114/72
[2022-04-21 19:31] VITALS: BP 114/65
[2022-04-22] VITALS (8 sets, daily range): BP systolic 99–137; BP diastolic 54–79
[2022-04-22] MEDS: DOCUSATE SODIUM 100 MG (COLACE) CAP PO SCH ×3 (00:19→23:32)
[2022-04-22] MEDS: hydrOXYzine (ATARAX) 10 MG TAB PO SCH ×4 (00:19→23:28)
[2022-04-22] MEDS: DULoxetine 30 MG (CYMBALTA) CAP PO SCH ×3 (00:21→23:31)
[2022-04-22] MEDS: SOTALOL 80 MG (BETAPACE) TAB PO SCH ×3 (00:21→23:30)
[2022-04-22] MEDS: SILDENAFIL 20 MG (REVATIO) TAB PO SCH ×4 (00:22→23:31)
[2022-04-22] MEDS: RIVAROXABAN 20 MG TABLET (XARELTO) PO SCH ×2 (00:22→23:32)
[2022-04-22] MEDS: ALLOPURINOL 300 MG (ZYLOPRIM) TAB PO SCH ×2 (00:22→23:31)
[2022-04-22] MEDS: LIDOCAINE TOPICAL 4% 50 ML BTL TP SCH ×5 (00:23→23:38)
[2022-04-22] MEDS: MICONAZOLE 2% POWDER (DESENEX AF) 90 GM TOP SCH ×3 (00:23→23:38)
[2022-04-22] MEDS: MUPIROCIN 2% OINT 22 GM (BACTROBAN) TUBE TOP SCH ×3 (00:24→23:38)
[2022-04-22] MEDS: MONTELUKAST 10 MG (SINGULAIR) TAB PO SCH ×2 (00:24→23:32)
[2022-04-22] MEDS: BUPRENORPHINE PO SCH ×4 (02:56→23:28)
[2022-04-22] MEDS: NALOXONE PO SCH ×4 (02:56→23:28)
[2022-04-22 06:13] LABS: HEMATOCRIT 25 % (35-52); HEMOGLOBIN 7.5 g/dL (11.5-16.0); MEAN CORPUSCULAR HEMOGLOBIN 29 pg (25-34); MEAN CORPUSCULAR HGB CONC 30 g/dL (32-36); MEAN CORPUSCULAR VOLUME 95 fL (80-99); MEAN PLATELET VOLUME 10.2 fL (9.0-12.2); PLATELET COUNT 194 10^3/uL (130-400); WHITE BLOOD COUNT 7.6 10^3/uL (4.3-11.0)
[2022-04-22] MEDS: polyethylene glycoL POWDER 17 GM (MIRALAX) PACK PO SCH (08:11)
[2022-04-22] MEDS: RAMIPRIL 2.5 MG (ALTACE) CAP PO SCH (08:12)
[2022-04-22] MEDS: cloNIDine 0.1 MG (CATAPRES) TAB PO SCH ×2 (08:13→23:34)
[2022-04-22] MEDS: IRON POLYSAC 150 MG CAP (NIFEREX) PO SCH (08:15)
[2022-04-22] MEDS: PANTOPRAZOLE 40 MG (PROTONIX) TAB PO SCH (08:15)
[2022-04-22] MEDS: SENNA W/DOCUSATE (SENOKOT S) TABLET PO SCH (08:15)
[2022-04-22] MEDS: SPIRONOLACTONE 25 MG (ALDACTONE) TAB PO SCH ×2 (08:15→23:32)
--- NOTE | 2022-04-22 09:49 | Progress Note ---
Subjective Subjective Date Seen by Provider: Apr 22, 2022 Time Seen by Provider: 09:20 Pt reports that she is tired, has pain, did have a bowel movement last night. She reports that her rectum hurts, but the lidocaine does seem to be helping. 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 She is groggily answering questions having trouble keeping her eyes open the entire time this video games storywriter is in the room. Review of Systems General: Fatigue, Appetite (decreased), Other (obesity) HEENT: Other (dry mouth) Pulmonary: No Dyspnea, No Cough Cardiovascular: No: Chest Pain, Palpitations Gastrointestinal: No: Nausea, Abdominal Pain, Constipation Genitourinary: Incontinence Musculoskeletal: arm pain, back pain, leg pain Neurological: Weakness All Other Systems Reviewed All Other Systems Reviewed: Yes Objective Exam Vital Signs Vital Signs Date Time Temp Pulse Resp B/P (MAP) Pulse Ox O2 Delivery O2 Flow Rate FiO2 04/22/22 08:13 93 04/22/22 08:00 36.0 91 13 134/76 (95) Nasal Cannula 4.00 04/22/22 07:25 94 Nasal Cannula 4.00 04/22/22 07:07 16 04/22/22 07:00 93 04/22/22 03:51 36.4 96 16 109/61 (77) 92 High Flow N/C 4.00 04/22/22 03:42 96 Nasal Cannula 5.00 04/22/22 02:25 95 04/22/22 01:00 100 04/22/22 00:00 36.0 84 16 137/65 (89) 97 High Flow N/C 4.00 04/21/22 21:25 95 Nasal Cannula 5.00 04/21/22 20:00 95 Nasal Cannula 4.00 04/21/22 19:31 36.3 103 18 114/65 (81) 100 Nasal Cannula 5.50 04/21/22 19:16 90 Nasal Cannula 6.00 04/21/22 19:00 100 04/21/22 15:52 35.9 96 18 114/72 (86) 97 Room Air 04/21/22 15:20 93 Nasal Cannula 6.00 04/21/22 12:50 96 04/21/22 12:15 36.6 99 22 108/66 (80) 93 6.00 04/21/22 11:15 92 Nasal Cannula 6.00 I & O 04/22/22 07:00 Intake Total 1330 ml Balance 1330 ml General Appearance: No Apparent Distress, Other (groggy) Eyes: Bilateral Eye PERRL, Bilateral Eye EOMI HEENT: PERRL/EOMI Neck: Full Range of Motion Respiratory: Chest Non Tender, Decreased Breath Sounds Cardiovascular: Regular Rate, Rhythm Gastrointestinal: Normal Bowel Sounds, No Organomegaly, Non Tender, Soft Extremity: Normal Capillary Refill Neurologic/Psychiatric: Alert, Oriented x3 (groggily answers questions) Skin: Normal Color Results Lab Laboratory Tests 04/22/22 05:45: White Blood Count 7.6, Red Blood Count 2.61L, Hemoglobin 7.5L, Hematocrit 25L, Mean Corpuscular Volume 95, Mean Corpuscular Hemoglobin 29, Mean Corpuscular Hemoglobin Concent 30L, Red Cell Distribution Width 16.0H, Platelet Count 194, Mean Platelet Volume 10.2 Microbiology 04/18/22 MRSA Screen - Final, Complete MRSA not isolated Assessment/Plan Assessment/Plan Admission Dx Severe rectal bleeding Severe anemia Chronic Hypertension Chronic pain syndrome Depression Anxiety Generalized Arthritis Chronic atrial fibrillation Chronic Anticoagulation use Pulmonary Hypertension Assessment and Plan Severe rectal bleeding Severe anemia Chronic Hypertension Chronic pain syndrome Depression Anxiety Generalized Arthritis Chronic atrial fibrillation Chronic Anticoagulation use Pulmonary Hypertension Dry mouth chronic migraines COPD Severe rectal bleeding with Severe anemia with pt on Chronic anticoagulation with NOAC - Xarelto - for treatment of Afib. -Xarelto restarted on 04/20/22 - discussed with pt and her family - hgb stable at 7.5 - repeat labs tomorrow morning Chronic Hypertension - resumed home regimen. - monitor pressures. 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 Depression and Anxiety - resumed home regimen. Generalized Arthritis - will require physical therapy during hospitalization - therapy ordered. Chronic atrial fibrillation with pt on Chronic Anticoagulation use - resumed home medication and Xarelto on 04/20/22. Pulmonary Hypertension - resumed viagra Dry mouth - biotene rx Chronic Migraines - weaning down butalbital from TID to BID at this time COPD - restarted symbicort DVT prophylaxis with scd's restarted xarelto. Gi prophylaxis with ppi Admission Dx Severe rectal bleeding Severe anemia Chronic Hypertension Chronic pain syndrome Depression Anxiety Generalized Arthritis Chronic atrial fibrillation Chronic Anticoagulation use Pulmonary Hypertension Clinical Quality Measures Admission Status Admission Dx Severe rectal bleeding Severe anemia Chronic Hypertension Chronic pain syndrome Depression Anxiety Generalized Arthritis Chronic atrial fibrillation Chronic Anticoagulation use Pulmonary Hypertension DVT/VTE Risk/Contraindication: Contraindications-Pharm: Other *list below* Other: hold anticoagulation due to gi bleeding SOCORRO DE LA ROSA MD Apr 22, 2022 09:49
--- NOTE | 2022-04-22 10:16 | Progress Note ---
Subjective Date Seen by a Provider: Apr 22, 2022 Time Seen by a Provider: 10:00 Subjective/Events-last exam doing ok. still ambulating poorly but does try to sit in chair a few times a day. hb stable. pain controlled. Objective Exam Vital Signs Date Time Temp Pulse Resp B/P (MAP) Pulse Ox O2 Delivery O2 Flow Rate FiO2 04/22/22 10:03 90 Nasal Cannula 4.00 04/22/22 08:13 93 04/22/22 08:00 36.0 91 13 134/76 (95) Nasal Cannula 4.00 04/22/22 08:00 92 Nasal Cannula 6.00 04/22/22 07:25 94 Nasal Cannula 4.00 04/22/22 07:07 16 04/22/22 07:00 93 04/22/22 03:51 36.4 96 16 109/61 (77) 92 High Flow N/C 4.00 04/22/22 03:42 96 Nasal Cannula 5.00 04/22/22 02:25 95 04/22/22 01:00 100 04/22/22 00:00 36.0 84 16 137/65 (89) 97 High Flow N/C 4.00 04/21/22 21:25 95 Nasal Cannula 5.00 04/21/22 20:00 95 Nasal Cannula 4.00 04/21/22 19:31 36.3 103 18 114/65 (81) 100 Nasal Cannula 5.50 04/21/22 19:16 90 Nasal Cannula 6.00 04/21/22 19:00 100 04/21/22 15:52 35.9 96 18 114/72 (86) 97 Room Air 04/21/22 15:20 93 Nasal Cannula 6.00 04/21/22 12:50 96 04/21/22 12:15 36.6 99 22 108/66 (80) 93 6.00 04/21/22 11:15 92 Nasal Cannula 6.00 I & O 04/22/22 07:00 Intake Total 1330 ml Balance 1330 ml Capillary Refill : Less Than 3 Seconds General Appearance: No Apparent Distress HEENT: PERRL/EOMI Neck: Full Range of Motion Respiratory: Decreased Breath Sounds Cardiovascular: Regular Rate, Rhythm Gastrointestinal: normal bowel sounds, non tender, soft Extremity: Normal Capillary Refill Neurologic/Psychiatric: Alert, Oriented x3 Skin: Normal Color Lymphatic: No Adenopathy Results Lab Laboratory Tests 04/22/22 05:45: White Blood Count 7.6, Red Blood Count 2.61L, Hemoglobin 7.5L, Hematocrit 25L, Mean Corpuscular Volume 95, Mean Corpuscular Hemoglobin 29, Mean Corpuscular Hemoglobin Concent 30L, Red Cell Distribution Width 16.0H, Platelet Count 194, Mean Platelet Volume 10.2 Microbiology 04/18/22 MRSA Screen - Final, Complete MRSA not isolated Assessment/Plan Assessment/Plan Assess & Plan/Chief Complaint sx stage 4 external and internal hemorrhoids with recurrent bleeding and anemia s/p formal hemorrhoidectomy. decrease [employer]. 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 cont sitz bath QID. Clinical Quality Measures DVT/VTE Risk/Contraindication: Contraindications-Pharm: Other *list below* Other: hold anticoagulation due to gi bleeding MEG CUTLER MD Apr 22, 2022 10:16
[2022-04-22] MEDS ORDERED: ACET/BUTAL/CAFF (FIORICET) TAB PO PRN (10:45)
--- NOTE | 2022-04-22 13:36 | Cardiology Progress Note ---
Progress Note-Cardiology Events since last exam Date Seen by Provider: Apr 22, 2022 Time Seen by Provider: 13:31 Events since last exam We are following her due to atrial fibrillation. Her main complaint is rectal pain from surgery. She feels as though her dyspnea on exertion is at baseline. She is not all that active at home. She denies chest pain, palpitations, or syncope. Her chronic peripheral edema is about baseline. She may be transferred to a halfway facility tomorrow for intensive rehab. Certain portions of this document may have been dictated utilizing voice recognition technology. Inherent to this technology, typographical and grammatical errors may exist. As much as I am diligent to identify and correct these mistakes, some errors may remain in the document. Vitals Last set of Vitals Signs Vital Signs 04/22/22 04/22/22 04/22/22 11:23 12:00 12:42 Temp 35.6 Pulse 86 Resp 14 B/P (MAP) 99/54 (69) Pulse Ox 97 O2 Delivery Nasal Cannula O2 Flow Rate 4.00 FiO2 36 Labs Labs Laboratory Tests 04/22/22 05:45 Exam Vital Signs Vital Signs Date Time Temp Pulse Resp B/P (MAP) Pulse Ox O2 Delivery O2 Flow Rate FiO2 04/22/22 12:42 86 04/22/22 12:00 35.6 14 99/54 (69) 97 Nasal Cannula 4.00 04/22/22 11:23 36 Physical Exam General: Alert. No acute distress. She is morbidly obese. She is wearing oxygen by nasal cannula. Eye: No xanthelasma. HENT: Normocephalic. Neck: Jugular venous pressure does not appear elevated. Respiratory: Lungs are clear to auscultation but with decreased breath sounds at the bases bilaterally. Respirations are non-labored. Breath sounds are equal. Symmetrical chest wall expansion. Cardiovascular: Normal rate. Irregular rhythm. Distant S1/S2. No murmur. No gallop. 1+ bilateral pretibial edema with compression stockings in place. Gastrointestinal: Soft. Normal bowel sounds. Skin: Warm. Dry. Neurologic: Alert and oriented to person, place, time. Cranial nerves 3-11 grossly intact. Psychiatric: Cooperative. Appropriate mood & affect. Labs Laboratory Tests Test 04/22/22 05:45 Range/Units White Blood Count 7.6 4.3-11.0 10^3/uL Red Blood Count 2.61 L 3.80-5.11 10^6/uL Hemoglobin 7.5 L 11.5-16.0 g/dL Hematocrit 25 L 35-52 % Mean Corpuscular Volume 95 80-99 fL Mean Corpuscular Hemoglobin 29 25-34 pg Mean Corpuscular Hemoglobin Concent 30 L 32-36 g/dL Red Cell Distribution Width 16.0 H 10.0-14.5 % Platelet Count 194 130-400 10^3/uL Mean Platelet Volume 10.2 9.0-12.2 fL Diagnosis/Problems Diagnosis/Problems (1) Persistent atrial fibrillation Status: Chronic Assessment & Plan: By her report, her vice squad police officer at [place] told her she goes in and out of atrial fibrillation. However, when we saw her in our hospital in November she was in atrial fibrillation and she is in atrial fibrillation again now. This raises concern for possible sotalol failure. This may need to be addressed following discharge. She is now back on rivaroxaban for stroke pr ophylaxis. We could certainly put in a consultation request for Dr. Wiley from for an electrophysiology evaluation following discharge. (2) Cardiomyopathy Status: Chronic Assessment & Plan: Her most recent echocardiogram in our facility showed mild left ventricular systolic dysfunction. She is on ramipril and spironolactone. She has not been on one of the guideline directed beta-blockers because she takes sotalol for the atrial fibrillation. She does have some slight bilateral lower extremity edema some of which could be dependent edema but also possibly related to fluid she may have received perioperatively. I will give her 1 dose of intravenous furosemide on 04/21 and her edema improved. (3) Pulmonary hypertension Status: Chronic Assessment & Plan: I suspect this is multifactorial. She wears home oxygen. She is followed by pulmonary medicine from [facility] for management of the pulmonary hypertension. (4) Primary hypertension Status: Chronic Assessment & Plan: Her blood pressure is reasonably controlled with the present combination of medications. If anything, at times her blood pressure has been somewhat on the low side. We may need to cut back on her ramipril or spironolactone if this persists. (5) Morbid obesity Status: Chronic Assessment & Plan: She needs to work on weight loss. She has been counseled in this regard in the past. (6) Anemia Status: Acute Assessment & Plan: This has been felt secondary to hemorrhoids and she had surgery. Her hemoglobin seems to have stabilized. She is now back on her rivaroxaban for the atrial fibrillation and stroke prophylaxis. Problem Qualifiers (1) Anemia: Anemia type: unspecified type Qualified Codes: D64.9 - Anemia, unspecified JOYA CRENSHAW JR, MD Apr 22, 2022 13:36
[2022-04-23 00:07] VITALS: BP 119/69
[2022-04-23] MEDS: BUPRENORPHINE PO SCH ×3 (01:49→13:24)
[2022-04-23] MEDS: NALOXONE PO SCH ×3 (01:49→13:24)
[2022-04-23 04:04] VITALS: BP 104/54
[2022-04-23 05:13] LABS: HEMATOCRIT 25 % (35-52); HEMOGLOBIN 7.6 g/dL (11.5-16.0); MEAN CORPUSCULAR HEMOGLOBIN 29 pg (25-34); MEAN CORPUSCULAR HGB CONC 30 g/dL (32-36); MEAN CORPUSCULAR VOLUME 95 fL (80-99); MEAN PLATELET VOLUME 10.1 fL (9.0-12.2); PLATELET COUNT 208 10^3/uL (130-400); WHITE BLOOD COUNT 8.9 10^3/uL (4.3-11.0)
[2022-04-23 08:07] VITALS: BP 113/54
--- NOTE | 2022-04-23 08:14 | Progress Note - Cardiology ---
Cardiology SOAP Progress Note Subjective: Lying in bed C/O dizziness earlier this morning C/O gen pain Family x 2 at the bedside Objective: I&O/Vital Signs 04/23/22 04/23/22 04/23/22 04/23/22 00:07 01:00 04:04 06:43 Temp 36.1 36.1 Pulse 94 89 89 Resp 18 18 B/P (MAP) 119/69 (86) 104/54 (71) Pulse Ox 98 97 97 O2 Delivery Nasal Cannula Nasal Cannula Nasal Cannula O2 Flow Rate 4.00 4.00 4.00 04/23/22 04/23/22 07:09 08:07 Temp 36.3 Pulse 95 101 Resp 19 B/P (MAP) 113/54 (73) Pulse Ox 95 O2 Delivery Nasal Cannula O2 Flow Rate 2.00 04/23/22 00:00 Intake Total 665 ml Balance 665 ml Weight (Pounds): 225 Weight (Ounces): 15.6 Weight (Calculated Kilograms): 102.626883 Constitutional: AAO x 3, well-developed, well-nourished Respiratory: No accessory muscle use, No respiratory distress; chest expansion is symmetric, other (good air entry) Cardiovascular: irregularly irregular, S1 and S2 Gastrointestional: No tender; soft, audible bowel sounds Extremities: No significant edema Neurologic/Psychiatric: other (moves all limbs equally) Skin: No rash on exposed areas, No ulcerations on exposed areas Results/Procedures: Labs Laboratory Tests 04/23/22 05:00: White Blood Count 8.9, Red Blood Count 2.64L, Hemoglobin 7.6L, Hematocrit 25L, Mean Corpuscular Volume 95, Mean Corpuscular Hemoglobin 29, Mean Corpuscular Hem oglobin Concent 30L, Red Cell Distribution Width 16.3H, Platelet Count 208, Mean Platelet Volume 10.1 Microbiology 04/18/22 MRSA Screen - Final, Complete MRSA not isolated Laboratory Tests 04/22/22 05:45 04/23/22 05:00 A/P: Assessment: Anemia - d/t bleeding hemorrhoids - s/p hemorrhoidectomy by Dr. Albarran on 04-19-22 - management per medical/surgical services A-fib - rate controlled. Chronicity of A fib unclear - rate controlled - OAC with Xarelto - has been resumed - managed as out pt by Dr. Bynum of [facility] HTN - managed as out pt by Dr. Sandoval of [facility] - oxygen dependant Echocardiogram of 12-12-[address] Godwin showed LVEF 40-45%. LA and RA severely dilated. Mild Ao stenosis. PASP 44 mmHg HTN DJD - chronic pain - bilat hip replacement Plan: Anemia d/t blood loss d/t hemorrhoids - management per surgical services - H/H stable S/P hemorrhoidectomy on 04-19-22 OAC has been resumed Monitor lab closely REX WILLIAM Apr 23, 2022 08:14
[2022-04-23] MEDS: SOTALOL 80 MG (BETAPACE) TAB PO SCH (08:40)
[2022-04-23] MEDS: SILDENAFIL 20 MG (REVATIO) TAB PO SCH ×2 (08:40→13:23)
[2022-04-23] MEDS: SPIRONOLACTONE 25 MG (ALDACTONE) TAB PO SCH (08:40)
[2022-04-23] MEDS: RAMIPRIL 2.5 MG (ALTACE) CAP PO SCH (08:40)
[2022-04-23] MEDS: cloNIDine 0.1 MG (CATAPRES) TAB PO SCH (08:40)
[2022-04-23] MEDS: DOCUSATE SODIUM 100 MG (COLACE) CAP PO SCH (08:41)
[2022-04-23] MEDS: IRON POLYSAC 150 MG CAP (NIFEREX) PO SCH (08:41)
[2022-04-23] MEDS: SENNA W/DOCUSATE (SENOKOT S) TABLET PO SCH (08:41)
[2022-04-23] MEDS: hydrOXYzine (ATARAX) 10 MG TAB PO SCH ×2 (08:41→13:23)
[2022-04-23] MEDS: DULoxetine 30 MG (CYMBALTA) CAP PO SCH (08:41)
[2022-04-23] MEDS: PANTOPRAZOLE 40 MG (PROTONIX) TAB PO SCH (08:42)
[2022-04-23] MEDS: polyethylene glycoL POWDER 17 GM (MIRALAX) PACK PO SCH (08:42)
[2022-04-23] MEDS: MUPIROCIN 2% OINT 22 GM (BACTROBAN) TUBE TOP SCH (08:43)
[2022-04-23] MEDS: LIDOCAINE TOPICAL 4% 50 ML BTL TP SCH ×2 (08:44→13:24)
[2022-04-23] MEDS: MICONAZOLE 2% POWDER (DESENEX AF) 90 GM TOP SCH (08:44)
[2022-04-23] MEDS ORDERED: SENN1TAB76 PO (09:29)
[2022-04-23] MEDS ORDERED: DOCU100C37 PO (09:29)
[2022-04-23] MEDS ORDERED: BUPR1FIL3 SL (09:29)
[2022-04-23] MEDS ORDERED: MICO90PO TOP (09:29)
[2022-04-23] MEDS ORDERED: BUTA-235 PO (09:29)
[2022-04-23] MEDS ORDERED: LIDO40SO TP (09:29)
[2022-04-23] MEDS ORDERED: POLY17PO54 PO (09:29)
[2022-04-23] MEDS ORDERED: HYDR-3584 PO (09:29)
[2022-04-23] MEDS ORDERED: MUPI22OI2 TOP (09:29)
--- NOTE | 2022-04-23 09:31 | Discharge Inst-Skilled Nursing ---
Discharge Inst-Skilled NF Reconcile Patient Problems Problems Reviewed?: Yes Patient Instructions Patient Problems: Severe rectal bleeding Severe anemia Chronic Hypertension Chronic pain syndrome Depression Anxiety Generalized Arthritis Chronic atrial fibrillation Chronic Anticoagulation use Pulmonary Hypertension Dry mouth chronic migraines COPD Consult/Follow Up/Orders Follow Up Appt.: 1 wk [facility] saturday with dr. dennis Mcgraw NF Admit to: [facility] ([facility]) I certify that [facility] services are required to be given on an inpatient basis because of the above named patient's need for alf care on a continuing basis for the conditions(s) for which he/she was receiving inpatient hospital services prior to his/her transfer to the [facility]. [facility] Facility Order: Nursing Services, Manager Call-Evaluate & Treat, Physical Therapy-Evaluate & Treat Oxygen Delivery Method: Nasal Cannula Discharge Diet: Regular Diet Daily Activity as Tolerated: Yes Resuscitation Status: Full Code New & Resume Previous Orders New & Resume Previous Orders sitz bath to rectum qid ambulate bid pt eval and treat ot eval and treat wound care eval and treat use compression wraps on am off Socorro Lamar Apr 23, 2022 09:29 SOCORRO LAMAR MD Apr 23, 2022 09:31
--- NOTE | 2022-04-23 09:31 | Discharge Summary ---
Diagnosis/Chief Complaint Date of Admission Apr 17, 2022 at 10:09 Date of Discharge Admission Diagnosis Admission Diagnosis Severe rectal bleeding Severe anemia Chronic Hypertension Chronic pain syndrome Depression Anxiety Generalized Arthritis Chronic atrial fibrillation Chronic Anticoagulation use Pulmonary Hypertension Dry mouth chronic migraines COPD Discharge Diagnosis Severe rectal bleeding Severe anemia Chronic Hypertension Chronic pain syndrome Depression Anxiety Generalized Arthritis Chronic atrial fibrillation Chronic Anticoagulation use Pulmonary Hypertension Dry mouth chronic migraines COPD Reason Hospital Visit Pt reports that she had significant blood from her rectum over the past week with over 20 ounces of blood from her rectum yesterday morning. She has history of severe rectal bleeding, has been conservatively managed and was told she needed to be "optimized" prior to having surgery. Her family reports that they are concerned with how much bleeding she has had over the past 6 months with progressive weakness noticed. Her reports that she has not been very mobile, she was told that "her knees would continue to get worse" so she decided that not walking would be better for her knees. Her dtr reports that instead of taking the PRN narcotic for her headaches only as needed, she has been routinely taking the medication. Discharge Summary Discharge Physical Examination Allergies: Coded Allergies: Tetanus Vaccines and Toxoid (Verified Allergy, Unknown, 07/18/07) adhesive (Verified Allergy, Unknown, 07/18/07) Vitals & I&Os Vital Signs Date Time Temp Pulse Resp B/P (MAP) Pulse Ox O2 Delivery O2 Flow Rate FiO2 04/23/22 08:40 101 04/23/22 08:07 36.3 19 113/54 (73) 95 Nasal Cannula 2.00 04/22/22 11:23 36 Hospital Course Pending Labs Laboratory Tests 04/23/22 05:00: White Blood Count 8.9, Red Blood Count 2.64, Hemoglobin 7.6, Hematocrit 25, Mean Corpuscular Volume 95, Mean Corpuscular Hemoglobin 29, Mean Corpuscular Hemoglobin Concent 30, Red Cell Distribution Width 16.3, Platelet Count 208, Mean Platelet Volume 10.1 Discharge Instructions to patient/family Please see electronic discharge instructions given to patient. Discharge Medications Reviewed and agree with Discharge Medication list on patient's Discharge Instruction sheet Clinical Quality Measures DVT/VTE Risk/Contraindication: Contraindications-Pharm: Other *list below* Other: hold anticoagulation due to gi bleeding SOCORRO DE LA ROSA MD Apr 23, 2022 09:31
--- NOTE | 2022-04-23 11:08 | Physical Therapy Daily Note ---
PT Daily Note-Current Subjective Patient in bed pre-tx, reports having pain in her around her butt but unable to rate, reports needing to have a bowel movement, agrees to PT with encouragement. Therapist and student saw patient. Pain Section J - Health Conditions 1. Rarely or not at all 2. Occasionally 3. Frequently 4. Almost constantly 8. Unable to answer Pain Effect on Sleep: 2 Pain Interference with Therapy: 4 Pain Interference w/Day-to-Day: 4 Appearance Patient in recliner post-tx with nurse call, phone, tray, all needs met. Mental Status Patient Orientation: Person, Place, Situation Attachments: Oxygen Transfers SCALE: Activities may be completed with or without assistive devices. 0-Iiqtofldhe-[id number] completes the activity by him/herself with no assistance from a helper. 5-Set-up or Clean-up Assistance-helper sets up or cleans up; patient completes activity. [place] assists only prior to or following the activity. 4-Supervision or Touching Assistance-helper provides verbal cues and/or touching/steadying and/or contact guard assistance as patient completes activity. Assistance may be provided throughout the activity or intermittently. 3-Partial/Moderate Assistance-helper does LESS THAN HALF the effort. [place] lifts, holds or supports trunk or limbs, but provides less than half the effort. 2-Substantial/Maximal Assistance-helper does MORE THAN HALF the effort. [place] lifts or holds trunk or limbs and provides more than half the effort. 4-Jomwrtgms-qrdpne does ALL the effort. Patient does none of the effort to complete the activity. Or, the assistance of 2 or more helpers is required for the patient to complete the activity. If activity was not attempted, code reason: 7-Patient Refused. 9-Not Applicable-not attempted and the patient did not perform the activity b efore the current illness, exacerbation or injury. 10-Not Attempted due to Environmental Limitations-(lack of equipment, weather restraints, etc.). 88-Not Attempted due to Medical Conditions or Safety Concerns. Lying to Sitting/Side of Bed(Q: 3 Sit to Stand (QC): 3 Toilet Transfer (QC): 3 Min A on all transfers noted Weight Bearing Right Lower Extremity: Right Weight Bearing/Tolerated Left Lower Extremity: Left Weight Bearing/Tolerated Exercises Seated Therapy Exercises: Ankle pumps, Long arc quads Seated Reps: 10 Treatments LE Strengthening, Transfers Assessment Current Status: Fair Progress Patient still needs assistance with transfers and needs lots of encouragement to agree to PT. Patient did have a small bowel movement and brief was changed, she was not able to assist with wiping. Patient can only take a few steps to get from the bed to the chair or commode. PT Long-Term Goals Long-Term Goals PT Quality Improvement Manager Goals Time Frame: Apr 25, 2022 Roll Left & Right (QC): 3 Sit to Lying (QC): 3 Lying-Sitting on Side/Bed(QC): 3 Sit to Stand (QC): 3 Chair/[id number]-Xogjx Xfer(QC): 3 PT Plan Problem List Problem List: Activity Tolerance, Functional Strength, Safety, Balance, Gait, Transfer, Bed Mobility, ROM Treatment/Plan Treatment Plan: Continue Plan of Care Treatment Plan: Bed Mobility, Education, Functional Activity Heather, Functional Strength, Gait, Safety, Therapeutic Exercise, Transfers Treatment Duration: Apr 25, 2022 Frequency: 6 times per week Estimated Hrs Per Day: .25 hour per day Patient and/or Family Agrees t: Yes Safety Risks/Education Patient Education: Transfer Techniques, Correct Positioning, Safety Issues Teaching Recipient: Patient Teaching Methods: Demonstration, Discussion Response to Teaching: Reinforcement Needed Time Time In: 1031 Time Out: 1051 Total Billed Treatment Time: 20 Total Billed Treatment 1 visit FA 20min STEPHON MCDONALD PT Apr 23, 2022 11:08
--- NOTE | 2022-04-23 12:01 | Progress Note - Cardiology ---
Cardiology SOAP Progress Note Subjective: No cp or palp or syncope No shortness of breath at rest Some gen weakness and malaise, improving No n/v/d Objective: I&O/Vital Signs 04/23/22 04/23/22 04/23/22 04/23/22 00:07 01:00 04:04 06:43 Temp 36.1 36.1 Pulse 94 89 89 Resp 18 18 B/P (MAP) 119/69 (86) 104/54 (71) Pulse Ox 98 97 97 O2 Delivery Nasal Cannula Nasal Cannula Nasal Cannula O2 Flow Rate 4.00 4.00 4.00 04/23/22 04/23/22 04/23/22 04/23/22 07:09 08:07 08:40 08:45 Temp 36.3 Pulse 95 101 101 Resp 19 B/P (MAP) 113/54 (73) Pulse Ox 95 O2 Delivery Nasal Cannula Nasal Cannula O2 Flow Rate 2.00 4.00 04/23/22 11:00 Pulse 101 04/23/22 00:00 Intake Total 665 ml Balance 665 ml Weight (Pounds): 225 Weight (Ounces): 15.6 Weight (Calculated Kilograms): 102.805691 Constitutional: AAO x 3, well-developed, well-nourished Respiratory: No accessory muscle use, No respiratory distress; chest expansion is symmetric, other (good air entry) Cardiovascular: irregularly irregular, S1 and S2 Gastrointestional: No tender; soft, audible bowel sounds Extremities: No significant edema Neurologic/Psychiatric: other (moves all limbs equally) Skin: No rash on exposed areas, No ulcerations on exposed areas Results/Procedures: Labs Laboratory Tests 04/23/22 05:00: White Blood Count 8.9, Red Blood Count 2.64L, Hemoglobin 7.6L, Hematocrit 25L, Mean Corpuscular Volume 95, Mean Corpuscular Hemoglobin 29, Mean Corpuscular Hemoglobin Concent 30L, Red Cell Distribution Width 16.3H, Platelet Count 208, Mean Platelet Volume 10.1 Microbiology 04/18/22 MRSA Screen - Final, Complete MRSA not isolated A/P: Assessment: Anemia - d/t bleeding hemorrhoids - s/p hemorrhoidectomy by Dr. Albarran on 04-19-22 - management per medical/surgical services A-fib - rate controlled. Chronicity of A fib unclear - rate controlled - OAC with Xarelto - has been resumed - managed as out pt by Dr. Bynum of [facility] HTN - managed as out pt by Dr. Sandoval of [facility] - oxygen dependant Echocardiogram of 12-12-[address] Godwin showed LVEF 40-45%. LA and RA severely dilated. Mild Ao stenosis. PASP 44 mmHg HTN DJD - chronic pain - bilat hip replacement Plan: Anemia d/t blood loss d/t hemorrhoids - management per surgical services - H/H stable S/P hemorrhoidectomy on 04-19-22 OAC has been resumed Monitor lab closely HEIDI MAGDALENO MD FACP FAC CCDS Apr 23, 2022 12:01
[2022-04-23 12:39] VITALS: BP 90/61
[2022-04-23 13:06] VITALS: BP 90/61
== END 2022-04-23 14:25 | DRG 348 ==
LOC: EDUNIT# 15:45 → ER 15:46 → 4TH 17:50 → OBSVTOIN 04-17 10:09
PROVIDERS: ADMIT Family Medicine; ATTEND Family Medicine
PROC: 06BY0ZC Excision of Hemorrhoidal Plexus, Open Approach (ICD-10-PCS; principal; 2022-04-19 17:35)
DX: K64.4 Residual hemorrhoidal skin tags (principal); D62 Acute posthemorrhagic anemia; E46 Unspecified protein-calorie malnutrition; K62.5 Hemorrhage of anus and rectum; I48.19 Other persistent atrial fibrillation; I42.9 Cardiomyopathy, unspecified; Z68.41 Body mass index [BMI] 40.0-44.9, adult; Z79.01 Long term (current) use of anticoagulants; I10 Essential (primary) hypertension; J45.909 Unspecified asthma, uncomplicated; G43.909 Migraine, unspecified, not intractable, without status migrainosus; K21.9 Gastro-esophageal reflux disease without esophagitis; M19.90 Unspecified osteoarthritis, unspecified site; H40.9 Unspecified glaucoma; F41.9 Anxiety disorder, unspecified; F32.A Depression, unspecified; G89.4 Chronic pain syndrome; I27.20 Pulmonary hypertension, unspecified; J44.9 Chronic obstructive pulmonary disease, unspecified; M10.9 Gout, unspecified; L89.151 Pressure ulcer of sacral region, stage 1; L30.9 Dermatitis, unspecified; I89.0 Lymphedema, not elsewhere classified; K64.8 Other hemorrhoids; R68.2 Dry mouth, unspecified; E66.01 Morbid (severe) obesity due to excess calories
CPT/HCPCS: 36415; 36430; 71045; 80048; 80053; 85014; 85018; 85025; 85027; 86850; 86870; 86900; 86901; 86922; 87081; 90662; 93005; 94664; 94760; G0378

== ENCOUNTER 2022-05-23 13:44 | Outpatient (CLI) | payer MEDICARE ==
[~2022-05-23 13:44] MED LIST changes: +ALBU8.5H6 IH; +BRIN8DRO2 OU; +BUPR1FIL3 SL; +DOCU100C37 PO; +HYDR-3584 PO; +LIDO40SO TP; +MICO90PO TOP; +MUPI22OI2 TOP; +POLY17PO54 PO; +SENN1TAB76 PO
[2022-05-23 13:50] VITALS: BP 81/56
[2022-05-23] MEDS ORDERED: HEParin (CENTRAL IV FLUSH) 500 UNIT/5 ML SYR ONE (14:06)
[2022-05-23 14:34] LABS: HEMATOCRIT 33 % (35-52); HEMOGLOBIN 10.2 g/dL (11.5-16.0); MEAN CORPUSCULAR HEMOGLOBIN 28 pg (25-34); MEAN CORPUSCULAR HGB CONC 31 g/dL (32-36); MEAN CORPUSCULAR VOLUME 92 fL (80-99); MEAN PLATELET VOLUME 11.4 fL (9.0-12.2); PLATELET COUNT 237 10^3/uL (130-400); WHITE BLOOD COUNT 7.8 10^3/uL (4.3-11.0)
[2022-05-23 14:54] LABS: BILIRUBIN,TOTAL 0.3 MG/DL (0.1-1.0); CALCIUM 9.2 MG/DL (8.5-10.1); CREATININE SERUM 0.79 MG/DL (0.60-1.30); TOTAL PROTEIN 7.7 GM/DL (6.4-8.2)
== END 2022-05-23 14:20 | disposition home or self-care (01) ==
LOC: SDC 13:44
PROVIDERS: ATTEND Nurse Practitioner Family
DX: D64.9 Anemia, unspecified (principal)
CPT/HCPCS: 36415; 36591; 80053; 85027

== ENCOUNTER → 2022-06-21 | Outpatient (CLI) | payer MEDICARE ==
[2022-06-21 15:36] LABS: AMPHETAMINE SCREEN, URINE NEGATIVE (NEGATIVE); BARBITURATE SCREEN URINE POSITIVE (NEGATIVE); BENZODIAZEPINES SCREEN URINE NEGATIVE (NEGATIVE); CANNABINOID SCREEN, URINE NEGATIVE (NEGATIVE); COCAINE SCREEN URINE NEGATIVE (NEGATIVE); METHADONE STAT NEGATIVE (NEGATIVE); OPIATE SCREEN URINE NEGATIVE (NEGATIVE); OXYCODONE STAT NEGATIVE (NEGATIVE); PROPOXYPHENE STAT NEGATIVE (NEGATIVE); TRICYCLIC ANTIDEPRESSANTS SCRE NEGATIVE (NEGATIVE)
== END ==
LOC: SDC 14:52
PROVIDERS: ATTEND Emergency Medicine
DX: F11.10 Opioid abuse, uncomplicated (principal); Z79.899 Other long term (current) drug therapy
CPT/HCPCS: 80306

== ENCOUNTER → 2022-06-21 | Outpatient (CLI) | payer MEDICARE ==
[~2022-06-21] VITALS: Wt 121.1 kg
[2022-06-21 14:25] VITALS: BP 87/54
[2022-06-21 14:39] LABS: BASOPHILS % (AUTO) 0 % (0-10); EOSINOPHILS # (AUTO) 0.4 10^3/uL (0.0-0.3); EOSINOPHILS % (AUTO) 4 % (0-10); HEMATOCRIT 29 % (35-52); HEMOGLOBIN 9.1 g/dL (11.5-16.0); LYMPHOCYTES # (AUTO) 1.1 10^3/uL (1.0-4.0); LYMPHOCYTES % (AUTO) 13 % (12-44); MEAN CORPUSCULAR HEMOGLOBIN 29 pg (25-34); MEAN CORPUSCULAR HGB CONC 31 g/dL (32-36); MEAN CORPUSCULAR VOLUME 92 fL (80-99); MONOCYTES # (AUTO) 0.7 10^3/uL (0.0-1.0); MONOCYTES % (AUTO) 8 % (0-12); NEUTROPHILS # (AUTO) 6.6 10^3/uL (1.8-7.8); NEUTROPHILS % (AUTO) 75 % (42-75); PLATELET COUNT 232 10^3/uL (130-400); WHITE BLOOD COUNT 8.8 10^3/uL (4.3-11.0)
[2022-06-21 14:56] LABS: ALBUMIN 3.2 GM/DL (3.2-4.5); BILIRUBIN,TOTAL 0.3 MG/DL (0.1-1.0); CALCIUM 9.2 MG/DL (8.5-10.1); CREATININE SERUM 0.71 MG/DL (0.60-1.30); POTASSIUM 3.9 MMOL/L (3.6-5.0); TOTAL PROTEIN 7.7 GM/DL (6.4-8.2)
== END ==
LOC: SDC 14:00
PROVIDERS: ATTEND Family Medicine
DX: D64.9 Anemia, unspecified (principal)
CPT/HCPCS: 36415; 36591; 80053; 85025

== ENCOUNTER → 2022-07-27 | Outpatient (CLI) | payer MEDICARE ==
[~2022-07-27] MED LIST changes: +HEParin (CENTRAL IV FLUSH) 500 UNIT/5 ML SYR ONE
[2022-07-27 13:20] VITALS: BP 115/53
[2022-07-27 14:17] LABS: BASOPHILS % (AUTO) 1 % (0-10); EOSINOPHILS # (AUTO) 0.3 10^3/uL (0.0-0.3); EOSINOPHILS % (AUTO) 6 % (0-10); HEMATOCRIT 30 % (35-52); HEMOGLOBIN 9.1 g/dL (11.5-16.0); LYMPHOCYTES # (AUTO) 1.1 10^3/uL (1.0-4.0); LYMPHOCYTES % (AUTO) 17 % (12-44); MEAN CORPUSCULAR HEMOGLOBIN 28 pg (25-34); MEAN CORPUSCULAR HGB CONC 30 g/dL (32-36); MEAN CORPUSCULAR VOLUME 93 fL (80-99); MEAN PLATELET VOLUME 9.9 fL (9.0-12.2); MONOCYTES # (AUTO) 0.6 10^3/uL (0.0-1.0); MONOCYTES % (AUTO) 10 % (0-12); NEUTROPHILS # (AUTO) 4.1 10^3/uL (1.8-7.8); NEUTROPHILS % (AUTO) 66 % (42-75); PLATELET COUNT 226 10^3/uL (130-400); WHITE BLOOD COUNT 6.2 10^3/uL (4.3-11.0)
[2022-07-27 14:46] LABS: ALBUMIN 3.2 GM/DL (3.2-4.5)
[2022-07-27 14:47] LABS: POTASSIUM 4.6 MMOL/L (3.6-5.0)
[2022-07-27 14:48] LABS: CALCIUM 9.2 MG/DL (8.5-10.1)
[2022-07-27 14:49] LABS: TOTAL PROTEIN 7.9 GM/DL (6.4-8.2)
[2022-07-27 14:51] LABS: BILIRUBIN,TOTAL 0.3 MG/DL (0.1-1.0)
[2022-07-27 14:53] LABS: CREATININE SERUM 0.86 MG/DL (0.60-1.30)
== END ==
LOC: SDC 13:20
PROVIDERS: ATTEND Family Medicine
DX: D50.9 Iron deficiency anemia, unspecified (principal)
CPT/HCPCS: 36415; 36591; 80053; 82728; 83540; 83550; 85025

== ENCOUNTER 2022-08-24 13:06 | Outpatient (CLI) | payer MEDICARE ==
[~2022-08-24] VITALS: Wt 121.1 kg
[~2022-08-24 13:06] MED LIST changes: -HEParin (CENTRAL IV FLUSH) 500 UNIT/5 ML SYR ONE
[2022-08-24 13:10] VITALS: BP 122/99
[2022-08-24 13:55] LABS: AMPHETAMINE SCREEN, URINE NEGATIVE (NEGATIVE); BARBITURATE SCREEN URINE POSITIVE (NEGATIVE); BENZODIAZEPINES SCREEN URINE NEGATIVE (NEGATIVE); CANNABINOID SCREEN, URINE NEGATIVE (NEGATIVE); COCAINE SCREEN URINE NEGATIVE (NEGATIVE); METHADONE STAT NEGATIVE (NEGATIVE); OPIATE SCREEN URINE NEGATIVE (NEGATIVE); OXYCODONE STAT NEGATIVE (NEGATIVE); PROPOXYPHENE STAT NEGATIVE (NEGATIVE); TRICYCLIC ANTIDEPRESSANTS SCRE NEGATIVE (NEGATIVE)
== END 2022-08-24 13:45 | disposition home or self-care (01) ==
LOC: SDC 13:06
PROVIDERS: ATTEND Emergency Medicine
DX: E16.2 Hypoglycemia, unspecified (principal); F10.10 Alcohol abuse, uncomplicated
CPT/HCPCS: 36415; 36591; 80306; 83036

== ENCOUNTER → 2022-10-02 | Outpatient (CLI) | payer MEDICARE ==
[~2022-10-02] VITALS: Ht 170 cm; Wt 121.1 kg
[~2022-10-02] MED LIST changes: +HEParin (CENTRAL IV FLUSH) 500 UNIT/5 ML SYR IV PRN; +HEParin (CENTRAL IV FLUSH) 500 UNIT/5 ML SYR ONE; +SENN-271 PO; -SENN1TAB76 PO
[2022-10-02 12:40] VITALS: BP 102/73
== END ==
LOC: SDC 12:19
PROVIDERS: ATTEND Family Medicine
DX: Z45.2 Encounter for adjustment and management of vascular access device (principal)
CPT/HCPCS: 96523

== ENCOUNTER → 2022-11-08 | Outpatient (CLI) | payer MEDICARE ==
[~2022-11-08] VITALS: Ht 170 cm; Wt 121.1 kg
[2022-11-08 12:50] VITALS: BP 140/82
== END ==
LOC: SDC 12:31
PROVIDERS: ATTEND Family Medicine
DX: Z45.2 Encounter for adjustment and management of vascular access device (principal)
CPT/HCPCS: 36591

== ENCOUNTER → 2022-11-08 | Outpatient (CLI) | payer MEDICARE ==
[~2022-11-08] MED LIST changes: -HEParin (CENTRAL IV FLUSH) 500 UNIT/5 ML SYR IV PRN; -HEParin (CENTRAL IV FLUSH) 500 UNIT/5 ML SYR ONE
[2022-11-08 12:55] LABS: HEMATOCRIT 32 % (35-52); HEMOGLOBIN 9.8 g/dL (11.5-16.0); MEAN CORPUSCULAR HEMOGLOBIN 28 pg (25-34); MEAN CORPUSCULAR HGB CONC 30 g/dL (32-36); MEAN CORPUSCULAR VOLUME 94 fL (80-99); MEAN PLATELET VOLUME 9.5 fL (9.0-12.2); PLATELET COUNT 214 10^3/uL (130-400); WHITE BLOOD COUNT 6.7 10^3/uL (4.3-11.0)
[2022-11-08 13:08] LABS: ALBUMIN 3.7 GM/DL (3.2-4.5); POTASSIUM 4.3 MMOL/L (3.6-5.0)
[2022-11-08 13:09] LABS: CALCIUM 9.5 MG/DL (8.5-10.1)
[2022-11-08 13:10] LABS: TOTAL PROTEIN 8.2 GM/DL (6.4-8.2)
[2022-11-08 13:12] LABS: BILIRUBIN,TOTAL 0.5 MG/DL (0.1-1.0)
[2022-11-08 13:14] LABS: CREATININE SERUM 0.77 MG/DL (0.60-1.30)
== END ==
LOC: SDC 12:13
PROVIDERS: ATTEND Internal Medicine Critical Care Medicine
DX: D64.9 Anemia, unspecified (principal); I27.20 Pulmonary hypertension, unspecified; E11.9 Type 2 diabetes mellitus without complications; I10 Essential (primary) hypertension
CPT/HCPCS: 36415; 80053; 85027

== ENCOUNTER → 2022-11-08 | Outpatient (CLI) | payer MEDICARE | LOC: SDC 12:15 | PROVIDERS: ATTEND Emergency Medicine | DX: F11.10 Opioid abuse, uncomplicated (principal); Z79.899 Other long term (current) drug therapy ==

== ENCOUNTER → 2022-12-14 | Outpatient (CLI) | payer MEDICARE ==
[~2022-12-14] MED LIST changes: +HEParin (CENTRAL IV FLUSH) 500 UNIT/5 ML SYR IV ONE; +HEParin (CENTRAL IV FLUSH) 500 UNIT/5 ML SYR ONE
[2022-12-14 12:22] VITALS: BP 136/72
== END ==
LOC: SDC 12:11
PROVIDERS: ATTEND Family Medicine
DX: Z95.9 Presence of cardiac and vascular implant and graft, unspecified (principal)
CPT/HCPCS: 96523

== ENCOUNTER 2023-01-16 12:16 | Outpatient (CLI) | payer MEDICARE ==
[~2023-01-16 12:16] MED LIST changes: -HEParin (CENTRAL IV FLUSH) 500 UNIT/5 ML SYR IV ONE; -HEParin (CENTRAL IV FLUSH) 500 UNIT/5 ML SYR ONE
[2023-01-16] MEDS ORDERED: HEParin (CENTRAL IV FLUSH) 500 UNIT/5 ML SYR ONE (12:23)
[2023-01-16 12:40] VITALS: BP 121/76
== END 2023-01-16 12:40 | disposition home or self-care (01) ==
LOC: SDC 12:16
PROVIDERS: ATTEND Family Medicine
DX: Z45.2 Encounter for adjustment and management of vascular access device (principal)
CPT/HCPCS: 96523

== ENCOUNTER → 2023-02-28 | Outpatient (CLI) | payer MEDICARE ==
[~2023-02-28] VITALS: Wt 121.1 kg
[~2023-02-28] MED LIST changes: +HEParin (CENTRAL IV FLUSH) 500 UNIT/5 ML SYR IV ONE; +HEParin (CENTRAL IV FLUSH) 500 UNIT/5 ML SYR IV SCH; +HEParin (CENTRAL IV FLUSH) 500 UNIT/5 ML SYR ONE
[2023-02-28 13:50] VITALS: BP 122/63
== END ==
LOC: SDC 13:08
PROVIDERS: ATTEND Family Medicine
DX: Z45.2 Encounter for adjustment and management of vascular access device (principal)
CPT/HCPCS: 96523

== ENCOUNTER → 2023-04-04 | Outpatient (CLI) | payer MEDICARE ==
[~2023-04-04] MED LIST changes: -HEParin (CENTRAL IV FLUSH) 500 UNIT/5 ML SYR IV SCH
[2023-04-04 13:28] VITALS: BP 111/78
[2023-04-04 14:06] LABS: BASOPHILS % (AUTO) 0 % (0-10); EOSINOPHILS # (AUTO) 0.2 10^3/uL (0.0-0.3); EOSINOPHILS % (AUTO) 3 % (0-10); HEMATOCRIT 32 % (35-52); HEMOGLOBIN 9.6 g/dL (11.5-16.0); LYMPHOCYTES # (AUTO) 0.8 10^3/uL (1.0-4.0); LYMPHOCYTES % (AUTO) 15 % (12-44); MEAN CORPUSCULAR HEMOGLOBIN 29 pg (25-34); MEAN CORPUSCULAR HGB CONC 30 g/dL (32-36); MEAN CORPUSCULAR VOLUME 96 fL (80-99); MEAN PLATELET VOLUME 9.6 fL (9.0-12.2); MONOCYTES # (AUTO) 0.4 10^3/uL (0.0-1.0); MONOCYTES % (AUTO) 8 % (0-12); NEUTROPHILS % (AUTO) 74 % (42-75); PLATELET COUNT 142 10^3/uL (130-400); WHITE BLOOD COUNT 5.4 10^3/uL (4.3-11.0)
[2023-04-04 14:27] LABS: ALBUMIN 3.6 GM/DL (3.2-4.5); BILIRUBIN,TOTAL 0.6 MG/DL (0.1-1.0); CALCIUM 9.1 MG/DL (8.5-10.1); CREATININE SERUM 0.92 MG/DL (0.60-1.30); POTASSIUM 4.3 MMOL/L (3.6-5.0); TOTAL PROTEIN 7.9 GM/DL (6.4-8.2); URIC ACID 3.2 MG/DL (2.6-7.2)
== END ==
LOC: SDC 13:08
PROVIDERS: ATTEND Family Medicine
DX: M10.9 Gout, unspecified (principal); I10 Essential (primary) hypertension; E55.9 Vitamin D deficiency, unspecified; D50.8 Other iron deficiency anemias; Z79.899 Other long term (current) drug therapy
CPT/HCPCS: 36415; 36591; 80053; 80061; 82728; 83540; 83550; 84550; 85025

== ENCOUNTER → 2023-05-09 | Outpatient (CLI) | payer MEDICARE ==
[~2023-05-09] VITALS: Wt 121.1 kg
[2023-05-09 13:00] VITALS: BP 112/70
== END ==
LOC: SDC 12:48
PROVIDERS: ATTEND Family Medicine
DX: Z45.2 Encounter for adjustment and management of vascular access device (principal)
CPT/HCPCS: 96523